=== PATIENT | female | born 1950 | race Caucasian/White ===

== ENCOUNTER 2017-05-27 19:27 | Inpatient (IN) | payer MEDICARE ==
[~2017-05-27] VITALS: Ht 165.1 cm; Wt 93.0 kg
[~2017-05-27 19:27] MED LIST: CEPH500C3 PO; SULF-154 PO; TRAM50 PO; Z.0.NO CURRENT MEDS
[2017-05-27 19:42] VITALS: BP 208/107; PULSE 101; RESP 18; TEMP 98.2; O2SAT 90
--- NOTE | 2017-05-27 20:26 | PD ---
HPI Chief Complaint: Fall Time Seen by Provider: 20:16 Travel History International Travel<30 days: No Contact w/Intl Traveler<30days: No Traveled to known affect area: No History of Present Illness HPI 67 year-old female presents to the emergency department by private transportation the care of her son for evaluation of injury sustained status post a non-syncopal trip and fall down 6 stairs earlier today. Patient states she was going down a flight of stairs approximately 13 steps about midway down lost her balance and fell 4. Patient states she did hit her head against the railing bruising her face and nose without epistaxis. Patient also states that she was dazed but is unsure if she had loss of consciousness she does not believe so. Son states that she deputy seemed dazed but he is not sure that she had loss of consciousness. Patient denies any neck pain. Patient denies any chest pain abdominal pain or back pain. Patient does complain of left hip and pelvis pain as well as left ankle pain with distal lower leg superficial abrasion. Patient states her last tetanus immunization was greater than 5 years ago. Patient is not diabetic. Patient states she has not seen a primary care physician in greater than 4 years and used to be treated for dyslipidemia and hypertension. Patient denies any upper extremity or lower extremity numbness tingling or weakness. The patient should rates her pain 10 over 10 in intensity with attempted ambulation but at rest is 5/10 in intensity. Patient states injury occurred approximately 2:30 PM today however due to logistics of family resources was unable to get to the emergency room prior to this time. Patient has had a dose of BC powder for pain. Patient takes no prescription medications, denies taking any other medications denies alcohol use tobacco use or substance use. Last oral intake was approximately 5:30 but due to poor appetite did not eat or drink very much food or beverage. Denies other concerns or complaints. No recent febrile illness respiratory illness no chest pain no shortness of breath no sweats no nausea no vomiting no abdominal pain no flank pain no referred neck jaw back shoulder or arm pain. Patient's had no recent dysuria or urgency. Patient has noted urinary frequency and some stress incontinence. Patient's had no change in weight. Patient's had noted abdominal pain or diarrheal illness. No report of hematemesis coffee-ground emesis melena hematochezia. Prior to today's fall patient's had no dizziness near syncope syncope or lower extremity pain or swelling and no dyspnea at rest or on exertion and no claudication. [facility] Past Medical History Narrative Medical Hypertension dyslipidemia; no surgery; no tobacco use no alcohol use no substance use; nursing notes reviewed Diminished Hearing: No Hypertension: Yes Influenza Vaccination: Yes ?: Not Menopausal: Yes Past Surgical History Surgical History: No Previous Surgery Social History Alcohol Use: No Tobacco Use: No Substance Use: No Allergies-Medications (Allergen,Severity, Reaction): Coded Allergies: No Known Allergies (Verified , 05/27/17) Reported Meds & Prescriptions Reported Meds & Active Scripts Active Review of Systems Except as stated in HPI: all other systems reviewed are Neg General / Constitutional: No: Fever, Chills Eyes: No: Visual changes HENT: No: Headaches, Neck Stiffness, Neck Pain Cardiovascular: No: Chest Pain or Discomfort, Palpitations, Diaphoresis, Syncope Respiratory: No: Cough, Shortness of Breath, Wheezing Gastrointestinal: No: Nausea, Vomiting, Abdominal Pain Genitourinary: No: Dysuria, Flank Pain Musculoskeletal: Positive: Myalgias, Arthralgias, Limited ROM (left hip/ankle) , Pain (left hip left ankle) Skin: Positive Other (abrasion left lower leg) Neurologic: No: Weakness, Dizziness, Syncope, Focal Abnormalities, Coordination Problem Psychiatric: No: Anxiety Endocrine: No: Heat Intolerance Hematologic/Lymphatic: No: Easy Bruising Physical Exam Narrative GENERAL: Well-developed well-nourished female in no acute distress no respiratory distress; GCS is 15; triage vital signs: T:98.2F, HR: 101, RR: 18, BP: 208/107; RA O2sat: 90% SKIN: Warm and dry. HEAD: Atraumatic. Normocephalic. EYES: Pupils equal and round. No scleral icterus. No injection or drainage. ENT: No nasal bleeding or discharge. Mucous membranes pink and moist. NECK: Trachea midline. No JVD. CARDIOVASCULAR: Regular rate and rhythm. Chest wall: Nontender to direct palpation no ecchymosis no abrasion no erythema. RESPIRATORY: No accessory muscle use. Clear to auscultation. Breath sounds equal bilaterally. GASTROINTESTINAL: Abdomen soft, non-tender, nondistended. Hepatic and splenic margins not palpable. MUSCULOSKELETAL: Extremities without clubbing, cyanosis, or edema. No obvious deformities. NEUROLOGICAL: Awake and alert. No obvious cranial nerve deficits. Motor grossly within normal limits. Five out of 5 muscle strength in the arms and legs. Normal speech. PSYCHIATRIC: Appropriate mood and affect; insight and judgment normal. Data Data Last Documented VS Vital Signs Date Time Temp Pulse Resp B/P (MAP) Pulse Ox O2 Delivery O2 Flow Rate FiO2 05/27/17 22:06 96 Nasal Cannula 3.00 05/27/17 21:49 95 05/27/17 19:42 98.2 18 Orders Orders Basic Metabolic Panel (Bmp) (05/27/17 20:17) Complete Blood Count With Diff (05/27/17 20:17) Urinalysis - C+S If Indicated (05/27/17 20:17) Ct Brain W/O Iv Contrast(Rout) (05/27/17 20:17) Ct Cerv Spine W/O Contrast (05/27/17 20:17) Ct Facial Bones W/O Iv Cont (05/27/17 20:17) Iv Access Insert/Monitor (05/27/17 20:17) Ecg Monitoring (05/27/17 20:17) Oximetry (05/27/17 20:17) Hip, Uni(Ap&Lat) W Ap Pelvis (05/27/17 ) Ankle, Complete ([id number]) (05/27/17 ) Ice/Cold Pack (05/27/17 20:17) Tetanus/Diphtheria Tox Adult (Tetanus/Di (05/27/17 20:30) Wound Care (05/27/17 20:17) Ondansetron Inj (Zofran Inj) (05/27/17 20:30) Morphine Inj (Morphine Inj) (05/27/17 20:30) Drug Screen, Random Urine (05/27/17 20:30) Protein Corrected Calcium(Pcc) (05/27/17 20:01) Electrocardiogram (05/27/17 ) Chest, Single Ap (05/27/17 ) Act Partial Throm Time (Ptt) (05/27/17 21:03) Prothrombin Time / Inr (Pt) (05/27/17 21:03) Blood Culture (05/27/17 21:03) Lactic Acid (05/27/17 21:03) Sodium Chlor 0.9% 1000 Ml Inj (Ns 1000 M (05/27/17 21:15) Magnesium (Mg) (05/27/17 21:13) Potassium Chlor 10 Meq Premix (Kcl 10 Me (05/27/17 21:15) Potassium Chloride (Kcl) (05/27/17 21:15) Troponin I (05/27/17 21:13) Thyroid Stimulating Hormone (05/27/17 21:13) Cath For Specimen (05/27/17 21:35) Ketorolac Inj (Toradol Inj) (05/27/17 21:45) Clonidine (Catapres) (05/27/17 22:15) Ckmb (Isoenzyme) Profile (05/27/17 22:01) Aspirin Chew (Aspirin Chew) (05/27/17 22:15) Nitroglycerin 2% Oint (Nitroglycerin 2% (05/27/17 22:15) Free T3 (05/27/17 22:15) Free Thyroxine (T4) (05/27/17 22:15) Vital Signs (Adult) Q4H (05/27/17 22:24) Activity Oob With Assistance (05/27/17 22:24) Impregnating Machine Operator / Telemetry .CONTINUOUS (05/27/17 22:24) Diet Heart Healthy (05/28/17 Breakfast) Sodium Chloride 0.9% Flush (Ns Flush) (05/27/17 22:30) Sodium Chloride 0.9% Flush (Ns Flush) (05/28/17 09:00) Basic Metabolic Panel (Bmp) (05/28/17 06:00) Complete Blood Count With Diff (05/28/17 06:00) Resp Oxygen Santino C Titrat 1-4 L (05/27/17 ) Pt Request For Service (05/27/17 22:24) Case Management Consult (05/27/17 22:24) Naloxone Inj (Narcan Inj) (05/27/17 22:30) Admit To Inpatient (05/27/17 ) Inpatient Certification (05/27/17 ) D-Dimer (05/27/17 22:29) Admit Order (Ed Use Only) (05/27/17 ) ^ Saline Lock (05/27/17 22:31) Resp Oxygen Santino C Titrat 1-4 L (05/27/17 ) Notify Dr: Other (05/27/17 22:31) Sodium Chloride 0.9% Flush (Ns Flush) (05/28/17 09:00) Sodium Chloride 0.9% Flush (Ns Flush) (05/27/17 22:45) Ns + Kcl 40 Meq Inj (Ns + Kcl 40 Meq Inj (05/27/17 22:45) CKMB (05/27/17 22:31) CKMB% (05/27/17 22:31) Labs Laboratory Tests Test 05/27/17 20:01 05/27/17 21:50 05/27/17 22:31 White Blood Count 21.4 TH/MM3 Red Blood Count 5.66 MIL/MM3 Hemoglobin 12.2 GM/DL Hematocrit 40.3 % Mean Corpuscular Volume 71.2 FL Mean Corpuscular Hemoglobin 21.6 PG Mean Corpuscular Hemoglobin Concent 30.3 % Red Cell Distribution Width 19.3 % Platelet Count 126 TH/MM3 Mean Platelet Volume 9.6 FL Neutrophils (%) (Auto) 88.6 % Lymphocytes (%) (Auto) 3.6 % Monocytes (%) (Auto) 7.0 % Eosinophils (%) (Auto) 0.0 % Basophils (%) (Auto) 0.8 % Neutrophils # (Auto) 18.9 TH/MM3 Lymphocytes # (Auto) 0.8 TH/MM3 Monocytes # (Auto) 1.5 TH/MM3 Eosinophils # (Auto) 0.0 TH/MM3 Basophils # (Auto) 0.2 TH/MM3 CBC Comment AUTO DIFF Differential Comment AUTO DIFF CONFIRMED Platelet Estimate LOW Platelet Morphology Comment NORMAL Prothrombin Time 11.4 SEC Prothromb Time International Ratio 1.0 RATIO Activated Partial Thromboplast Time 23.0 SEC Blood Urea Nitrogen 34 MG/DL Creatinine 1.20 MG/DL Random Glucose 211 MG/DL Total Protein 7.1 GM/DL Calcium Level 13.6 MG/DL Sodium Level 140 MEQ/L Potassium Level 2.0 MEQ/L Chloride Level 87 MEQ/L Carbon Dioxide Level 44.7 MEQ/L Anion Gap 8 MEQ/L Estimat Glomerular Filtration Rate 45 ML/MIN Protein Corrected Calcium 13.7 MG/DL Magnesium Level 2.6 MG/DL Troponin I 0.35 NG/ML Thyroid Stimulating Hormone 3rd Gen LESS THAN 0.005 uIU/ML Lactic Acid Level 3.7 mmol/L Total Creatine Kinase 241 U/L Creatine Kinase MB 9.6 NG/ML Creatine Kinase MB % 4.0 % MDM Medical Decision Making Medical Screen Exam Complete: Yes Emergency Medical Condition: Yes Medical Record Reviewed: Yes Interpretation(s) EKG: Sinus tachycardia rate [address]-T changes with mild ST segment depression and 1 V3 through V6 with no acute ST elevation or injury pattern change noted no ectopy coags: wnl d-dimer: 0.85, mildly elevated TSH: 0.005, depressed lactic acid: 3.7 elevated Last Impressions Maxillofacial CT 05/27/172016 Signed Impressions: Service Date/Time: May 20:34 - CONCLUSION: 1. No maxillofacial fracture is present. 2. There is bilateral maxillary mucoperiosteal thickening with 12 mm polypoid structure extending from the left maxillary antrum into the left posterior nasal cavity. 3. There is a 14 mm left parotid gland nodule. Differential diagnosis includes intraparotid lymph node or pleomorphic adenoma. Kane Bartlett MD Head CT 05/27/172016 Signed Impressions: Service Date/Time: May 20:34 - CONCLUSION: No acute abnormality is identified. Kane Bartlett MD Cervical Spine CT 05/27/172016 Signed Impressions: Service Date/Time: May 20:34 - CONCLUSION: 1. No acute cervical spine abnormality is identified. There is degenerative disc disease at C5-C6. 2. There is a 4.1 cm right thyroid nodule. If this is a new finding, suggest nonemergent outpatient ultrasound of the thyroid gland for further evaluation. 3. Abnormal linear and nodular parenchymal opacities in the upper lobes bilaterally. Since this does not pertain to the patient's acute problem, this finding should also be further evaluated with outpatient chest CT with IV contrast. Also suggest correlating with any prior outside imaging studies. Kane Bartlett MD Hip and Pelvis X-Ray 05/27/17 0000 Signed Impressions: Service Date/Time: May 20:49 - CONCLUSION: 1. A subtle lucency in the left pelvis may represent a nondisplaced left superior pubic ramus fracture. 2. Mild osteoarthritis of the joints bilaterally. Kane Bartlett MD Chest X-Ray 05/27/17 0000 Signed Impressions: Service Date/Time: May 21:27 - CONCLUSION: Diffuse nodular and reticular nodular opacities bilaterally. Etiology is nonspecific but metastatic disease is one consideration. Suggest correlation for any known primary malignancies. Sarcoidosis is another possibility but felt less likely given the distribution and lack of appreciable lymphadenopathy. Kane Bartlett MD Ankle X-Ray 05/27/17 0000 Signed Impressions: Service Date/Time: May 20:56 - CONCLUSION: No acute left ankle abnormality is identified. Kane Bartlett MD CBC & BMP Diagram 05/27/17 20:01 Total Protein 7.1, Calcium Level 13.6 *H Ma.6 elevated troponin I: 0.35, elevated; ck: 241, elevated; MB 9.6, elevated; MB% 4% upper limit of normal ua: White blood cells clumped white blood cells culture indicated Differential Diagnosis Mechanical fall, minor closed head injury, ICH, skull fracture, facial fracture , cervical spine sprain strain fracture injury, pelvic fracture hip fracture ankle fracture contusion hypertension uncontrolled hypertension Narrative Course Patient placed on monitor technician IV access obtained patient identified to have mild tachycardia and hypertension also noted to have low room air O2 saturation ; imaging studies ordered IV access ordered and basic labs CT brain noncontrast reveals no acute intracranial abnormality or skull fracture ; CT cervical spine reveals no acute bony abnormality fracture or cord impingement however does identify 4 cm right thyroid nodule/mass that appears to be new. Left ankle x-ray reveals no acute bony abnormality. Left hip/ pelvis x-ray reveals a nondisplaced suspicious fracture line to the superior pubic ramus on the left which is the same location of patient's pain therefore consistent with probable acute fracture. Patient identified to have leukocytosis of 21,000 with left shift 88% normal hemoglobin hematocrit but mild thrombocytopenia 126,000 as such blood cultures and lactic acid have been added to patient's laboratory work as well as urine specimen will be collected with mini catheter In view of CT cervical spine identifying some mild nodularity in the upper apices of the lung chest x-ray ordered and is remarkable for multiple diffuse nodules and reticular nodule pattern concerning for metastatic disease no obvious primary malignancy on chest x-ray Metabolic panel remarkable for marked hypokalemia of 2.0 and hypocalcemia of 13.6 with mild elevation of magnesium of 2.6 patient with renal insufficiency BUN and creatinine 4 and 1.2 respectively with mild hyperglycemia of 211 Patient identified to have abnormal elevation of troponin I 0.35 patient denies having any chest pain shortness of breath sweats nausea vomiting referred neck jaw back shoulder arm pain and has not felt unwell recently until this afternoon after fall she's felt fatigued. Patient at this time denies any chest pain or shortness of breath. Patient is on supplemental oxygen and O2 saturations on 2 L per minute nasal cannula 96-98%. Patient also denies any pleuritic chest pain. Bicarbonate of 44 suggests probable COPD and will keep supplemental O2 at 2 L/m nasal cannula to avoid hypercarbia. CK isoenzyme ordered. Patient administered oral potassium replacement along with IV potassium replacement and IV fluid infusion. Patient presents for injuries associated with a non-syncopal or possibly brief syncopal episode status post fall imaging studies identified no acute traumatic injury except for appears to have a stable pelvic fracture. However patient identified to have abnormal vital signs and evaluation subsequent identifies multiple concerns suspicious for cardiovascular disease with history of hypertension and dyslipidemia and now with abnormal EKG with nonspecific ST-T changes with elevated troponin I concerning for acute coronary syndrome patient has received aspirin and has Nitropaste 1 inch to chest wall and primary malignancy with anesthetic disease and dehydration with electrolyte disturbance renal insufficiency. Patient also identified to have leukocytosis with elevated lactic acid concerning for SIRS/ sepsis focality otherwise source of infection however urinalysis pending. Patient also identified to have abnormal thyroid function concerning for hyperthyroidism free T4 and free T3 levels are pending. Patient will be admitted for further management and evaluation. Patient's case discussed with on-call medicine for admission; like patient to be admitted to intermediate care at [place] for electrolyte replacement follow-up of cardiac enzymes and pending thyroid studies. Wants patient admitted to Intermediate care aware of all diagnostics as discussed -- aware CK , thyroid free t4/t3 pending d-dimer pending UA pending -- report of abnormal electrolytes, elevated troponin I, renal function, imaging results, elevated WCC and elevated lactic discussed in detail. Per admitting MD plan to admit for IV fluid hydration, electrolyte replacement, serial enzymes and follow pending labs regarding possible starting antibiotics, further imaging, or heparinization. Critical Care Narrative Aggregate critical care time was 45 minutes. Time to perform other separately billable procedures was not included in the critical care time. My time did not include minutes spent treating any other patients simultaneously or on activities that did not directly contribute to the patient's treatment. The services I provided to this patient were to treat and/or prevent clinically significant deterioration that could result in: Arrhythmia, cardiopulmonary arrest, septic shock, I provided critical care services requiring my management, as noted below: Chart data review, documentation time, medication orders and management, vital sign assessments/reviewing monitor data, ordering and reviewing lab tests, ordering and interpreting/reviewing x-rays and diagnostic studies, care of the patient and discussion of the patient with the admitting physicians. Sepsis Criteria SIRS Criteria (2 or more): WBC > 08982, < 4000 or > 10% bands Physician Communication Physician Communication discused with Dr Wilder --admit to [facility] intermediate care unit Diagnosis Primary Impression: Electrolyte disorder Additional Impressions: Elevated troponin I level Closed fracture of single pubic ramus of pelvis Qualified Codes: S32.592A - Other specified fracture of left pubis, initial encounter for closed fracture Admitting Information Admitting Physician Requests: Admit Ayana Rice MD May 27, 2017 20:26
[2017-05-27] MEDS ORDERED: MORPHINE SULFATE 4 MG/ML INJ IV PUSH ONE (20:30)
[2017-05-27] MEDS ORDERED: ONDANSETRON HCL 4 MG/2 ML VIAL IV PUSH ONE (20:30)
[2017-05-27] MEDS ORDERED: TETANUS/DIPHTHERIA TOXOID ADULT 0.5 ML VIAL IM ONE (20:30)
[2017-05-27] MEDS ORDERED: MORPHINE SULFATE 8 MG/ML INJ IV PUSH ONE (20:30)
[2017-05-27 20:48] LABS: AUTOMATED NEUTROPHIL # 18.9 TH/MM3 (1.8-7.7); BASOPHIL # 0.2 TH/MM3 (0-0.2); BASOPHIL % 0.8 % (0.0-2.0); HEMATOCRIT 40.3 % (35.0-46.0); LYMPH % 3.6 % (9.0-44.0); LYMPHOCYTE # 0.8 TH/MM3 (1.0-4.8); MEAN CELL VOLUME 71.2 FL (80.0-100.0); MEAN CORPUSCULAR HEMOGLOBIN 21.6 PG (27.0-34.0); MEAN CORPUSCULAR HGB CONC 30.3 % (32.0-36.0); NEUT % 88.6 % (16.0-70.0); PLATELET COUNT 126 TH/MM3 (150-450); RED BLOOD COUNT 5.66 MIL/MM3 (4.00-5.30); RED CELL DISTRIBUTION WIDTH 19.3 % (11.6-17.2); WHITE BLOOD COUNT 21.4 TH/MM3 (4.0-11.0)
--- NOTE | 2017-05-27 20:55 | RADRPT ---
EXAM DATE/TIME: 05/27/2017 20:34 [facility] COMPARISON: No previous studies available for comparison. INDICATIONS : Status post fall. RADIATION DOSE: 59.64 CTDIvol (mGy) MEDICAL HISTORY : None SURGICAL HISTORY : None. ENCOUNTER: Initial ACUITY: 1 day PAIN SCALE: 8/10 LOCATION: cranial TECHNIQUE: Multiple contiguous axial images were obtained of the head. Using automated exposure control and adj ustment of the mA and/or kV according to patient size, radiation dose was kept as low as reasonably a chievable to obtain optimal diagnostic quality images. DICOM format image data is available electro nically for review and comparison. FINDINGS: CEREBRUM: The ventricles are normal for age. No evidence of midline shift, mass lesion, hemorrhage or acute in farction. No extra-axial fluid collections are seen. POSTERIOR FOSSA: The cerebellum and brainstem are intact. The 4th ventricle is midline. The cerebellopontine angle i s unremarkable. EXTRACRANIAL: The visualized portion of the orbits is intact. SKULL: The calvaria is intact. No evidence of skull fracture. CONCLUSION: No acute abnormality is identified. Kane Bartlett MD on May 27, 2017 at 20:52 Board Certified Radiologist. This report was verified electronically.
[2017-05-27 20:56] LABS: BICARBONATE 44.7 MEQ/L (21.0-32.0); HEMO FLAGS AUTO DIFF
[2017-05-27 21:07] LABS: PLATELET ESTIMATE SMEAR LOW (NORMAL); PLATELET MORPHOLOGY NORMAL (NORMAL); SCAN/DIFF AUTO DIFF CONFIRMED
--- NOTE | 2017-05-27 21:11 | RADRPT ---
EXAM DATE/TIME: 05/27/2017 20:34 [facility] COMPARISON: No previous studies available for comparison. INDICATIONS : Status post fall. Neck pain. RADIATION DOSE: 26.40 CTDIvol (mGy) MEDICAL HISTORY : None SURGICAL HISTORY : None. ENCOUNTER: Initial ACUITY: 1 day PAIN SCALE: 8/10 LOCATION: neck TECHNIQUE: Volumetric scanning of the cervical spine was performed. Multiplanar reconstructions in the sagittal, coronal and oblique axial planes were performed. Using automated exposure control and adjustment o f the mA and/or kV according to patient size, radiation dose was kept as low as reasonably achievable to obtain optimal diagnostic quality images. DICOM format image data is available electronically f or review and comparison. FINDINGS: There is normal sagittal spine alignment of the cervical spine. No anterolisthesis or retrolisthesis is present. The atlantoaxial relationship is within normal limits. There is no prevertebral soft tiss ue swelling present. No fracture or dislocation is identified. No disc herniation is visualized in th e upper cervical spine. There is degenerative disc disease at C5-C6 and right facet arthrosis at C2-C 3 and C3-C4 and left facet arthrosis at C3-C4 and C4-C5. There is an enlarged right lobe of the thyroid gland containing a 4.1 cm hypodense nodule. There is c alcification in the left lobe. There is a nodular and a linear parenchymal opacities in the visualize d upper lung zones bilaterally. CONCLUSION: 1. No acute cervical spine abnormality is identified. There is degenerative disc disease at C5-C6. 2. There is a 4.1 cm right thyroid nodule. If this is a new finding, suggest nonemergent outpatient u ltrasound of the thyroid gland for further evaluation. 3. Abnormal linear and nodular parenchymal opacities in the upper lobes bilaterally. Since this does not pertain to the patient's acute problem, this finding should also be further evaluated with outpat ient chest CT with IV contrast. Also suggest correlating with any prior outside imaging studies. Kane Bartlett MD on May 27, 2017 at 21:05 Board Certified Radiologist. This report was verified electronically.
[2017-05-27] MEDS ORDERED: SODIUM CHLOR 0.9% 1000 ML INJ 1,000 ML IV SCH (21:15)
[2017-05-27] MEDS ORDERED: POTASSIUM CHLORIDE 20 MEQ CONTROLLED RELEASE TAB PO ONE ×2 (21:15→22:45)
--- NOTE | 2017-05-27 21:15 | RADRPT ---
EXAM DATE/TIME: 05/27/2017 20:34 [facility] COMPARISON: No previous studies available for comparison. INDICATIONS : Status post fall. Bruise left cheekbone. RADIATION DOSE: 25.48 CTDIvol (mGy) MEDICAL HISTORY : None SURGICAL HISTORY : None. ENCOUNTER: Initial ACUITY: 1 day PAIN SCORE: 8/10 LOCATION: Left facial TECHNIQUE: Volumetric scanning of the facial bones was performed. Using automated exposure control and adjustme nt of the mA and/or kV according to patient size, radiation dose was kept as low as reasonably achiev able to obtain optimal diagnostic quality images. DICOM format image data is available electronicall y for review and comparison. FINDINGS: ORBITS: The orbital structures are intact. The retroconal structures have a normal configuration. No radiop aque foreign bodies are seen. The lenses are normally located. NASAL BONE: The nasal bones and maxillary spine are intact. ZYGOMATIC ARCHES: Symmetric without evidence of fracture. SINUSES: There is mucoperiosteal thickening within the maxillary antra bilaterally. There is a 12 mm polypoid structure in the left posterior nasopharynx appears to extend from the left maxillary antrum. NASAL CAVITY: The nasal septum is intact and slightly deviated to the right. The lacrimal ducts are intact. SOFT TISSUES: No radiopaque foreign bodies seen. No soft-tissue swelling is seen. There is a left intraparotid nod ule measuring 14 mm. INTRACRANIAL: No acute intracranial abnormality is seen. OTHER: The mandible and pterygoid plates are intact. CONCLUSION: 1. No maxillofacial fracture is present. 2. There is bilateral maxillary mucoperiosteal thickening with 12 mm polypoid structure extending fro m the left maxillary antrum into the left posterior nasal cavity. 3. There is a 14 mm left parotid gland nodule. Differential diagnosis includes intraparotid lymph nod e or pleomorphic adenoma. Kane Bartlett MD on May 27, 2017 at 21:10 Board Certified Radiologist. This report was verified electronically.
--- NOTE | 2017-05-27 21:21 | RADRPT ---
EXAM DATE/TIME: 05/27/2017 20:49 [facility] COMPARISON: No previous studies available for comparison. INDICATIONS : Fall, complains of left hip pain. MEDICAL HISTORY : None. SURGICAL HISTORY : None. ENCOUNTER: Initial ACUITY: 1 day PAIN SCORE: 10/10 LOCATION: Left hip FINDINGS: 2 AP views of the pelvis demonstrate a subtle lucency through the lateral aspect of the left superior pubic ramus. Otherwise, no other fracture is seen. Proximal femora appear intact. There is mild join t space narrowing and osteophytes at the hip joints. No soft tissue abnormality is identified. CONCLUSION: 1. A subtle lucency in the left pelvis may represent a nondisplaced left superior pubic ramus fractur e. 2. Mild osteoarthritis of the joints bilaterally. Kane Bartlett MD on May 27, 2017 at 21:18 Board Certified Radiologist. This report was verified electronically.
--- NOTE | 2017-05-27 21:23 | RADRPT ---
EXAM DATE/TIME: 05/27/2017 20:56 [facility] COMPARISON: No previous studies available for comparison. INDICATIONS : Fall, complains of left ankle pain. MEDICAL HISTORY : None. SURGICAL HISTORY : None. ENCOUNTER: Initial ACUITY: 1 day PAIN SCORE: 10/10 LOCATION: Left ankle FINDINGS: 3 views the left ankle demonstrate no fracture or dislocation. Ankle mortise is intact. Mineralizatio n is within normal limits and there is no significant arthropathy. No soft tissue abnormality or radi opaque foreign body is identified. Enthesophyte is present at the plantar aspect of the calcaneus. CONCLUSION: No acute left ankle abnormality is identified. Kane Bartlett MD on May 27, 2017 at 21:20 Board Certified Radiologist. This report was verified electronically.
[2017-05-27 21:30] LABS: CALCIUM-PROTEIN CORRECTED 13.7 MG/DL (8.5-10.1)
[2017-05-27 21:43] LABS: MAGNESIUM 2.6 MG/DL (1.5-2.5)
[2017-05-27] MEDS ORDERED: KETOROLAC TROMETHAMINE 30 MG/ML (IVP) VIAL IV PUSH ONE (21:45)
--- NOTE | 2017-05-27 21:47 | RADRPT ---
EXAM DATE/TIME: 05/27/2017 21:27 [facility] COMPARISON: No previous studies available for comparison. INDICATIONS : Fall. MEDICAL HISTORY : None. SURGICAL HISTORY : None. ENCOUNTER: Initial ACUITY: 1 day PAIN SCORE: 8/10 LOCATION: Bilateral chest FINDINGS: Portable AP view of the chest demonstrates a normal-sized cardiac silhouette. There are innumerable a bnormal nodular 2 reticular nodular opacities bilaterally. These diffusely involved the lungs includi ng the upper and lower lung zones. There is no effusion or pneumothorax identified. Bones and soft ti ssues demonstrate no acute finding. CONCLUSION: Diffuse nodular and reticular nodular opacities bilaterally. Etiology is nonspecific but metastatic d isease is one consideration. Suggest correlation for any known primary malignancies. Sarcoidosis is a nother possibility but felt less likely given the distribution and lack of appreciable lymphadenopath yNova Bartlett MD on May 27, 2017 at 21:43 Board Certified Radiologist. This report was verified electronically.
[2017-05-27 21:49] VITALS: BP 205/101; PULSE 95; O2SAT 88
[2017-05-27 21:49] LABS: PROTHROMBIN TIME - PATIENT 11.4 SEC (9.8-11.6)
[2017-05-27] MEDS: POTASSIUM CHLOR 10 MEQ PREMIX 100 ML IV SCH ×2 (22:01→23:59)
[2017-05-27 22:06] VITALS: O2SAT 96
[2017-05-27] MEDS ORDERED: cloNIDine HCL 0.1 MG TAB PO ONE (22:15)
[2017-05-27] MEDS ORDERED: NITROGLYCERIN 2% OINT 1 GM PACKET TOPICAL ONE (22:15)
[2017-05-27] MEDS ORDERED: ASPIRIN 81 MG CHEW TAB CHEW ONE (22:15)
[2017-05-27] MEDS ORDERED: SODIUM CHLORIDE 0.9% FLUSH 10 ML FLUSH IV FLUSH PRN (22:30)
[2017-05-27] MEDS ORDERED: NALOXONE HCL 0.4 MG/ML AMP IV PRN (22:30)
[2017-05-27] MEDS ORDERED: SODIUM CHLORIDE 0.9% FLUSH 10 ML FLUSH IVF PRN (22:45)
[2017-05-27 22:57] VITALS: BP 216/107; PULSE 94; RESP 17; TEMP 98.4; O2SAT 98
[2017-05-27 23:08] LABS: BLOOD, URINE LARGE (NEG); GLUCOSE,URINE NEG (NEG); KETONE, URINE NEG (NEG); NITRITE,URINE NEG (NEG); PH, URINE 5.5 (5.0-8.5)
[2017-05-27] MEDS: cloNIDine HCL 0.1 MG TAB PO PRN (23:12)
[2017-05-27] MEDS: NS + KCL 40 MEQ INJ 1,000 ML IV SCH (23:12)
[2017-05-27 23:23] LABS: URINE COLOR YELLOW (YELLW/STRAW)
[2017-05-27 23:26] LABS: MUCUS URINE FEW /lpf (OCC); SQUAMOUS EPITHELIAL CELL URINE 0-5 /hpf (0-5)
[2017-05-27 23:27] LABS: COMMENT (UR) CULTURE INDICATED; CULTURE IF INDICATED CULTURE INDICATED
[2017-05-27] MEDS ORDERED: ACETAMINOPHEN/HYDROcodone 325 MG/5 MG TAB PO PRN (23:45)
[2017-05-27] MEDS: cefTRIAXone INJ 1,000 MG in SODIUM CHLORIDE 0.9% INJ 100 ML IV SCH (23:58)
[2017-05-28] VITALS (24 sets, daily range): BP systolic 149–215; BP diastolic 59–127; PULSE 70–94; RESP 14–32; TEMP 97.7–98.4; O2SAT 91–98
[2017-05-28 00:13] LABS: CKMB 9.6 NG/ML (0.5-3.6)
[2017-05-28] MEDS: POTASSIUM CHLOR 10 MEQ PREMIX 100 ML IV SCH (01:09)
[2017-05-28 01:15] LABS: FREE T3 3.04 PG/ML (2.18-3.98); FREE T4 1.61 NG/DL (0.76-1.46)
[2017-05-28] MEDS ORDERED: HEPARIN-D5W 25,000 U/250 ML 250 ML IV PRN (01:44)
[2017-05-28] MEDS ORDERED: HEPARIN SODIUM - IV 10,000 UNITS/10 ML VIAL IV ONE (01:45)
[2017-05-28] MEDS ORDERED: IOHEXOL 350 MG/ML 10 ML VIAL (for RAD DIAG) IVCONTRAST ONE ×2 (02:19→21:00)
--- NOTE | 2017-05-28 02:31 | RADRPT ---
EXAM DATE/TIME: 05/28/2017 02:01 [facility] COMPARISON: No previous studies available for comparison. INDICATIONS : Elevated D-Dimer. Rule out PE. IV CONTRAST: 75 cc Omnipaque 350 (iohexol) IV RADIATION DOSE: 24.16 CTDIvol (mGy) MEDICAL HISTORY : Hypertension. SURGICAL HISTORY : None. ENCOUNTER: Initial ACUITY: 1 day PAIN SCALE: 8/10 LOCATION: chest TECHNIQUE: Volumetric scanning of the chest was performed using a pulmonary embolism protocol MIP images were re constructed. Using automated exposure control and adjustment of the mA and/or kV according to patien t size, radiation dose was kept as low as reasonably achievable to obtain optimal diagnostic quality images. DICOM format image data is available electronically for review and comparison. Follow-up recommendations for detected pulmonary nodules are based at a minimum on nodule size and pa tient risk factors according to Fleischner Society Guidelines. FINDINGS: PULMONARY ARTERIES: No filling defects are seen in the pulmonary arteries through the segmental level. LUNGS: There are innumerable pulmonary nodules scattered throughout the lungs. Miliary metastatic disease wo uld be within the differential PLEURAE: There is no pleural thickening or pleural effusion. MEDIASTINUM: There is good visualization of the great vessels of the middle mediastinum. Solitary precarinal lymph node measuring 1.4 x 0.9 cm. MUSCULOSKELETAL: Within normal limits for patient age. MISCELLANEOUS: The visualized upper abdominal organs demonstrate no acute abnormality. There is a heterogeneous mass on the right side of thyroid in the lower neck I suspect is a large goiter measuring 4.4 x 3.4 cm. CONCLUSION: Large mass on the right side of the trachea could be an enlarged thyroid. Innumerable nodules scatte red throughout the lungs metastatic disease certainly within the differential. There are a number of nodules in the right lower lobe which would be amenable to CT-guided biopsy. Vince Galan MD on May 28, 2017 at 2:27 Board Certified Radiologist. This report was verified electronically.
[2017-05-28 05:31] LABS: BLOOD UREA NITROGEN 31 MG/DL (7-18); CHLORIDE 89 MEQ/L (98-107); CREATINE KINASE 137 U/L (26-192); GLOMERULAR FILTRATION RATE 57 ML/MIN (>89); SODIUM (NA) 139 MEQ/L (136-145)
[2017-05-28 05:37] LABS: ANION GAP 5 MEQ/L (5-15); BICARBONATE GREATER THAN 45.0 MEQ/L (21.0-32.0)
[2017-05-28 05:41] LABS: POTASSIUM 2.4 MEQ/L (3.5-5.1)
[2017-05-28 07:00] LABS: AUTOMATED NEUTROPHIL # 18.6 TH/MM3 (1.8-7.7); BASOPHIL % 0.1 % (0.0-2.0); EOSINOPHIL % 0.1 % (0.0-4.0); HEMATOCRIT 33.8 % (35.0-46.0); LYMPH % 3.9 % (9.0-44.0); LYMPHOCYTE # 0.8 TH/MM3 (1.0-4.8); MEAN CORPUSCULAR HEMOGLOBIN 23.1 PG (27.0-34.0); MEAN CORPUSCULAR HGB CONC 32.5 % (32.0-36.0); MONO % 6.3 % (0.0-8.0); NEUT % 89.6 % (16.0-70.0); PLATELET COUNT 112 TH/MM3 (150-450); RED BLOOD COUNT 4.76 MIL/MM3 (4.00-5.30); RED CELL DISTRIBUTION WIDTH 19.1 % (11.6-17.2); WHITE BLOOD COUNT 20.7 TH/MM3 (4.0-11.0)
[2017-05-28] MEDS: cloNIDine HCL 0.1 MG TAB PO PRN ×2 (07:05→22:08)
[2017-05-28 07:08] LABS: HEMO FLAGS AUTO DIFF
[2017-05-28 07:35] LABS: PLATELET ESTIMATE SMEAR LOW (NORMAL); PLATELET MORPHOLOGY NORMAL (NORMAL); SCAN/DIFF AUTO DIFF CONFIRMED
[2017-05-28 07:46] LABS: BLOOD UREA NITROGEN 31 MG/DL (7-18); CHLORIDE 98 MEQ/L (98-107); GLOMERULAR FILTRATION RATE 62 ML/MIN (>89); SODIUM (NA) 147 MEQ/L (136-145)
[2017-05-28 07:50] LABS: ANION GAP 4 MEQ/L (5-15); BICARBONATE GREATER THAN 45.0 MEQ/L (21.0-32.0)
[2017-05-28 07:53] LABS: POTASSIUM 2.6 MEQ/L (3.5-5.1)
[2017-05-28 08:59] LABS: APTT (PATIENT) 50.8 SEC (24.3-30.1)
[2017-05-28] MEDS ORDERED: SODIUM CHLORIDE 0.9% FLUSH 10 ML FLUSH IV FLUSH SCH ×2 (09:00)
[2017-05-28] MEDS ORDERED: POTASSIUM CHLORIDE 25 MEQ EFFERVESCENT TAB PO PRN (09:15)
[2017-05-28] MEDS ORDERED: LACTULOSE SYRUP 20 GM/30 ML CUP PO PRN (09:15)
[2017-05-28] MEDS ORDERED: POTASSIUM PHOSPHATE INJ 30 MMOL in SODIUM CHLOR 0.9% 250 ML INJ 250 ML IV PRN (09:15)
[2017-05-28] MEDS ORDERED: MAGNESIUM OXIDE 400 MG TAB PO PRN (09:15)
[2017-05-28] MEDS ORDERED: MAGNESIUM SULFATE INJ 2 GM in SODIUM CHLORIDE 0.9% INJ 96 ML IV PRN (09:15)
[2017-05-28] MEDS ORDERED: SENNOSIDES 8.6 MG TAB PO PRN (09:15)
[2017-05-28] MEDS ORDERED: SODIUM CHLORIDE 0.9% FLUSH 10 ML FLUSH IV FLUSH PRN (09:15)
[2017-05-28] MEDS ORDERED: BISACODYL 10 MG SUPP RECTAL PRN (09:15)
[2017-05-28] MEDS ORDERED: MAGNESIUM SULFATE INJ 4 GM in SODIUM CHLORIDE 0.9% INJ 92 ML IV PRN (09:15)
[2017-05-28] MEDS ORDERED: ACETAMINOPHEN 325 MG TAB PO PRN ×2 (09:15)
[2017-05-28] MEDS ORDERED: POTASSIUM PHOSPHATE MONOBASIC 500 MG TAB PO PRN (09:15)
[2017-05-28] MEDS ORDERED: POTASSIUM CHLOR 40 MEQ PREMIX 100 ML IV PRN ×2 (09:15)
[2017-05-28] MEDS ORDERED: SODIUM PHOSPHATE INJ 30 MMOL in SODIUM CHLOR 0.9% 250 ML INJ 240 ML IV PRN (09:15)
[2017-05-28] MEDS ORDERED: POTASSIUM PHOSPHATE MONOBASIC 500 MG TAB PO/TUBE PRN (09:15)
[2017-05-28] MEDS ORDERED: MAGNESIUM HYDROXIDE SUSP 30 ML CUP PO PRN (09:15)
[2017-05-28] MEDS ORDERED: ASPIRIN 81 MG CHEW TAB CHEW SCH (10:00)
[2017-05-28] MEDS: POTASSIUM CHLOR 20 MEQ PREMIX 100 ML IV SCH ×2 (10:17→14:36)
[2017-05-28] MEDS: NS + KCL 40 MEQ INJ 1,000 ML IV SCH ×2 (10:18→19:34)
--- NOTE | 2017-05-28 10:18 | RADRPT ---
EXAM DATE/TIME: 05/28/2017 09:50 [facility] COMPARISON: HIP LEFT (AP&LAT 2/3VWS) W AP PELVIS, May 27, 2017, 20:49. INDICATIONS : Trauma. Fell yesterday. Left hip pain. Abnormal x-ray. RADIATION DOSE: 13.39 CTDIvol (mGy) MEDICAL HISTORY : Hypertension. SURGICAL HISTORY : None. ENCOUNTER: Initial ACUITY: 1 day PAIN SCALE: 6/10 LOCATION: Left hip TECHNIQUE: Volumetric scanning of the hip was performed. Using automated exposure control and adjustment of the mA and/or kV according to patient size, radiation dose was kept as low as reasonably achievable to o btain optimal diagnostic quality images. DICOM format image data is available electronically for rev iew and comparison. FINDINGS: Acute nondisplaced fractures are seen involving the superior and inferior pubic rami on the left. Mod erate osteoarthritis is seen involving the left hip joint. Subchondral geode formation is seen involv ing the superior portion of the acetabulum. Osteophyte production noted. No joint effusion. The uterus is lobulated and enlarged suggesting multiple fibroids. Retroperitoneal adenopathy is obse rved as well as common iliac chain adenopathy. The largest lymph node is involve the left external il iac chain measuring 3.2 x 3.1 cm. CONCLUSION: 1. Acute nondisplaced superior and inferior pubic rami fractures on the left. 2. Retroperitoneal adenopathy worrisome for metastatic disease or myeloproliferative disorder. 3. Enlarged and lobulated uterus likely related to fibroids. Sushant Juares Jr., MD on May 28, 2017 at 10:12 Board Certified Radiologist. This report was verified electronically.
[2017-05-28] MEDS: PROPRANOLOL HCL 10 MG TAB PO SCH ×3 (10:19→19:35)
[2017-05-28] MEDS ORDERED: POTASSIUM CHLORIDE 20 MEQ CONTROLLED RELEASE TAB PO ONE (11:00)
--- NOTE | 2017-05-28 11:40 | EKG ---
Date Performed: 05/27/2017 Time Performed: 21:12:40 PTAGE: 67 years EKG: SINUS TACHYCARDIA POSSIBLE LEFT ATRIAL ENLARGEMENT NONSPECIFIC ST & T-WAVE ABNORMALITY ABNO RMAL RHYTHM ECG NO PREVIOUS TRACING DOCTOR: Gerry Yarbrough Interpretating Date/Time 05/28/2017 11:38:49
--- NOTE | 2017-05-28 11:40 | EKG ---
Date Performed: 05/28/2017 Time Performed: 03:25:54 PTAGE: 67 years EKG: Sinus rhythm NONSPECIFIC ST & T-WAVE ABNORMALITY BORDERLINE ECG Compared to prior tracing no significant change PREVIOUS TRACING : 05/27/2017 21.12 DOCTOR: Gerry Yarbrough Interpretating Date/Time 05/28/2017 11:38:58
[2017-05-28] MEDS: hydrALAZINE HCL 20 MG/ML VIAL IV PRN (12:12)
[2017-05-28] MEDS: cefTRIAXone INJ 1,000 MG in SODIUM CHLORIDE 0.9% INJ 100 ML IV SCH ×2 (12:12→23:13)
[2017-05-28] MEDS: ENALAPRILAT 1.25 MG/ML VIAL IV PRN ×3 (16:14→22:08)
[2017-05-28] MEDS: HEPARIN SODIUM - SQ 10,000 UNITS/ML VIAL SQ SCH ×2 (16:16→23:13)
[2017-05-28] MEDS: ACETAMINOPHEN/HYDROcodone 325 MG/10 MG TAB PO PRN (16:24)
--- NOTE | 2017-05-28 16:32 | HHI.HP ---
[facility] No Primary Care Physician Admission Diagnosis Electrolyte disorder; elevated troponin I; pelvic fracture Diagnoses: Chief Complaint: Left hip pain Travel History International Travel<30 Days: No Contact w/Intl Traveler <30 Da: No Traveled to Known Affected Are: No History of Present Illness This is a 67-year-old female with history of hypertension, hyperlipidemia and noncompliance. She has not seen a doctor for over 4 years. She presents to the emergency department after she had a non-syncopal fall down the stairs after losing her balance. She landed on her left hip and was not able to get up due to constant severe hip pain worse with activity. She also hit her head but denies loss of consciousness. She was temporarily dazed. Denies any other injuries. She also complained of left ankle pain. Workup shows severe electrolyte abnormality with potassium of 2 and calcium of 13.6. She received IV and by mouth potassium supplementation and IV hydration and has been advised hospitalization. Additional imaging study shows left pubic rami fracture. Incidentally she was found to have bilateral lung opacities, parotid gland nodule and retroperitoneal adenopathy concerning for metastatic disease. Denies weight loss, anorexia and history of cancer. She also has hyperthyroidism with thyromegaly and severe sepsis with UTI. No thyroid disease , heat or cold intolerance, weight change and UTI symptoms except for increased urination for the past month. All other systems reviewed negative Review of Systems Except as stated in HPI: all other systems reviewed are Neg Past Family Social History Past Medical History As previously mentioned Past Surgical History Denies Reported Medications Non- Allergies: Coded Allergies: No Known Allergies (Verified , 05/27/17) Family History Hypertension, diabetes and lung cancer Social History Does not smoke or drink Physical Exam Vital Signs Vital Signs Date Time Temp Pulse Resp B/P (MAP) Pulse Ox O2 Delivery O2 Flow Rate FiO2 05/28/17 15:35 05/28/17 13:45 98.0 83 18 163/69 (100) 95 Nasal Cannula 2.00 05/28/17 12:45 18 94 Nasal Cannula 2.00 05/28/17 12:34 77 16 157/62 (93) 94 Room Air 05/28/17 12:16 73 16 184/95 (124) 95 Room Air 05/28/17 12:00 70 18 200/87 (124) 98 Nasal Cannula 2.00 05/28/17 08:30 84 18 180/98 (125) 95 Nasal Cannula 4.00 05/28/17 07:00 86 18 95 Nasal Cannula 4.00 05/28/17 06:19 98.4 94 20 188/87 (120) 96 Nasal Cannula 3.00 05/28/17 03:00 97.9 87 18 155/74 (101) 95 Nasal Cannula 3.00 05/28/17 00:30 80 18 162/99 (120) 95 Room Air 05/28/17 00:15 96 Nasal Cannula 3.00 05/27/17 23:16 17 05/27/17 22:57 98.4 94 17 216/107 (143) 98 Room Air 05/27/17 22:06 96 Nasal Cannula 3.00 05/27/17 21:49 95 205/101 (135) 88 05/27/17 19:42 98.2 101 18 208/107 (140) 90 Physical Exam GENERAL: This is a well-nourished, well-developed patient, in distress due to pain and anxiety. SKIN: No rashes, ecchymoses or lesions. Cool and dry. Abrasion left leg HEAD: Atraumatic. Normocephalic. No temporal or scalp tenderness. EYES: Pupils equal round and reactive. Extraocular motions intact. No scleral icterus. No injection or drainage. ENT: Nose without bleeding, purulent drainage or septal hematoma. Throat without erythema, tonsillar hypertrophy or exudate. Uvula midline. Airway patent. NECK: Trachea midline. No JVD or lymphadenopathy. Supple, nontender, no meningeal signs. Thyromegaly CARDIOVASCULAR: Regular rate and rhythm without murmurs, gallops, or rubs. RESPIRATORY: Clear to auscultation. Decreased Breath sounds equal bilaterally. No wheezes, rales, or rhonchi. GASTROINTESTINAL: Abdomen soft, tender right lower quadrant, nondistended. No guarding. MUSCULOSKELETAL: Extremities without clubbing, cyanosis, or edema. Left hip tenderness. No calf tenderness. Negative Homans sign bilaterally. NEUROLOGICAL: Awake and alert. Cranial nerves II through XII intact. Motor and sensory grossly within normal limits. Five out of 5 muscle strength in all muscle groups. Normal speech. Laboratory Laboratory Tests Test 05/27/17 20:01 05/27/17 21:50 05/27/17 22:31 05/27/17 22:37 White Blood Count 21.4 Red Blood Count 5.66 Hemoglobin 12.2 Hematocrit 40.3 Mean Corpuscular Volume 71.2 Mean Corpuscular Hemoglobin 21.6 Mean Corpuscular Hemoglobin Concent 30.3 Red Cell Distribution Width 19.3 Platelet Count 126 Mean Platelet Volume 9.6 Neutrophils (%) (Auto) 88.6 Lymphocytes (%) (Auto) 3.6 Monocytes (%) (Auto) 7.0 Eosinophils (%) (Auto) 0.0 Basophils (%) (Auto) 0.8 Neutrophils # (Auto) 18.9 Lymphocytes # (Auto) 0.8 Monocytes # (Auto) 1.5 Eosinophils # (Auto) 0.0 Basophils # (Auto) 0.2 CBC Comment AUTO DIFF Differential Comment AUTO DIFF CONFIRMED Platelet Estimate LOW Platelet Morphology Comment NORMAL Prothrombin Time 11.4 Prothromb Time International Ratio 1.0 Activated Partial Thromboplast Time 23.0 Blood Urea Nitrogen 34 Creatinine 1.20 Random Glucose 211 Total Protein 7.1 Calcium Level 13.6 Sodium Level 140 Potassium Level 2.0 Chloride Level 87 Carbon Dioxide Level 44.7 Anion Gap 8 Estimat Glomerular Filtration Rate 45 Protein Corrected Calcium 13.7 Magnesium Level 2.6 Troponin I 0.35 Thyroid Stimulating Hormone 3rd Gen LESS THAN 0.005 Lactic Acid Level 3.7 Total Creatine Kinase 241 Creatine Kinase MB 9.6 Creatine Kinase MB % 4.0 D-Dimer Quantitative (PE/DVT) 0.81 Free Thyroxine 1.61 Free Triiodothyronine (T3) pg/dL 3.04 Test 05/27/17 22:55 05/28/17 02:47 05/28/17 06:32 05/28/17 08:35 Urine Color YELLOW Urine Turbidity CLEAR Urine pH 5.5 Urine Specific [place] 1.015 Urine Protein 30 Urine Glucose (UA) NEG Urine Ketones NEG Urine Occult Blood LARGE Urine Nitrite NEG Urine Bilirubin NEG Urine Leukocyte Esterase NEG Urine RBC 25-49 Urine WBC 6-8 Urine WBC Clumps FEW Urine Squamous Epithelial Cells 0-5 Urine Amorphous Sediment SMALL Urine Mucus FEW Microscopic Urinalysis Comment CULTURE INDICATED Urine Opiates Screen NEG Urine Barbiturates Screen NEG Urine Amphetamines Screen NEG Urine Benzodiazepines Screen NEG Urine Cocaine Screen NEG Urine Cannabinoids Screen NEG Blood Urea Nitrogen 31 31 Creatinine 0.98 0.90 Random Glucose 159 151 Total Protein 5.8 6.0 Calcium Level 12.6 13.7 Sodium Level 139 147 Potassium Level 2.4 2.6 Chloride Level 89 98 Carbon Dioxide Level GREATER THAN 45.0 GREATER THAN 45.0 Anion Gap 5 4 Estimat Glomerular Filtration Rate 57 62 Protein Corrected Calcium Total Creatine Kinase 137 105 Troponin I 0.29 0.18 White Blood Count 20.7 Red Blood Count 4.76 Hemoglobin 11.0 Hematocrit 33.8 Mean Corpuscular Volume 71.0 Mean Corpuscular Hemoglobin 23.1 Mean Corpuscular Hemoglobin Concent 32.5 Red Cell Distribution Width 19.1 Platelet Count 112 Mean Platelet Volume 10.4 Neutrophils (%) (Auto) 89.6 Lymphocytes (%) (Auto) 3.9 Monocytes (%) (Auto) 6.3 Eosinophils (%) (Auto) 0.1 Basophils (%) (Auto) 0.1 Neutrophils # (Auto) 18.6 Lymphocytes # (Auto) 0.8 Monocytes # (Auto) 1.3 Eosinophils # (Auto) 0.0 Basophils # (Auto) 0.0 CBC Comment AUTO DIFF Differential Comment AUTO DIFF CONFIRMED Platelet Estimate LOW Platelet Morphology Comment NORMAL Activated Partial Thromboplast Time 50.8 Phosphorus Level 3.0 Date/Time Source Procedure Growth Status 05/27/17 21:50 Blood Peripheral Aerobic Blood Culture - Preliminary NO GROWTH IN 1 DAY Resulted 05/27/17 21:50 Blood Peripheral Anaerobic Blood Culture - Preliminary NO GROWTH IN 1 DAY Resulted 05/27/17 22:55 Urine Clean Catch Urine Culture Pending Received Result Diagram: 05/28/17 0632 05/28/17 0632 Imaging EKG tracing. Sinus tachycardia nonspecific ST-T changes tracing interpreted by me Chest and left ankle x-rays images reviewed by me. Bilateral opacities. Left ankle without fracture Last Impressions Lower Extremity CT 05/28/17 0000 Signed Impressions: Service Date/Time: Sunday, May 28, 2017 09:50 - CONCLUSION: 1. Acute nondisplaced superior and inferior pubic rami fractures on the left. 2. Retroperitoneal adenopathy worrisome for metastatic disease or myeloproliferative disorder. 3. Enlarged and lobulated uterus likely related to fibroids. Sushant Juares Jr., MD CT Angiography 8/25/17 0000 Signed Impressions: Service Date/Time: Sunday, May 28, 2017 02:01 - CONCLUSION: Large mass on the right side of the trachea could be an enlarged thyroid. Innumerable nodules scattered throughout the lungs metastatic disease certainly within the differential. There are a number of nodules in the right lower lobe which would be amenable to CT-guided biopsy. Vince Galan MD Maxillofacial CT 05/27/172016 Signed Impressions: Service Date/Time: May 20:34 - CONCLUSION: 1. No maxillofacial fracture is present. 2. There is bilateral maxillary mucoperiosteal thickening with 12 mm polypoid structure extending from the left maxillary antrum into the left posterior nasal cavity. 3. There is a 14 mm left parotid gland nodule. Differential diagnosis includes intraparotid lymph node or pleomorphic adenoma. Kane Bartlett MD Head CT 05/27/172016 Signed Impressions: Service Date/Time: May 20:34 - CONCLUSION: No acute abnormality is identified. Kane Bartlett MD Cervical Spine CT 05/27/172016 Signed Impressions: Service Date/Time: May 20:34 - CONCLUSION: 1. No acute cervical spine abnormality is identified. There is degenerative disc disease at C5-C6. 2. There is a 4.1 cm right thyroid nodule. If this is a new finding, suggest nonemergent outpatient ultrasound of the thyroid gland for further evaluation. 3. Abnormal linear and nodular parenchymal opacities in the upper lobes bilaterally. Since this does not pertain to the patient's acute problem, this finding should also be further evaluated with outpatient chest CT with IV contrast. Also suggest correlating with any prior outside imaging studies. Kane Bartlett MD Hip and Pelvis X-Ray 05/27/17 Signed Impressions: Service Date/Time: May 20:49 - CONCLUSION: 1. A subtle lucency in the left pelvis may represent a nondisplaced left superior pubic ramus fracture. 2. Mild osteoarthritis of the joints bilaterally. Kane Bartlett MD Chest X-Ray 05/27/17 0000 Signed Impressions: Service Date/Time: May 21:27 - CONCLUSION: Diffuse nodular and reticular nodular opacities bilaterally. Etiology is nonspecific but metastatic disease is one consideration. Suggest correlation for any known primary malignancies. Sarcoidosis is another possibility but felt less likely given the distribution and lack of appreciable lymphadenopathy. Kane Bartlett MD Ankle X-Ray 05/27/17 0000 Signed Impressions: Service Date/Time: May 20:56 - CONCLUSION: No acute left ankle abnormality is identified. MD Roxie Ugalde VTE Risk Assessment Caprini VTE Risk Assessment: Mod/High Risk (score >= 2) Caprini Risk Assessment Model Point Value = 1 Point Value = 2 Point Value = 3 Point Value = 5 Age 41-60 Minor surgery BMI > 25 kg/m2 Swollen legs Varicose veins or History of unexplained or recurrent spontaneous Oral contraceptives or hormone replacement Sepsis (< 1 month) Serious lung disease, including pneumonia (< 1 month) Abnormal pulmonary function Acute myocardial infarction Congestive heart failure (< 1 month) History of inflammatory bowel disease Medical patient at bed rest Age 61-74 Arthroscopic surgery Major open surgery (> 45 min) Laparoscopic surgery (> 45 min) Malignancy Confined to bed (> 72 hours) Immobilizing plaster cast Central venous access Age >= 75 History of VTE Family history of VTE Factor V Leiden Prothrombin [id number] Lupus anticoagulant Anticardiolipin antibodies Elevated serum homocysteine Heparin-induced thrombocytopenia Other congenital or acquired thrombophilia Stroke (< 1 month) Elective arthroplasty Hip, pelvis, or leg fracture Acute spinal cord injury (< 1 month) Prophylaxis Regimen Total Risk Factor Score Risk Level Prophylaxis Regimen 0-1 Low Early ambulation 2 Moderate Order ONE of the following: *Sequential Compression Device (SCD) *Heparin 5000 units SQ BID 3-4 Higher Order ONE of the following medications: *Heparin 5000 units SQ TID *Enoxaparin/Lovenox 40 mg SQ daily (WT < 150 kg, CrCl > 30 mL/min) *Enoxaparin/Lovenox 30 mg SQ daily (WT < 150 kg, CrCl > 10-29 mL/min) *Enoxaparin/Lovenox 30 mg SQ BID (WT < 150 kg, CrCl > 30 mL/min) AND/OR *Sequential Compression Device (SCD) 5 or more Highest Order ONE of the following medications: *Heparin 5000 units SQ TID (Preferred with Epidurals) *Enoxaparin/Lovenox 40 mg SQ daily (WT < 150 kg, CrCl > 30 mL/min) *Enoxaparin/Lovenox 30 mg SQ daily (WT < 150 kg, CrCl > 10-29 mL/min) *Enoxaparin/Lovenox 30 mg SQ BID (WT < 150 kg, CrCl > 30 mL/min) AND *Sequential Compression Device (SCD) Assessment and Plan Problem List: (1) Electrolyte disorder ICD Code: E87.8 - Other disorders of electrolyte and fluid balance, not elsewhere classified Status: Acute (2) Closed fracture of single pubic ramus of pelvis ICD Code: S32.509A - Unspecified fracture of unspecified pubis, initial encounter for closed fracture Status: Acute (3) Elevated troponin I level ICD Code: R74.8 - Abnormal levels of other serum enzymes Status: Acute Assessment and Plan This is a 67-year-old female with history of hypertension, hyperlipidemia and noncompliance. She has not seen a doctor for over 4 years. She presents to the emergency department after she had a non-syncopal fall down the stairs after losing her balance. She landed on her left hip and was not able to get up due to constant severe hip pain worse with activity. Imaging study shows left pubic rami fracture. I Status post fall with closed head injury and nondisplaced superior and inferior pubic rami fractures on the left. Consult orthopedic surgery. Pain management with Lortab and IV morphine. Nonweightbearing for now. Neurochecks Severe sepsis with UTI. Patient complains of right lower quadrant pain. CT of the abdomen pelvis has been ordered follow-up results. Continue IV Rocephin and follow-up culture Hyperthyroidism with thyromegaly. Check TSI. Start Inderal. She needs follow- up with endocrinology as well as thyroid sonogram Hypokalemia. No changes in the EKG. Magnesium within normal limits. Continue aggressive replacement with 40 meq by mouth and 40 meq IV potassium. Repeat BMP one hour after replacement. Monitor on telemetry Hypercalcemia likely related to mets. She is mildly symptomatic. Continue IV hydration and will give 1 dose of zoledronic acid IV. Repeat calcium in the morning. Check PTH and PTH related peptide Bilateral lung opacities, 14 mm left parotid gland nodule, retroperitoneal adenopathies concerning for metastatic disease. Consult medical oncology Bilateral maxillary mucoperiosteal thickening with 12 mm polypoid structure extending from the left axilla antrum to the left posterior nasal cavity. Consider ENT consult Uncontrolled hypertension contributed by pain. Start Inderal with as needed clonidine, IV hydralazine and IV Vasotec. Troponin elevation. Patient denies chest pain. EKG with nonspecific ST changes. This is likely secondary to above. Patient received aspirin. Patient will be on beta antony. Sublingual nitroglycerin as needed. Check echocardiogram DVT prophylaxis with SCD and subcutaneous heparin Code Status Full Discussed Condition With Patient, daughter Problem Qualifiers (1) Closed fracture of single pubic ramus of pelvis: Qualified Codes: S32.592A - Other specified fracture of left pubis, initial encounter for closed fracture Carlos Pastor MD May 28, 2017 16:32
[2017-05-28] MEDS ORDERED: ZOLEDRONIC ACID INJ 4 MG in SODIUM CHLOR 0.9% 250 ML INJ 150 ML IV ONE (17:00)
[2017-05-28] MEDS ORDERED: hydrOXYzine PAMOATE 25 MG CAP PO PRN (17:00)
--- NOTE | 2017-05-28 17:44 | PD.CONS ---
cc: Ailyn Hernandez nondisplaced superior and inferior left rami fractures HPI Service Orthopedic Surgeons Consult Requested By medical staff Reason for Consult pubic rami fractures Primary Care Physician No Primary Care Physician Admission Diagnosis Electrolyte disorder; elevated troponin I; pelvic fracture Diagnoses: (1) Closed fracture of left superior pubic ramus Diagnosis: Principal (2) Closed fracture of left inferior pubic ramus Diagnosis: Principal (3) Electrolyte disorder (4) Elevated troponin I level Chief Complaint: s/p fall, pubic rami fractures History of Present Illness 67 yo female admits she was walking down the stairs this afternoon. She states that her left knee 'gave out' and she proceeded to slip forward onto the stairs. She hit her nose and left side of her body on the stairs in her house. She had immediate left hip/pelvic pain. Upon examination and radiographs it was revealed she sustained closed nondisplaced fractures of the left superior and inferior pubic ramis. She admits she previously had no issues with her left knee or pelvis. She does not have any other orthopedic issues. She previously ambulated unassisted. She states she has no specific left ankle pain as documented, she only has pain over the skin abrasion noted on her distal stout. No other musculoskeletal injuries noted at this time. Daughter is at bedside. Review of Systems well outlined in medical record. Past Family Social History Past Medical History As previously mentioned Past Surgical History Denies Allergies: Coded Allergies: No Known Allergies (Verified , 05/27/17) Active Ordered Medications Current Medications Medications (Trade) Dose Ordered Sig/Gary Route Start Time Stop Time Status Last Admin (Narcan Inj) 0.4 mg UNSCH PRN IV 05/27/17 22:30 Potassium Chloride/Sodium Chloride 1,000 ml @ 100 mls/hr Q10H IV 05/27/17 22:45 05/28/17 10:18 (Catapres) 0.1 mg Q6H PRN PO 05/27/17 22:45 05/28/17 07:05 Ceftriaxone Sodium 1000 mg/ Sodium Chloride 100 ml @ 200 mls/hr Q12H IV 05/28/17 00:00 05/28/17 12:12 ( Gastroview Liq) 18 ml ONCE ONCE PO 05/28/17 20:00 05/28/17 20:01 (NS Flush) 2 ml UNSCH PRN IV FLUSH 05/28/17 09:15 (NS Flush) 2 ml BID IV FLUSH 05/28/17 21:00 (Tylenol) 650 mg Q4H PRN PO 05/28/17 09:15 (Zofran Inj) 4 mg Q6H PRN IVP 05/28/17 09:15 (Heparin Inj) 5,000 units Q8H SQ 05/28/17 17:00 05/28/17 16:16 (Tylenol) 650 mg Q6H PRN PO 05/28/17 09:15 (Ely 5-325 Mg) 1 tab Q4H PRN PO 05/28/17 09:15 (Ely 10-325 Mg) 1 tab Q4H PRN PO 05/28/17 09:15 05/28/17 16:24 (Morphine Inj) 1 mg Q3H PRN IV 05/28/17 09:15 (Maude-Colace) 1 tab BID PO 05/28/17 21:00 (Milk Of Magnesia Liq) 30 ml Q12H PRN PO 05/28/17 09:15 (Senokot) 17.2 mg Q12H PRN PO 05/28/17 09:15 (Dulcolax Supp) 10 mg DAILY PRN RECTAL 05/28/17 09:15 (Lactulose Liq) 30 ml DAILY PRN PO 05/28/17 09:15 Potassium Chloride 100 ml @ 50 mls/hr Q2H PRN IV 05/28/17 09:15 Potassium Chloride 100 ml @ 50 mls/hr Q2H PRN IV 05/28/17 09:15 (K-Lyte Cl Eff) 50 meq UNSCH PRN PO 05/28/17 09:15 Potassium Chloride 100 ml @ 25 mls/hr UNSCH PRN IV 05/28/17 09:15 Potassium Chloride 100 ml @ 50 mls/hr Q2H PRN IV 05/28/17 09:15 Magnesium Sulfate 4 gm/Sodium Chloride 100 ml @ 50 mls/hr UNSCH PRN IV 05/28/17 09:15 (Mag-Ox) 800 mg UNSCH PRN PO 05/28/17 09:15 Magnesium Sulfate 2 gm/Sodium Chloride 100 ml @ 50 mls/hr UNSCH PRN IV 05/28/17 09:15 (K-Phos) 2,000 mg Q4H PRN PO 05/28/17 09:15 Sodium Phosphate 30 mmol/Sodium Chloride 250 ml @ 42 mls/hr UNSCH PRN IV 05/28/17 09:15 (K-Phos) 2,000 mg UNSCH PRN PO/TUBE 05/28/17 09:15 Potassium Phosphate 30 mmol/ Sodium Chloride 260 ml @ 42 mls/hr UNSCH PRN IV 05/28/17 09:15 (Inderal) 10 mg Q8HR PO 05/28/17 09:45 05/28/17 14:35 (Vasotec Inj) 1.25 mg Q6H PRN IV 05/28/17 09:15 05/28/17 16:16 (Apresoline Inj) 10 mg Q6H PRN IV 05/28/17 09:15 05/28/17 12:12 (Vistaril) 25 mg Q6H PRN PO 05/28/17 17:00 Zoledronic Acid 4 mg/Sodium Chloride 150 ml @ 150 mls/hr ONCE ONCE IV 05/28/17 17:00 05/28/17 17:59 05/28/17 16:52 Reported Meds & Active Scripts Active Family History Hypertension, diabetes and lung cancer Social History Does not smoke or drink Physical Exam Vital Signs Vital Signs Date Time Temp Pulse Resp B/P (MAP) Pulse Ox O2 Delivery O2 Flow Rate FiO2 05/28/17 17:01 78 16 171/64 (99) 92 05/28/17 16:32 84 29 199/83 (121) 05/28/17 16:31 88 29 208/127 (154) 91 05/28/17 16:05 82 29 206/78 (120) 92 05/28/17 16:01 84 32 215/97 (136) 92 05/28/17 15:36 82 21 203/78 (119) 93 05/28/17 15:35 05/28/17 13:45 98.0 83 18 163/69 (100) 95 Nasal Cannula 2.00 05/28/17 12:45 18 94 Nasal Cannula 2.00 05/28/17 12:34 77 16 157/62 (93) 94 Room Air 05/28/17 12:16 73 16 184/95 (124) 95 Room Air 05/28/17 12:00 70 18 200/87 (124) 98 Nasal Cannula 2.00 05/28/17 08:30 84 18 180/98 (125) 95 Nasal Cannula 4.00 05/28/17 07:00 86 18 95 Nasal Cannula 4.00 05/28/17 06:19 98.4 94 20 188/87 (120) 96 Nasal Cannula 3.00 05/28/17 03:00 97.9 87 18 155/74 (101) 95 Nasal Cannula 3.00 05/28/17 00:30 80 18 162/99 (120) 95 Room Air 05/28/17 00:15 96 Nasal Cannula 3.00 05/27/17 23:16 17 05/27/17 22:57 98.4 94 17 216/107 (143) 98 Room Air 05/27/17 22:06 96 Nasal Cannula 3.00 05/27/17 21:49 95 205/101 (135) 88 05/27/17 19:42 98.2 101 18 208/107 (140) 90 Physical Exam She is able to perform bilateral SLR without pain. Gentle ROM of left hip elicits minimal pain. Strength not tested at this time. No calf pain. Negative jonas's sign. NVI. Skin abrasion noted on anterior stout - dressing not removed. Laboratory Laboratory Tests Test 05/27/17 20:01 05/27/17 21:50 05/27/17 22:31 05/27/17 22:37 White Blood Count 21.4 Red Blood Count 5.66 Hemoglobin 12.2 Hematocrit 40.3 Mean Corpuscular Volume 71.2 Mean Corpuscular Hemoglobin 21.6 Mean Corpuscular Hemoglobin Concent 30.3 Red Cell Distribution Width 19.3 Platelet Count 126 Mean Platelet Volume 9.6 Neutrophils (%) (Auto) 88.6 Lymphocytes (%) (Auto) 3.6 Monocytes (%) (Auto) 7.0 Eosinophils (%) (Auto) 0.0 Basophils (%) (Auto) 0.8 Neutrophils # (Auto) 18.9 Lymphocytes # (Auto) 0.8 Monocytes # (Auto) 1.5 Eosinophils # (Auto) 0.0 Basophils # (Auto) 0.2 CBC Comment AUTO DIFF Differential Comment AUTO DIFF CONFIRMED Platelet Estimate LOW Platelet Morphology Comment NORMAL Prothrombin Time 11.4 Prothromb Time International Ratio 1.0 Activated Partial Thromboplast Time 23.0 Blood Urea Nitrogen 34 Creatinine 1.20 Random Glucose 211 Total Protein 7.1 Calcium Level 13.6 Sodium Level 140 Potassium Level 2.0 Chloride Level 87 Carbon Dioxide Level 44.7 Anion Gap 8 Estimat Glomerular Filtration Rate 45 Protein Corrected Calcium 13.7 Magnesium Level 2.6 Troponin I 0.35 Thyroid Stimulating Hormone 3rd Gen LESS THAN 0.005 Lactic Acid Level 3.7 Total Creatine Kinase 241 Creatine Kinase MB 9.6 Creatine Kinase MB % 4.0 D-Dimer Quantitative (PE/DVT) 0.81 Free Thyroxine 1.61 Free Triiodothyronine (T3) pg/dL 3.04 Test 05/27/17 22:55 05/28/17 02:47 05/28/17 06:32 05/28/17 08:35 Urine Color YELLOW Urine Turbidity CLEAR Urine pH 5.5 Urine Specific Allgood 1.015 Urine Protein 30 Urine Glucose (UA) NEG Urine Ketones NEG Urine Occult Blood LARGE Urine Nitrite NEG Urine Bilirubin NEG Urine Leukocyte Esterase NEG Urine RBC 25-49 Urine WBC 6-8 Urine WBC Clumps FEW Urine Squamous Epithelial Cells 0-5 Urine Amorphous Sediment SMALL Urine Mucus FEW Microscopic Urinalysis Comment CULTURE INDICATED Urine Opiates Screen NEG Urine Barbiturates Screen NEG Urine Amphetamines Screen NEG Urine Benzodiazepines Screen NEG Urine Cocaine Screen NEG Urine Cannabinoids Screen NEG Blood Urea Nitrogen 31 31 Creatinine 0.98 0.90 Random Glucose 159 151 Total Protein 5.8 6.0 Calcium Level 12.6 13.7 Sodium Level 139 147 Potassium Level 2.4 2.6 Chloride Level 89 98 Carbon Dioxide Level GREATER THAN 45.0 GREATER THAN 45.0 Anion Gap 5 4 Estimat Glomerular Filtration Rate 57 62 Protein Corrected Calcium Total Creatine Kinase 137 105 Troponin I 0.29 0.18 White Blood Count 20.7 Red Blood Count 4.76 Hemoglobin 11.0 Hematocrit 33.8 Mean Corpuscular Volume 71.0 Mean Corpuscular Hemoglobin 23.1 Mean Corpuscular Hemoglobin Concent 32.5 Red Cell Distribution Width 19.1 Platelet Count 112 Mean Platelet Volume 10.4 Neutrophils (%) (Auto) 89.6 Lymphocytes (%) (Auto) 3.9 Monocytes (%) (Auto) 6.3 Eosinophils (%) (Auto) 0.1 Basophils (%) (Auto) 0.1 Neutrophils # (Auto) 18.6 Lymphocytes # (Auto) 0.8 Monocytes # (Auto) 1.3 Eosinophils # (Auto) 0.0 Basophils # (Auto) 0.0 CBC Comment AUTO DIFF Differential Comment AUTO DIFF CONFIRMED Platelet Estimate LOW Platelet Morphology Comment NORMAL Activated Partial Thromboplast Time 50.8 Phosphorus Level 3.0 Date/Time Source Procedure Growth Status 05/27/17 21:50 Blood Peripheral Aerobic Blood Culture - Preliminary NO GROWTH IN 1 DAY Resulted 05/27/17 21:50 Blood Peripheral Anaerobic Blood Culture - Preliminary NO GROWTH IN 1 DAY Resulted 05/27/17 22:55 Urine Clean Catch Urine Culture Pending Received Result Diagram: 05/28/17 0632 05/28/17 0632 Imaging Last Impressions Lower Extremity CT 05/28/17 0000 Signed Impressions: Service Date/Time: Sunday, May 28, 2017 09:50 - CONCLUSION: 1. Acute nondisplaced superior and inferior pubic rami fractures on the left. 2. Retroperitoneal adenopathy worrisome for metastatic disease or myeloproliferative disorder. 3. Enlarged and lobulated uterus likely related to fibroids. Sushant Juares Jr., MD CT Angiography 05/28/17 0000 Signed Impressions: Service Date/Time: Sunday, May 28, 2017 02:01 - CONCLUSION: Large mass on the right side of the trachea could be an enlarged thyroid. Innumerable nodules scattered throughout the lungs metastatic disease certainly within the differential. There are a number of nodules in the right lower lobe which would be amenable to CT-guided biopsy. Vince Galan MD Maxillofacial CT 05/27/172016 Signed Impressions: Service Date/Time: May 20:34 - CONCLUSION: 1. No maxillofacial fracture is present. 2. There is bilateral maxillary mucoperiosteal thickening with 12 mm polypoid structure extending from the left maxillary antrum into the left posterior nasal cavity. 3. There is a 14 mm left parotid gland nodule. Differential diagnosis includes intraparotid lymph node or pleomorphic adenoma. Kane Bartlett MD Head CT 05/27/172016 Signed Impressions: Service Date/Time: May 20:34 - CONCLUSION: No acute abnormality is identified. Kane Bartlett MD Cervical Spine CT 05/27/172016 Signed Impressions: Service Date/Time: May 20:34 - CONCLUSION: 1. No acute cervical spine abnormality is identified. There is degenerative disc disease at C5-C6. 2. There is a 4.1 cm right thyroid nodule. If this is a new finding, suggest nonemergent outpatient ultrasound of the thyroid gland for further evaluation. 3. Abnormal linear and nodular parenchymal opacities in the upper lobes bilaterally. Since this does not pertain to the patient's acute problem, this finding should also be further evaluated with outpatient chest CT with IV contrast. Also suggest correlating with any prior outside imaging studies. Kane Bartlett MD Hip and Pelvis X-Ray 05/27/17 0000 Signed Impressions: Service Date/Time: May 20:49 - CONCLUSION: 1. A subtle lucency in the left pelvis may represent a nondisplaced left superior pubic ramus fracture. 2. Mild osteoarthritis of the joints bilaterally. Kane Bartlett MD Chest X-Ray 05/27/17 0000 Signed Impressions: Service Date/Time: May 21:27 - CONCLUSION: Diffuse nodular and reticular nodular opacities bilaterally. Etiology is nonspecific but metastatic disease is one consideration. Suggest correlation for any known primary malignancies. Sarcoidosis is another possibility but felt less likely given the distribution and lack of appreciable lymphadenopathy. Kane Bartlett MD Ankle X-Ray 05/27/17 0000 Signed Impressions: Service Date/Time: May 20:56 - CONCLUSION: No acute left ankle abnormality is identified. Kane Bartlett MD Course see medical record Assessment & Plan Problem List: (1) Closed fracture of left inferior pubic ramus ICD Codes: S32.592A - Other specified fracture of left pubis, initial encounter for closed fracture Qualifiers: Qualified Codes: S32.592A - Other specified fracture of left pubis, initial encounter for closed fracture (2) Closed fracture of left superior pubic ramus ICD Codes: S32.512A - Fracture of superior rim of left pubis, initial encounter for closed fracture Qualifiers: Qualified Codes: S32.512A - Fracture of superior rim of left pubis, initial encounter for closed fracture Assessment and Plan The findings were discussed with the patient. The has sustained nondisplaced fractures of the superior and inferior left rami. Dr Galindo Mas has reviewed images and details of this case. Recommendations are given for non- operative management at this time. Progress physical therapy for mobilization and pain control. Weight bearing as tolerated, may need assistance of a walker. Continue pain control. Recommended orthopedic follow up in 7-10 days. Orthopedic clear for discharge at this time. Appreciate orthopedic involvement in patient's care. Ailyn Hernandez May 28, 2017 17:44
[2017-05-28 19:27] LABS: AUTOMATED NEUTROPHIL # 20.4 TH/MM3 (1.8-7.7); EOSINOPHIL # 0.2 TH/MM3 (0-0.4); HEMATOCRIT 34.5 % (35.0-46.0); LYMPH % 2.5 % (9.0-44.0); LYMPHOCYTE # 0.6 TH/MM3 (1.0-4.8); MEAN CELL VOLUME 72.3 FL (80.0-100.0); MEAN CORPUSCULAR HEMOGLOBIN 22.3 PG (27.0-34.0); MEAN CORPUSCULAR HGB CONC 30.8 % (32.0-36.0); MONO % 4.8 % (0.0-8.0); NEUT % 91.7 % (16.0-70.0); PLATELET COUNT 121 TH/MM3 (150-450); RED BLOOD COUNT 4.78 MIL/MM3 (4.00-5.30); RED CELL DISTRIBUTION WIDTH 19.5 % (11.6-17.2); WHITE BLOOD COUNT 22.3 TH/MM3 (4.0-11.0)
[2017-05-28 19:30] LABS: HEMO FLAGS AUTO DIFF
[2017-05-28] MEDS: SODIUM CHLORIDE 0.9% FLUSH 10 ML FLUSH IV FLUSH SCH (19:34)
[2017-05-28 19:35] LABS: POTASSIUM 3.4 MEQ/L (3.5-5.1)
[2017-05-28] MEDS: DOCUSATE SODIUM 50 MG/SENNA 8.6 MG TAB PO SCH (19:35)
[2017-05-28 19:41] LABS: APTT (PATIENT) 28.9 SEC (24.3-30.1); INTERNATIONAL NORMALIZED RATIO 1.1 RATIO; PROTHROMBIN TIME - PATIENT 12.1 SEC (9.8-11.6)
[2017-05-28] MEDS ORDERED: DIATRIZOATE MEGLUM/DIATRIZOATE SOD 9 ML CUP PO ONE (20:00)
[2017-05-28 20:07] LABS: OVALOCYTES 1+ (NORMAL); SCAN/DIFF AUTO DIFF CONFIRMED
[2017-05-28 20:29] LABS: BICARBONATE 40.2 MEQ/L (21.0-32.0); MAGNESIUM 2.9 MG/DL (1.5-2.5)
--- NOTE | 2017-05-28 20:53 | MB ---
cc: ARIAN PASTOR MD, RUBY ANNE E. M.D. DATE OF CONSULTATION 05/28/17 [address] Pastor. CHIEF COMPLAINT Dr. Pastor requests a consultation for Mrs. Carlton regarding thyroid nodule associated with metastatic disease. HISTORY OF PRESENT ILLNESS Mrs. Carlton is a 67-year-old woman with hypertension, hyperlipidemia who has not seen a doctor for over four years. She reports previously doing mammograms and requiring reimaging. She has not had a colonoscopy. She has had a 40-pound weight loss over the past year. She said she was dieting. However, she has never lost that much weight before. She fell down the stairs after losing her balance. She landed on her hip and suffered a pelvic fracture. Pelvic x-ray shows a subtle lucency in the left pelvis which may represent a nondisplaced left superior pubic ramus fracture with mild osteoarthritis. She had some facial injury. There is no maxillofacial fracture noted. She was noted to have a large mass in the right side of the trachea that represented enlarged thyroid. There is innumerable nodules throughout the lungs suggestive of metastatic disease. There are a number of nodules in the right lower lobe that feels amenable to biopsy. Laboratory evaluation is significant for leukocytosis, mild thrombocytopenia, microcytic picture. Potassium is low. Her calcium is 12.6. She was receiving Zometa at the time of the consultation. Her TSH is suppressed. Her T4 appears to be elevated. Total creatinine kinase is high. She complains of pain. Her blood pressure is elevated. Her saturations are in 90-92% range. She complains of dry mouth. She denies any headaches, vision changes. She gives family history of cancer. She was doing well at home until her admission. The rest of her review of systems is negative. PAST MEDICAL HISTORY 1. Hypertension, 2. Hyperlipidemia, 3. Obesity, 4. Noncompliance 5. Metastatic thyroid cancer 6. Pelvic fracture. PAST SURGICAL HISTORY None SOCIAL HISTORY She denies any tobacco, alcohol or illicit drug use. FAMILY HISTORY Mother had breast cancer and in her 80s. Father had lung cancer also in his 80s. PHYSICAL EXAMINATION VITAL SIGNS: Temperature 98.0, heart rate 78, respiratory rate 16, blood pressure 171/64, saturation 92%. GENERAL: Ms. Carlton is a well-nourished mildly obese woman in no acute distress. HEENT: Her pupils are round, reactive to light and accommodation. Oropharynx is dry. NECK: Supple. She has a large neck. The right neck mass is noted. LUNGS: Clear anteriorly. CARDIOVASCULAR: Normal rate, rhythm. ABDOMEN: Distended, large LOWER EXTREMITIES: With no edema. LABORATORY DATA As described above. ASSESSMENT/PLAN Mrs. Carlton is a 67-year-old woman with multiple medical problems. She has hypertension, hyperlipidemia and obesity. She has lost 40 pounds over the last year. She has hypercalcemia, lytic lesion, possible fracture after a fall, right thyroid mass as well as innumerable lung nodules that look like metastatic disease. I had a discussion with Ms. Carlton and her family present at the consultation this is suspicious for metastatic thyroid cancer. We discussed in general terms the need to establish a diagnosis with needle biopsy. Per radiology recommendations, we will consider biopsy in the right lower lung which is amenable. This is going to prove that disease in the lung is indeed metastatic from a primary thyroid. I concur with Zometa for correcting calcium. We will check a PTH and calcitonin. Further recommendations regarding her thyroid cancer management depends on the pathology. In the meantime, iron studies will be checked. No transfusion is needed. Thrombocytopenia will be followed. CT scan of the abdomen will be performed to evaluate and complete her staging. Questions were answered to her satisfaction. Orthopedic surgery recommendations for her weight bearing. MD BEVERLY Del Castillo/ /6:06 PM /8:32 PM
--- NOTE | 2017-05-28 21:46 | RADRPT ---
EXAM DATE/TIME: 05/28/2017 20:56 [facility] COMPARISON: CT PULMONARY ANGIOGRAM, May 28, 2017, 2:01. INDICATIONS : Abdominal pain, weakness. Abnormal prior CT results IV CONTRAST: 94 cc Omnipaque 350 (iohexol) IV ORAL CONTRAST: Prescribed oral contrast ingested. RADIATION DOSE: 19.29 CTDIvol (mGy) MEDICAL HISTORY : None SURGICAL HISTORY : None. ENCOUNTER: Initial ACUITY: 2 days PAIN SCALE: 4/10 LOCATION: abdomen TECHNIQUE: Volumetric scanning of the abdomen and pelvis was performed. Using automated exposure control and ad justment of the mA and/or kV according to patient size, radiation dose was kept as low as reasonably achievable to obtain optimal diagnostic quality images. DICOM format image data is available electro nically for review and comparison. FINDINGS: Too numerous to count and confluent nodules are seen of both visualized lung bases with small pleural effusions. Below the diaphragm, retroperitoneal lymphadenopathy is present. There are aortocaval lym ph nodes that measure up to 21 mm in size a right common iliac lymph node that measures 26 mm in size and a left external iliac lymph node that measures 35 x 57 mm in size. Large, vague area of low atte nuation seen centrally of the uterus. There is masslike thickening in the cervical region. Eccentric mass is seen although or invading the left posterolateral aspect of the urinary bladder measuring 2.5 x 3.7 cm in size. 17 mm nonspecific nodule seen in the expected region of the lower urethra, series 2 image 87. Liver, spleen, pancreas and right kidney are within normal limits. A 3 cm benign cyst is seen in the lower pole the left kidney. There is bilateral adrenal gland nodularity. Large gallstones are noted. No inflammatory changes or ductal dilatation. CONCLUSION: 1. There is evidence of retroperitoneal metastatic lymphadenopathy and I believe potentially on the b asis of cervical or endometrial carcinoma. Primary lesion versus additional metastatic involvement of the urinary bladder. There is also a nonspecific nodule in the expected region of the distal urethra . 2. Nodularity of both adrenal glands, most likely metastatic. 3. Visualized lung bases again show evidence of widespread and confluent pulmonary metastatic disease with small effusions. Kane Cedeño MD on May 28, 2017 at 21:38 Board Certified Radiologist. This report was verified electronically.
[2017-05-28] MEDS: MORPHINE SULFATE 4 MG/ML INJ IV PRN (23:16)
[2017-05-29] VITALS (25 sets, daily range): BP systolic 157–198; BP diastolic 59–86; PULSE 84–96; RESP 16–32; TEMP 97.6–100.2; O2SAT 92–95
[2017-05-29] MEDS: PROPRANOLOL HCL 10 MG TAB PO SCH ×3 (04:30→20:52)
[2017-05-29] MEDS: NS + KCL 40 MEQ INJ 1,000 ML IV SCH ×2 (04:31→14:39)
[2017-05-29 06:57] LABS: AUTOMATED NEUTROPHIL # 17.8 TH/MM3 (1.8-7.7); BASOPHIL % 0.1 % (0.0-2.0); HEMATOCRIT 35.3 % (35.0-46.0); LYMPH % 2.3 % (9.0-44.0); LYMPHOCYTE # 0.4 TH/MM3 (1.0-4.8); MEAN CORPUSCULAR HEMOGLOBIN 21.8 PG (27.0-34.0); MEAN CORPUSCULAR HGB CONC 30.7 % (32.0-36.0); MONO % 5.1 % (0.0-8.0); NEUT % 92.5 % (16.0-70.0); PLATELET COUNT 101 TH/MM3 (150-450); RED BLOOD COUNT 4.97 MIL/MM3 (4.00-5.30); RED CELL DISTRIBUTION WIDTH 19.2 % (11.6-17.2); WHITE BLOOD COUNT 19.2 TH/MM3 (4.0-11.0)
[2017-05-29 07:10] LABS: HEMO FLAGS AUTO DIFF; POTASSIUM 3.2 MEQ/L (3.5-5.1)
[2017-05-29 07:16] LABS: MAGNESIUM 2.8 MG/DL (1.5-2.5)
[2017-05-29 07:40] LABS: SCAN/DIFF AUTO DIFF CONFIRMED
[2017-05-29] MEDS: HEPARIN SODIUM - SQ 10,000 UNITS/ML VIAL SQ SCH ×2 (08:04→16:10)
[2017-05-29] MEDS: DOCUSATE SODIUM 50 MG/SENNA 8.6 MG TAB PO SCH ×2 (08:05→20:52)
[2017-05-29] MEDS: cloNIDine HCL 0.1 MG TAB PO PRN (08:05)
[2017-05-29] MEDS: ACETAMINOPHEN/HYDROcodone 325 MG/10 MG TAB PO PRN (08:05)
[2017-05-29] MEDS: SODIUM CHLORIDE 0.9% FLUSH 10 ML FLUSH IV FLUSH SCH ×2 (08:06→21:22)
[2017-05-29] MEDS: POTASSIUM CHLOR 20 MEQ PREMIX 100 ML IV PRN ×4 (08:06→20:53)
[2017-05-29] MEDS: cefTRIAXone INJ 1,000 MG in SODIUM CHLORIDE 0.9% INJ 100 ML IV SCH (12:06)
[2017-05-29 14:06] LABS: RETIC % 0.6 % (0.4-3.0)
[2017-05-29 14:07] LABS: REVIEW FLAG FINAL
--- NOTE | 2017-05-29 15:30 | HHI.PR ---
Subjective Remarks Follow-up hip fracture and hypercalcemia. Patient lethargic but easily arousable and oriented 3. Agrees to undergo [employer] examination. Discussed with RN Objective Vitals Vital Signs Date Time Temp Pulse Resp B/P (MAP) Pulse Ox O2 Delivery O2 Flow Rate FiO2 05/29/17 15:00 96 05/29/17 14:00 94 05/29/17 14:00 94 25 185/79 (114) 94 05/29/17 13:00 90 18 169/61 (97) 93 05/29/17 13:00 90 05/29/17 12:00 98.1 90 32 182/71 (108) 94 05/29/17 12:00 90 05/29/17 11:00 90 05/29/17 11:00 90 30 182/63 (102) 95 05/29/17 10:17 94 Nasal Cannula 4.00 05/29/17 10:00 86 05/29/17 10:00 86 23 157/64 (95) 95 05/29/17 09:00 84 23 180/68 (105) 95 05/29/17 09:00 84 05/29/17 08:00 86 05/29/17 08:00 98.0 86 22 198/76 (116) 95 05/29/17 07:00 88 19 196/77 (116) 93 05/29/17 07:00 88 05/29/17 06:00 84 24 190/72 (111) 94 05/29/17 06:00 84 05/29/17 05:00 86 17 185/70 (108) 95 05/29/17 05:00 86 05/29/17 04:00 97.6 88 16 195/76 (115) 92 05/29/17 04:00 88 05/29/17 03:00 90 05/29/17 03:00 90 25 193/76 (115) 94 05/29/17 02:00 88 05/29/17 02:00 88 23 195/82 (119) 94 05/29/17 01:00 86 18 198/82 (120) 94 05/29/17 01:00 86 05/29/17 00:00 84 05/29/17 00:00 98.7 84 29 187/75 (112) 93 05/28/17 23:00 82 25 193/78 (116) 93 05/28/17 23:00 82 05/28/17 22:00 80 05/28/17 22:00 80 28 195/76 (115) 94 05/28/17 21:35 94 Nasal Cannula 2.00 05/28/17 21:32 76 05/28/17 20:00 80 05/28/17 20:00 97.7 80 17 183/80 (114) 94 05/28/17 19:01 72 14 149/59 (89) 93 05/28/17 19:00 74 05/28/17 18:00 84 05/28/17 17:01 78 16 171/64 (99) 92 05/28/17 17:00 78 05/28/17 16:32 84 29 199/83 (121) 91 05/28/17 16:31 88 29 208/127 (154) 91 05/28/17 16:05 82 29 206/78 (120) 92 05/28/17 16:01 84 32 215/97 (136) 92 05/28/17 15:36 82 21 203/78 (119) 93 05/28/17 15:35 I/O 05/28/17 05/28/17 05/28/17 05/29/17 05/29/17 05/29/17 07:00 15:00 23:00 07:00 15:00 23:00 Intake Total 493.3 ml 997.7 ml 1908 ml 1250 ml 1133 ml Output Total 725 ml 1125 ml Balance 493.3 ml 997.7 ml 1183 ml 125 ml 1133 ml Intake Oral 240 ml IV Total 493.3 ml 997.7 ml 1668 ml 1250 ml 1133 ml Output Urine Total 725 ml 1125 ml # Voids 5 3 # Bowel Movements 0 Result Diagram: 05/29/17 0615 05/29/17 0615 Imaging Last Impressions Lower Extremity CT 05/28/17 0000 Signed Impressions: Service Date/Time: Sunday, May 28, 2017 09:50 - CONCLUSION: 1. Acute nondisplaced superior and inferior pubic rami fractures on the left. 2. Retroperitoneal adenopathy worrisome for metastatic disease or myeloproliferative disorder. 3. Enlarged and lobulated uterus likely related to fibroids. Sushant Juares Jr., MD CT Angiography 05/28/17 0000 Signed Impressions: Service Date/Time: Sunday, May 28, 2017 02:01 - CONCLUSION: Large mass on the right side of the trachea could be an enlarged thyroid. Innumerable nodules scattered throughout the lungs metastatic disease certainly within the differential. There are a number of nodules in the right lower lobe which would be amenable to CT-guided biopsy. Vince Galan MD Abdomen/Pelvis CT 05/28/17 0000 Signed Impressions: Service Date/Time: Sunday, May 28, 2017 20:56 - CONCLUSION: 1. There is evidence of retroperitoneal metastatic lymphadenopathy and I believe potentially on the basis of cervical or endometrial carcinoma. Primary lesion versus additional metastatic involvement of the urinary bladder. There is also a nonspecific nodule in the expected region of the distal urethra. 2. Nodularity of both adrenal glands, most likely metastatic. 3. Visualized lung bases again show evidence of widespread and confluent pulmonary metastatic disease with small effusions. Kane Cedeño MD Maxillofacial CT 05/27/172016 Signed Impressions: Service Date/Time: May 20:34 - CONCLUSION: 1. No maxillofacial fracture is present. 2. There is bilateral maxillary mucoperiosteal thickening with 12 mm polypoid structure extending from the left maxillary antrum into the left posterior nasal cavity. 3. There is a 14 mm left parotid gland nodule. Differential diagnosis includes intraparotid lymph node or pleomorphic adenoma. Kane Bartlett MD Head CT 05/27/172016 Signed Impressions: Service Date/Time: May 20:34 - CONCLUSION: No acute abnormality is identified. Kane Bartlett MD Cervical Spine CT 05/27/172016 Signed Impressions: Service Date/Time: May 20:34 - CONCLUSION: 1. No acute cervical spine abnormality is identified. There is degenerative disc disease at C5-C6. 2. There is a 4.1 cm right thyroid nodule. If this is a new finding, suggest nonemergent outpatient ultrasound of the thyroid gland for further evaluation. 3. Abnormal linear and nodular parenchymal opacities in the upper lobes bilaterally. Since this does not pertain to the patient's acute problem, this finding should also be further evaluated with outpatient chest CT with IV contrast. Also suggest correlating with any prior outside imaging studies. Kane Bartlett MD Hip and Pelvis X-Ray 05/27/17 Signed Impressions: Service Date/Time: May 20:49 - CONCLUSION: 1. A subtle lucency in the left pelvis may represent a nondisplaced left superior pubic ramus fracture. 2. Mild osteoarthritis of the joints bilaterally. Kane Bartlett MD Chest X-Ray 05/27/17 Signed Impressions: Service Date/Time: May 21:27 - CONCLUSION: Diffuse nodular and reticular nodular opacities bilaterally. Etiology is nonspecific but metastatic disease is one consideration. Suggest correlation for any known primary malignancies. Sarcoidosis is another possibility but felt less likely given the distribution and lack of appreciable lymphadenopathy. Kane Bartlett MD Ankle X-Ray 05/27/17 Signed Impressions: Service Date/Time: May 20:56 - CONCLUSION: No acute left ankle abnormality is identified. Kane Bartlett MD Objective Remarks GENERAL: This is a well-nourished, well-developed patient SKIN: No rashes, ecchymoses or lesions. Cool and dry. Abrasion left leg HEAD: Atraumatic. Normocephalic. No temporal or scalp tenderness. EYES: Pupils equal round and reactive. Extraocular motions intact. No scleral icterus. No injection or drainage. ENT: Nose without bleeding, purulent drainage or septal hematoma. Throat without erythema, tonsillar hypertrophy or exudate. Uvula midline. Airway patent. NECK: Trachea midline. No JVD or lymphadenopathy. Supple, nontender, no meningeal signs. Thyromegaly CARDIOVASCULAR: Regular rate and rhythm without murmurs, gallops, or rubs. RESPIRATORY: Clear to auscultation. Decreased Breath sounds equal bilaterally. No wheezes, rales, or rhonchi. GASTROINTESTINAL: Abdomen soft, tender right lower quadrant, nondistended. No guarding. MUSCULOSKELETAL: Extremities without clubbing, cyanosis, or edema. Left hip tenderness. No calf tenderness. Negative Homans sign bilaterally. NEUROLOGICAL: Lethargic but easily arousable. Cranial nerves II through XII intact. Motor and sensory grossly within normal limits. Five out of 5 muscle strength in all muscle groups. Normal speech. A/P Problem List: (1) Closed fracture of left superior pubic ramus ICD Code: S32.512A - Fracture of superior rim of left pubis, initial encounter for closed fracture (2) Closed fracture of left inferior pubic ramus ICD Code: S32.592A - Other specified fracture of left pubis, initial encounter for closed fracture (3) Electrolyte disorder ICD Code: E87.8 - Other disorders of electrolyte and fluid balance, not elsewhere classified Status: Acute (4) Elevated troponin I level ICD Code: R74.8 - Abnormal levels of other serum enzymes Status: Acute (5) Hypercalcemia ICD Code: E83.52 - Hypercalcemia Assessment and Plan This is a 67-year-old female with history of hypertension, hyperlipidemia and noncompliance. She has not seen a doctor for over 4 years. She presents to the emergency department after she had a non-syncopal fall down the stairs after losing her balance. She landed on her left hip and was not able to get up due to constant severe hip pain worse with activity. Imaging study shows left pubic rami fracture. I Status post fall with closed head injury and nondisplaced superior and inferior pubic rami fractures on the left. Orthopedic surgery recommends medical management and weightbearing as tolerated. Pain management with Lortab and IV morphine. Physical therapy evaluation Severe sepsis with UTI. Patient complains of right lower quadrant pain. Continue IV Rocephin and follow-up culture Thyromegaly, bilateral lung opacities, bilateral parotid gland nodule, urinary bladder mass, masslike thickening in the cervical region and retroperitoneal adenopathies concerning for metastatic disease. Medical oncology has requested lung biopsy by IR Hypercalcemia likely related to mets. PTH within normal limits. She is mildly symptomatic. No improvement status post IV zoledronic acid 05/28/17. Continue IV hydration and will consult him and subcutaneous twice a day for 2 days acid IV. Repeat calcium in the morning. Follow-up PTH related peptide Bilateral maxillary mucoperiosteal thickening with 12 mm polypoid structure extending from the left axilla antrum to the left posterior nasal cavity. Consider ENT consult Hyperthyroidism with thyromegaly. Check TSI. Continue Inderal. She needs follow-up with endocrinology as well as thyroid sonogram Hypokalemia. No changes in the EKG. Magnesium within normal limits. Continue aggressive replacement . Repeat BMP in the morning. Monitor on telemetry Uncontrolled hypertension contributed by pain. Increase Inderal to 20 mg every 8 hours with as needed clonidine, IV hydralazine and IV Vasotec. Troponin elevation. Patient denies chest pain. EKG with nonspecific ST changes. This is likely secondary to above. Patient received aspirin. Patient will be on beta antony. Sublingual nitroglycerin as needed. Follow- up echocardiogram DVT prophylaxis with SCD and subcutaneous heparin Discharge Planning She is critically ill and will be monitored in the ICU. Hi likelihood of decompensation. Critical care time spent 30 mins Problem Qualifiers (1) Closed fracture of left superior pubic ramus: Qualified Codes: S32.512A - Fracture of superior rim of left pubis, initial encounter for closed fracture (2) Closed fracture of left inferior pubic ramus: Qualified Codes: S32.592A - Other specified fracture of left pubis, initial encounter for closed fracture Carlos Pastor MD May 29, 2017 15:30
--- NOTE | 2017-05-29 17:50 | ECHRPT ---
Indication: CHEST PAIN CONCLUSIONS The left ventricular systolic function is normal with an estimated ejection fraction in the range of 55-60%. Normal left ventricular size. Mild concentric left ventricular hypertrophy. No regional wall motion abnormalities are present. Trace mitral valve regurgitation. Trivial pulmonary valve regurgitation. BP: 185 / 70 HR: 108 Rhythm: Sinus MEASUREMENTS (Male / Female) Normal Values Technical Quality:Good 2D ECHO LV Diastolic Diameter PLAX 4.0 cm 4.2 - 5.9 / 3.9 - 5.3 cm LV Systolic Diameter PLAX 2.9 cm IVS Diastolic Thickness 1.3 cm 0.6 - 1.0 / 0.6 - 0.9 cm LVPW Diastolic Thickness 1.3 cm 0.6 - 1.0 / 0.6 - 0.9 cm LV Relative Wall Thickness 0.6 RV Internal Dim ED PLAX 3.0 cm LVOT Diameter 1.9 cm LA Systolic Diameter LX 3.2 cm 3.0 - 4.0 / 2.7 - 3.8 cm LV Ejection Fraction MOD 4C 59.6 % LV Cardiac Index MOD 4C 2844.3 cm/minm LV Ejection Fraction 4C AL 60.2 % LV Cardiac Index 4C AL 2968.7 cm/minm M-MODE Aortic Root Diameter MM 2.8 cm LA Systolic Diameter MM 3.9 cm LA Ao Ratio MM 1.4 AV Cusp Separation MM 1.8 cm DOPPLER AV Peak Velocity 199.0 cm/s AV Peak Gradient 15.8 mmHg AV Mean Gradient 7.0 mmHg AV Velocity Time Integral 42.6 cm LVOT Peak Velocity 150.0 cm/s LVOT Peak Gradient 9.0 mmHg LVOT Velocity Time Integral 30.2 cm LVOT Cardiac Index 4595.2 cm/minm AV Area Cont Eq vti 2.0 cm AV Area Cont Eq pk 2.1 cm MV Area PHT 4.7 cm Mitral E Point Velocity 97.7 cm/s Mitral A Point Velocity 94.8 cm/s Mitral E to A Ratio 1.0 LV E' Lateral Velocity 7.3 cm/s Mitral E to LV E' Lateral Ratio 13.4 LV E' Septal Velocity 5.7 cm/s Mitral E to LV E' Septal Ratio 17.3 PV Peak Velocity 111.0 cm/s PV Peak Gradient 4.9 mmHg FINDINGS LEFT VENTRICLE The left ventricular systolic function is normal with an estimated ejection fraction in the range of 55-60%. Normal left ventricular size. Mild concentric left ventricular hypertrophy. No regional wall motion abnormalities are present. RIGHT VENTRICLE Normal right ventricular size and systolic function. LEFT ATRIUM The left atrial size is normal. RIGHT ATRIUM The right atrial size is normal. ATRIAL SEPTUM Normal atrial septal thickness without atrial level shunting by limited color doppler interrogation. AORTA The aortic root and proximal ascending aorta are normal in size on limited imaging. MITRAL VALVE Trace mitral valve regurgitation. AORTIC VALVE Trileaflet aortic valve. No aortic valve stenosis or regurgitation. TRICUSPID VALVE Structurally normal tricuspid valve. No tricuspid valve stenosis or regurgitation. PULMONARY VALVE Trivial pulmonary valve regurgitation. VESSELS The inferior vena cava is normal in size. PERICARDIUM No pericardial effusion. Gerry Yarbrough MD, FACC, FSCAI (Electronically Signed) Final Date:29 May 2017 17:49
--- NOTE | 2017-05-29 17:56 | HHI.PR ---
Subjective Remarks Pelvic exam performed at the request of Dr. Pastor, attending physician. Patient consented to exam. Two RNs and MEAT PACKER present at bedside and assisted. Patient has a left superior pubic ramus fracture reviewed on x-ray prior to exam , appears stable. RNs held the patient's legs in appropriate position for exam, but positioning was limited due to pelvic fracture and discomfort. GENITOURINARY: Normal external genitalia without lesions or erythema. Vaginal vault with mild amount of blood. Cervix appears white without lesions, but there is blood oozing from the os. No cervical tenderness. Uterus and bilateral adnexa could not be palpated due to body habitus and limited tolerance due to discomfort, but patient had pain with pressure applied over mons pubis, center and to the right. Objective Vitals Vital Signs Date Time Temp Pulse Resp B/P (MAP) Pulse Ox O2 Delivery O2 Flow Rate FiO2 05/29/17 16:00 88 05/29/17 16:00 98.3 88 29 167/60 (95) 95 05/29/17 15:17 92 26 170/77 (108) 94 05/29/17 15:00 96 25 194/69 (110) 94 05/29/17 15:00 96 05/29/17 14:00 94 05/29/17 14:00 94 25 185/79 (114) 94 05/29/17 13:00 90 18 169/61 (97) 93 05/29/17 13:00 90 05/29/17 12:00 98.1 90 32 182/71 (108) 94 05/29/17 12:00 90 05/29/17 11:00 90 05/29/17 11:00 90 30 182/63 (102) 95 05/29/17 10:17 94 Nasal Cannula 4.00 05/29/17 10:00 86 05/29/17 10:00 86 23 157/64 (95) 95 05/29/17 09:00 84 23 180/68 (105) 95 05/29/17 09:00 84 05/29/17 08:00 86 05/29/17 08:00 98.0 86 22 198/76 (116) 95 05/29/17 07:00 88 19 196/77 (116) 93 05/29/17 07:00 88 05/29/17 06:00 84 24 190/72 (111) 94 05/29/17 06:00 84 05/29/17 05:00 86 17 185/70 (108) 95 05/29/17 05:00 86 05/29/17 04:00 97.6 88 16 195/76 (115) 92 05/29/17 04:00 88 05/29/17 03:00 90 05/29/17 03:00 90 25 193/76 (115) 94 05/29/17 02:00 88 05/29/17 02:00 88 23 195/82 (119) 94 05/29/17 01:00 86 18 198/82 (120) 94 05/29/17 01:00 86 05/29/17 00:00 84 05/29/17 00:00 98.7 84 29 187/75 (112) 93 05/28/17 23:00 82 25 193/78 (116) 93 05/28/17 23:00 82 05/28/17 22:00 80 05/28/17 22:00 80 28 195/76 (115) 94 05/28/17 21:35 94 Nasal Cannula 2.00 05/28/17 21:32 76 05/28/17 20:00 80 05/28/17 20:00 97.7 80 17 183/80 (114) 94 05/28/17 19:01 72 14 149/59 (89) 93 05/28/17 19:00 74 05/28/17 18:00 84 I/O 05/28/17 05/28/17 05/28/17 05/29/17 05/29/17 05/29/17 07:00 15:00 23:00 07:00 15:00 23:00 Intake Total 493.3 ml 997.7 ml 1908 ml 1250 ml 1133 ml 100 ml Output Total 725 ml 1125 ml Balance 493.3 ml 997.7 ml 1183 ml 125 ml 1133 ml 100 ml Intake Oral 240 ml IV Total 493.3 ml 997.7 ml 1668 ml 1250 ml 1133 ml 100 ml Output Urine Total 725 ml 1125 ml # Voids 5 3 # Bowel Movements 0 Result Diagram: 05/29/1761405/29/17614 Objective Remarks See above. A/P Problem List: (1) Closed fracture of left superior pubic ramus ICD Code: S32.512A - Fracture of superior rim of left pubis, initial encounter for closed fracture (2) Closed fracture of left inferior pubic ramus ICD Code: S32.592A - Other specified fracture of left pubis, initial encounter for closed fracture (3) Electrolyte disorder ICD Code: E87.8 - Other disorders of electrolyte and fluid balance, not elsewhere classified Status: Acute (4) Elevated troponin I level ICD Code: R74.8 - Abnormal levels of other serum enzymes Status: Acute (5) Hypercalcemia ICD Code: E83.52 - Hypercalcemia Problem Qualifiers (1) Closed fracture of left superior pubic ramus: Qualified Codes: S32.512A - Fracture of superior rim of left pubis, initial encounter for closed fracture (2) Closed fracture of left inferior pubic ramus: Qualified Codes: S32.592A - Other specified fracture of left pubis, initial encounter for closed fracture Krissy Monsalve May 29, 2017 17:56
[2017-05-29] MEDS: ACETAMINOPHEN/HYDROcodone 325 MG/5 MG TAB PO PRN ×2 (18:02→22:56)
--- NOTE | 2017-05-29 18:54 | EKG ---
Date Performed: 05/28/2017 Time Performed: 08:23:17 PTAGE: 67 years EKG: Sinus rhythm WITH OCCASIONAL SUPRAVENTRICULAR PREMATURE COMPLEXES NONSPECIFIC ST & T-WAVE ABNORMALITY BORDERLINE ECG PREVIOUS TRACING : 05/28/2017 03.25 Compared to prior tracing no significant change DOCTOR: Shonna Lombardo Interpretating Date/Time 05/29/2017 18:53:23
[2017-05-29] MEDS: CALCITONIN SALMON INJ 400 UNITS/2 ML VIAL SQ SCH (21:22)
[2017-05-29] MEDS: MORPHINE SULFATE 4 MG/ML INJ IV PRN (22:15)
[2017-05-30] VITALS (36 sets, daily range): BP systolic 122–215; BP diastolic 58–106; PULSE 84–119; RESP 20–44; TEMP 98.4–101.2; O2SAT 92–95
[2017-05-30] MEDS: cefTRIAXone INJ 1,000 MG in SODIUM CHLORIDE 0.9% INJ 100 ML IV SCH ×2 (00:05→12:04)
[2017-05-30] MEDS: NS + KCL 40 MEQ INJ 1,000 ML IV SCH (00:09)
[2017-05-30] MEDS: HEPARIN SODIUM - SQ 10,000 UNITS/ML VIAL SQ SCH ×2 (00:41→07:44)
[2017-05-30] MEDS: ENALAPRILAT 1.25 MG/ML VIAL IV PRN ×2 (00:44→13:10)
[2017-05-30] MEDS ORDERED: LORazepam 2 MG/ML VIAL IV PUSH ONE ×2 (01:00→14:15)
[2017-05-30] MEDS: MORPHINE SULFATE 4 MG/ML INJ IV PRN ×2 (02:07→07:44)
[2017-05-30] MEDS: PROPRANOLOL HCL 10 MG TAB PO SCH ×2 (05:34→14:00)
[2017-05-30 06:48] LABS: AUTOMATED NEUTROPHIL # 15.2 TH/MM3 (1.8-7.7); BASOPHIL % 0.1 % (0.0-2.0); EOSINOPHIL % 0.1 % (0.0-4.0); HEMATOCRIT 33.6 % (35.0-46.0); LYMPH % 2.5 % (9.0-44.0); LYMPHOCYTE # 0.4 TH/MM3 (1.0-4.8); MEAN CELL VOLUME 72.9 FL (80.0-100.0); MEAN CORPUSCULAR HGB CONC 31.6 % (32.0-36.0); MONO % 5.1 % (0.0-8.0); NEUT % 92.2 % (16.0-70.0); PLATELET COUNT 84 TH/MM3 (150-450); RED BLOOD COUNT 4.61 MIL/MM3 (4.00-5.30); RED CELL DISTRIBUTION WIDTH 20.2 % (11.6-17.2); WHITE BLOOD COUNT 16.4 TH/MM3 (4.0-11.0)
[2017-05-30 07:06] LABS: MAGNESIUM 3.1 MG/DL (1.5-2.5); POTASSIUM 4.5 MEQ/L (3.5-5.1)
[2017-05-30 07:10] LABS: HEMO FLAGS AUTO DIFF
[2017-05-30] MEDS: DOCUSATE SODIUM 50 MG/SENNA 8.6 MG TAB PO SCH ×2 (07:44→21:00)
[2017-05-30] MEDS: SODIUM CHLORIDE 0.9% FLUSH 10 ML FLUSH IV FLUSH SCH ×2 (07:45→21:14)
[2017-05-30 08:30] LABS: SCAN/DIFF AUTO DIFF CONFIRMED
[2017-05-30] MEDS: SODIUM CHLOR 0.45% 1000 ML INJ 1,000 ML IV SCH ×2 (08:45→20:40)
[2017-05-30] MEDS: amLODIPine BESYLATE 5 MG TAB PO SCH (09:00)
[2017-05-30] MEDS: CALCITONIN SALMON INJ 400 UNITS/2 ML VIAL SQ SCH ×2 (09:30→21:39)
[2017-05-30 09:31] LABS: BLOOD GAS BASE EXCESS 13.3 mmol/L (-2-2); BLOOD GAS CARBOXYHEMOGLOBIN 1.8 % (0-4); BLOOD GAS HCO3 38 mmol/L (22-26); BLOOD GAS METHEMOGLOBIN 1.3 % (0-2); BLOOD GAS O2 HGB SATURATION 92 % (90-100); BLOOD GAS OXYGEN CONTENT 13.7 Vol % (12.0-20.0); BLOOD GAS PCO2 49 mmHg (38-42); BLOOD GAS PO2 68 mmHg (61-120); BLOOD GAS TOTAL HGB 10.5 G/DL (12.0-16.0)
[2017-05-30 09:32] LABS: CRITICAL VALUE NO; DRAW SITE LT RADIAL; LITER FLOW 5 L/M; NUMBER OF ARTERIAL PUNCTURES 1; OXYGEN DEVICE NASAL CANNULA; STAT YES; ULNAR PULSE PRESENT
--- NOTE | 2017-05-30 09:39 | HHI.PR ---
Subjective Remarks Follow-up hip fracture. Patient is altered today. She is moaning not answering questions. She is moving all extremities. She received IV Ativan and IV morphine. Discussed with RN. Also discussed with oncology [facility] [employer] regarding retroperitoneal lymphadenopathy concerning for [employer] cancer. Objective Vitals Vital Signs Date Time Temp Pulse Resp B/P (MAP) Pulse Ox O2 Delivery O2 Flow Rate FiO2 05/30/17 04:00 95 05/30/17 04:00 98.4 93 22 172/76 (108) 95 05/30/17 02:12 35 05/30/17 00:00 99.0 88 20 195/69 (111) 93 05/30/17 00:00 93 05/29/17 23:56 34 05/29/17 21:19 93 Nasal Cannula 2.00 05/29/17 21:00 158/59 (92) 05/29/17 20:00 96 05/29/17 20:00 100.2 88 18 192/86 (121) 92 05/29/17 19:00 88 05/29/17 18:00 96 05/29/17 17:00 92 05/29/17 16:00 88 05/29/17 16:00 98.3 88 29 167/60 (95) 95 05/29/17 15:17 92 26 170/77 (108) 94 05/29/17 15:00 96 25 194/69 (110) 94 05/29/17 15:00 96 05/29/17 14:00 94 05/29/17 14:00 94 25 185/79 (114) 94 05/29/17 13:00 90 18 169/61 (97) 93 05/29/17 13:00 90 05/29/17 12:00 98.1 90 32 182/71 (108) 94 05/29/17 12:00 90 05/29/17 11:00 90 05/29/17 11:00 90 30 182/63 (102) 95 05/29/17 10:17 94 Nasal Cannula 4.00 05/29/17 10:00 86 05/29/17 10:00 86 23 157/64 (95) 95 I/O 05/29/17 05/29/17 05/29/17 05/30/17 05/30/17 05/30/17 07:00 15:00 23:00 07:00 15:00 23:00 Intake Total 1250 ml 1133 ml 240 ml 30 ml Output Total 1125 ml Balance 125 ml 1133 ml 240 ml 30 ml Intake Oral 140 ml 30 ml IV Total 1250 ml 1133 ml 100 ml Output Urine Total 1125 ml # Voids 4 4 # Bowel Movements 0 Result Diagram: 05/30/17 0545 05/30/17 0545 Imaging Last Impressions Lower Extremity CT 05/28/17 0000 Signed Impressions: Service Date/Time: Sunday, May 28, 2017 09:50 - CONCLUSION: 1. Acute nondisplaced superior and inferior pubic rami fractures on the left. 2. Retroperitoneal adenopathy worrisome for metastatic disease or myeloproliferative disorder. 3. Enlarged and lobulated uterus likely related to fibroids. Sushant Juares Jr., MD CT Angiography 05/28/17 0000 Signed Impressions: Service Date/Time: Sunday, May 28, 2017 02:01 - CONCLUSION: Large mass on the right side of the trachea could be an enlarged thyroid. Innumerable nodules scattered throughout the lungs metastatic disease certainly within the differential. There are a number of nodules in the right lower lobe which would be amenable to CT-guided biopsy. Vince Galan MD Abdomen/Pelvis CT 05/28/17 Signed Impressions: Service Date/Time: Sunday, May 28, 2017 20:56 - CONCLUSION: 1. There is evidence of retroperitoneal metastatic lymphadenopathy and I believe potentially on the basis of cervical or endometrial carcinoma. Primary lesion versus additional metastatic involvement of the urinary bladder. There is also a nonspecific nodule in the expected region of the distal urethra. 2. Nodularity of both adrenal glands, most likely metastatic. 3. Visualized lung bases again show evidence of widespread and confluent pulmonary metastatic disease with small effusions. Kane Cedeño MD Maxillofacial CT 05/27/172016 Signed Impressions: Service Date/Time: May 20:34 - CONCLUSION: 1. No maxillofacial fracture is present. 2. There is bilateral maxillary mucoperiosteal thickening with 12 mm polypoid structure extending from the left maxillary antrum into the left posterior nasal cavity. 3. There is a 14 mm left parotid gland nodule. Differential diagnosis includes intraparotid lymph node or pleomorphic adenoma. Kane Bartlett MD Head CT 05/27/172016 Signed Impressions: Service Date/Time: May 20:34 - CONCLUSION: No acute abnormality is identified. Kane Bartlett MD Cervical Spine CT 05/27/172016 Signed Impressions: Service Date/Time: May 20:34 - CONCLUSION: 1. No acute cervical spine abnormality is identified. There is degenerative disc disease at C5-C6. 2. There is a 4.1 cm right thyroid nodule. If this is a new finding, suggest nonemergent outpatient ultrasound of the thyroid gland for further evaluation. 3. Abnormal linear and nodular parenchymal opacities in the upper lobes bilaterally. Since this does not pertain to the patient's acute problem, this finding should also be further evaluated with outpatient chest CT with IV contrast. Also suggest correlating with any prior outside imaging studies. Kane Bartlett MD Hip and Pelvis X-Ray 05/27/17 Signed Impressions: Service Date/Time: May 20:49 - CONCLUSION: 1. A subtle lucency in the left pelvis may represent a nondisplaced left superior pubic ramus fracture. 2. Mild osteoarthritis of the joints bilaterally. Kane Bartlett MD Chest X-Ray 05/27/17 Signed Impressions: Service Date/Time: May 21:27 - CONCLUSION: Diffuse nodular and reticular nodular opacities bilaterally. Etiology is nonspecific but metastatic disease is one consideration. Suggest correlation for any known primary malignancies. Sarcoidosis is another possibility but felt less likely given the distribution and lack of appreciable lymphadenopathy. Kane Bartlett MD Ankle X-Ray 05/27/17 Signed Impressions: Service Date/Time: May 20:56 - CONCLUSION: No acute left ankle abnormality is identified. Kane Bartlett MD Objective Remarks This is a well-nourished, well-developed patient who is critically ill on 5 L No rashes, ecchymoses or lesions. Cool and dry. Abrasion left leg Pupils equal round and reactive. Extraocular motions intact. No scleral icterus. No injection or drainage. Supple, nontender, no meningeal signs. Thyromegaly Regular rate and rhythm without murmurs, gallops, or rubs. Decreased Breath sounds equal bilaterally. No wheezes, rales, or rhonchi. Abdomen soft, tender right lower quadrant, nondistended. No guarding. Extremities without clubbing, cyanosis but with bilateral lower extremity pitting edema. Lethargic and moaning. Cranial nerves II through XII intact. Moving all extremities. A/P Problem List: (1) Closed fracture of left superior pubic ramus ICD Code: S32.512A - Fracture of superior rim of left pubis, initial encounter for closed fracture (2) Closed fracture of left inferior pubic ramus ICD Code: S32.592A - Other specified fracture of left pubis, initial encounter for closed fracture (3) Electrolyte disorder ICD Code: E87.8 - Other disorders of electrolyte and fluid balance, not elsewhere classified Status: Acute (4) Elevated troponin I level ICD Code: R74.8 - Abnormal levels of other serum enzymes Status: Acute (5) Hypercalcemia ICD Code: E83.52 - Hypercalcemia Assessment and Plan This is a 67-year-old female with history of hypertension, hyperlipidemia and noncompliance. She has not seen a doctor for over 4 years. She presents to the emergency department after she had a non-syncopal fall down the stairs after losing her balance. She landed on her left hip and was not able to get up due to constant severe hip pain worse with activity. Imaging study shows left pubic rami fracture. I Encephalopathy likely toxic. Initial head CT unremarkable. Discontinue morphine and Ativan. Neurochecks. Consider MRI of the brain. Obtain ABG Status post fall with closed head injury and nondisplaced superior and inferior pubic rami fractures on the left. Orthopedic surgery recommends medical management and weightbearing as tolerated. Pain management with Lortab (per RN patient tolerates this medicine) and IV Toradol. Physical therapy evaluation Severe sepsis with UTI. Improving leukocytosis. Continue IV Rocephin and follow-up culture negative to date Thyromegaly, bilateral lung opacities, bilateral parotid gland nodule, urinary bladder mass, masslike thickening in the cervical region and retroperitoneal adenopathies concerning for metastatic disease. Medical oncology has requested lung biopsy by IR. Updated oncology regarding cervical bleeding possible [employer] malignancy Hypercalcemia likely related to mets. PTH within normal limits. She is symptomatic. Status post IV zoledronic acid 05/28/17. Improving continue calcitonin till tomorrow. Repeat calcium in the morning. Follow-up PTH related peptide Bilateral maxillary mucoperiosteal thickening with 12 mm polypoid structure extending from the left axilla antrum to the left posterior nasal cavity. Consider ENT consult Hyperthyroidism with thyromegaly. Continue Inderal. Follow-up TSI She needs follow-up with endocrinology as well as thyroid sonogram Hypokalemia. No changes in the EKG. Magnesium within normal limits. Resolved. Continue aggressive replacement . Repeat BMP in the morning. Monitor on telemetry Hypernatremic. Change to hypotonic fluid for 1 more liter. Uncontrolled hypertension contributed by pain. Start Norvasc and continue Inderal 20 mg every 8 hours with as needed clonidine, IV hydralazine and IV Vasotec. Troponin elevation. Patient denies chest pain. EKG with nonspecific ST changes. This is likely secondary to above. Patient received aspirin. Patient will be on beta antony. Sublingual nitroglycerin as needed. Echocardiogram with ejection fraction 50% and LVH DVT prophylaxis with SCD and subcutaneous heparin Discharge Planning She remains critically ill and will be monitored in the ICU. Hi likelihood of decompensation. Critical care time spent 30 mins Problem Qualifiers (1) Closed fracture of left superior pubic ramus: Qualified Codes: S32.512A - Fracture of superior rim of left pubis, initial encounter for closed fracture (2) Closed fracture of left inferior pubic ramus: Qualified Codes: S32.592A - Other specified fracture of left pubis, initial encounter for closed fracture Carlos Pastor MD May 30, 2017 09:39
[2017-05-30 10:04] LABS: INDIRECT BILIRUBIN 0.5 MG/DL (0.0-0.8); TOTAL BILIRUBIN ADULT 0.7 MG/DL (0.2-1.0)
[2017-05-30] MEDS: hydrALAZINE HCL 20 MG/ML VIAL IV PRN ×2 (10:08→19:17)
[2017-05-30] MEDS: RESP: ALBUTEROL 2.5 MG/3 ML NEB (SCH) NEB ×3 (11:22→21:22)
[2017-05-30] MEDS ORDERED: FLUMAZENIL 0.5 MG/5 ML VIAL IV PUSH ONE (13:30)
[2017-05-30] MEDS ORDERED: HALOPERIDOL LACTATE 5 MG/ML AMP IV PUSH ONE (14:15)
[2017-05-30] MEDS: INSULIN NovoLIN REGULAR SUPPLEMENTAL SCALE SQ SCH ×2 (16:45→20:45)
[2017-05-30] MEDS ORDERED: GLUCAGON 1 MG/ML VIAL OTHER PRN (16:45)
[2017-05-30] MEDS ORDERED: DEXTROSE 50% IN WATER 50 ML VIAL(D50) IV PRN (16:45)
[2017-05-30 17:03] LABS: AUTOMATED NEUTROPHIL # 15.2 TH/MM3 (1.8-7.7); BASOPHIL # 0.6 TH/MM3 (0-0.2); BASOPHIL % 3.1 % (0.0-2.0); HEMATOCRIT 35.8 % (35.0-46.0); LYMPH % 3.5 % (9.0-44.0); LYMPHOCYTE # 0.6 TH/MM3 (1.0-4.8); MEAN CELL VOLUME 73.9 FL (80.0-100.0); MEAN CORPUSCULAR HEMOGLOBIN 22.3 PG (27.0-34.0); MEAN CORPUSCULAR HGB CONC 30.1 % (32.0-36.0); MONO % 7.8 % (0.0-8.0); NEUT % 85.6 % (16.0-70.0); PLATELET COUNT 84 TH/MM3 (150-450); RED BLOOD COUNT 4.85 MIL/MM3 (4.00-5.30); RED CELL DISTRIBUTION WIDTH 20.5 % (11.6-17.2); WHITE BLOOD COUNT 17.8 TH/MM3 (4.0-11.0)
[2017-05-30 17:05] LABS: HEMO FLAGS AUTO DIFF
[2017-05-30 17:24] LABS: CORRECTED NUCLEATED RBC 1 /100 WBC (0-0); NEUTROPHIL # MANUAL DIFF 16.6 TH/MM3 (1.8-7.7); POLYS (SEG NEUTROPHILS) 93 % (16-70); SCAN/DIFF FINAL DIFF MANUAL; WBC DIFF SAMPLE 100
[2017-05-30 17:25] LABS: ALKALINE PHOSPHATASE 113 U/L (45-117); ALT (GPT) 22 U/L (10-53); ANION GAP 8 MEQ/L (5-15); AST (GOT) 34 U/L (15-37); BICARBONATE 32.6 MEQ/L (21.0-32.0); BLOOD UREA NITROGEN 44 MG/DL (7-18); CHLORIDE 118 MEQ/L (98-107); GLOMERULAR FILTRATION RATE 50 ML/MIN (>89); POTASSIUM 4.1 MEQ/L (3.5-5.1); TOTAL BILIRUBIN ADULT 0.9 MG/DL (0.2-1.0)
[2017-05-30 17:30] LABS: SODIUM (NA) 159 MEQ/L (136-145)
--- NOTE | 2017-05-30 18:01 | MB ---
cc: GAYLA COOPER M.D. DATE OF CONSULTATION: 05/30/2017. HISTORY OF PRESENT ILLNESS: The patient is a 67-year-old female with past medical history of hypertension, hyperlipidemia noncompliance. She has not seen a physician for over four years. She presented to the [facility] after she sustained a non-syncopal fall down the stairs after losing her balance. She also was complaining of left ankle pain. On initial presentation, she was admitted under the hospitalist service on May 27 and was found to have hypercalcemia with a corrected calcium level of 13.7, hypokalemia with potassium level 2.0 and mild acute kidney injury with creatinine level of 1.20. Her initial lactic acid level was 3.7. Also, she had leukocytosis with a WBC of 21.4. Pelvic x-ray showed a nondisplaced left superior pubic ramus fracture and mild osteoarthritis of the joints bilaterally. Her initial chest x-ray on admission showed diffuse nodular and reticulonodular opacities bilaterally. Subsequently the patient underwent CT angiogram of the chest on May 28, which showed a large mass on the right side of the trachea which could be an enlarged thyroid in addition to innumerable nodules scattered throughout the lungs, probable metastatic disease. A CT abdomen and pelvis was obtained as well, which showed evidence of retroperitoneal metastatic lymphadenopathy, nonspecific nodule in the distal urethra in addition to nodularity of both adrenal glands. A CT scan of the brain showed no acute abnormality. During her hospital course, she was being followed by Dr. Tong from the oncology service in addition to orthopedic surgery. She was being treated with antibiotics. In addition, she was on calcitonin for hypercalcemia. The patient also received Zometa to correct her hypercalcemia. Today the patient had worsening mental status. An ABG was performed on 5 liters oxygen which showed a pH of 7.49, CO2 49, pAO2 of 68, bicarb 38 and saturation 92%. She is scheduled to undergo CT-guided lung biopsy of a pulmonary nodule in addition to MRI of the brain for further evaluation of her mental status. The patient received Haldol 2 mg IV at 1500 in addition to lorazepam 0.5 mg at 01:00 a.m. and morphine 1 mg at 07:45 this morning. She was given Romazicon at 1343 and Narcan 0.4 mg without any significant improvement. When seen, she is hypertensive with systolic blood pressure of 160s to 190s and tachycardic. Most of the history was obtained from reviewing the medical records and from and discussion with the patient's daughter who was at the bedside. Due to findings of large mass on the right side of the trachea and due to her high-risk of possible complication with intubation, she is being transferred to [facility]. She had an echocardiogram yesterday which showed normal left ventricular systolic function with an ejection fraction of 55% to 60%. No regional wall motion abnormalities identified. PAST MEDICAL HISTORY: Past medical history significant for: 1. Hypertension. 2. Hyperlipidemia. 3. Obesity. 4. History of noncompliance. PAST SURGICAL HISTORY: Unremarkable. SOCIAL HISTORY: Nonsmoker, nondrinker. FAMILY HISTORY: Mother had breast cancer and in her 80s. Father had lung cancer and also in his 80s. REVIEW OF SYSTEMS: The review of systems is as per the history of present illness, and the rest of the review of systems is limited as the patient is a poor historian. CURRENT MEDICATIONS: 1. Calcitonin. 2. Hydralazine PRN. 3. Rocephin. 4. Inderal. PHYSICAL EXAMINATION: GENERAL: A 67-year-old female lying in bed in mild distress with altered mental status. VITAL SIGNS: Afebrile with temperature of 99.1, pulse of 103, blood pressure 180/73, saturation 93%. HEAD, EYES, EARS, NOSE, THROAT: Normocephalic and atraumatic. Pupils equal, round and reactive to light and accommodation. Extraocular muscles intact. Conjunctivae are pink. Nonicteric sclerae. Oral mucosa within normal limits. NECK: The neck is supple. No jugular venous distention, adenopathy or thyromegaly. Trachea in the midline. CARDIOVASCULAR: Tachycardic. Normal S1-S2. No murmurs, rubs or gallops noted. PULMONARY: Bilateral equal air entry. No rales or wheezing. ABDOMEN: The abdomen is soft, nontender and no distention. Positive bowel sounds. EXTREMITIES: No cyanosis, clubbing or edema. NEUROLOGIC: No focal sensory deficit. Lethargic. LABORATORY DATA: Sodium 155, potassium 4.5, chloride 112, carbon dioxide 37, BUN 45, creatinine 1.1, glucose 186, calcium 11.1, ammonia level 34. Liver function tests within normal limits. TSH less than 0.005. WBCs 16.4, hemoglobin 10.6, hematocrit 33, platelet count 84,000. INR 1.1. PT 12.6. PTT 28.9. RADIOGRAPHIC STUDIES: CT angiogram of the chest showed large mass on the right side of the trachea which could be enlarged thyroid in addition to innumerable nodules scattered throughout the lungs. CT abdomen and pelvis showed evidence of retroperitoneal metastatic lymphadenopathy in addition to nonspecific nodule in the region of the distal urethra and nodularity of both adrenal glands. A head CT showed no acute abnormality identified. Pelvis x-rays showed nondisplaced left superior pubic ramus fracture. IMPRESSION: 1. Respiratory insufficiency. 2. Encephalopathy, multifactorial and could be related to hypercalcemia, metastatic disease, hypertensive encephalopathy and other metabolic etiologies. 3. Hypertensive urgency, rule out progressive reversible encephalopathy syndrome. 4. Scattered pulmonary nodules likely related to metastatic disease. 5. Thyroid mass. 6. Hypercalcemia. 7. Hypernatremia. 8. Retroperitoneal metastatic lymphadenopathy. 9. Hyperlipidemia. 10. Leukocytosis. 11. Anemia and thrombocytopenia. 12. Superior and inferior pubic ramus fracture on the left. RECOMMENDATIONS: 1. Monitor neuro status closely and avoid any sedatives. She was given Narcan and Romazicon earlier without any significant effect. CT scan of the brain negative for acute findings and her ammonia level is 34. A urine drug screen on May 27 negative for opiates, amphetamines, benzodiazepines. Agree with MRI of the brain to rule out metastatic disease. Will consult neurology service and obtain an EEG. 2. Continue with oxygen and maintain saturations above 92%. 3. Bronchodilators in the form of DuoNeb q. 4 plus q. 2 PRN for shortness of breath. 4. Aspiration precautions. 5. Place on Lopressor 2.5 milligrams IV q. 6 and hold p.o. propranolol for now. 6. Monitor heart rate and blood pressure closely and maintain MAP greater than 65 mmHg. She had an echocardiogram on May 29 which showed normal left ventricular systolic function with ejection fraction of 55% to 60%. No regional wall motion abnormalities identified. 7. Monitor renal function, intake and output and electrolyte replacement as needed. 8. Continue with IV fluids. She is currently on half normal saline at 84 mL/hour. 9. Also she is on calcitonin 350 units subcutaneous twice a day for 48 hours to correct her hypercalcemia. 10. The patient is scheduled to undergo CT guided biopsy of lung nodule tomorrow. 11. Medical oncology is following. 12. Monitor airways closely. The patient is currently protecting her airways. She is at high risk for intubation given her large thyroid mass on the trachea. 13. Continue with empiric antibiotics in the form of Rocephin and monitor for signs of infection, which include fever and WBCs. Her blood cultures from May 27 showed no growth to-date and urine culture showed no growth. 14. Place on sliding scale insulin for glycemic control. In addition, will obtain a free T4 and free T3 level. Her TSH is less than 0.005, likely related to euthyroid sick syndrome. Her PTH level is 16.3. 15. Keep her NPO for now until her mental status improves and place on Protonix 40 milligrams daily for GI prophylaxis. 16. GI prophylaxis with Protonix and DVT prophylaxis with SCDs. Will hold off on chemical anticoagulation prophylaxis for now given the underlying thrombocytopenia and the patient is scheduled to undergo CT-guided biopsy of the lung nodule. Further recommendations will be made during the hospital course. MD FRANCESCA De Leon/DEBBIE /4:32 PM /5:30 PM
[2017-05-30] MEDS: METOPROLOL TARTRATE 5 MG/5 ML VIAL IV PUSH SCH ×2 (18:40→22:42)
[2017-05-30 18:41] LABS: FREE T3 1.46 PG/ML (2.18-3.98); FREE T4 1.35 NG/DL (0.76-1.46)
[2017-05-30] MEDS: PANTOPRAZOLE SODIUM 40 MG VIAL IV PUSH SCH (18:41)
[2017-05-30] MEDS ORDERED: GADODIAMIDE PF 287 MG/ML 20 ML VIAL (for RAD MRI) IVCONTRAST ONE (20:05)
[2017-05-30] MEDS ORDERED: CHLORHEXIDINE GLUCONATE 2 % 1 PACK (2 CLOTHS)(extra cloths) TOPICAL PRN (20:30)
--- NOTE | 2017-05-30 22:19 | RADRPT ---
EXAM DATE/TIME: 05/30/2017 19:47 [facility] COMPARISON: No previous studies available for comparison. INDICATIONS : Altered mental status. Metastatic disease. CONTRAST: 17 cc Omniscan (gadodiamide) IV MEDICAL HISTORY : None. SURGICAL HISTORY : None. ENCOUNTER: Initial ACUITY: 1 day PAIN SCORE: 0/10 LOCATION: Cranial TECHNIQUE: Multiplanar, multisequence MRI of the brain was performed both prior to and following the administrat ion of paramagnetic contrast. FINDINGS: There is no acute infarct. No acute hemorrhage, midline shift or extra-axial fluid collections are no bo. The ventricles, sulci and cisterns are normal in size, shape and position for the patient's age . There is a tiny enhancing extra-axial mass along the left high parietal region measuring 9 mm cons istent with probable tiny meningioma. No mass effect is noted associated with this lesion. No abnor edinson enhancing intra-axial lesions are noted. CONCLUSION: 1. Tiny 9 mm enhancing extra-axial mass along the left high parietal region consistent with probable tiny meningioma. 2. No acute infarct, acute hemorrhage, midline shift or extra-axial bleed. Delta Allison MD on May 30, 2017 at 20:23 Board Certified Radiologist. This report was verified electronically.
[2017-05-31] VITALS (17 sets, daily range): BP systolic 153–212; BP diastolic 69–91; PULSE 82–124; RESP 19–34; TEMP 99–101.3; O2SAT 95–96
[2017-05-31] MEDS: cefTRIAXone INJ 1,000 MG in SODIUM CHLORIDE 0.9% INJ 100 ML IV SCH (00:03)
[2017-05-31] MEDS: ENALAPRILAT 1.25 MG/ML VIAL IV PRN (00:03)
[2017-05-31] MEDS: INSULIN NovoLIN REGULAR SUPPLEMENTAL SCALE SQ SCH ×6 (00:29→22:00)
[2017-05-31] MEDS: KETOROLAC TROMETHAMINE 30 MG/ML (IVP) VIAL IV PUSH PRN ×3 (00:42→21:09)
[2017-05-31] MEDS: CHLORHEXIDINE GLUCONATE 2 % 1 PACK (2 CLOTHS)(taper/protocol) TOPICAL SCH (04:00)
[2017-05-31] MEDS: METOPROLOL TARTRATE 5 MG/5 ML VIAL IV PUSH SCH ×4 (04:15→22:08)
[2017-05-31 05:28] LABS: AUTOMATED NEUTROPHIL # 15.5 TH/MM3 (1.8-7.7); BASOPHIL % 0.2 % (0.0-2.0); HEMATOCRIT 35.4 % (35.0-46.0); LYMPH % 3.4 % (9.0-44.0); LYMPHOCYTE # 0.6 TH/MM3 (1.0-4.8); MEAN CELL VOLUME 73.5 FL (80.0-100.0); MEAN CORPUSCULAR HEMOGLOBIN 22.2 PG (27.0-34.0); MEAN CORPUSCULAR HGB CONC 30.2 % (32.0-36.0); NEUT % 89.4 % (16.0-70.0); PLATELET COUNT 72 TH/MM3 (150-450); RED BLOOD COUNT 4.81 MIL/MM3 (4.00-5.30); RED CELL DISTRIBUTION WIDTH 21.4 % (11.6-17.2); WHITE BLOOD COUNT 17.4 TH/MM3 (4.0-11.0)
[2017-05-31 05:29] LABS: HEMO FLAGS AUTO DIFF
[2017-05-31] MEDS: DEXTROSE 5% IN WATE 1000ML INJ 1,000 ML IV SCH (05:30)
[2017-05-31 05:47] LABS: ALKALINE PHOSPHATASE 115 U/L (45-117); ALT (GPT) 21 U/L (10-53); ANION GAP 7 MEQ/L (5-15); AST (GOT) 28 U/L (15-37); BICARBONATE 34.4 MEQ/L (21.0-32.0); BLOOD UREA NITROGEN 44 MG/DL (7-18); CHLORIDE 119 MEQ/L (98-107); GLOMERULAR FILTRATION RATE 48 ML/MIN (>89); MAGNESIUM 3.2 MG/DL (1.5-2.5); POTASSIUM 3.7 MEQ/L (3.5-5.1); TOTAL BILIRUBIN ADULT 0.7 MG/DL (0.2-1.0)
[2017-05-31] MEDS ORDERED: ACETAMINOPHEN 1000 MG/100 ML VIAL IV PRN (06:00)
[2017-05-31 06:04] LABS: SODIUM (NA) 160 MEQ/L (136-145)
[2017-05-31 06:27] LABS: SCAN/DIFF AUTO DIFF CONFIRMED
[2017-05-31] MEDS: RESP: ALBUTEROL 2.5 MG/3 ML NEB (SCH) NEB ×4 (07:28→19:21)
[2017-05-31] MEDS ORDERED: GLUCAGON 1 MG/ML VIAL OTHER PRN (08:45)
[2017-05-31] MEDS ORDERED: DEXTROSE 50% IN WATER 50 ML VIAL(D50) IV PRN (08:45)
[2017-05-31] MEDS: FREE WATER G-TUBE SCH ×3 (08:45→22:00)
[2017-05-31] MEDS ORDERED: VANCOMYCIN INJ 1,250 MG in SODIUM CHLOR 0.9% 250 ML INJ 250 ML IV SCH (08:45)
--- NOTE | 2017-05-31 08:57 | HHI.CCPN ---
Subjective Remarks/Hospital Course The patient is a 67-year-old female with past medical history of hypertension, hyperlipidemia noncompliance. She has not seen a physician for over four years. She presented to the [facility] after she sustained a non-syncopal fall down the stairs after losing her balance. She also was complaining of left ankle pain. On initial presentation, she was admitted under the hospitalist service on May 27 and was found to have hypercalcemia with a corrected calcium level of 13.7, hypokalemia with potassium level 2.0 and mild acute kidney injury with creatinine level of 1.20. Her initial lactic acid level was 3.7. Also, she had leukocytosis with a WBC of 21.4. Pelvic x-ray showed a nondisplaced left superior pubic ramus fracture and mild osteoarthritis of the joints bilaterally. Her initial chest x-ray on admission showed diffuse nodular and reticulonodular opacities bilaterally. Subsequently the patient underwent CT angiogram of the chest on May 28, which showed a large mass on the right side of the trachea which could be an enlarged thyroid in addition to innumerable nodules scattered throughout the lungs, probable metastatic disease. A CT abdomen and pelvis was obtained as well , which showed evidence of retroperitoneal metastatic lymphadenopathy, nonspecific nodule in the distal urethra in addition to nodularity of both adrenal glands. A CT scan of the brain showed no acute abnormality. During her hospital course, she was being followed by Dr. Tong from the oncology service in addition to orthopedic surgery. She was being treated with antibiotics. In addition, she was on calcitonin for hypercalcemia. The patient also received Zometa to correct her hypercalcemia. Today the patient had worsening mental status. An ABG was performed on 5 liters oxygen which showed a pH of 7.49, CO2 49, pAO2 of 68, bicarb 38 and saturation 92%. She is scheduled to undergo CT-guided lung biopsy of a pulmonary nodule in addition to MRI of the brain for further evaluation of her mental status. The patient received Haldol 2 mg IV at 1500 in addition to lorazepam 0.5 mg at 01:00 a.m. and morphine 1 mg at 07:45 this morning. She was given Romazicon at 1343 and Narcan 0.4 mg without any significant improvement. When seen, she is hypertensive with systolic blood pressure of 160s to 190s and tachycardic. Most of the history was obtained from reviewing the medical records and from and discussion with the patient's daughter who was at the bedside. Due to findings of large mass on the right side of the trachea and due to her high-risk of possible complication with intubation, she is being transferred to [facility]. She had an echocardiogram yesterday which showed normal left ventricular systolic function with an ejection fraction of 55% to 60%. No regional wall motion abnormalities identified. 05/31 No events overnight, lethargic MRI brain last night showed tiny 9 mm enhancing extra-axial mass along the left high parietal region consistent with probable tiny meningioma. No acute infarct, acute hemorrhage, midline shift/ bleed. Had T: 101.3 last night. Objective Vital Signs Date Time Temp Pulse Resp B/P (MAP) Pulse Ox O2 Delivery O2 Flow Rate FiO2 05/31/17 08:00 97 05/31/17 07:30 96 Simple Mask 7.00 05/31/17 06:00 20 153/72 (99) 05/31/17 04:00 99.0 Intake and Output 05/31/17 05/31/17 06/01/17 08:00 16:00 00:00 Intake Total 744 ml Balance 744 ml Result Diagram: 05/31/17 0442 05/31/17 0442 Other Results Laboratory Tests Test 05/30/17 09:23 05/30/17 15:56 05/30/17 16:54 05/30/17 18:25 Blood Gas Puncture Site LT RADIAL Blood Gas Patient Temperature 37.0 Blood Gas HCO3 38 mmol/L Blood Gas Base Excess 13.3 mmol/L Blood Gas Oxygen Saturation 92 % Arterial Blood pH 7.49 Arterial Blood Partial Pressure CO2 49 mmHg Arterial Blood Partial Pressure O2 68 mmHg Arterial Blood Oxygen Content 13.7 Vol % Arterial Blood Carboxyhemoglobin 1.8 % Arterial Blood Methemoglobin 1.3 % Blood Gas Hemoglobin 10.5 G/DL Oxygen Delivery Device NASAL CANNULA Blood Gas Liter Flow 5 L/M Ammonia 34 MCMOL/L Free Thyroxine 1.35 NG/DL Free Triiodothyronine (T3) pg/dL 1.46 PG/ML Thyroid Stimulating Hormone 3rd Gen LESS THAN 0.005 uIU/ML White Blood Count 17.8 TH/MM3 Red Blood Count 4.85 MIL/MM3 Hemoglobin 10.8 GM/DL Hematocrit 35.8 % Mean Corpuscular Volume 73.9 FL Mean Corpuscular Hemoglobin 22.3 PG Mean Corpuscular Hemoglobin Concent 30.1 % Red Cell Distribution Width 20.5 % Platelet Count 84 TH/MM3 Mean Platelet Volume 9.1 FL Neutrophils (%) (Auto) 85.6 % Lymphocytes (%) (Auto) 3.5 % Monocytes (%) (Auto) 7.8 % Eosinophils (%) (Auto) 0.0 % Basophils (%) (Auto) 3.1 % Neutrophils # (Auto) 15.2 TH/MM3 Lymphocytes # (Auto) 0.6 TH/MM3 Monocytes # (Auto) 1.4 TH/MM3 Eosinophils # (Auto) 0.0 TH/MM3 Basophils # (Auto) 0.6 TH/MM3 CBC Comment AUTO DIFF Differential Total Cells Counted 100 Neutrophils % (Manual) 93 % Lymphocytes % 1 % Monocytes % 6 % Neutrophils # (Manual) 16.6 TH/MM3 Nucleated Red Blood Cells 1 /100 WBC Differential Comment FINAL DIFF MANUAL Blood Urea Nitrogen 44 MG/DL Creatinine 1.10 MG/DL Random Glucose 199 MG/DL Total Protein 6.1 GM/DL Albumin 2.0 GM/DL Calcium Level 10.5 MG/DL Phosphorus Level 1.2 MG/DL Magnesium Level 3.0 MG/DL Alkaline Phosphatase 113 U/L Aspartate Amino Transf (AST/SGOT) 34 U/L Alanine Aminotransferase (ALT/SGPT) 22 U/L Total Bilirubin 0.9 MG/DL Sodium Level 159 MEQ/L Potassium Level 4.1 MEQ/L Chloride Level 118 MEQ/L Carbon Dioxide Level 32.6 MEQ/L Anion Gap 8 MEQ/L Estimat Glomerular Filtration Rate 50 ML/MIN Nasal Screen MRSA (PCR) MRSA NOT DETECTED Test 05/31/17 04:42 White Blood Count 17.4 TH/MM3 Red Blood Count 4.81 MIL/MM3 Hemoglobin 10.7 GM/DL Hematocrit 35.4 % Mean Corpuscular Volume 73.5 FL Mean Corpuscular Hemoglobin 22.2 PG Mean Corpuscular Hemoglobin Concent 30.2 % Red Cell Distribution Width 21.4 % Platelet Count 72 TH/MM3 Mean Platelet Volume 9.7 FL Neutrophils (%) (Auto) 89.4 % Lymphocytes (%) (Auto) 3.4 % Monocytes (%) (Auto) 7.0 % Eosinophils (%) (Auto) 0.0 % Basophils (%) (Auto) 0.2 % Neutrophils # (Auto) 15.5 TH/MM3 Lymphocytes # (Auto) 0.6 TH/MM3 Monocytes # (Auto) 1.2 TH/MM3 Eosinophils # (Auto) 0.0 TH/MM3 Basophils # (Auto) 0.0 TH/MM3 CBC Comment AUTO DIFF Differential Comment AUTO DIFF CONFIRMED Blood Urea Nitrogen 44 MG/DL Creatinine 1.13 MG/DL Random Glucose 234 MG/DL Total Protein 6.1 GM/DL Albumin 2.0 GM/DL Calcium Level 9.5 MG/DL Magnesium Level 3.2 MG/DL Alkaline Phosphatase 115 U/L Aspartate Amino Transf (AST/SGOT) 28 U/L Alanine Aminotransferase (ALT/SGPT) 21 U/L Total Bilirubin 0.7 MG/DL Sodium Level 160 MEQ/L Potassium Level 3.7 MEQ/L Chloride Level 119 MEQ/L Carbon Dioxide Level 34.4 MEQ/L Anion Gap 7 MEQ/L Estimat Glomerular Filtration Rate 48 ML/MIN Imaging Last Impressions Brain MRI 05/30/17 0000 Signed Impressions: Service Date/Time: Tuesday, May 30, 2017 19:47 - CONCLUSION: 1. Tiny 9 mm enhancing extra-axial mass along the left high parietal region consistent with probable tiny meningioma. 2. No acute infarct, acute hemorrhage, midline shift or extra-axial bleed. Delta Allison MD Lower Extremity CT 05/28/17 0000 Signed Impressions: Service Date/Time: Sunday, May 28, 2017 09:50 - CONCLUSION: 1. Acute nondisplaced superior and inferior pubic rami fractures on the left. 2. Retroperitoneal adenopathy worrisome for metastatic disease or myeloproliferative disorder. 3. Enlarged and lobulated uterus likely related to fibroids. Sushant Juares Jr., MD CT Angiography 05/28/17 0000 Signed Impressions: Service Date/Time: Sunday, May 28, 2017 02:01 - CONCLUSION: Large mass on the right side of the trachea could be an enlarged thyroid. Innumerable nodules scattered throughout the lungs metastatic disease certainly within the differential. There are a number of nodules in the right lower lobe which would be amenable to CT-guided biopsy. Vince Galan MD Abdomen/Pelvis CT 05/28/17 0000 Signed Impressions: Service Date/Time: Sunday, May 28, 2017 20:56 - CONCLUSION: 1. There is evidence of retroperitoneal metastatic lymphadenopathy and I believe potentially on the basis of cervical or endometrial carcinoma. Primary lesion versus additional metastatic involvement of the urinary bladder. There is also a nonspecific nodule in the expected region of the distal urethra. 2. Nodularity of both adrenal glands, most likely metastatic. 3. Visualized lung bases again show evidence of widespread and confluent pulmonary metastatic disease with small effusions. Kane Cedeño MD Maxillofacial CT 05/27/172016 Signed Impressions: Service Date/Time: May 20:34 - CONCLUSION: 1. No maxillofacial fracture is present. 2. There is bilateral maxillary mucoperiosteal thickening with 12 mm polypoid structure extending from the left maxillary antrum into the left posterior nasal cavity. 3. There is a 14 mm left parotid gland nodule. Differential diagnosis includes intraparotid lymph node or pleomorphic adenoma. Kane Bartlett MD Head CT 05/27/172016 Signed Impressions: Service Date/Time: May 20:34 - CONCLUSION: No acute abnormality is identified. Kane Bartlett MD Cervical Spine CT 05/27/172016 Signed Impressions: Service Date/Time: May 20:34 - CONCLUSION: 1. No acute cervical spine abnormality is identified. There is degenerative disc disease at C5-C6. 2. There is a 4.1 cm right thyroid nodule. If this is a new finding, suggest nonemergent outpatient ultrasound of the thyroid gland for further evaluation. 3. Abnormal linear and nodular parenchymal opacities in the upper lobes bilaterally. Since this does not pertain to the patient's acute problem, this finding should also be further evaluated with outpatient chest CT with IV contrast. Also suggest correlating with any prior outside imaging studies. Kane Bartlett MD Hip and Pelvis X-Ray 05/27/17 0000 Signed Impressions: Service Date/Time: May 20:49 - CONCLUSION: 1. A subtle lucency in the left pelvis may represent a nondisplaced left superior pubic ramus fracture. 2. Mild osteoarthritis of the joints bilaterally. Kane Bartlett MD Chest X-Ray 05/27/17 0000 Signed Impressions: Service Date/Time: May 21:27 - CONCLUSION: Diffuse nodular and reticular nodular opacities bilaterally. Etiology is nonspecific but metastatic disease is one consideration. Suggest correlation for any known primary malignancies. Sarcoidosis is another possibility but felt less likely given the distribution and lack of appreciable lymphadenopathy. Kane Bartlett MD Ankle X-Ray 05/27/17 0000 Signed Impressions: Service Date/Time: May 20:56 - CONCLUSION: No acute left ankle abnormality is identified. Kane Bartlett MD Objective Remarks GENERAL: Patient is 67 yo lying in bed in no acute resp distress SKIN: Warm and dry. HEAD: Normocephalic. EYES: No scleral icterus. No injection or drainage. NECK: Supple, trachea midline. No JVD or lymphadenopathy. CARDIOVASCULAR: Regular rate and rhythm without murmurs, gallops, or rubs. RESPIRATORY: Breath sounds equal bilaterally. No accessory muscle use. GASTROINTESTINAL: Abdomen soft, non-tender, nondistended. MUSCULOSKELETAL: No cyanosis, or edema. Neuro: Lethargic, A/P Assessment and Plan 1. Respiratory insufficiency. 2. Encephalopathy, multifactorial and could be related to hypercalcemia, metastatic disease, hypertensive encephalopathy and other metabolic etiologies. 3. Hypertensive urgency, rule out progressive reversible encephalopathy syndrome. 4. Scattered pulmonary nodules likely related to metastatic disease. 5. Thyroid mass. 6. Hypercalcemia. 7. Hypernatremia. 8. Retroperitoneal metastatic lymphadenopathy. 9. Hyperlipidemia. 10. Leukocytosis. 11. Anemia and thrombocytopenia. 12. Superior and inferior pubic ramus fracture on the left. Plan: Neuro: Monitor neuro status closely and avoid any sedatives. CT brain: negative for acute findings, Ammonia level is 34. UDS :negative for opiates, amphetamines, benzodiazepines. MRI brain:Tiny 9 mm enhancing extra-axial mass along the left high parietal region consistent with probable tiny meningioma. No acute infarct, acute hemorrhage, midline shift or bleed. For EEG today, neuro consulted Pulm: Continue with oxygen and maintain saturations above 92%. Bronchodilators , Aspiration precautions. For CT guided biopsy of lung nodule today CV: On Lopressor 2.5 mg IV q. 6 Monitor HR and BP maintain MAP>65 mmHg. Echo on which showed normal left ventricular systolic function EF 55% to 60%. No regional wall motion abnormalities identified. : Monitor renal function, intake and output and electrolyte replacement as needed. Increase D5W@100ml/hr, monitor sodium level. On calcitonin 350 units sq BID to correct her hypercalcemia. GI: Speech eval if kept NPO per speech will insert NGT for tube feeds and free water. On Protonix 40 mg daily for GI prophylaxis. ID: change Rocephin to Zosyn, add Vano, panculture ( Blood, sputum Ua with cx if indicated) BC and UC 05/27: No growth Heme: Monitor CBC, Onc is following- Dr. Evangelista, consult [employer] Onc r/o cervical/ endometrial ca Endo: Increase SSI medium scale for glycemic control. In addition, TSH <0.005, FT4: 1/35, FT3: 1.46, ? euthyroid sick syndrome. Her PTH level is 16.3. GI prophylaxis with Protonix and DVT prophylaxis with SCDs. Will hold off on chemical anticoagulation prophylaxis for now given the underlying thrombocytopenia and patient is scheduled to undergo CT-guided biopsy of lung nodule today Consult palliative care to asses with goals of care Level 3 Katya Garner MD May 31, 2017 08:57
[2017-05-31] MEDS: amLODIPine BESYLATE 5 MG TAB PO SCH (09:00)
[2017-05-31] MEDS: DOCUSATE SODIUM 50 MG/SENNA 8.6 MG TAB PO SCH ×2 (09:00→21:09)
[2017-05-31] MEDS: SODIUM CHLORIDE 0.9% FLUSH 10 ML FLUSH IV FLUSH SCH ×2 (09:00→21:09)
[2017-05-31] MEDS: CALCITONIN SALMON INJ 400 UNITS/2 ML VIAL SQ SCH (09:00)
[2017-05-31] MEDS ORDERED: Vancomycin Consult Pharmacy 1 EA OTHER SCH (09:45)
[2017-05-31] MEDS: PIPERACIL-TAZO 4.5 GM PREMIX 100 ML IV SCH ×3 (10:18→22:09)
[2017-05-31] MEDS ORDERED: VANCOMYCIN INJ 1,250 MG in SODIUM CHLOR 0.9% 250 ML INJ 250 ML IV ONE (10:30)
--- NOTE | 2017-05-31 10:55 | RADRPT ---
EXAM DATE/TIME: 05/31/2017 09:31 [facility] COMPARISON: CHEST SINGLE AP, May 27, 2017, 21:27. INDICATIONS : Short of breath. MEDICAL HISTORY : Hypertension. SURGICAL HISTORY : None. ENCOUNTER: Initial ACUITY: 4 - 6 days PAIN SCORE: Non-responsive. LOCATION: Bilateral chest FINDINGS: Multiple small nodules are seen scattered throughout both lungs with some consolidative changes in th e left base. The heart is minimally enlarged. There is no pneumothorax. CONCLUSION: Increasing nodular opacities throughout both lungs Patient has changes in the left base. I Pa Verdin MD FACR on May 31, 2017 at 10:52 Board Certified Radiologist. This report was verified electronically.
--- NOTE | 2017-05-31 11:24 | PD.CONS ---
Consult Service Palliative Care Consult Requested By Dr Garner . Primary Care Physician No Primary Care Physician Reason for Consultation a. To assist with evaluation and management of symptoms including: dyspnea, confusion, anxiety, pain b. To assist medical decision maker(s) with: better understanding of current medical conditions; weighing benefits/burdens of medical treatment options; making medical treatment decisions. HPI History of Present Illness 67-year-old female presented to the ED on 05/27/17, with her son, for further evaluation of an injury she sustained from a trip and fall down some stairs earlier that day. She reported going down a flight of stairs and about long-term down lost her balance and fell. She reported striking her head against the railing bruising face and nose no nosebleed. [place] dazed but not sure if she had loss of consciousness. Denying neck, chest, abdominal, back pain. Reporting hip and pelvis pain as well as ankle pain. Denied any numbness or tingling to extremities. She utilized BC powder for pain. No fever, no other recent illness. No reports of dizziness or syncopal episodes prior to fall. She reports underlying dyslipidemia, hypertension, has not seen a medical provider in over 4 years. Hospital course: * ED: Lactic acid elevated 3.7, TSH low 0.005, coags within normal limits. EKG notes sinus tachycardia rate 100, some nonspecific ST changes. leukocytosis 21. Troponin 0.35. Head CT negative for acute process. C-spine x-ray notes no acute abnormality some degenerative disc disease. Also notes 4.1 cm right thyroid nodule. Abnormal linear and nodular parenchymal opacities in the upper lobes bilaterally which is not related to current complaint but may warrant further follow-up. Hip and pelvis x-ray notes subtle lucency left pelvis may represent nondisplaced superior pubic ramus fracture, mild osteoarthritis. Ankle x-ray negative for acute process. Maxillofacial CT negative for fracture. Also notes 14 mm left parotid gland nodule. CXR= diffuse nodular and reticular nodular opacities bilaterally etiology nonspecific but metastatic disease is one consideration. ABG suggestive of probable COPD with bicarbonate 44. Patient was admitted for further evaluation and management,possible acute coronary syndrome, possible sepsis, further thyroid studies pending, additional diagnostics pending. Also started on heparin for coronary syndrome concerns. * Further admission H&P patient denies any weight loss, anorexia, denies history of thyroid disease or associated symptoms, ROS essentially negative. * Orthopedic consult did for further evaluation of possible pubic rami fracture- -Ortho Evra recommends nonoperative management progressive physical therapy for mobilization, pain control, weightbearing as tolerated may need walker * Medical oncology consulted for concerning adenopathies, nodules, hypercalcemia. She does report 40 pound weight loss over one year to oncology since she was dieting however had never lost much weight before. Oncology note suspicion for metastatic thyroid cancer. Will need confirmation biopsy radiology consulted for biopsy to right lower lung area which is amenable. This would establish disease present in lung is metastatic from thyroid. Continue to correct calcium. Additional labs, diagnostics pending. CT abdomen also ordered for staging. * 2-D echo 05/29 EF 55-60 percent normal LV size no regional wall motion abnormalities trace mitral regurg, trace pulmonary regurg * 05/29 Concerning retroperitoneal lymphadenopathy. Patient underwent pelvic exam per medical attending recommendation-notes cervical without lesions, some blood oozing no cervical tenderness. Unable to palpate uterus and adnexa due to body habitus. Some discomfort possibly secondary to fractures. Patient noted to be a and Ox3. * 05/30 patient with worsening respiratory status, worsening mental status--plan for CT-guided lung biopsy and MRI brain. She received Haldol, lorazepam, morphine and then later history with Romazicon, Narcan--critical care consulted notes patient hypertensive tachycardic no longer a and O. She was transferred from [facility] to [facility] due to concerns about mass near trachea and intubation complications. MRI brain pending to rule out metastatic disease. Continued on O2 to maintain O2 sats. Patient currently protecting airway. Continued on empiric antibiotics. * 05/31 remains lethargic. MRI brain notes 9 mm enhancing extra-axial mass along left high parietal region consistent with probable tiny meningioma. No acute infarct or acute hemorrhage or shift noted. Febrile overnight 100.3. EEG pending. Neurology consulted. Chemical anticoagulation prophylaxis held due to thrombocytopenia, plans for biopsy today. ALTERATIONS EXPERT oncology consulted for possible endometrial versus cervical cancer. Palliative care consulted to assist with clarification of goals of treatment. *dual visit with Miguel LYNN. In room with daughter Cristina at bedside. Patient is sleeping during much of visit daughter endorses that she hasn't gotten good sleep since in ICU. Met with daughter at length at bedside, following this discussion spoke with patient briefly she is pretty lethargic and only partially oriented. . Function/Cognitive Trajectory Son lives w pt , pt does not require any assistance. no cognitive deficits reported. No DME or assistance required prior to this admission. Review of Systems ROS Limitations: Altered Mental Status, Poor Historian, Other (lethargic, poor historian, daughter provides some ROS) Constitutional: COMPLAINS OF: Fatigue (per daughter ), Weight loss (est 40#), DENIES: Chills, Dizziness, Change in appetite, Night Sweats, Pain, Generalized weakness Eyes: DENIES: Vision loss Ears, nose, mouth, throat: DENIES: Oral lesions, Throat pain, Epistaxis Respiratory: DENIES: Apneas, Cough, Shortness of breath Cardiovascular: DENIES: Chest pain, Palpitations, Dyspnea on Exertion, Lower Extremity Edema Gastrointestinal: DENIES: Abdominal pain, Constipation, Diarrhea, Nausea, Vomiting, Difficulty Swallowing Musculoskeletal: DENIES: Joint pain, Muscle aches Neurologic: DENIES: Headache, Localized weakness Psychiatric: DENIES: Anxiety, Confusion Past Family Social History Coded Allergies: No Known Allergies (Verified , 05/27/17) Past Medical History Dyslipidemia Hypertension Past Surgical History Denies Reported Medications None reported . Current Medications Medications (Trade) Dose Ordered Sig/Gary Route Start Time Stop Time Status Last Admin (Narcan Inj) 0.4 mg UNSCH PRN IV 05/27/17 22:30 05/30/17 13:30 (Catapres) 0.1 mg Q6H PRN PO 05/27/17 22:45 05/29/17 08:05 (NS Flush) 2 ml UNSCH PRN IV FLUSH 05/28/17 09:15 (NS Flush) 2 ml BID IV FLUSH 05/28/17 21:00 05/31/17 09:00 (Zofran Inj) 4 mg Q6H PRN IVP 05/28/17 09:15 (Heparin Inj) 5,000 units Q8H SQ 05/28/17 17:00 Future Hold 05/30/17 07:44 (Tylenol) 650 mg Q6H PRN PO 05/28/17 09:15 ([place] 5-325 Mg) 1 tab Q4H PRN PO 05/28/17 09:15 05/29/17 22:56 ([place] 10-325 Mg) 1 tab Q4H PRN PO 05/28/17 09:15 05/29/17 08:05 (Maude-Colace) 1 tab BID PO 05/28/17 21:00 05/30/17 07:44 (Milk Of Magnesia Liq) 30 ml Q12H PRN PO 05/28/17 09:15 (Senokot) 17.2 mg Q12H PRN PO 05/28/17 09:15 (Dulcolax Supp) 10 mg DAILY PRN RECTAL 05/28/17 09:15 (Lactulose Liq) 30 ml DAILY PRN PO 05/28/17 09:15 Potassium Chloride 100 ml @ 50 mls/hr Q2H PRN IV 05/28/17 09:15 Potassium Chloride 100 ml @ 50 mls/hr Q2H PRN IV 05/28/17 09:15 05/29/17 20:53 (K-Lyte Cl Eff) 50 meq UNSCH PRN PO 05/28/17 09:15 Potassium Chloride 100 ml @ 25 mls/hr UNSCH PRN IV 05/28/17 09:15 Potassium Chloride 100 ml @ 50 mls/hr Q2H PRN IV 05/28/17 09:15 Magnesium Sulfate 4 gm/Sodium Chloride 100 ml @ 50 mls/hr UNSCH PRN IV 05/28/17 09:15 (Mag-Ox) 800 mg UNSCH PRN PO 05/28/17 09:15 Magnesium Sulfate 2 gm/Sodium Chloride 100 ml @ 50 mls/hr UNSCH PRN IV 05/28/17 09:15 (K-Phos) 2,000 mg Q4H PRN PO 05/28/17 09:15 Sodium Phosphate 30 mmol/Sodium Chloride 250 ml @ 42 mls/hr UNSCH PRN IV 05/28/17 09:15 (K-Phos) 2,000 mg UNSCH PRN PO/TUBE 05/28/17 09:15 Potassium Phosphate 30 mmol/ Sodium Chloride 260 ml @ 42 mls/hr UNSCH PRN IV 05/28/17 09:15 (Vasotec Inj) 1.25 mg Q6H PRN IV 05/28/17 09:15 05/31/17 00:03 (Apresoline Inj) 10 mg Q6H PRN IV 05/28/17 09:15 05/30/17 19:17 (Vistaril) 25 mg Q6H PRN PO 05/28/17 17:00 (Inderal) 20 mg Q8HR PO 05/29/17 22:00 Future Hold 05/30/17 05:34 (Miacalcin Inj) 350 units BID SQ 05/29/17 21:00 05/31/17 20:59 05/30/17 21:39 (Norvasc) 5 mg DAILY PO 05/30/17 09:00 05/31/17 09:00 (Toradol Inj) 30 mg Q6H PRN IV PUSH 05/30/17 09:30 06/04/17 09:29 05/31/17 10:32 (Albuterol Neb) 2.5 mg Q2HR NEB PRN NEB 05/30/17 10:15 (Albuterol Neb) 2.5 mg QID NEB NEB 05/30/17 12:00 05/31/17 07:28 (Protonix Inj) 40 mg Q24H IV PUSH 05/30/17 18:00 05/30/17 18:41 (Lopressor Inj) 2.5 mg Q6H IV PUSH 05/30/17 16:45 05/31/17 10:18 Miscellaneous Information Patient in critical care unit? Ass... [id number] .XX 05/30/17 20:30 05/30/17 20:30 (Chlorhexidine 2% Cloth) 3 pack DAILY@04 TOPICAL 05/31/17 04:00 06/04/17 04:01 05/31/17 04:00 (Chlorhexidine 2% Cloth) 3 pack UNSCH PRN TOPICAL 05/30/17 20:30 06/04/17 20:23 Dextrose 1,000 ml @ 100 mls/hr Q10H IV 05/31/17 05:30 05/31/17 05:30 (Ofirmev 1000 Mg/ 100 ml Inj) 1,000 mg Q6H PRN IV 05/31/17 06:00 (Free Water) 250 ml Q8HR G-TUBE 05/31/17 08:45 (D50w (Vial) Inj) 50 ml UNSCH PRN IV 05/31/17 08:45 (Glucagon Inj) 1 mg UNSCH PRN OTHER 05/31/17 08:45 (NovoLIN R SUPPLEMENTAL SCALE) 1 Q4H SQ 05/31/17 10:00 05/31/17 10:00 Piperacillin Sod/ Tazobactam Sod 100 ml @ 200 mls/hr Q6H IV 05/31/17 10:00 05/31/17 10:18 Vancomycin HCl 1250 mg/Sodium Chloride 262.5 ml @ 262.5 mls/ hr ONCE ONCE IV 05/31/17 10:30 05/31/17 11:29 05/31/17 10:12 Pharmacy Profile Note ml @ 0 mls/hr UNSCH OTHER 05/31/17 09:45 Family History father with lung cancer in his 80s, mother with breast cancer in her 80s Substance Use Tobacco: Nonsmoker Alcohol: None reported Prescription med abuse: None reported Illicits: None reported . Psychosocial History Patient originally from [place], though has lived in [place] since the . Still working some, does [employer] services part-time. Supported locally by 3 adult children, her son lives with her . . . Spiritual/Cultural Factors Restoration . Health Care Surrogate: Completed, but not made available (daughter reports patient completed HCS on Wednesday in [place] however no copy currently available) Ethical and Legal Issues Patient mental status fluctuates at times she may be capacitated. Apparently completed health care surrogate designation at [place] facility Wednesday however this document is not present in chart. May offer to assist patient to complete healthcare surrogate again if she is able. Daughter indicates that she was named as primary surrogate with her sister is secondary. Patient , supported by 3 adult children, who per [place] statutes would be appropriate proxies if patient incapacitated. Physical Exam Vital Signs Date Time Temp Pulse Resp B/P (MAP) Pulse Ox O2 Delivery O2 Flow Rate FiO2 05/31/17 08:00 97 05/31/17 07:30 96 Simple Mask 7.00 05/31/17 06:00 97 05/31/17 06:00 97 20 153/72 (99) 96 05/31/17 05:00 92 21 153/69 (97) 96 05/31/17 04:30 82 20 159/70 (99) 96 05/31/17 04:00 103 05/31/17 04:00 99.0 103 19 172/74 (106) 95 05/31/17 03:00 104 21 174/77 (109) 96 05/31/17 02:00 107 24 162/72 (102) 95 05/31/17 02:00 107 05/31/17 01:42 25 05/31/17 01:00 112 28 175/78 (110) 96 05/31/17 00:00 101.3 124 34 212/91 (131) 96 05/31/17 00:00 124 05/30/17 23:00 110 27 182/106 (131) 92 05/30/17 22:30 101.2 117 28 166/76 (106) 93 05/30/17 22:00 118 05/30/17 22:00 118 30 178/77 (110) 94 05/30/17 21:30 119 30 163/74 (103) 95 05/30/17 21:26 95 Simple Mask 8.00 05/30/17 21:00 119 31 148/72 (97) 95 05/30/17 20:45 117 33 141/74 (96) 95 05/30/17 20:30 115 32 131/82 (98) 94 05/30/17 20:21 99.2 116 33 122/78 (93) 94 05/30/17 20:00 116 05/30/17 19:41 181/82 (115) 05/30/17 19:30 118 32 177/58 (97) 93 05/30/17 19:20 108 30 194/84 (120) 94 05/30/17 19:10 109 32 198/75 (116) 95 05/30/17 19:00 107 38 199/88 (125) 95 05/30/17 19:00 93 Simple Mask 6.00 05/30/17 18:25 99.1 110 36 175/86 (115) 92 05/30/17 18:25 100 05/30/17 17:00 112 34 166/74 (104) 93 05/30/17 16:00 106 05/30/17 16:00 99.1 106 31 180/73 (108) 92 05/30/17 15:00 168/76 (106) 05/30/17 14:50 106 25 186/81 (116) 94 05/30/17 14:00 110 26 176/83 (114) 94 05/30/17 14:00 108 05/30/17 13:50 112 36 195/91 (125) 92 05/30/17 13:20 108 29 190/75 (113) 93 05/30/17 13:00 108 31 193/77 (115) 92 05/30/17 12:20 104 20 181/70 (107) 94 05/30/17 12:00 99.0 104 24 173/65 (101) 92 05/30/17 12:00 104 05/30/17 11:25 94 Nasal Cannula 5.00 05/30/17 11:00 106 30 181/70 (107) 94 Exam CONSTITUTIONAL/GENERAL: This is an adequately nourished patient, lethargic, groans at times TUBES/LINES/DRAINS:PIV x2 RUE, nuñez catheter, SCDs, nasal cannula O2/a nebulizer at time of my exam, NG tube SKIN: No jaundice, rashes, or lesions. Left lower leg over reported abrasion clean and dry. Skin temperature appropriate. Not diaphoretic. HEAD: Atraumatic. Normocephalic. EYES: Pupils equal and round and reactive. Extraocular motions intact. No scleral icterus. No injection or drainage. Fundi not examined. ENT: Nose without bleeding or purulent drainage. Throat without visible erythema , exudates, masses, or lesions-limited oropharynx visualization patient would not open her mouth all the way mucous membranes dry. NECK: Trachea midline. Supple, nontender. Palpable firm nodule lower anterior neck CARDIOVASCULAR: Regular rate and rhythm without murmurs. No JVD. Peripheral pulses symmetric. RESPIRATORY/CHEST: Symmetric, unlabored respirations. Clear to auscultation. Breath sounds equal bilaterally. No wheezes, rales, or rhonchi. GASTROINTESTINAL: Abdomen soft, non-tender, nondistended. No palpable masses. No guarding. Bowel sounds hypoactive. NGT rt nare GENITOURINARY: Without palpable bladder distension. Nuñez catheter in place clear yellow urine NEUROLOGICAL: lethargic, mostly oriented, x2-3 though difficult to keep awake and conversing. Unable to determine insight/understanding. Does move all 4 extremities with significant weakness. PSYCHIATRIC: No obvious anxiety/depression- limited assess due to lethargy. Does moan at times, ask her why and she states I dont know. Diagnostic Tests Laboratory Laboratory Tests Test 05/28/17 19:12 05/29/17 06:15 05/29/17 06:22 05/30/17 05:45 White Blood Count 22.3 TH/MM3 (4.0-11.0) 19.2 TH/MM3 (4.0-11.0) 16.4 TH/MM3 (4.0-11.0) Red Blood Count 4.78 MIL/MM3 (4.00-5.30) 4.97 MIL/MM3 (4.00-5.30) 4.61 MIL/MM3 (4.00-5.30) Hemoglobin 10.6 GM/DL (11.6-15.3) 10.8 GM/DL (11.6-15.3) 10.6 GM/DL (11.6-15.3) Hematocrit 34.5 % (35.0-46.0) 35.3 % (35.0-46.0) 33.6 % (35.0-46.0) Mean Corpuscular Volume 72.3 FL (80.0-100.0) 71.0 FL (80.0-100.0) 72.9 FL (80.0-100.0) Mean Corpuscular Hemoglobin 22.3 PG (27.0-34.0) 21.8 PG (27.0-34.0) 23.0 PG (27.0-34.0) Mean Corpuscular Hemoglobin Concent 30.8 % (32.0-36.0) 30.7 % (32.0-36.0) 31.6 % (32.0-36.0) Red Cell Distribution Width 19.5 % (11.6-17.2) 19.2 % (11.6-17.2) 20.2 % (11.6-17.2) Platelet Count 121 TH/MM3 (150-450) 101 TH/MM3 (150-450) 84 TH/MM3 (150-450) Mean Platelet Volume 9.7 FL (7.0-11.0) 9.8 FL (7.0-11.0) 9.4 FL (7.0-11.0) Neutrophils (%) (Auto) 91.7 % (16.0-70.0) 92.5 % (16.0-70.0) 92.2 % (16.0-70.0) Lymphocytes (%) (Auto) 2.5 % (9.0-44.0) 2.3 % (9.0-44.0) 2.5 % (9.0-44.0) Monocytes (%) (Auto) 4.8 % (0.0-8.0) 5.1 % (0.0-8.0) 5.1 % (0.0-8.0) Eosinophils (%) (Auto) 1.0 % (0.0-4.0) 0.0 % (0.0-4.0) 0.1 % (0.0-4.0) Basophils (%) (Auto) 0.0 % (0.0-2.0) 0.1 % (0.0-2.0) 0.1 % (0.0-2.0) Neutrophils # (Auto) 20.4 TH/MM3 (1.8-7.7) 17.8 TH/MM3 (1.8-7.7) 15.2 TH/MM3 (1.8-7.7) Lymphocytes # (Auto) 0.6 TH/MM3 (1.0-4.8) 0.4 TH/MM3 (1.0-4.8) 0.4 TH/MM3 (1.0-4.8) Monocytes # (Auto) 1.1 TH/MM3 (0-0.9) 1.0 TH/MM3 (0-0.9) 0.8 TH/MM3 (0-0.9) Eosinophils # (Auto) 0.2 TH/MM3 (0-0.4) 0.0 TH/MM3 (0-0.4) 0.0 TH/MM3 (0-0.4) Basophils # (Auto) 0.0 TH/MM3 (0-0.2) 0.0 TH/MM3 (0-0.2) 0.0 TH/MM3 (0-0.2) CBC Comment AUTO DIFF AUTO DIFF AUTO DIFF Differential Comment AUTO DIFF CONFIRMED AUTO DIFF CONFIRMED AUTO DIFF CONFIRMED Ovalocytes 1+ (NORMAL) Prothrombin Time 12.1 SEC (9.8-11.6) Prothromb Time International Ratio 1.1 RATIO Activated Partial Thromboplast Time 28.9 SEC (24.3-30.1) Blood Urea Nitrogen 36 MG/DL (7-18) 36 MG/DL (7-18) 45 MG/DL (7-18) Creatinine 1.00 MG/DL (0.50-1.00) 0.88 MG/DL (0.50-1.00) 1.10 MG/DL (0.50-1.00) Random Glucose 199 MG/DL (74-106) 183 MG/DL (74-106) 186 MG/DL (74-106) Total Protein 5.7 GM/DL (6.4-8.2) 6.0 GM/DL (6.4-8.2) 6.0 GM/DL (6.4-8.2) Calcium Level 13.2 MG/DL (8.5-10.1) 13.3 MG/DL (8.5-10.1) 11.1 MG/DL (8.5-10.1) Magnesium Level 2.9 MG/DL (1.5-2.5) 2.8 MG/DL (1.5-2.5) 3.1 MG/DL (1.5-2.5) Sodium Level 144 MEQ/L (136-145) 149 MEQ/L (136-145) 155 MEQ/L (136-145) Potassium Level 3.4 MEQ/L (3.5-5.1) 3.2 MEQ/L (3.5-5.1) 4.5 MEQ/L (3.5-5.1) Chloride Level 99 MEQ/L (98-107) 102 MEQ/L (98-107) 112 MEQ/L (98-107) Carbon Dioxide Level 40.2 MEQ/L (21.0-32.0) 41.0 MEQ/L (21.0-32.0) 37.0 MEQ/L (21.0-32.0) Anion Gap 5 MEQ/L (5-15) 6 MEQ/L (5-15) 6 MEQ/L (5-15) Estimat Glomerular Filtration Rate 55 ML/MIN (>89) 64 ML/MIN (>89) 50 ML/MIN (>89) Protein Corrected Calcium MG/DL (8.5-10.1) MG/DL (8.5-10.1) Parathyroid Hormone (Intact) 19.7 PG/ML (12.4-76.8) 16.3 PG/ML (12.4-76.8) Ferritin 117 NG/ML (8-252) Reticulocyte Count 0.6 % (0.4-3.0) Absolute Reticulocyte Count 27.9 MIL/L (20.0-150.0) Total Bilirubin 0.7 MG/DL (0.2-1.0) Direct Bilirubin 0.2 MG/DL (0.0-0.2) Indirect Bilirubin 0.5 MG/DL (0.0-0.8) Aspartate Amino Transf (AST/SGOT) 35 U/L (15-37) Alanine Aminotransferase (ALT/SGPT) 24 U/L (10-53) Alkaline Phosphatase 111 U/L (45-117) Albumin 2.1 GM/DL (3.4-5.0) Test 05/30/17 09:23 05/30/17 15:56 05/30/17 16:54 05/30/17 18:25 Blood Gas Puncture Site LT RADIAL Blood Gas Patient Temperature 37.0 Blood Gas HCO3 38 mmol/L (22-26) Blood Gas Base Excess 13.3 mmol/L (-2-2) Blood Gas Oxygen Saturation 92 % (90-100) Arterial Blood pH 7.49 (7.380-7.420) Arterial Blood Partial Pressure CO2 49 mmHg (38-42) Arterial Blood Partial Pressure O2 68 mmHg (61-120) Arterial Blood Oxygen Content 13.7 Vol % (12.0-20.0) Arterial Blood Carboxyhemoglobin 1.8 % (0-4) Arterial Blood Methemoglobin 1.3 % (0-2) Blood Gas Hemoglobin 10.5 G/DL (12.0-16.0) Oxygen Delivery Device NASAL CANNULA Blood Gas Liter Flow 5 L/M Ammonia 34 MCMOL/L (11-32) Free Thyroxine 1.35 NG/DL (0.76-1.46) Free Triiodothyronine (T3) pg/dL 1.46 PG/ML (2.18-3.98) Thyroid Stimulating Hormone 3rd Gen LESS THAN 0.005 uIU/ML White Blood Count 17.8 TH/MM3 (4.0-11.0) Red Blood Count 4.85 MIL/MM3 (4.00-5.30) Hemoglobin 10.8 GM/DL (11.6-15.3) Hematocrit 35.8 % (35.0-46.0) Mean Corpuscular Volume 73.9 FL (80.0-100.0) Mean Corpuscular Hemoglobin 22.3 PG (27.0-34.0) Mean Corpuscular Hemoglobin Concent 30.1 % (32.0-36.0) Red Cell Distribution Width 20.5 % (11.6-17.2) Platelet Count 84 TH/MM3 (150-450) Mean Platelet Volume 9.1 FL (7.0-11.0) Neutrophils (%) (Auto) 85.6 % (16.0-70.0) Lymphocytes (%) (Auto) 3.5 % (9.0-44.0) Monocytes (%) (Auto) 7.8 % (0.0-8.0) Eosinophils (%) (Auto) 0.0 % (0.0-4.0) Basophils (%) (Auto) 3.1 % (0.0-2.0) Neutrophils # (Auto) 15.2 TH/MM3 (1.8-7.7) Lymphocytes # (Auto) 0.6 TH/MM3 (1.0-4.8) Monocytes # (Auto) 1.4 TH/MM3 (0-0.9) Eosinophils # (Auto) 0.0 TH/MM3 (0-0.4) Basophils # (Auto) 0.6 TH/MM3 (0-0.2) CBC Comment AUTO DIFF Differential Total Cells Counted 100 Neutrophils % (Manual) 93 % (16-70) Lymphocytes % 1 % (9-44) Monocytes % 6 % (0-8) Neutrophils # (Manual) 16.6 TH/MM3 (1.8-7.7) Nucleated Red Blood Cells 1 /100 WBC (0-0) Differential Comment FINAL DIFF MANUAL Blood Urea Nitrogen 44 MG/DL (7-18) Creatinine 1.10 MG/DL (0.50-1.00) Random Glucose 199 MG/DL (74-106) Total Protein 6.1 GM/DL (6.4-8.2) Albumin 2.0 GM/DL (3.4-5.0) Calcium Level 10.5 MG/DL (8.5-10.1) Phosphorus Level 1.2 MG/DL (2.5-4.9) Magnesium Level 3.0 MG/DL (1.5-2.5) Alkaline Phosphatase 113 U/L (45-117) Aspartate Amino Transf (AST/SGOT) 34 U/L (15-37) Alanine Aminotransferase (ALT/SGPT) 22 U/L (10-53) Total Bilirubin 0.9 MG/DL (0.2-1.0) Sodium Level 159 MEQ/L (136-145) Potassium Level 4.1 MEQ/L (3.5-5.1) Chloride Level 118 MEQ/L (98-107) Carbon Dioxide Level 32.6 MEQ/L (21.0-32.0) Anion Gap 8 MEQ/L (5-15) Estimat Glomerular Filtration Rate 50 ML/MIN (>89) Nasal Screen MRSA (PCR) MRSA NOT DETECTED (NOT Test 05/31/17 04:42 White Blood Count 17.4 TH/MM3 (4.0-11.0) Red Blood Count 4.81 MIL/MM3 (4.00-5.30) Hemoglobin 10.7 GM/DL (11.6-15.3) Hematocrit 35.4 % (35.0-46.0) Mean Corpuscular Volume 73.5 FL (80.0-100.0) Mean Corpuscular Hemoglobin 22.2 PG (27.0-34.0) Mean Corpuscular Hemoglobin Concent 30.2 % (32.0-36.0) Red Cell Distribution Width 21.4 % (11.6-17.2) Platelet Count 72 TH/MM3 (150-450) Mean Platelet Volume 9.7 FL (7.0-11.0) Neutrophils (%) (Auto) 89.4 % (16.0-70.0) Lymphocytes (%) (Auto) 3.4 % (9.0-44.0) Monocytes (%) (Auto) 7.0 % (0.0-8.0) Eosinophils (%) (Auto) 0.0 % (0.0-4.0) Basophils (%) (Auto) 0.2 % (0.0-2.0) Neutrophils # (Auto) 15.5 TH/MM3 (1.8-7.7) Lymphocytes # (Auto) 0.6 TH/MM3 (1.0-4.8) Monocytes # (Auto) 1.2 TH/MM3 (0-0.9) Eosinophils # (Auto) 0.0 TH/MM3 (0-0.4) Basophils # (Auto) 0.0 TH/MM3 (0-0.2) CBC Comment AUTO DIFF Differential Comment AUTO DIFF CONFIRMED Blood Urea Nitrogen 44 MG/DL (7-18) Creatinine 1.13 MG/DL (0.50-1.00) Random Glucose 234 MG/DL (74-106) Total Protein 6.1 GM/DL (6.4-8.2) Albumin 2.0 GM/DL (3.4-5.0) Calcium Level 9.5 MG/DL (8.5-10.1) Magnesium Level 3.2 MG/DL (1.5-2.5) Alkaline Phosphatase 115 U/L (45-117) Aspartate Amino Transf (AST/SGOT) 28 U/L (15-37) Alanine Aminotransferase (ALT/SGPT) 21 U/L (10-53) Total Bilirubin 0.7 MG/DL (0.2-1.0) Sodium Level 160 MEQ/L (136-145) Potassium Level 3.7 MEQ/L (3.5-5.1) Chloride Level 119 MEQ/L (98-107) Carbon Dioxide Level 34.4 MEQ/L (21.0-32.0) Anion Gap 7 MEQ/L (5-15) Estimat Glomerular Filtration Rate 48 ML/MIN (>89) Phosphorus Level 1.4 MG/DL (2.5-4.9) Result Diagram: 05/31/17 0442 05/31/17 0442 Microbiology Microbiology Date/Time Source Procedure Growth Status 05/31/17 10:12 Blood Peripheral Aerobic Blood Culture Pending Received 05/31/17 10:12 Blood Peripheral Anaerobic Blood Culture Pending Received 05/31/17 10:05 Blood Peripheral Aerobic Blood Culture Pending Received 05/31/17 10:05 Blood Peripheral Anaerobic Blood Culture Pending Received Imaging Last Impressions Brain MRI 05/30/17 0000 Signed Impressions: Service Date/Time: Tuesday, May 30, 2017 19:47 - CONCLUSION: 1. Tiny 9 mm enhancing extra-axial mass along the left high parietal region consistent with probable tiny meningioma. 2. No acute infarct, acute hemorrhage, midline shift or extra-axial bleed. Delta Allison MD Lower Extremity CT 05/28/17 0000 Signed Impressions: Service Date/Time: Sunday, May 28, 2017 09:50 - CONCLUSION: 1. Acute nondisplaced superior and inferior pubic rami fractures on the left. 2. Retroperitoneal adenopathy worrisome for metastatic disease or myeloproliferative disorder. 3. Enlarged and lobulated uterus likely related to fibroids. Sushant Juares Jr., MD CT Angiography 05/28/17 Signed Impressions: Service Date/Time: Sunday, May 28, 2017 02:01 - CONCLUSION: Large mass on the right side of the trachea could be an enlarged thyroid. Innumerable nodules scattered throughout the lungs metastatic disease certainly within the differential. There are a number of nodules in the right lower lobe which would be amenable to CT-guided biopsy. Vince Galan MD Abdomen/Pelvis CT 05/28/17 Signed Impressions: Service Date/Time: Sunday, May 28, 2017 20:56 - CONCLUSION: 1. There is evidence of retroperitoneal metastatic lymphadenopathy and I believe potentially on the basis of cervical or endometrial carcinoma. Primary lesion versus additional metastatic involvement of the urinary bladder. There is also a nonspecific nodule in the expected region of the distal urethra. 2. Nodularity of both adrenal glands, most likely metastatic. 3. Visualized lung bases again show evidence of widespread and confluent pulmonary metastatic disease with small effusions. Kane Cedeño MD Maxillofacial CT 05/27/172016 Signed Impressions: Service Date/Time: May 20:34 - CONCLUSION: 1. No maxillofacial fracture is present. 2. There is bilateral maxillary mucoperiosteal thickening with 12 mm polypoid structure extending from the left maxillary antrum into the left posterior nasal cavity. 3. There is a 14 mm left parotid gland nodule. Differential diagnosis includes intraparotid lymph node or pleomorphic adenoma. Kane Bartlett MD Head CT 05/27/172016 Signed Impressions: Service Date/Time: May 20:34 - CONCLUSION: No acute abnormality is identified. Kane Bartlett MD Cervical Spine CT 05/27/172016 Signed Impressions: Service Date/Time: May 20:34 - CONCLUSION: 1. No acute cervical spine abnormality is identified. There is degenerative disc disease at C5-C6. 2. There is a 4.1 cm right thyroid nodule. If this is a new finding, suggest nonemergent outpatient ultrasound of the thyroid gland for further evaluation. 3. Abnormal linear and nodular parenchymal opacities in the upper lobes bilaterally. Since this does not pertain to the patient's acute problem, this finding should also be further evaluated with outpatient chest CT with IV contrast. Also suggest correlating with any prior outside imaging studies. Kane Bartlett MD Hip and Pelvis X-Ray 05/27/17 Signed Impressions: Service Date/Time: May 20:49 - CONCLUSION: 1. A subtle lucency in the left pelvis may represent a nondisplaced left superior pubic ramus fracture. 2. Mild osteoarthritis of the joints bilaterally. Kane Bartlett MD Chest X-Ray 05/27/17 Signed Impressions: Service Date/Time: May 21:27 - CONCLUSION: Diffuse nodular and reticular nodular opacities bilaterally. Etiology is nonspecific but metastatic disease is one consideration. Suggest correlation for any known primary malignancies. Sarcoidosis is another possibility but felt less likely given the distribution and lack of appreciable lymphadenopathy. Kane Bartlett MD Ankle X-Ray 05/27/17 Signed Impressions: Service Date/Time: May 20:56 - CONCLUSION: No acute left ankle abnormality is identified. Kane Bartlett MD Patient/Family Conference Present at Family Conference: Patient, daughter Family Conference Time (mins): 25 Family Conference Location: Bedside Issues Discussed: Met with daughter, patient at bedside. Patient lethargic with limited participation discussion included the following: * Palliative care role, purpose, approach * Additional medical, psychosocial, and spiritual history * Patients general health, functional status, and cognitive changes in the months leading up to the current hospitalization * Patient/family understanding of the current medical problems * Patient/family understanding of prognosis * Patients goals of care as best understood from advance directives and/or conversations and/or values * Current medical treatment options and benefits/burdens of those options * Likely scenarios comparing ongoing aggressive care with a transition to comfort measures only-very briefly explore that there may be limited treatment options or no treatment options, and then in that case patient would have the option for comfort measures * Briefly explore CODE STATUS daughter endorses the patient previously elected full code including intubation on Wednesday * Review of statutes/legal decision maker-daughter endorses that patient completed HCS designation on Wednesday however currently this documentation cannot be located in the chart. Per [place] statutes review of who legal proxies would be. * Questions answered to the best of my ability * Palliative care contact information provided Daughter appears to have a good understanding of current conditions, possible malignancy, pending diagnostics, and that treatment options could be potentially quite limited. Patient with limited engagement at this time could not fully assess her insight or understanding the daughter indicates that previously when she was awake and oriented she seemed to have full understanding. Met with patient and daughter at bedside. Patient with limited participation due to lethargy. Daughter expresses aggressive goals for now pending further diagnostics, she has endorsed that the patient when alert, oriented and with good insight had also wanted to proceed with aggressive interventions including full code pending further diagnostics. They are open to further conversations as clinical course evolves and more clinical prognostic information is available. . Assessment and Plan Disease Oriented Problem List: (1) Elevated troponin I level (2) Closed fracture of single pubic ramus of pelvis (3) Hypercalcemia (4) Adenopathy (5) Lesion of lung (6) Mass of cervix Symptom Scale: (1) Dyspnea (2) Anxiety (3) Pain (4) Confusion Pertinent Non-Medical Issues Psychosocial:Patient originally from [place], though has lived in [place] since the . Still working some, does [employer] part-time. Supported locally by 3 adult children, her son lives with her . . Spiritual: [facility] would appreciate child welfare caseworker,general manager support Legal:Patient mental status fluctuates at times she may be capacitated. Apparently completed health care surrogate designation at [facility] Wednesday however this document is not present in chart. May offer to assist patient to complete healthcare surrogate again if she is able. Daughter indicates that she was named as primary surrogate with her sister is secondary. Patient , supported by 3 adult children, who per [place] statutes would be appropriate proxies if patient incapacitated. Ethical issues impacting care: Important Contacts VERNELL AGUILERA (DAUGHTER) [phone] Cristina Travis daughter [phone] Jared- son- lives w pt, using pt phone # [phone] . Prognosis This patient was admitted status post mechanical fall at home. Incidental findings via imaging of what appears to be widespread metastatic malignancy process. Biopsy, additional diagnostics pending. Treatment options may be limited if in fact she does have metastatic disease. Further prognostication pending biopsy. . Code Status: Full Code Plan * Legal decision maker:Patient mental status fluctuates at times she may be capacitated. Apparently completed health care surrogate designation at [facility] Wednesday however this document is not present in chart. May offer to assist patient to complete healthcare surrogate again if she is able. Daughter indicates that she was named as primary surrogate with her sister is secondary. Patient , supported by 3 adult children, who per [place] statutes would be appropriate proxies if patient incapacitated. * Goals: Met with patient and daughter at bedside. Patient with limited participation due to lethargy. Daughter expresses aggressive goals for now pending further diagnostics, she has endorsed that the patient when alert, oriented and with good insight had also wanted to proceed with aggressive interventions including full code pending further diagnostics. They are open to further conversations as clinical course evolves and more clinical prognostic information is available. * CODE STATUS: Full code * SYMPTOMS: --Dyspnea- resp status fluctuating, + CXR /CT findings multiple nodules concerning for malignancy; + on nebulizers, O2. Will cont to evaluate --Anxiety-potential for related to dyspnea, multiple new medical findings, acute ICU course. Cautious use of benzos at this time given concern for AMS, resp compromise, will cont to evaluate --Pain-status post mechanical fall with injury to pelvis, left leg. currently denies pain, will cont to evaluate. Cautious use of opiates given fluctuating mental status --Confusion-fluctuating mental status during hospital course, MRI negative for stroke or acute process. Hypercalcemia, electrolyte abnormalities, leukocytosis, probably multifactorial * Palliative care will continue to follow during hospital course as condition evolves, to assist patient/decision-maker with understanding of medical conditions, weighing benefits/burdens of treatment options, for clarification of goals of treatment. Additionally will assist with any symptoms of palliative concern Time Spent Total Floor Time (mins): 60 Thank you for the opportunity to participate in the care of Ms. Carlton. Attestation To help prompt me to consider important information that might be impacting today's encounter and assessment, information from prior notes written by myself or my colleagues may have been "brought forward" into today's note. My signature on this note, however, is an attestation that I personally performed the exam, history, and/or decision-making noted today, and, unless otherwise indicated, the interactions with patient, family, and staff as well as the review of records all occurred today. I also attest that the listed assessment and stated plan reflect my best clinical judgment today based on the combination of historical information, prior notes, and today's exam/ interactions. When time spent is documented, it refers only to time spent today by the signer, or if indicated, combined time spent today by collaborating physician/nurse practitioner. Yolis Fernando May 31, 2017 11:23
[2017-05-31 12:46] LABS: BLOOD, URINE MOD (NEG); GLUCOSE,URINE TRACE mg/dL (NEG); HYALINE CAST, URINE 1 /lpf (RARE); KETONE, URINE TRACE mg/dL (NEG); MUCUS URINE FEW /lpf (OCC); NITRITE,URINE NEG (NEG); SQUAMOUS EPITHELIAL CELL URINE 1 /hpf (0-5); URINE COLOR YELLOW (YELLW/STRAW)
[2017-05-31 12:52] LABS: COMMENT (UR) CATH-CULT NOT IND; CULTURE IF INDICATED CATH CULTURE NOT IND
--- NOTE | 2017-05-31 14:00 | RADRPT ---
EXAM DATE/TIME: 05/31/2017 10:21 [facility] COMPARISON: No previous studies available for comparison. INDICATIONS : Confirm nasogastric tube placement. MEDICAL HISTORY : Hypertension. SURGICAL HISTORY : None. ENCOUNTER: Initial ACUITY: 4 - 6 days PAIN SCORE: Non-responsive. LOCATION: Bilateral abdomen FINDINGS: Examination of the abdomen demonstrates a normal bowel gas pattern. Contrast is seen throughout a nor mal caliber colon. The tip of the nasogastric tube is in the region of the antrum of the stomach. The stomach is decompressed. No free air is identified. No organomegaly is evident. Osseous structure s are intact. CONCLUSION: The tip of the NG tube in the antrum of the stomach. Sushant Juares Jr., MD on May 31, 2017 at 13:57 Board Certified Radiologist. This report was verified electronically.
--- NOTE | 2017-05-31 14:11 | PD.CONS ---
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 Garner Reason for Consult cervical mass endometrial vs.cervix cancer Primary Care Physician No Primary Care Physician Diagnoses: (1) Lesion of lung (2) Adenopathy (3) Mass of cervix History of Present Illness This is a 67 year old female who had a fall down some stairs and presented to [facility] on 05/27[facility]17 for further evaluation. Upon evaluation she was found to have pubic rami franctures that were nondisplaced, she was seen and evaluated by orthopedics. Ortho felt this did not require surgery and she could be treated medically, she was released from Ortho with orders for follow up in 7-10 days. Imaging obtained shown mass on thyroid with multiple lung lesions. She reported at the time of admission a 40+ pound weight loss, her daughter Cristina reports that her mother had been more tired recently. Both Ms. Carlton and her daughter reported vaginal bleeding/spotting on and off for about a month. 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 During her hospitalization Ms. Carlton has had worsening mental status with more difficulty in respiratory status...she was transferred to [facility] to ICU for concerns of lethargy, thyroid mass and the potential difficulty with intubation. Patient was seen and is followed by Dr. Loera for thyroid mass and she reported suspicious for thyroid cancer with mets to lungs. Ct scan of abd/pelvis was obtained for staging and this reported what appears to be cervical mass with iliac adenopathy, bladder mass with small urethral mass. Archery Instructor/Onc was consulted for cervix vs. endometrial cancer. At the time of this consult note patient was very lethargic and would only awaken for brief periods of time. Patient was oriented to place and reason of hospitalization. She told me that she had had vaginal bleeding for about a month, she reported many years since her last utility inspector/onc exam. I obtained the majority of information from her daughter Cristina Travis. Ms. Carlton was scheduled for ct guided bx of lung lesions today. She was in the process of having NG tube placed to LIWS and blood cultures obtained. Archery Instructor exam was performed by hospitalist BILLY and cervix was reported as normal with small blood coming from os. The exam was limited d/t body habitus and discomfort during exam. MRI of brain was obtained for continued lethargy it shown 9mm enhancing extra-axial mass to the left parietal region most likely small meningioma, no acute hemorrhage, shift or infarct seen. Palliative Care has been consulted for clarification of goal. Review of Systems ROS Limitations: Altered Mental Status Constitutional: COMPLAINS OF: Fatigue, Fever, Weight loss Respiratory: COMPLAINS OF: Shortness of breath Genitourinary: COMPLAINS OF: Abnormal vaginal bleeding Neurologic: COMPLAINS OF: Localized weakness Except as stated in HPI: all other systems reviewed are Neg Past Family Social History Allergies: Coded Allergies: No Known Allergies (Verified , 05/27/17) Past Medical History dyslipidemia hypertension Past Surgical History denies any surgeries per pt's daughter all vaginal deliveries Reported Medications none reported Active Ordered Medications Current Medications Tetanus/ Diphtheria Toxoids (Tetanus/ Diphtheria Tox Adult) 0.5 ml ONCE ONCE IM Last administered on 05/27/17 21:38; Start 05/27/17 at 20:30; Stop 05/27/17 at 20:31; Status DC Ondansetron HCl (Zofran Inj) 4 mg ONCE ONCE IV PUSH Last administered on 21:38; Start 05/27/17 at 20:30; Stop 05/27/17 at 20:31; Status DC Morphine Sulfate (Morphine Inj) 2 mg ONCE ONCE IV PUSH ; Start 05/27/17 at 20: 30; Stop 05/27/17 at 20:31; Status Cancel Morphine Sulfate (Morphine Inj) 2 mg ONCE ONCE IV PUSH ; Start 05/27/17 at 20: 30; Stop 05/27/17 at 21:37; Status DC Sodium Chloride 1,000 ml @ 100 mls/hr Q10H IV Last administered on 05/27/17 22:00; Start 05/27/17 at 21:15; Stop 05/27/17 at 22:33; Status DC Potassium Chloride 100 ml @ 100 mls/hr Q1H IV Last administered on 05/28/17 01:09; Start 05/27/17 at 21:15; Stop 05/28/17 at 00:14; Status DC Potassium Chloride (KCl) 40 meq ONCE ONCE PO Last administered on 05/27/17 21 :39; Start 05/27/17 at 21:15; Stop 05/27/17 at 21:18; Status DC Ketorolac Tromethamine (Toradol Inj) 30 mg ONCE ONCE IV PUSH Last administered on 05/27/17 22:16; Start 05/27/17 at 21:45; Stop 05/27/17 at 21:46 ; Status DC Clonidine (Catapres) 0.1 mg ONCE ONCE PO ; Start 05/27/17 at 22:15; Stop at 22:21; Status DC Aspirin (Aspirin Chew) 162 mg ONCE ONCE CHEW Last administered on 05/27/17 22 :16; Start 05/27/17 at 22:15; Stop 05/27/17 at 22:16; Status DC Nitroglycerin (Nitroglycerin 2% Oint) 1 inch ONCE ONCE TOPICAL Last administered on 05/27/17 22:16; Start 05/27/17 at 22:15; Stop 05/27/17 at 22:16 ; Status DC Sodium Chloride (NS Flush) 2 ml UNSCH PRN IV FLUSH FLUSH AFTER USING IV ACCESS ; Start 05/27/17 at 22:30; Stop 05/28/17 at 09:12; Status DC Sodium Chloride (NS Flush) 2 ml BID IV FLUSH ; Start 05/28/17 at 09:00; Stop at 09:12; Status DC Naloxone HCl (Narcan Inj) 0.4 mg UNSCH PRN IV SEE LABEL COMMENTS Last administered on 05/30/17 13:30; Start 05/27/17 at 22:30 Sodium Chloride (NS Flush) 2 ml BID IV FLUSH ; Start 05/28/17 at 09:00; Stop at 09:00; Status DC Sodium Chloride (NS Flush) 2 ml UNSCH PRN IVF FLUSH AFTER USING IV ACCESS; Start 05/27/17 at 22:45; Stop 05/27/17 at 22:45; Status DC Potassium Chloride/Sodium Chloride 1,000 ml @ 100 mls/hr Q10H IV Last administered on 05/30/17 00:09; Start 05/27/17 at 22:45; Stop 05/30/17 at 08:48 ; Status DC Clonidine (Catapres) 0.1 mg Q6H PRN PO bp>160/90 Last administered on 08:05; Start 05/27/17 at 22:45 Potassium Chloride (KCl) 40 meq ONCE ONCE PO Last administered on 05/27/17 23 :12; Start 05/27/17 at 22:45; Stop 05/27/17 at 22:46; Status DC Acetaminophen/ Hydrocodone Bitart (Condon 5-325 Mg) 1 tab Q4H PRN PO pain >5 Last administered on 05/27/17 23:59; Start 05/27/17 at 23:45; Stop 05/28/17 at 09:05; Status DC Ceftriaxone Sodium 1000 mg/ Sodium Chloride 100 ml @ 200 mls/hr Q12H IV Last administered on 05/31/17 00:03; Start 05/28/17 at 00:00; Stop 05/31/17 at 08:52 ; Status DC Heparin Sodium (Porcine) (Heparin Inj) 5,000 units ONCE ONCE IV Last administered on 05/28/17 02:49; Start 05/28/17 at 01:45; Stop 05/28/17 at 01:51 ; Status DC Heparin Sodium/ Dextrose 250 ml @ 10.332 mls/ hr Q24H PRN IV Coagulation management Last administered on 05/28/17 02:50; Start 05/28/17 at 01:44; Stop 05/28/17 at 09:05; Status DC Iohexol (Omnipaque 350 Inj) 75 ml STK-MED ONCE IVCONTRAST Last administered on 05/28/17 02:19; Start 05/28/17 at 02:19; Stop 05/28/17 at 02:20; Status DC Diatrizoate Meglum/ Diatrizoate Sod ( Gastroview Liq) 18 ml ONCE ONCE PO Last administered on 05/28/17 19:33; Start 05/28/17 at 20:00; Stop 05/28/17 at 20:01; Status DC Sodium Chloride (NS Flush) 2 ml UNSCH PRN IV FLUSH FLUSH AFTER USING IV ACCESS ; Start 05/28/17 at 09:15 Sodium Chloride (NS Flush) 2 ml BID IV FLUSH Last administered on 05/31/17 09: 00; Start 05/28/17 at 21:00 Acetaminophen (Tylenol) 650 mg Q4H PRN PO TEMP > 100.4; Start 05/28/17 at 09:15 ; Stop 05/31/17 at 06:03; Status DC Ondansetron HCl (Zofran Inj) 4 mg Q6H PRN IVP NAUSEA OR VOMITING; Start at 09:15 Heparin Sodium (Porcine) (Heparin Inj) 5,000 units Q8H SQ Last administered on 05/30/17 07:44; Start 05/28/17 at 17:00; Status Future Hold Acetaminophen (Tylenol) 650 mg Q6H PRN PO PAIN SCALE 1 TO 2; Start 05/28/17 at 09:15 Acetaminophen/ Hydrocodone Bitart (Condon 5-325 Mg) 1 tab Q4H PRN PO PAIN SCALE 3 TO 5 Last administered on 05/29/17 22:56; Start 05/28/17 at 09:15 Acetaminophen/ Hydrocodone Bitart (Condon 10-325 Mg) 1 tab Q4H PRN PO PAIN SCALE 6 TO 10 Last administered on 05/29/17 08:05; Start 05/28/17 at 09:15 Morphine Sulfate (Morphine Inj) 1 mg Q3H PRN IV BREAKTHROUGH PAIN Last administered on 05/30/17 07:44; Start 05/28/17 at 09:15; Stop 05/30/17 at 09:23 ; Status DC Senna/Docusate Sodium (Maude-Colace) 1 tab BID PO Last administered on 07:44; Start 05/28/17 at 21:00 Magnesium Hydroxide (Milk Of Magnesia Liq) 30 ml Q12H PRN PO MILD - MODERATE CONSTIPATION; Start 05/28/17 at 09:15 Sennosides (Senokot) 17.2 mg Q12H PRN PO MODERATE - SEVERE CONSTIPATION; Start 05/28/17 at 09:15 Bisacodyl (Dulcolax Supp) 10 mg DAILY PRN RECTAL SEVERE CONSITIPATION; Start at 09:15 Lactulose (Lactulose Liq) 30 ml DAILY PRN PO SEVERE CONSITIPATION; Start at 09:15 Potassium Chloride 100 ml @ 50 mls/hr Q2H PRN IV For Potassium 2.8 - 3.2 mEq/L ; Start 05/28/17 at 09:15 Potassium Chloride 100 ml @ 50 mls/hr Q2H PRN IV For Potassium 2.8 - 3.2 mEq/ L Last administered on 05/29/17 20:53; Start 05/28/17 at 09:15 Potassium Bicarb/ Potassium Chloride (K-Lyte Cl Eff) 50 meq UNSCH PRN PO For Potassium 3.3 - 3.5 mEq/L; Start 05/28/17 at 09:15 Potassium Chloride 100 ml @ 25 mls/hr UNSCH PRN IV For Potassium 3.3 - 3.5 mEq /L; Start 05/28/17 at 09:15 Potassium Chloride 100 ml @ 50 mls/hr Q2H PRN IV For Potassium 3.3 - 3.5 mEq/L ; Start 05/28/17 at 09:15 Magnesium Sulfate 4 gm/Sodium Chloride 100 ml @ 50 mls/hr UNSCH PRN IV For Magnesium 0.9 - 1.1 mg/dL; Start 05/28/17 at 09:15 Magnesium Oxide (Mag-Ox) 800 mg UNSCH PRN PO For Magnesium 1.2 - 1.6 mg/dL; Start 05/28/17 at 09:15 Magnesium Sulfate 2 gm/Sodium Chloride 100 ml @ 50 mls/hr UNSCH PRN IV For Magnesium 1.2 - 1.6 mg/dL; Start 05/28/17 at 09:15 Potassium Phosphate (K-Phos) 2,000 mg Q4H PRN PO For Phosphorus < 2.5 mg/dL; Start 05/28/17 at 09:15 Sodium Phosphate 30 mmol/Sodium Chloride 250 ml @ 42 mls/hr UNSCH PRN IV For Phosphorus < 2.5 mg/dL; Start 05/28/17 at 09:15 Potassium Phosphate (K-Phos) 2,000 mg UNSCH PRN PO/TUBE SEE LABEL COMMENTS; Start 05/28/17 at 09:15 Potassium Phosphate 30 mmol/ Sodium Chloride 260 ml @ 42 mls/hr UNSCH PRN IV SEE LABEL COMMENTS; Start 05/28/17 at 09:15 Aspirin (Aspirin Chew) 324 mg DAILY CHEW Last administered on 05/28/17 10:17; Start 05/28/17 at 10:00; Stop 05/28/17 at 16:12; Status DC Propranolol HCl (Inderal) 10 mg Q8HR PO Last administered on 05/29/17 14:39; Start 05/28/17 at 09:45; Stop 05/29/17 at 15:13; Status DC Enalaprilat (Vasotec Inj) 1.25 mg Q6H PRN IV SBP> OR = 190, DBP> OR = 100 Last administered on 05/31/17 00:03; Start 05/28/17 at 09:15 Hydralazine HCl (Apresoline Inj) 10 mg Q6H PRN IV SBP> OR = 200, DBP> OR = 100 Last administered on 05/30/17 19:17; Start 05/28/17 at 09:15 Potassium Chloride 100 ml @ 50 mls/hr Q2H IV Last administered on 05/28/17 14 :36; Start 05/28/17 at 11:00; Stop 05/28/17 at 14:59; Status DC Potassium Chloride (KCl) 40 meq ONCE ONCE PO Last administered on 05/28/17 10 :17; Start 05/28/17 at 11:00; Stop 05/28/17 at 11:01; Status DC Hydroxyzine Pamoate (Vistaril) 25 mg Q6H PRN PO anxiety; Start 05/28/17 at 17: 00 Zoledronic Acid 4 mg/Sodium Chloride 150 ml @ 150 mls/hr ONCE ONCE IV Last administered on 05/28/17 16:52; Start 05/28/17 at 17:00; Stop 05/28/17 at 17:59 ; Status DC Iohexol (Omnipaque 350 Inj) 94 ml STK-MED ONCE IVCONTRAST Last administered on 05/28/17 21:00; Start 05/28/17 at 21:00; Stop 05/28/17 at 21:01; Status DC Propranolol HCl (Inderal) 20 mg Q8HR PO Last administered on 05/30/17 05:34; Start 05/29/17 at 22:00; Status Future Hold Calcitonin Jesse (Miacalcin Inj) 350 units BID SQ Last administered on 21:39; Start 05/29/17 at 21:00; Stop 05/31/17 at 20:59 Lorazepam (Ativan Inj) 0.5 mg ONCE ONCE IV PUSH Last administered on 01:11; Start 05/30/17 at 01:00; Stop 05/30/17 at 01:03; Status DC Sodium Chloride 1,000 ml @ 84 mls/hr [id number] IV Last administered on 08:45; Start 05/30/17 at 08:45; Stop 05/31/17 at 05:24; Status DC Amlodipine Besylate (Norvasc) 5 mg DAILY PO Last administered on 05/31/17 09: 00; Start 05/30/17 at 09:00 Ketorolac Tromethamine (Toradol Inj) 30 mg Q6H PRN IV PUSH breakthru pain Last administered on 05/31/17 10:32; Start 05/30/17 at 09:30; Stop 06/04/17 at 09:29 Albuterol Sulfate (Albuterol Neb) 2.5 mg Q2HR NEB PRN NEB sob/wheeze; Start at 10:15 Albuterol Sulfate (Albuterol Neb) 2.5 mg QID NEB NEB Last administered on 05/31 11:49; Start 05/30/17 at 12:00 Flumazenil (Romazicon Inj) 0.5 mg ONCE ONCE IV PUSH Last administered on 13:43; Start 05/30/17 at 13:30; Stop 05/30/17 at 13:34; Status DC Lorazepam (Ativan Inj) 1 mg ONCE ONCE IV PUSH ; Start 05/30/17 at 14:15; Stop 05/30/17 at 14:15; Status DC Haloperidol Lactate (Haldol Inj) 2 mg ONCE ONCE IV PUSH Last administered on 15:10; Start 05/30/17 at 14:15; Stop 05/30/17 at 14:19; Status DC Pantoprazole Sodium (Protonix Inj) 40 mg Q24H IV PUSH Last administered on 05/30 18:41; Start 05/30/17 at 18:00 Dextrose (D50w (Vial) Inj) 50 ml UNSCH PRN IV HYPOGLYCEMIA-SEE COMMENTS; Start 05/30/17 at 16:45; Stop 05/31/17 at 09:19; Status DC Glucagon (Glucagon Inj) 1 mg UNSCH PRN OTHER HYPOGLYCEMIA-SEE COMMENTS; Start 05/30/17 at 16:45; Stop 05/31/17 at 09:19; Status DC Insulin Human Regular (NovoLIN R SUPPLEMENTAL SCALE) 1 Q4H SQ Last administered on 05/31/17 04:16; Start 05/30/17 at 16:45; Stop 05/31/17 at 08:52 ; Status DC Metoprolol Tartrate (Lopressor Inj) 2.5 mg Q6H IV PUSH Last administered on 10:18; Start 05/30/17 at 16:45 Gadodiamide (Omniscan Pf Inj) 17 ml STK-MED ONCE IVCONTRAST Last administered on 05/30/17 20:05; Start 05/30/17 at 20:05; Stop 05/30/17 at 20:06; Status DC Miscellaneous Information Patient in critical care unit? Ass... [id number] .[id number] Last administered on 05/30/17 20:30; Start 05/30/17 at 20:30 Chlorhexidine Gluconate (Chlorhexidine 2% Cloth) 3 pack DAILY@04 TOPICAL Last administered on 05/31/17 04:00; Start 05/31/17 at 04:00; Stop 06/04/17 at 04:01 Chlorhexidine Gluconate (Chlorhexidine 2% Cloth) 3 pack UNSCH PRN TOPICAL HYGIENIC CARE; Start 05/30/17 at 20:30; Stop 06/04/17 at 20:23 Dextrose 1,000 ml @ 100 mls/hr Q10H IV Last administered on 05/31/17 05:30; Start 05/31/17 at 05:30 Acetaminophen (Ofirmev 1000 Mg/ 100 ml Inj) 1,000 mg Q6H PRN IV fever; Start at 06:00 Water (Free Water) 250 ml Q8HR G-TUBE ; Start 05/31/17 at 08:45 Dextrose (D50w (Vial) Inj) 50 ml UNSCH PRN IV HYPOGLYCEMIA-SEE COMMENTS; Start 05/31/17 at 08:45 Glucagon (Glucagon Inj) 1 mg UNSCH PRN OTHER HYPOGLYCEMIA-SEE COMMENTS; Start 05/31/17 at 08:45 Insulin Human Regular (NovoLIN R SUPPLEMENTAL SCALE) 1 Q4H SQ Last administered on 05/31/17 10:00; Start 05/31/17 at 10:00 Piperacillin Sod/ Tazobactam Sod 100 ml @ 200 mls/hr Q6H IV Last administered on 05/31/17 10:18; Start 05/31/17 at 10:00 Vancomycin HCl 1250 mg/Sodium Chloride 262.5 ml @ 262.5 mls/ hr Q12H IV ; Start 05/31/17 at 08:45; Status UNV Vancomycin HCl 1250 mg/Sodium Chloride 262.5 ml @ 262.5 mls/ hr ONCE ONCE IV Last administered on 05/31/17t 10:12; Start 05/31/17 at 10:30; Stop 05/31/17 at 11:29; Status DC Pharmacy Profile Note ml @ 0 mls/hr UNSCH OTHER ; Start 05/31/17 at 09:45 Vancomycin HCl 1250 mg/Sodium Chloride 262.5 ml @ 262.5 mls/ hr Q24H IV ; Start 06/01/17 at 10:00 Miscellaneous Information SPECIFIC LAB TO BE ... ONCE ONCE .XX ; Start 06/03 at 09:45; Stop 06/03/17 at 09:46 Family History father of lung CA mother of breast CA of cancer Social History Son lives with her denies tobacco denies alcohol denies illicit drug use Physical Exam Vital Signs Vital Signs Date Time Temp Pulse Resp B/P (MAP) Pulse Ox O2 Delivery O2 Flow Rate FiO2 05/31/17 12:00 97 05/31/17 12:00 99.8 103 19 163/74 (103) 95 05/31/17 10:00 97 05/31/17 08:00 97 05/31/17 07:30 96 Simple Mask 7.00 05/31/17 06:00 97 05/31/17 06:00 97 20 153/72 (99) 96 05/31/17 05:00 92 21 153/69 (97) 96 05/31/17 04:30 82 20 159/70 (99) 96 05/31/17 04:00 103 05/31/17 04:00 99.0 103 19 172/74 (106) 95 05/31/17 03:00 104 21 174/77 (109) 96 05/31/17 02:00 107 24 162/72 (102) 95 05/31/17 02:00 107 05/31/17 01:42 25 05/31/17 01:00 112 28 175/78 (110) 96 05/31/17 00:00 101.3 124 34 212/91 (131) 96 05/31/17 00:00 124 05/30/17 23:00 110 27 182/106 (131) 92 05/30/17 22:30 101.2 117 28 166/76 (106) 93 05/30/17 22:00 118 05/30/17 22:00 118 30 178/77 (110) 94 05/30/17 21:30 119 30 163/74 (103) 95 05/30/17 21:26 95 Simple Mask 8.00 05/30/17 21:00 119 31 148/72 (97) 95 05/30/17 20:45 117 33 141/74 (96) 95 05/30/17 20:30 115 32 131/82 (98) 94 05/30/17 20:21 99.2 116 33 122/78 (93) 94 05/30/17 20:00 116 05/30/17 19:41 181/82 (115) 05/30/17 19:30 118 32 177/58 (97) 93 05/30/17 19:20 108 30 194/84 (120) 94 05/30/17 19:10 109 32 198/75 (116) 95 05/30/17 19:00 107 38 199/88 (125) 95 05/30/17 19:00 93 Simple Mask 6.00 05/30/17 18:25 99.1 110 36 175/86 (115) 92 05/30/17 18:25 100 05/30/17 17:00 112 34 166/74 (104) 93 05/30/17 16:00 106 05/30/17 16:00 99.1 106 31 180/73 (108) 92 05/30/17 15:00 168/76 (106) 05/30/17 14:50 106 25 186/81 (116) 94 05/30/17 14:00 110 26 176/83 (114) 94 05/30/17 14:00 108 05/30/17 13:50 112 36 195/91 (125) 92 05/30/17 13:20 108 29 190/75 (113) 93 Physical Exam GENERAL: lethargic SKIN: No rashes, ecchymoses or lesions. HEAD: nasal trauma, NG tube in nare EYES: Pupils equal round and reactive. Extraocular motions intact. CARDIOVASCULAR: Regular rate and rhythm without murmurs, gallops, or rubs. RESPIRATORY: Clear to auscultation. Breath sounds equal bilaterally. No wheezes , rales, or rhonchi. GASTROINTESTINAL: Abdomen soft, nondistended. no palpable masses MUSCULOSKELETAL: Extremities without clubbing, cyanosis, or edema. NEUROLOGICAL: lethargic, awakens to voice and stimulation Laboratory Laboratory Tests Test 05/30/17 15:56 05/30/17 16:54 05/30/17 18:25 05/31/17 04:42 Ammonia 34 Free Thyroxine 1.35 Free Triiodothyronine (T3) pg/dL 1.46 Thyroid Stimulating Hormone 3rd Gen LESS THAN 0.005 White Blood Count 17.8 17.4 Red Blood Count 4.85 4.81 Hemoglobin 10.8 10.7 Hematocrit 35.8 35.4 Mean Corpuscular Volume 73.9 73.5 Mean Corpuscular Hemoglobin 22.3 22.2 Mean Corpuscular Hemoglobin Concent 30.1 30.2 Red Cell Distribution Width 20.5 21.4 Platelet Count 84 72 Mean Platelet Volume 9.1 9.7 Neutrophils (%) (Auto) 85.6 89.4 Lymphocytes (%) (Auto) 3.5 3.4 Monocytes (%) (Auto) 7.8 7.0 Eosinophils (%) (Auto) 0.0 0.0 Basophils (%) (Auto) 3.1 0.2 Neutrophils # (Auto) 15.2 15.5 Lymphocytes # (Auto) 0.6 0.6 Monocytes # (Auto) 1.4 1.2 Eosinophils # (Auto) 0.0 0.0 Basophils # (Auto) 0.6 0.0 CBC Comment AUTO DIFF AUTO DIFF Differential Total Cells Counted 100 Neutrophils % (Manual) 93 Lymphocytes % 1 Monocytes % 6 Neutrophils # (Manual) 16.6 Nucleated Red Blood Cells 1 Differential Comment FINAL DIFF MANUAL AUTO DIFF CONFIRMED Blood Urea Nitrogen 44 44 Creatinine 1.10 1.13 Random Glucose 199 234 Total Protein 6.1 6.1 Albumin 2.0 2.0 Calcium Level 10.5 9.5 Phosphorus Level 1.2 1.4 Magnesium Level 3.0 3.2 Alkaline Phosphatase 113 115 Aspartate Amino Transf (AST/SGOT) 34 28 Alanine Aminotransferase (ALT/SGPT) 22 21 Total Bilirubin 0.9 0.7 Sodium Level 159 160 Potassium Level 4.1 3.7 Chloride Level 118 119 Carbon Dioxide Level 32.6 34.4 Anion Gap 8 7 Estimat Glomerular Filtration Rate 50 48 Nasal Screen MRSA (PCR) MRSA NOT DETECTED Test 05/31/17 10:40 Urine Color YELLOW Urine Turbidity HAZY Urine pH 6.0 Urine Specific [place] 1.019 Urine Protein 30 Urine Glucose (UA) TRACE Urine Ketones TRACE Urine Occult Blood MOD Urine Nitrite NEG Urine Bilirubin NEG Urine Urobilinogen LESS THAN 2.0 Urine Leukocyte Esterase NEG Urine RBC 9 Urine WBC 4 Urine Squamous Epithelial Cells 1 Urine Hyaline Casts 1 Urine Mucus FEW Microscopic Urinalysis Comment CATH-CULT NOT IND Date/Time Source Procedure Growth Status 05/31/17 10:12 Blood Peripheral Aerobic Blood Culture Pending Received 05/31/17 10:12 Blood Peripheral Anaerobic Blood Culture Pending Received 05/27/17 22:55 Urine Clean Catch Urine Culture - Final No growth. Complete Result Diagram: 05/31/17 0442 05/31/17 0442 Imaging Last Impressions Chest X-Ray 05/31/17 0000 Signed Impressions: Service Date/Time: Wednesday, May 31, 2017 09:31 - CONCLUSION: Increasing nodular opacities throughout both lungs Patient has changes in the left base. I Pa Verdin MD FACR Brain MRI 05/30/17 0000 Signed Impressions: Service Date/Time: Tuesday, May 30, 2017 19:47 - CONCLUSION: 1. Tiny 9 mm enhancing extra-axial mass along the left high parietal region consistent with probable tiny meningioma. 2. No acute infarct, acute hemorrhage, midline shift or extra-axial bleed. Delta Allison MD Lower Extremity CT 05/28/17 0000 Signed Impressions: Service Date/Time: Sunday, May 28, 2017 09:50 - CONCLUSION: 1. Acute nondisplaced superior and inferior pubic rami fractures on the left. 2. Retroperitoneal adenopathy worrisome for metastatic disease or myeloproliferative disorder. 3. Enlarged and lobulated uterus likely related to fibroids. Sushant Juares Jr., MD CT Angiography 05/28/17 0000 Signed Impressions: Service Date/Time: Sunday, May 28, 2017 02:01 - CONCLUSION: Large mass on the right side of the trachea could be an enlarged thyroid. Innumerable nodules scattered throughout the lungs metastatic disease certainly within the differential. There are a number of nodules in the right lower lobe which would be amenable to CT-guided biopsy. Vince Galan MD Abdomen/Pelvis CT 05/28/17 Signed Impressions: Service Date/Time: Sunday, May 28, 2017 20:56 - CONCLUSION: 1. There is evidence of retroperitoneal metastatic lymphadenopathy and I believe potentially on the basis of cervical or endometrial carcinoma. Primary lesion versus additional metastatic involvement of the urinary bladder. There is also a nonspecific nodule in the expected region of the distal urethra. 2. Nodularity of both adrenal glands, most likely metastatic. 3. Visualized lung bases again show evidence of widespread and confluent pulmonary metastatic disease with small effusions. Kane Cedeño MD Maxillofacial CT 05/27/172016 Signed Impressions: Service Date/Time: May 20:34 - CONCLUSION: 1. No maxillofacial fracture is present. 2. There is bilateral maxillary mucoperiosteal thickening with 12 mm polypoid structure extending from the left maxillary antrum into the left posterior nasal cavity. 3. There is a 14 mm left parotid gland nodule. Differential diagnosis includes intraparotid lymph node or pleomorphic adenoma. Kane Bartlett MD Head CT 05/27/172016 Signed Impressions: Service Date/Time: May 20:34 - CONCLUSION: No acute abnormality is identified. Kane Bartlett MD Cervical Spine CT 05/27/172016 Signed Impressions: Service Date/Time: May 20:34 - CONCLUSION: 1. No acute cervical spine abnormality is identified. There is degenerative disc disease at C5-C6. 2. There is a 4.1 cm right thyroid nodule. If this is a new finding, suggest nonemergent outpatient ultrasound of the thyroid gland for further evaluation. 3. Abnormal linear and nodular parenchymal opacities in the upper lobes bilaterally. Since this does not pertain to the patient's acute problem, this finding should also be further evaluated with outpatient chest CT with IV contrast. Also suggest correlating with any prior outside imaging studies. Kane Bartlett MD Hip and Pelvis X-Ray 05/27/17 Signed Impressions: Service Date/Time: May 20:49 - CONCLUSION: 1. A subtle lucency in the left pelvis may represent a nondisplaced left superior pubic ramus fracture. 2. Mild osteoarthritis of the joints bilaterally. Kane Bartlett MD Ankle X-Ray 05/27/17 0000 Signed Impressions: Service Date/Time: May 20:56 - CONCLUSION: No acute left ankle abnormality is identified. Kane Bartlett MD Assessment and Plan Problem List: (1) Mass of cervix ICD Codes: N88.8 - Other specified noninflammatory disorders of cervix uteri Plan: Cervix cancer vs. endometrial cancer with vaginal bleeding X 1 month and years since last utility inspector exam Consideration of utility inspector exam and possible bx cleared with ortho for lithotomy position. utility inspector exam reported by Hospitalist PA, normal cervix with small amount of blood from os...no bx obtained. (2) Adenopathy ICD Codes: R59.1 - Generalized enlarged lymph nodes Plan: mostly likely d/t metastatic disease I spoke with Dr. Juares and d/t positioning with lung bx unable to obtain bx to iliac node...Dr. Askew made aware and will determine plan of care based on lung lesion bx. (3) Pulmonary nodules/lesions, multiple ICD Codes: R91.8 - Other nonspecific abnormal finding of lung field Plan: followed by Dr. Tong...possible metastatic tyroid cancer Ct guided bx of lung lesion today await pathology Palliative Care consulted to help clarity goals. Discussed Condition With Pt's daughter Cristina Travis patient's RN Dr. Askew ortho Micah Macdonald May 31, 2017 14:11
[2017-05-31] MEDS: ACETAMINOPHEN/HYDROcodone 325 MG/5 MG TAB PO PRN (16:21)
[2017-05-31] MEDS: PANTOPRAZOLE SODIUM 40 MG VIAL IV PUSH SCH (18:00)
--- NOTE | 2017-05-31 18:01 | MG ---
cc: MARNIE GARCIA M.D. Lab No: Date: 05/31/2017 Age: Sex: F Race: DATE OF 1950, 67 years old EEG NUMBER [id number] Garner. ROOM 527 Awake, drowsy, asleep, moaning throughout the study with photic stimulation only. The MRI shows small 9 mm enhancing extra-axial mass along the left high parietal area consistent with probable meningioma. History of , trip and fall down six stairs, lost her balance. Possible loss of consciousness unknown, confused, dazed afterwards. PAST MEDICAL HISTORY 1. History of asthma. 2. Snoring. 3. Cardiac disease. MEDICATIONS On: 1. Vasotec. 2. Toradol. 3. [place]. DESCRIPTION OF RECORD There is a lot of moaning throughout but overall 4-5 Hz background is noted. A lot of eye movement. EKG difficult to see for sure there is a normal sinus rhythm. There is a lot of artifact, cannot truly see P waves. But overall background EEG does show some theta frequency. Ongoing suboptimal study due to artifact. Photic stimulation looks like there may be a mild driving response. IMPRESSION Slow EEG due to encephalopathy without any epileptic activity. Clinical correlation. MD TRISTIN Matthew/DAVID /3:36 PM /5:48 PM
[2017-05-31] MEDS: ACETAMINOPHEN/HYDROcodone 325 MG/10 MG TAB PO PRN (22:09)
[2017-06-01] VITALS (32 sets, daily range): BP systolic 119–182; BP diastolic 56–87; PULSE 96–121; RESP 12–26; TEMP 98.8–99.8; O2SAT 91–99
[2017-06-01] MEDS: CHLORHEXIDINE GLUCONATE 2 % 1 PACK (2 CLOTHS)(taper/protocol) TOPICAL SCH (04:00)
[2017-06-01] MEDS: METOPROLOL TARTRATE 5 MG/5 ML VIAL IV PUSH SCH ×4 (04:38→21:12)
[2017-06-01] MEDS: PIPERACIL-TAZO 4.5 GM PREMIX 100 ML IV SCH ×4 (04:38→21:12)
[2017-06-01] MEDS: INSULIN NovoLIN REGULAR SUPPLEMENTAL SCALE SQ SCH ×5 (05:31→21:11)
[2017-06-01] MEDS: FREE WATER G-TUBE SCH ×3 (05:34→23:22)
[2017-06-01] MEDS: KETOROLAC TROMETHAMINE 30 MG/ML (IVP) VIAL IV PUSH PRN ×3 (06:58→20:24)
[2017-06-01 07:01] LABS: AUTOMATED NEUTROPHIL # 19.2 TH/MM3 (1.8-7.7); BASOPHIL % 0.1 % (0.0-2.0); HEMATOCRIT 34.4 % (35.0-46.0); LYMPHOCYTE # 0.6 TH/MM3 (1.0-4.8); MEAN CELL VOLUME 73.9 FL (80.0-100.0); MEAN CORPUSCULAR HEMOGLOBIN 22.3 PG (27.0-34.0); MEAN CORPUSCULAR HGB CONC 30.1 % (32.0-36.0); MONO % 4.3 % (0.0-8.0); NEUT % 92.6 % (16.0-70.0); PLATELET COUNT 54 TH/MM3 (150-450); RED BLOOD COUNT 4.66 MIL/MM3 (4.00-5.30); RED CELL DISTRIBUTION WIDTH 21.8 % (11.6-17.2); WHITE BLOOD COUNT 20.7 TH/MM3 (4.0-11.0)
[2017-06-01 07:09] LABS: BICARBONATE 30.4 MEQ/L (21.0-32.0); POTASSIUM 3.3 MEQ/L (3.5-5.1)
[2017-06-01 07:53] LABS: HEMO FLAGS AUTO DIFF
[2017-06-01] MEDS: RESP: ALBUTEROL 2.5 MG/3 ML NEB (SCH) NEB ×4 (08:12→21:24)
[2017-06-01] MEDS: DEXTROSE 5% IN WATE 1000ML INJ 1,000 ML IV SCH ×2 (08:29→20:25)
[2017-06-01] MEDS: SODIUM CHLORIDE 0.9% FLUSH 10 ML FLUSH IV FLUSH SCH ×2 (08:29→20:26)
[2017-06-01] MEDS: amLODIPine BESYLATE 5 MG TAB PO SCH (08:29)
[2017-06-01] MEDS: DOCUSATE SODIUM 50 MG/SENNA 8.6 MG TAB PO SCH ×2 (08:29→20:26)
[2017-06-01] MEDS: POTASSIUM CHLOR 20 MEQ PREMIX 100 ML IV PRN ×3 (08:34→23:23)
[2017-06-01 08:57] LABS: PLATELET ESTIMATE SMEAR LOW (NORMAL); PLATELET MORPHOLOGY NORMAL (NORMAL); SCAN/DIFF AUTO DIFF CONFIRMED
--- NOTE | 2017-06-01 09:03 | HHI.CCPN ---
Subjective Remarks/Hospital Course The patient is a 67-year-old female with past medical history of hypertension, hyperlipidemia noncompliance. She has not seen a physician for over four years. She presented to the [facility] after she sustained a non-syncopal fall down the stairs after losing her balance. She also was complaining of left ankle pain. On initial presentation, she was admitted under the hospitalist service on May 27 and was found to have hypercalcemia with a corrected calcium level of 13.7, hypokalemia with potassium level 2.0 and mild acute kidney injury with creatinine level of 1.20. Her initial lactic acid level was 3.7. Also, she had leukocytosis with a WBC of 21.4. Pelvic x-ray showed a nondisplaced left superior pubic ramus fracture and mild osteoarthritis of the joints bilaterally. Her initial chest x-ray on admission showed diffuse nodular and reticulonodular opacities bilaterally. Subsequently the patient underwent CT angiogram of the chest on May 28, which showed a large mass on the right side of the trachea which could be an enlarged thyroid in addition to innumerable nodules scattered throughout the lungs, probable metastatic disease. A CT abdomen and pelvis was obtained as well , which showed evidence of retroperitoneal metastatic lymphadenopathy, nonspecific nodule in the distal urethra in addition to nodularity of both adrenal glands. A CT scan of the brain showed no acute abnormality. During her hospital course, she was being followed by Dr. Tong from the oncology service in addition to orthopedic surgery. She was being treated with antibiotics. In addition, she was on calcitonin for hypercalcemia. The patient also received Zometa to correct her hypercalcemia. Today the patient had worsening mental status. An ABG was performed on 5 liters oxygen which showed a pH of 7.49, CO2 49, pAO2 of 68, bicarb 38 and saturation 92%. She is scheduled to undergo CT-guided lung biopsy of a pulmonary nodule in addition to MRI of the brain for further evaluation of her mental status. The patient received Haldol 2 mg IV at 1500 in addition to lorazepam 0.5 mg at 01:00 a.m. and morphine 1 mg at 07:45 this morning. She was given Romazicon at 1343 and Narcan 0.4 mg without any significant improvement. When seen, she is hypertensive with systolic blood pressure of 160s to 190s and tachycardic. Most of the history was obtained from reviewing the medical records and from and discussion with the patient's daughter who was at the bedside. Due to findings of large mass on the right side of the trachea and due to her high-risk of possible complication with intubation, she is being transferred to [facility]. She had an echocardiogram yesterday which showed normal left ventricular systolic function with an ejection fraction of 55% to 60%. No regional wall motion abnormalities identified. 05/31 No events overnight, lethargic MRI brain last night showed tiny 9 mm enhancing extra-axial mass along the left high parietal region consistent with probable tiny meningioma. No acute infarct, acute hemorrhage, midline shift/ bleed. Had T: 101.3 last night. 06/01 Patient is lying in bed in NAD. T:99.8. Patient seems more awake and alert today. Objective Vital Signs Date Time Temp Pulse Resp B/P (MAP) Pulse Ox O2 Delivery O2 Flow Rate FiO2 06/01/17 08:14 95 Simple Mask 6.00 06/01/17 08:00 99.0 112 16 178/80 (112) Intake and Output 06/01/17 06/01/17 06/01/17 07:59 15:59 23:59 Intake Total 1115 ml Output Total 750 ml Balance 365 ml Result Diagram: 06/01/17 0616 06/01/17 0616 Other Results Laboratory Tests Test 05/31/17 10:40 06/01/17 06:16 Urine Color YELLOW Urine Turbidity HAZY Urine pH 6.0 Urine Specific [place] 1.019 Urine Protein 30 mg/dL Urine Glucose (UA) TRACE mg/dL Urine Ketones TRACE mg/dL Urine Occult Blood MOD Urine Nitrite NEG Urine Bilirubin NEG Urine Urobilinogen LESS THAN 2.0 MG/DL Urine Leukocyte Esterase NEG Urine RBC 9 /hpf Urine WBC 4 /hpf Urine Squamous Epithelial Cells 1 /hpf Urine Hyaline Casts 1 /lpf Urine Mucus FEW /lpf Microscopic Urinalysis Comment CATH-CULT NOT IND White Blood Count 20.7 TH/MM3 Red Blood Count 4.66 MIL/MM3 Hemoglobin 10.4 GM/DL Hematocrit 34.4 % Mean Corpuscular Volume 73.9 FL Mean Corpuscular Hemoglobin 22.3 PG Mean Corpuscular Hemoglobin Concent 30.1 % Red Cell Distribution Width 21.8 % Platelet Count 54 TH/MM3 Mean Platelet Volume 9.5 FL Neutrophils (%) (Auto) 92.6 % Lymphocytes (%) (Auto) 3.0 % Monocytes (%) (Auto) 4.3 % Eosinophils (%) (Auto) 0.0 % Basophils (%) (Auto) 0.1 % Neutrophils # (Auto) 19.2 TH/MM3 Lymphocytes # (Auto) 0.6 TH/MM3 Monocytes # (Auto) 0.9 TH/MM3 Eosinophils # (Auto) 0.0 TH/MM3 Basophils # (Auto) 0.0 TH/MM3 CBC Comment AUTO DIFF Blood Urea Nitrogen 44 MG/DL Creatinine 1.26 MG/DL Random Glucose 223 MG/DL Calcium Level 8.8 MG/DL Sodium Level 158 MEQ/L Potassium Level 3.3 MEQ/L Chloride Level 118 MEQ/L Carbon Dioxide Level 30.4 MEQ/L Anion Gap 10 MEQ/L Estimat Glomerular Filtration Rate 42 ML/MIN Imaging Last Impressions Chest X-Ray 05/31/17 0000 Signed Impressions: Service Date/Time: Wednesday, May 31, 2017 09:31 - CONCLUSION: Increasing nodular opacities throughout both lungs Patient has changes in the left base. I Pa Verdin MD FACR Abdomen X-Ray 05/31/17 0000 Signed Impressions: Service Date/Time: Wednesday, May 31, 2017 10:21 - CONCLUSION: The tip of the NG tube in the antrum of the stomach. Sushant Juares Jr., MD Brain MRI 05/30/17 0000 Signed Impressions: Service Date/Time: Tuesday, May 30, 2017 19:47 - CONCLUSION: 1. Tiny 9 mm enhancing extra-axial mass along the left high parietal region consistent with probable tiny meningioma. 2. No acute infarct, acute hemorrhage, midline shift or extra-axial bleed. Delta Allison MD Lower Extremity CT 05/28/17 0000 Signed Impressions: Service Date/Time: Sunday, May 28, 2017 09:50 - CONCLUSION: 1. Acute nondisplaced superior and inferior pubic rami fractures on the left. 2. Retroperitoneal adenopathy worrisome for metastatic disease or myeloproliferative disorder. 3. Enlarged and lobulated uterus likely related to fibroids. Sushant Juares Jr., MD CT Angiography 05/28/17 0000 Signed Impressions: Service Date/Time: Sunday, May 28, 2017 02:01 - CONCLUSION: Large mass on the right side of the trachea could be an enlarged thyroid. Innumerable nodules scattered throughout the lungs metastatic disease certainly within the differential. There are a number of nodules in the right lower lobe which would be amenable to CT-guided biopsy. Vince Galan MD Abdomen/Pelvis CT 05/28/17 Signed Impressions: Service Date/Time: Sunday, May 28, 2017 20:56 - CONCLUSION: 1. There is evidence of retroperitoneal metastatic lymphadenopathy and I believe potentially on the basis of cervical or endometrial carcinoma. Primary lesion versus additional metastatic involvement of the urinary bladder. There is also a nonspecific nodule in the expected region of the distal urethra. 2. Nodularity of both adrenal glands, most likely metastatic. 3. Visualized lung bases again show evidence of widespread and confluent pulmonary metastatic disease with small effusions. Kane Cedeño MD Maxillofacial CT 05/27/172016 Signed Impressions: Service Date/Time: May 20:34 - CONCLUSION: 1. No maxillofacial fracture is present. 2. There is bilateral maxillary mucoperiosteal thickening with 12 mm polypoid structure extending from the left maxillary antrum into the left posterior nasal cavity. 3. There is a 14 mm left parotid gland nodule. Differential diagnosis includes intraparotid lymph node or pleomorphic adenoma. Kane Bartlett MD Head CT 05/27/172016 Signed Impressions: Service Date/Time: May 20:34 - CONCLUSION: No acute abnormality is identified. Kane Bartlett MD Cervical Spine CT 05/27/172016 Signed Impressions: Service Date/Time: May 20:34 - CONCLUSION: 1. No acute cervical spine abnormality is identified. There is degenerative disc disease at C5-C6. 2. There is a 4.1 cm right thyroid nodule. If this is a new finding, suggest nonemergent outpatient ultrasound of the thyroid gland for further evaluation. 3. Abnormal linear and nodular parenchymal opacities in the upper lobes bilaterally. Since this does not pertain to the patient's acute problem, this finding should also be further evaluated with outpatient chest CT with IV contrast. Also suggest correlating with any prior outside imaging studies. Kane Bartlett MD Hip and Pelvis X-Ray 05/27/17 Signed Impressions: Service Date/Time: May 20:49 - CONCLUSION: 1. A subtle lucency in the left pelvis may represent a nondisplaced left superior pubic ramus fracture. 2. Mild osteoarthritis of the joints bilaterally. Kane Bartlett MD Ankle X-Ray 05/27/17 0000 Signed Impressions: Service Date/Time: May 20:56 - CONCLUSION: No acute left ankle abnormality is identified. Kane Bartlett MD Objective Remarks GENERAL: Patient is 67 yo lying in bed in no acute resp distress SKIN: Warm and dry. HEAD: Normocephalic. EYES: No scleral icterus. No injection or drainage. NECK: Supple, trachea midline. No JVD or lymphadenopathy. CARDIOVASCULAR: Regular rate and rhythm without murmurs, gallops, or rubs. RESPIRATORY: Breath sounds equal bilaterally. No accessory muscle use. GASTROINTESTINAL: Abdomen soft, non-tender, nondistended. MUSCULOSKELETAL: No cyanosis, or edema. Neuro: Lethargic, A/P Assessment and Plan 1. Respiratory insufficiency. 2. Encephalopathy, multifactorial and could be related to hypercalcemia, metastatic disease, hypertensive encephalopathy and other metabolic etiologies. 3. Hypertensive urgency, rule out progressive reversible encephalopathy syndrome. 4. Scattered pulmonary nodules likely related to metastatic disease. 5. Thyroid mass. 6. Hypercalcemia. 7. Hypernatremia. 8. Retroperitoneal metastatic lymphadenopathy. 9. Hyperlipidemia. 10. Leukocytosis. 11. Anemia and thrombocytopenia. 12. Superior and inferior pubic ramus fracture on the left. Plan: Neuro: Monitor neuro status closely and avoid any sedatives. CT brain: negative for acute findings, Ammonia level is 34. UDS :negative for opiates, amphetamines, benzodiazepines. MRI brain:Tiny 9 mm enhancing extra-axial mass along the left high parietal region consistent with probable tiny meningioma. No acute infarct, acute hemorrhage, midline shift or bleed. EEG 05/31: Encephalopathy wo epileptic activity. Pulm: Continue with oxygen and maintain saturations above 92%. Bronchodilators , Aspiration precautions. For possible CT guided biopsy of lung nodule today CV: On Lopressor 2.5 mg IV q. 6 Monitor HR and BP maintain MAP>65 mmHg. Echo on which showed normal left ventricular systolic function EF 55% to 60%. No regional wall motion abnormalities identified. : Monitor renal function, intake and output and electrolyte replacement as needed. D5W@100ml/hr, monitor sodium level. GI: Mechanical soft with thin liquids per speech On Protonix 40 mg daily for GI prophylaxis. ID: Continue abx ( Zosyn, Vano), monitor for isgns of infections ( Fever, WBC) BC 05/31: NGTD BC and UC 05/27: No growth Heme: Monitor CBC, Onc and Box Spinner/Onc are following- Endo: Increase SSI medium scale for glycemic control. TSH <0.005, FT4: 1/35, FT3: 1.46, ? euthyroid sick syndrome. Her PTH level is 16.3. GI prophylaxis with Protonix and DVT prophylaxis with SCDs. Will hold off on chemical anticoagulation prophylaxis for now given the underlying thrombocytopenia and patient is scheduled to undergo CT-guided biopsy of lung nodule today Palliative care is following Level 3 Katya Garner MD Jun 01, 2017 09:03
[2017-06-01] MEDS: ACETAMINOPHEN/HYDROcodone 325 MG/10 MG TAB PO PRN ×3 (09:07→20:24)
[2017-06-01 09:27] LABS: MAGNESIUM 2.8 MG/DL (1.5-2.5)
[2017-06-01] MEDS: VANCOMYCIN INJ 1,250 MG in SODIUM CHLOR 0.9% 250 ML INJ 250 ML IV SCH ×2 (10:00→17:32)
--- NOTE | 2017-06-01 10:47 | MB ---
cc: MARNIE GARCIA M.D., ALAA M.D. MOLPUS, KELLY L. MD DEVERAS, RUBY ANNE E. M.D. DATE OF CONSULTATION: 06/01/2017 REASON FOR CONSULTATION Uterine and cervical mass, retroperitoneal adenopathy. REASON FOR ADMISSION Status post fall with nondisplaced hip fracture. Additional problems are altered mental status, extensive pulmonary nodules, thyroid mass; all suspicious for malignancy with metastatic disease. This patient is seen. Her findings are reviewed. She is counseled by me in conjunction with our nurse practitioner (Micah Dennison). I agree with her findings, assessment and plan. Yesterday the plan was to try to obtain a biopsy from lung nodule; however, required placing her in a prone position and/or general anesthesia, which was felt to be associated with morbidity that would exceed benefit, and therefore interventional radiology was not able to obtain a pulmonary biopsy. She is seen this morning. She has no family members present. Her nurse is at the bedside. In our discussion, although she is somnolent, she does respond appropriately and seemed to understand the pertinent aspects of our discussion. I explained the reason for [facility]ology consultation. Because of the enlarged uterus, possibly cervix and urethral abnormalities, possibly an area in the bladder as well as pelvic lymph nodes and she reports having postmenopausal bleeding of at least one months' duration, all raise the possibility of primary gynecologic malignancy as part of her constellation of findings. Given thyroid mass and extensive pulmonary nodularity the possibility of more than one neoplastic problem is also considered in our efforts to try to clarify this. I recommended it would be helpful to get an updated pelvic exam with biopsies. Endometrial biopsy, D&C and exam under anesthesia would be perhaps more optimal but associated with some morbidity if we can avoid anesthesia, and I am not certain that she can tolerate the office exam at the present time. However, if she shows some continued improvement we may be able to bring her over to our office where we have a more optimal exam setup to accomplish the objectives which are not really optimally possible in the bedside setting. Nevertheless, it is important to determine if the adenopathy and pulmonary nodules and findings are indeed consistent with metastatic disease. I think that pelvic lymph nodes along the external iliac vessels should be able to be safely reached by interventional radiology and not requiring a prone position nor general anesthesia, so I will put in a request for interventional radiology biopsy of pelvic lymph nodes to try to clarify tissue diagnosis and confirm the presence of metastatic disease versus primary lymphoma or other abnormality. Discussion ensued and she seemed to understand and agree with these considerations. PAST MEDICAL HISTORY Past medical history is reviewed as documented in the chart. No additional information has been gleaned, although did confirm that she has had some bleeding of at least four weeks duration and it has been a number of years since her last gynecologic exam. PAST SURGICAL HISTORY Unremarkable. MEDICATIONS Currently summarized in the chart. REVIEW OF SYSTEMS She cannot provide any additional information from a review of systems standpoint. Her hospitalization was due to a fall downstairs where she was injured. It is unclear but possible she had mental status changes prior to the fall that contributed to the fall. It is also possible that the mental status changes are a result of the fall itself and this is trying to be clarified with ongoing evaluation. Objective findings are with imaging as described above. Brain MRI shows no acute abnormality. She had any EEG that showed generalized slowing, no seizure activity. On the MRI there is a 9 mm mass in the left parietal region thought to probably represent a meningioma. Hip imaging shows a nondisplaced pubic rami fracture. Head and neck CT showed no acute fracture. Other objective most recent labs: White count 20.7, H&H 10.4 and 34.4, platelets 54,000. Potassium 3.3. BUN 44, creatinine 1.26. Glucose 223. INR 1.1 on May 28. PHYSICAL EXAMINATION VITAL SIGNS: She is afebrile, pulse 110, respirations 16, blood pressure 119/56. GENERAL: She is somnolent but able to be awakened and can be conversive. She is on oxygen and her respirations are mildly labored at rest. ABDOMEN: Nonacute, although she seems uncomfortable on abdominal exam. ASSESSMENT A 67-year-old female admitted after a fall with a nondisplaced hip fracture, altered mental status, extensive pulmonary nodules, thyroid mass, extensive retroperitoneal adenopathy in the pelvis and abdomen, enlarged uterus, prominent cervix, questionable fullness in the bladder and urethra. Overall these findings are suspicious for malignancy with metastatic disease, quite possibly concomitant malignancies of different sites with suspicion of a primary gynecologic malignancy. Unable to have pulmonary biopsy as outlined above. PLAN 1. Recommend CT-directed biopsy of pelvic lymph nodes. 2. If she stabilizes it would be helpful to consider office exam with office endometrial biopsy and cervix biopsies or exam under anesthesia for biopsies and D&C. At the present time that is not optimal. Thank you for the consultation. We will follow along in her care. MD MIKE Schmitz/BRANDIN /7:54 AM /10:21 AM
--- NOTE | 2017-06-01 12:00 | HHI.HCPN ---
Reason for visit a. To assist with evaluation and management of symptoms including: dyspnea, confusion, anxiety, pain b. To assist medical decision maker(s) with: better understanding of current medical conditions; weighing benefits/burdens of medical treatment options; making medical treatment decisions. Subjective/Interval History Pt seen today to follow up on comfort goals. Uneventful /stable overnight. EEG done notes some slowing, no seizure activity. WBC increasing, 20.7. platelets trending down, today 54. Plan for IR /CT guided bx today. ST evaluated, pt passed swallow eval. D/w critical care-- orders to d/c NGT tube today, begin PO diet. Orders to wean fio2, pt currently on simple mask. Pt seen in room no visitors present. She is alert, oriented , appropriate. Reasonable insight to hospitalization, pending bx plans etc. She is visibly fatigued, difficulty moving around in bed. Appears mildly short of breath though denies. Denies any pain, nausea or other complaints. Primarily endorses "so tired". Review w her pending diagnostics to guide what tx option there may be/may not be. She appears to have good understanding despite her lethargy. She really wants to get home, she endorses wishes to complete medical workup and then try to get home. Review w her HCS?adv directive, she indicates she did complete HCS at [place] though document cannot be located in chart. She endorses she has named her dtr Maribeth, agrees to complete another HCS today , RN witnesses pt completing. She has difficult raising her arm to hold pen to sign, endorses very weak. Plan for bx later today. Palliative available if family arrives and has additional questions. Copies of HCS placed in chart, given to pt, and scanned to H.I.M. d/w pan reclaim processor, will provide additional support to pt. . Advance Directives Health Care Surrogate: Completed, but not made available (daughter reports patient completed HCS on Wednesday in [place] however no copy currently available) Objective Vital Signs Date Time Temp Pulse Resp B/P (MAP) Pulse Ox O2 Delivery O2 Flow Rate FiO2 06/01/17 08:14 95 Simple Mask 6.00 06/01/17 08:00 99.0 112 16 178/80 (112) 96 06/01/17 08:00 121 06/01/17 06:00 114 06/01/17 04:00 99.6 114 12 180/85 (116) 96 06/01/17 04:00 114 06/01/17 02:30 16 06/01/17 02:00 110 06/01/17 00:00 99.8 108 16 119/56 (77) 96 06/01/17 00:00 110 05/31/17 23:00 16 05/31/17 22:00 110 05/31/17 20:00 121 05/31/17 20:00 99.2 122 20 165/79 (107) 96 05/31/17 19:22 95 Nasal Cannula 7.00 05/31/17 16:00 110 05/31/17 16:00 99.8 103 19 163/74 (103) 95 05/31/17 14:00 99.8 103 19 163/74 (103) 95 05/31/17 14:00 103 05/31/17 12:00 97 05/31/17 12:00 99.8 103 19 163/74 (103) 95 Intake & Output 06/01/17 06/01/17 06:59 18:59 Intake Total 1115 ml Output Total 750 ml Balance 365 ml Intake Oral 50 ml IV Total 1065 ml Output Urine Total 750 ml Physical Exam CONSTITUTIONAL/GENERAL: This is an adequately nourished patient, lethargic, groans at times TUBES/LINES/DRAINS:PIV x2 RUE, nuñez catheter, SCDs, nasal cannula FM o2 , NG tube CARDIOVASCULAR: Regular rate and rhythm without murmurs. No JVD. Peripheral pulses symmetric. RESPIRATORY/CHEST: Symmetric, unlabored respirations. mildly tachypneic . RR 22. On simple FM. Clear to auscultation, decreased air movement. Breath sounds equal bilaterally. GASTROINTESTINAL: Abdomen soft, non-tender, nondistended. No palpable masses. No guarding. Bowel sounds hypoactive. NGT rt nare GENITOURINARY: Without palpable bladder distension. Nuñez catheter in place clear yellow urine NEUROLOGICAL: lethargic/weak, mostly oriented, x2-3. has reasonable insight. Does move all 4 extremities with significant weakness. PSYCHIATRIC: No obvious anxiety/depression- . Diagnostic Tests Laboratory Laboratory Tests Test 05/30/17 05:45 05/30/17 09:23 05/30/17 15:56 05/30/17 16:54 White Blood Count 16.4 TH/MM3 (4.0-11.0) 17.8 TH/MM3 (4.0-11.0) Red Blood Count 4.61 MIL/MM3 (4.00-5.30) 4.85 MIL/MM3 (4.00-5.30) Hemoglobin 10.6 GM/DL (11.6-15.3) 10.8 GM/DL (11.6-15.3) Hematocrit 33.6 % (35.0-46.0) 35.8 % (35.0-46.0) Mean Corpuscular Volume 72.9 FL (80.0-100.0) 73.9 FL (80.0-100.0) Mean Corpuscular Hemoglobin 23.0 PG (27.0-34.0) 22.3 PG (27.0-34.0) Mean Corpuscular Hemoglobin Concent 31.6 % (32.0-36.0) 30.1 % (32.0-36.0) Red Cell Distribution Width 20.2 % (11.6-17.2) 20.5 % (11.6-17.2) Platelet Count 84 TH/MM3 (150-450) 84 TH/MM3 (150-450) Mean Platelet Volume 9.4 FL (7.0-11.0) 9.1 FL (7.0-11.0) Neutrophils (%) (Auto) 92.2 % (16.0-70.0) 85.6 % (16.0-70.0) Lymphocytes (%) (Auto) 2.5 % (9.0-44.0) 3.5 % (9.0-44.0) Monocytes (%) (Auto) 5.1 % (0.0-8.0) 7.8 % (0.0-8.0) Eosinophils (%) (Auto) 0.1 % (0.0-4.0) 0.0 % (0.0-4.0) Basophils (%) (Auto) 0.1 % (0.0-2.0) 3.1 % (0.0-2.0) Neutrophils # (Auto) 15.2 TH/MM3 (1.8-7.7) 15.2 TH/MM3 (1.8-7.7) Lymphocytes # (Auto) 0.4 TH/MM3 (1.0-4.8) 0.6 TH/MM3 (1.0-4.8) Monocytes # (Auto) 0.8 TH/MM3 (0-0.9) 1.4 TH/MM3 (0-0.9) Eosinophils # (Auto) 0.0 TH/MM3 (0-0.4) 0.0 TH/MM3 (0-0.4) Basophils # (Auto) 0.0 TH/MM3 (0-0.2) 0.6 TH/MM3 (0-0.2) CBC Comment AUTO DIFF AUTO DIFF Differential Comment AUTO DIFF CONFIRMED FINAL DIFF MANUAL Blood Urea Nitrogen 45 MG/DL (7-18) 44 MG/DL (7-18) Creatinine 1.10 MG/DL (0.50-1.00) 1.10 MG/DL (0.50-1.00) Random Glucose 186 MG/DL (74-106) 199 MG/DL (74-106) Calcium Level 11.1 MG/DL (8.5-10.1) 10.5 MG/DL (8.5-10.1) Magnesium Level 3.1 MG/DL (1.5-2.5) 3.0 MG/DL (1.5-2.5) Sodium Level 155 MEQ/L (136-145) 159 MEQ/L (136-145) Potassium Level 4.5 MEQ/L (3.5-5.1) 4.1 MEQ/L (3.5-5.1) Chloride Level 112 MEQ/L (98-107) 118 MEQ/L (98-107) Carbon Dioxide Level 37.0 MEQ/L (21.0-32.0) 32.6 MEQ/L (21.0-32.0) Anion Gap 6 MEQ/L (5-15) 8 MEQ/L (5-15) Estimat Glomerular Filtration Rate 50 ML/MIN (>89) 50 ML/MIN (>89) Total Bilirubin 0.7 MG/DL (0.2-1.0) 0.9 MG/DL (0.2-1.0) Direct Bilirubin 0.2 MG/DL (0.0-0.2) Indirect Bilirubin 0.5 MG/DL (0.0-0.8) Aspartate Amino Transf (AST/SGOT) 35 U/L (15-37) 34 U/L (15-37) Alanine Aminotransferase (ALT/SGPT) 24 U/L (10-53) 22 U/L (10-53) Alkaline Phosphatase 111 U/L (45-117) 113 U/L (45-117) Total Protein 6.0 GM/DL (6.4-8.2) 6.1 GM/DL (6.4-8.2) Albumin 2.1 GM/DL (3.4-5.0) 2.0 GM/DL (3.4-5.0) Blood Gas Puncture Site LT RADIAL Blood Gas Patient Temperature 37.0 Blood Gas HCO3 38 mmol/L (22-26) Blood Gas Base Excess 13.3 mmol/L (-2-2) Blood Gas Oxygen Saturation 92 % (90-100) Arterial Blood pH 7.49 (7.380-7.420) Arterial Blood Partial Pressure CO2 49 mmHg (38-42) Arterial Blood Partial Pressure O2 68 mmHg (61-120) Arterial Blood Oxygen Content 13.7 Vol % (12.0-20.0) Arterial Blood Carboxyhemoglobin 1.8 % (0-4) Arterial Blood Methemoglobin 1.3 % (0-2) Blood Gas Hemoglobin 10.5 G/DL (12.0-16.0) Oxygen Delivery Device NASAL CANNULA Blood Gas Liter Flow 5 L/M Ammonia 34 MCMOL/L (11-32) Free Thyroxine 1.35 NG/DL (0.76-1.46) Free Triiodothyronine (T3) pg/dL 1.46 PG/ML (2.18-3.98) Thyroid Stimulating Hormone 3rd Gen LESS THAN 0.005 uIU/ML Differential Total Cells Counted 100 Neutrophils % (Manual) 93 % (16-70) Lymphocytes % 1 % (9-44) Monocytes % 6 % (0-8) Neutrophils # (Manual) 16.6 TH/MM3 (1.8-7.7) Nucleated Red Blood Cells 1 /100 WBC (0-0) Phosphorus Level 1.2 MG/DL (2.5-4.9) Test 05/30/17 18:25 05/31/17 04:42 05/31/17 10:40 06/01/17 06:16 Nasal Screen MRSA (PCR) MRSA NOT DETECTED (NOT White Blood Count 17.4 TH/MM3 (4.0-11.0) 20.7 TH/MM3 (4.0-11.0) Red Blood Count 4.81 MIL/MM3 (4.00-5.30) 4.66 MIL/MM3 (4.00-5.30) Hemoglobin 10.7 GM/DL (11.6-15.3) 10.4 GM/DL (11.6-15.3) Hematocrit 35.4 % (35.0-46.0) 34.4 % (35.0-46.0) Mean Corpuscular Volume 73.5 FL (80.0-100.0) 73.9 FL (80.0-100.0) Mean Corpuscular Hemoglobin 22.2 PG (27.0-34.0) 22.3 PG (27.0-34.0) Mean Corpuscular Hemoglobin Concent 30.2 % (32.0-36.0) 30.1 % (32.0-36.0) Red Cell Distribution Width 21.4 % (11.6-17.2) 21.8 % (11.6-17.2) Platelet Count 72 TH/MM3 (150-450) 54 TH/MM3 (150-450) Mean Platelet Volume 9.7 FL (7.0-11.0) 9.5 FL (7.0-11.0) Neutrophils (%) (Auto) 89.4 % (16.0-70.0) 92.6 % (16.0-70.0) Lymphocytes (%) (Auto) 3.4 % (9.0-44.0) 3.0 % (9.0-44.0) Monocytes (%) (Auto) 7.0 % (0.0-8.0) 4.3 % (0.0-8.0) Eosinophils (%) (Auto) 0.0 % (0.0-4.0) 0.0 % (0.0-4.0) Basophils (%) (Auto) 0.2 % (0.0-2.0) 0.1 % (0.0-2.0) Neutrophils # (Auto) 15.5 TH/MM3 (1.8-7.7) 19.2 TH/MM3 (1.8-7.7) Lymphocytes # (Auto) 0.6 TH/MM3 (1.0-4.8) 0.6 TH/MM3 (1.0-4.8) Monocytes # (Auto) 1.2 TH/MM3 (0-0.9) 0.9 TH/MM3 (0-0.9) Eosinophils # (Auto) 0.0 TH/MM3 (0-0.4) 0.0 TH/MM3 (0-0.4) Basophils # (Auto) 0.0 TH/MM3 (0-0.2) 0.0 TH/MM3 (0-0.2) CBC Comment AUTO DIFF AUTO DIFF Differential Comment AUTO DIFF CONFIRMED AUTO DIFF CONFIRMED Blood Urea Nitrogen 44 MG/DL (7-18) 44 MG/DL (7-18) Creatinine 1.13 MG/DL (0.50-1.00) 1.26 MG/DL (0.50-1.00) Random Glucose 234 MG/DL (74-106) 223 MG/DL (74-106) Total Protein 6.1 GM/DL (6.4-8.2) Albumin 2.0 GM/DL (3.4-5.0) Calcium Level 9.5 MG/DL (8.5-10.1) 8.8 MG/DL (8.5-10.1) Magnesium Level 3.2 MG/DL (1.5-2.5) 2.8 MG/DL (1.5-2.5) Alkaline Phosphatase 115 U/L (45-117) Aspartate Amino Transf (AST/SGOT) 28 U/L (15-37) Alanine Aminotransferase (ALT/SGPT) 21 U/L (10-53) Total Bilirubin 0.7 MG/DL (0.2-1.0) Sodium Level 160 MEQ/L (136-145) 158 MEQ/L (136-145) Potassium Level 3.7 MEQ/L (3.5-5.1) 3.3 MEQ/L (3.5-5.1) Chloride Level 119 MEQ/L (98-107) 118 MEQ/L (98-107) Carbon Dioxide Level 34.4 MEQ/L (21.0-32.0) 30.4 MEQ/L (21.0-32.0) Anion Gap 7 MEQ/L (5-15) 10 MEQ/L (5-15) Estimat Glomerular Filtration Rate 48 ML/MIN (>89) 42 ML/MIN (>89) Phosphorus Level 1.4 MG/DL (2.5-4.9) 0.9 MG/DL (2.5-4.9) Urine Color YELLOW (YELLW/STRAW) Urine Turbidity HAZY (CLEAR) Urine pH 6.0 (5.0-8.5) Urine Specific [place] 1.019 (1.002-1.035) Urine Protein 30 mg/dL (NEG-TRACE) Urine Glucose (UA) TRACE mg/dL (NEG) Urine Ketones TRACE mg/dL (NEG) Urine Occult Blood MOD (NEG) Urine Nitrite NEG (NEG) Urine Bilirubin NEG (NEG) Urine Urobilinogen LESS THAN 2.0 MG/DL (LESS Urine Leukocyte Esterase NEG (NEG) Urine RBC 9 /hpf (0-3) Urine WBC 4 /hpf (0-5) Urine Squamous Epithelial Cells 1 /hpf (0-5) Urine Hyaline Casts 1 /lpf (RARE) Urine Mucus FEW /lpf (OCC) Microscopic Urinalysis Comment CATH-CULT NOT IND Platelet Estimate LOW (NORMAL) Platelet Morphology Comment NORMAL (NORMAL) Result Diagram: 06/01/1761506/01/1716 Microbiology Microbiology Date/Time Source Procedure Growth Status 05/31/17 10:12 Blood Peripheral Aerobic Blood Culture - Preliminary NO GROWTH IN 1 DAY Resulted 05/31/17 10:12 Blood Peripheral Anaerobic Blood Culture - Preliminary NO GROWTH IN 1 DAY Resulted 05/31/17 10:05 Blood Peripheral Aerobic Blood Culture - Preliminary NO GROWTH IN 1 DAY Resulted 05/31/17 10:05 Blood Peripheral Anaerobic Blood Culture - Preliminary NO GROWTH IN 1 DAY Resulted Imaging Last Impressions Chest X-Ray 05/31/17 0000 Signed Impressions: Service Date/Time: Wednesday, May 31, 2017 09:31 - CONCLUSION: Increasing nodular opacities throughout both lungs Patient has changes in the left base. I Pa Verdin MD FACR Abdomen X-Ray 05/31/17 0000 Signed Impressions: Service Date/Time: Wednesday, May 31, 2017 10:21 - CONCLUSION: The tip of the NG tube in the antrum of the stomach. Sushant Juares Jr., MD Brain MRI 05/30/17 0000 Signed Impressions: Service Date/Time: Tuesday, May 30, 2017 19:47 - CONCLUSION: 1. Tiny 9 mm enhancing extra-axial mass along the left high parietal region consistent with probable tiny meningioma. 2. No acute infarct, acute hemorrhage, midline shift or extra-axial bleed. Delta Allison MD Lower Extremity CT 05/28/17 Signed Impressions: Service Date/Time: Sunday, May 28, 2017 09:50 - CONCLUSION: 1. Acute nondisplaced superior and inferior pubic rami fractures on the left. 2. Retroperitoneal adenopathy worrisome for metastatic disease or myeloproliferative disorder. 3. Enlarged and lobulated uterus likely related to fibroids. Sushant Juares Jr., MD CT Angiography 05/28/17 Signed Impressions: Service Date/Time: Sunday, May 28, 2017 02:01 - CONCLUSION: Large mass on the right side of the trachea could be an enlarged thyroid. Innumerable nodules scattered throughout the lungs metastatic disease certainly within the differential. There are a number of nodules in the right lower lobe which would be amenable to CT-guided biopsy. Vince Galan MD Abdomen/Pelvis CT 05/28/17 Signed Impressions: Service Date/Time: Sunday, May 28, 2017 20:56 - CONCLUSION: 1. There is evidence of retroperitoneal metastatic lymphadenopathy and I believe potentially on the basis of cervical or endometrial carcinoma. Primary lesion versus additional metastatic involvement of the urinary bladder. There is also a nonspecific nodule in the expected region of the distal urethra. 2. Nodularity of both adrenal glands, most likely metastatic. 3. Visualized lung bases again show evidence of widespread and confluent pulmonary metastatic disease with small effusions. Kane Cedeño MD Maxillofacial CT 05/27/172016 Signed Impressions: Service Date/Time: May 20:34 - CONCLUSION: 1. No maxillofacial fracture is present. 2. There is bilateral maxillary mucoperiosteal thickening with 12 mm polypoid structure extending from the left maxillary antrum into the left posterior nasal cavity. 3. There is a 14 mm left parotid gland nodule. Differential diagnosis includes intraparotid lymph node or pleomorphic adenoma. Kane Bartlett MD Head CT 05/27/172016 Signed Impressions: Service Date/Time: May 20:34 - CONCLUSION: No acute abnormality is identified. Kane Bartlett MD Cervical Spine CT 05/27/172016 Signed Impressions: Service Date/Time: May 20:34 - CONCLUSION: 1. No acute cervical spine abnormality is identified. There is degenerative disc disease at C5-C6. 2. There is a 4.1 cm right thyroid nodule. If this is a new finding, suggest nonemergent outpatient ultrasound of the thyroid gland for further evaluation. 3. Abnormal linear and nodular parenchymal opacities in the upper lobes bilaterally. Since this does not pertain to the patient's acute problem, this finding should also be further evaluated with outpatient chest CT with IV contrast. Also suggest correlating with any prior outside imaging studies. Kane Bartlett MD Hip and Pelvis X-Ray 05/27/17 0000 Signed Impressions: Service Date/Time: May 20:49 - CONCLUSION: 1. A subtle lucency in the left pelvis may represent a nondisplaced left superior pubic ramus fracture. 2. Mild osteoarthritis of the joints bilaterally. Kane Bartlett MD Ankle X-Ray 05/27/17 0000 Signed Impressions: Service Date/Time: May 20:56 - CONCLUSION: No acute left ankle abnormality is identified. Kane Bartlett MD Assessment and Plan Disease Oriented Problem List: (1) Elevated troponin I level (2) Closed fracture of single pubic ramus of pelvis (3) Hypercalcemia (4) Adenopathy (5) Lesion of lung (6) Mass of cervix Symptom Scale: (1) Dyspnea (2) Anxiety (3) Pain (4) Confusion Pertinent Non-Medical Issues Psychosocial:Patient originally from [place], though has lived in [place] since the . Still working some, does [employer] services part-time. Supported locally by 3 adult children, her son lives with her . . Spiritual: Confucianist would appreciate radiological defense officer,roll or tape edge machine operator support Legal:Patient mental status fluctuates at times she may be capacitated. Apparently completed health care surrogate designation at [facility] Wednesday however this document is not present in chart. May offer to assist patient to complete healthcare surrogate again if she is able. Daughter indicates that she was named as primary surrogate with her sister is secondary. Patient , supported by 3 adult children, who per [place] statutes would be appropriate proxies if patient incapacitated. Ethical issues impacting care: Important Contacts VERNELL AGUILERA (DAUGHTER) [phone] Maribeth Travis daughter [phone] Jared- son- lives w pt, using pt phone # [phone] . Prognosis This patient was admitted status post mechanical fall at home. Incidental findings via imaging of what appears to be widespread metastatic malignancy process. Biopsy, additional diagnostics pending. Treatment options may be limited if in fact she does have metastatic disease. Further prognostication pending biopsy. . Code Status: Full Code Plan * Legal decision maker:Patient mental status fluctuates at times she may be capacitated. Apparently completed health care surrogate designation at [facility] Wednesday however this document is not present in chart. May offer to assist patient to complete healthcare surrogate again if she is able. Daughter indicates that she was named as primary surrogate with her sister is secondary. Patient , supported by 3 adult children, who per [place] statutes would be appropriate proxies if patient incapacitated. 06/01/17 completed NEW HCS NAMING DTR MARIBETH- placed in chart, scanned to med records * Goals: Met with patient and daughter at bedside upon initial consult 05/31. Patient with limited participation due to lethargy. Daughter expresses aggressive goals for now pending further diagnostics, she has endorsed that the patient when alert, oriented and with good insight had also wanted to proceed with aggressive interventions including full code pending further diagnostics. They are open to further conversations as clinical course evolves and more clinical prognostic information is available. * 05/31 f/up with pt, she is very fatigued/weak. wishes to proceed w bx to learn possible tx options/diagnosis. wants to get home as soon as medically possible. * CODE STATUS: Full code * SYMPTOMS: --Dyspnea- resp status fluctuating, + CXR /CT findings multiple nodules concerning for malignancy; + on nebulizers, O2. Will cont to evaluate RN weaning FM to nc today --Anxiety-potential for related to dyspnea, multiple new medical findings, acute ICU course. Cautious use of benzos at this time given concern for AMS, resp compromise, will cont to evaluate --Pain-status post mechanical fall with injury to pelvis, left leg. currently denies pain, will cont to evaluate. Cautious use of opiates given fluctuating mental status --Confusion-fluctuating mental status during hospital course, MRI negative for stroke or acute process. Hypercalcemia, electrolyte abnormalities, leukocytosis, probably multifactorial * Palliative care will continue to follow during hospital course as condition evolves, to assist patient/decision-maker with understanding of medical conditions, weighing benefits/burdens of treatment options, for clarification of goals of treatment. Additionally will assist with any symptoms of palliative concern Attestation To help prompt me to consider important information that might be impacting today's encounter and assessment, information from prior notes written by myself or my colleagues may have been "brought forward" into today's note. My signature on this note, however, is an attestation that I personally performed the exam, history, and/or decision-making noted today, and, unless otherwise indicated, the interactions with patient, family, and staff as well as the review of records all occurred today. I also attest that the listed assessment and stated plan reflect my best clinical judgment today based on the combination of historical information, prior notes, and today's exam/ interactions. When time spent is documented, it refers only to time spent today by the signer, or if indicated, combined time spent today by collaborating physician/nurse practitioner. Yolis Fernando Jun 01, 2017 12:00
[2017-06-01] MEDS ORDERED: VANCOMYCIN 500 MG/NS 100 ML IV ONE ×2 (17:00)
[2017-06-01] MEDS: PANTOPRAZOLE SODIUM 40 MG VIAL IV PUSH SCH (17:33)
[2017-06-01] MEDS: cloNIDine HCL 0.1 MG TAB PO PRN (20:24)
[2017-06-01 23:52] LABS: THYROGLOBULN 142.9 ng/mL (2.8-40.9)
[2017-06-02] VITALS (17 sets, daily range): BP systolic 161–182; BP diastolic 71–99; PULSE 78–106; RESP 11–30; TEMP 98–99; O2SAT 94–96
[2017-06-02] MEDS: POTASSIUM CHLOR 20 MEQ PREMIX 100 ML IV PRN ×2 (01:23→05:36)
[2017-06-02] MEDS: KETOROLAC TROMETHAMINE 30 MG/ML (IVP) VIAL IV PUSH PRN ×2 (01:23→20:34)
[2017-06-02] MEDS: INSULIN NovoLIN REGULAR SUPPLEMENTAL SCALE SQ SCH ×6 (01:40→20:57)
[2017-06-02] MEDS: cloNIDine HCL 0.1 MG TAB PO PRN ×2 (01:41→20:34)
[2017-06-02] MEDS: ACETAMINOPHEN/HYDROcodone 325 MG/10 MG TAB PO PRN ×4 (01:41→20:35)
[2017-06-02] MEDS: CHLORHEXIDINE GLUCONATE 2 % 1 PACK (2 CLOTHS)(taper/protocol) TOPICAL SCH (04:00)
[2017-06-02] MEDS: FREE WATER G-TUBE SCH ×5 (05:37→22:24)
[2017-06-02] MEDS: PIPERACIL-TAZO 4.5 GM PREMIX 100 ML IV SCH ×4 (05:37→20:34)
[2017-06-02] MEDS: METOPROLOL TARTRATE 5 MG/5 ML VIAL IV PUSH SCH ×4 (05:37→22:23)
[2017-06-02 07:27] LABS: AUTOMATED NEUTROPHIL # 19.7 TH/MM3 (1.8-7.7); BASOPHIL # 0.1 TH/MM3 (0-0.2); BASOPHIL % 0.3 % (0.0-2.0); EOSINOPHIL % 0.1 % (0.0-4.0); HEMATOCRIT 32.2 % (35.0-46.0); LYMPH % 3.2 % (9.0-44.0); LYMPHOCYTE # 0.7 TH/MM3 (1.0-4.8); MEAN CELL VOLUME 73.6 FL (80.0-100.0); MEAN CORPUSCULAR HEMOGLOBIN 22.2 PG (27.0-34.0); MEAN CORPUSCULAR HGB CONC 30.1 % (32.0-36.0); MONO % 5.1 % (0.0-8.0); NEUT % 91.3 % (16.0-70.0); PLATELET COUNT 48 TH/MM3 (150-450); RED BLOOD COUNT 4.37 MIL/MM3 (4.00-5.30); WHITE BLOOD COUNT 21.6 TH/MM3 (4.0-11.0)
[2017-06-02 07:49] LABS: BICARBONATE 27.5 MEQ/L (21.0-32.0); MAGNESIUM 2.7 MG/DL (1.5-2.5); POTASSIUM 3.8 MEQ/L (3.5-5.1)
[2017-06-02 07:54] LABS: HEMO FLAGS AUTO DIFF
[2017-06-02] MEDS: DEXTROSE 5% IN WATE 1000ML INJ 1,000 ML IV SCH ×2 (08:02→17:25)
[2017-06-02] MEDS: RESP: ALBUTEROL 2.5 MG/3 ML NEB (SCH) NEB ×3 (08:43→19:28)
[2017-06-02] MEDS: SODIUM CHLORIDE 0.9% FLUSH 10 ML FLUSH IV FLUSH SCH ×2 (09:00→20:35)
[2017-06-02] MEDS: DOCUSATE SODIUM 50 MG/SENNA 8.6 MG TAB PO SCH ×2 (09:00→20:34)
[2017-06-02] MEDS: amLODIPine BESYLATE 5 MG TAB PO SCH (09:00)
[2017-06-02 09:21] LABS: BANDS 8 % (0-6); CORRECTED NUCLEATED RBC 1 /100 WBC (0-0); METAMYELOCYTES 4 % (0-1); NEUTROPHIL # MANUAL DIFF 20.3 TH/MM3 (1.8-7.7); POLYS (SEG NEUTROPHILS) 82 % (16-70); WBC DIFF SAMPLE 100
[2017-06-02 09:22] LABS: PLATELET ESTIMATE SMEAR LOW (NORMAL)
[2017-06-02 09:23] LABS: PLATELET MORPHOLOGY NORMAL (NORMAL); SCAN/DIFF FINAL DIFF MANUAL
[2017-06-02] MEDS ORDERED: VANCOMYCIN INJ 1,750 MG in SODIUM CHLORID 0.9% 500 ML INJ 500 ML IV SCH (10:00)
[2017-06-02] MEDS ORDERED: LIDOCAINE HCL 1% 20 ML VIAL ONE (11:18)
[2017-06-02] MEDS ORDERED: MIDAZOLAM HCL 2 MG/2 ML VIAL ONE (11:22)
[2017-06-02] MEDS ORDERED: THROMBIN (TOPICAL) 5,000 UNIT VIAL ONE (12:09)
--- NOTE | 2017-06-02 12:25 | PD.RAD ---
Post CT Procedure Prog Note Pre Procedure Diagnosis: (1) Mass of cervix Post Procedure Diagnosis: (1) Mass of cervix Procedure Date: Jun 02, 2017 Supervising Radiologist: Sushant Juares JR Anesthesia: Conscious Sedation Plan of Activity Patient to Unit: Critical Care Patient Condition: Fair Additional Comments: Original plan to biopsy lung was aborted as patient could not tolerate prone positioning with sedation. Biopsy of left iliac chain node. 2 core specimens obtained. Gelfoam and thrombin utilized. See PACS Report for procedural detail/treatment Jr. Mor,Sushant Aviles MD Jun 02, 2017 12:25
[2017-06-02] MEDS ORDERED: GELATIN 12 MM/7 MM FOAM ONE (12:45)
--- NOTE | 2017-06-02 13:24 | RADRPT ---
EXAM DATE/TIME: 06/02/2017 11:52 [place] COMPARISON: No previous studies available for comparison. INDICATIONS : Left pelvic lymph node. Original plan was for a biopsy of a lung mass, however, this would necessitat e prone positioning and the patient clinically is not able to tolerate this. Therefore the mass withi n the left pelvis consistent with iliac chain lymph nodes were biopsied. SEDATION TIME: 20 minutes BIOPSY SITE: Left pelvic lymph node MEDICATION(S): 1.) 1 mg midazolam (Versed) IV 2.) 50 mcg fentanyl (Sublimaze) IV DEVICE(S): 1.) 19 gauge introducer 2.) 20 gauge Temno core biopsy needle MEDICAL HISTORY : None. SURGICAL HISTORY : None. ENCOUNTER: Initial ACUITY: 1 day PAIN SCORE: 0/10 LOCATION: Left pelvis A total of two core specimen(s) were obtained and sent to the laboratory for pathologic evaluation. PROCEDURE: 1. CT guided lymph node biopsy. Prior to the procedure informed consent was obtained. Any appropriate prior imaging studies were rev iewed. Using automated exposure control and adjustment of the mA and/or kV according to patient size, radiat ion dose was kept as low as reasonably achievable to obtain optimal diagnostic quality images. DICOM format image data is available electronically for review and comparison. The site was prepped in a sterile fashion. Full sterile technique was used, including cap, mask, arleen rile gloves and gown and a large sterile sheet. Hand hygiene and 2% chlorhexidine and/or betadine/al cohol prep was utilized per protocol for cutaneous antisepsis. The skin and subcutaneous tissues wer e infiltrated with local anesthetic solution. With CT guidance the lobulated mass involving the left iliac chain was localized. Biopsy was performe d using the prescribed needle as above. Thrombin and Gelfoam was utilized to aid in hemostasis. Adeq uate hemostasis was obtained with compression at the puncture site. Follow-up CT scan reveals no hemorrhage. The patient tolerated the procedure well and there were no complications. The patient was returned to the Radiology Outpatient Unit in stable condition. CONCLUSION: Uncomplicated CT guided biopsy of a left pelvic mass likely relating to iliac chain lymph nodes. Sushant Juares Jr., MD on June 02, 2017 at 13:21 Board Certified Radiologist. This report was verified electronically.
--- NOTE | 2017-06-02 13:48 | HHI.HCPN ---
Reason for visit a. To assist with evaluation and management of symptoms including: dyspnea, confusion, anxiety, pain b. To assist medical decision maker(s) with: better understanding of current medical conditions; weighing benefits/burdens of medical treatment options; making medical treatment decisions. Subjective/Interval History Pt seen today to follow up on comfort, goals. Uneventful /stable overnight. s/p IR biopsy-- per report attempted lung bx however pt could not tolerate prone w sedation for procedure. did have pelvic node bx per singer and unloader-oncology request. Path pending. WBC cont to increase, 21.6. platelets cont to trend down, today 54. Pending repeat ST eval today to advance diet, nursing indicates tolerated water well. 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 Son and daughter at bedside. Pt indicates feeling much better today. No dyspnea, minimal pain to her hips, primarily when being moved for procedures. Main complaint is hungry. Review of bx, pathology generally takes several days. Review of prognosis, tx dependent on pt clinical course and bx findings. Pt, family wish to continue aggressive tx course. Open to ongoing conversations as clinical course evolves. . Advance Directives Health Care Surrogate: Completed, but not made available (daughter reports patient completed HCS on Wednesday in [place] however no copy currently available) Objective Vital Signs Date Time Temp Pulse Resp B/P (MAP) Pulse Ox O2 Delivery O2 Flow Rate FiO2 06/02/17 12:20 18 06/02/17 08:44 95 Nasal Cannula 2.00 06/02/17 07:00 95 Nasal Cannula 2.00 06/02/17 06:00 78 18 172/74 (106) 95 06/02/17 05:04 95 Nasal Cannula 2.00 06/02/17 05:00 96 17 172/79 (110) 95 06/02/17 04:00 99.0 92 17 161/71 (101) 95 06/02/17 03:00 99 20 178/99 (125) 95 06/02/17 02:00 99 18 168/76 (106) 96 06/02/17 01:00 101 18 95 06/02/17 00:00 98.6 96 16 165/73 (103) 95 06/01/17 23:31 Nasal Cannula 5.00 06/01/17 23:00 103 23 178/79 (112) 95 06/01/17 22:00 96 15 143/65 (91) 95 06/01/17 21:23 96 Nasal Cannula 4.00 06/01/17 21:00 101 26 177/81 (113) 96 06/01/17 20:00 98.8 114 24 178/87 (117) 95 06/01/17 19:00 115 20 150/66 (94) 95 06/01/17 18:00 105 06/01/17 17:30 109 18 167/74 (105) 92 06/01/17 17:00 108 17 163/74 (103) 95 06/01/17 16:30 113 17 177/79 (111) 94 06/01/17 16:00 105 06/01/17 16:00 109 17 158/72 (100) 92 06/01/17 15:30 109 16 174/76 (108) 95 06/01/17 15:00 108 17 166/76 (106) 95 06/01/17 14:30 109 16 172/77 (108) 91 06/01/17 14:00 110 16 172/78 (109) 94 06/01/17 14:00 105 Intake & Output 06/02/17 06/02/17 07:00 19:00 Intake Total 480 ml Output Total 450 ml Balance 30 ml Intake Oral 480 ml Output Urine Total 450 ml # Bowel Movements 2 Physical Exam CONSTITUTIONAL/GENERAL: This is an adequately nourished patient, lethargic, groans at times TUBES/LINES/DRAINS:PIV x2 RUE, nuñez catheter, SCDs, nasal cannula FM o2 , NG tube CARDIOVASCULAR: Regular rate and rhythm without murmurs. No JVD. Peripheral pulses symmetric. RESPIRATORY/CHEST: Symmetric, unlabored respirations. mildly tachypneic . RR 22. On simple FM. Clear to auscultation, decreased air movement. Breath sounds equal bilaterally. GASTROINTESTINAL: Abdomen soft, non-tender, nondistended. No palpable masses. No guarding. Bowel sounds hypoactive. NGT rt nare GENITOURINARY: Without palpable bladder distension. Nuñez catheter in place clear yellow urine NEUROLOGICAL: lethargic/weak, mostly oriented, x2-3. has reasonable insight. Does move all 4 extremities with significant weakness. PSYCHIATRIC: No obvious anxiety/depression- . Diagnostic Tests Laboratory Laboratory Tests Test 05/30/17 15:56 05/30/17 16:54 05/30/17 18:25 05/31/17 04:42 Ammonia 34 MCMOL/L (11-32) Free Thyroxine 1.35 NG/DL (0.76-1.46) Free Triiodothyronine (T3) pg/dL 1.46 PG/ML (2.18-3.98) Thyroid Stimulating Hormone 3rd Gen LESS THAN 0.005 uIU/ML White Blood Count 17.8 TH/MM3 (4.0-11.0) 17.4 TH/MM3 (4.0-11.0) Red Blood Count 4.85 MIL/MM3 (4.00-5.30) 4.81 MIL/MM3 (4.00-5.30) Hemoglobin 10.8 GM/DL (11.6-15.3) 10.7 GM/DL (11.6-15.3) Hematocrit 35.8 % (35.0-46.0) 35.4 % (35.0-46.0) Mean Corpuscular Volume 73.9 FL (80.0-100.0) 73.5 FL (80.0-100.0) Mean Corpuscular Hemoglobin 22.3 PG (27.0-34.0) 22.2 PG (27.0-34.0) Mean Corpuscular Hemoglobin Concent 30.1 % (32.0-36.0) 30.2 % (32.0-36.0) Red Cell Distribution Width 20.5 % (11.6-17.2) 21.4 % (11.6-17.2) Platelet Count 84 TH/MM3 (150-450) 72 TH/MM3 (150-450) Mean Platelet Volume 9.1 FL (7.0-11.0) 9.7 FL (7.0-11.0) Neutrophils (%) (Auto) 85.6 % (16.0-70.0) 89.4 % (16.0-70.0) Lymphocytes (%) (Auto) 3.5 % (9.0-44.0) 3.4 % (9.0-44.0) Monocytes (%) (Auto) 7.8 % (0.0-8.0) 7.0 % (0.0-8.0) Eosinophils (%) (Auto) 0.0 % (0.0-4.0) 0.0 % (0.0-4.0) Basophils (%) (Auto) 3.1 % (0.0-2.0) 0.2 % (0.0-2.0) Neutrophils # (Auto) 15.2 TH/MM3 (1.8-7.7) 15.5 TH/MM3 (1.8-7.7) Lymphocytes # (Auto) 0.6 TH/MM3 (1.0-4.8) 0.6 TH/MM3 (1.0-4.8) Monocytes # (Auto) 1.4 TH/MM3 (0-0.9) 1.2 TH/MM3 (0-0.9) Eosinophils # (Auto) 0.0 TH/MM3 (0-0.4) 0.0 TH/MM3 (0-0.4) Basophils # (Auto) 0.6 TH/MM3 (0-0.2) 0.0 TH/MM3 (0-0.2) CBC Comment AUTO DIFF AUTO DIFF Differential Total Cells Counted 100 Neutrophils % (Manual) 93 % (16-70) Lymphocytes % 1 % (9-44) Monocytes % 6 % (0-8) Neutrophils # (Manual) 16.6 TH/MM3 (1.8-7.7) Nucleated Red Blood Cells 1 /100 WBC (0-0) Differential Comment FINAL DIFF MANUAL AUTO DIFF CONFIRMED Blood Urea Nitrogen 44 MG/DL (7-18) 44 MG/DL (7-18) Creatinine 1.10 MG/DL (0.50-1.00) 1.13 MG/DL (0.50-1.00) Random Glucose 199 MG/DL (74-106) 234 MG/DL (74-106) Total Protein 6.1 GM/DL (6.4-8.2) 6.1 GM/DL (6.4-8.2) Albumin 2.0 GM/DL (3.4-5.0) 2.0 GM/DL (3.4-5.0) Calcium Level 10.5 MG/DL (8.5-10.1) 9.5 MG/DL (8.5-10.1) Phosphorus Level 1.2 MG/DL (2.5-4.9) 1.4 MG/DL (2.5-4.9) Magnesium Level 3.0 MG/DL (1.5-2.5) 3.2 MG/DL (1.5-2.5) Alkaline Phosphatase 113 U/L (45-117) 115 U/L (45-117) Aspartate Amino Transf (AST/SGOT) 34 U/L (15-37) 28 U/L (15-37) Alanine Aminotransferase (ALT/SGPT) 22 U/L (10-53) 21 U/L (10-53) Total Bilirubin 0.9 MG/DL (0.2-1.0) 0.7 MG/DL (0.2-1.0) Sodium Level 159 MEQ/L (136-145) 160 MEQ/L (136-145) Potassium Level 4.1 MEQ/L (3.5-5.1) 3.7 MEQ/L (3.5-5.1) Chloride Level 118 MEQ/L (98-107) 119 MEQ/L (98-107) Carbon Dioxide Level 32.6 MEQ/L (21.0-32.0) 34.4 MEQ/L (21.0-32.0) Anion Gap 8 MEQ/L (5-15) 7 MEQ/L (5-15) Estimat Glomerular Filtration Rate 50 ML/MIN (>89) 48 ML/MIN (>89) Nasal Screen MRSA (PCR) MRSA NOT DETECTED (NOT Test 05/31/17 10:40 06/01/17 06:16 06/01/17 21:33 06/02/17 07:06 Urine Color YELLOW (YELLW/STRAW) Urine Turbidity HAZY (CLEAR) Urine pH 6.0 (5.0-8.5) Urine Specific [place] 1.019 (1.002-1.035) Urine Protein 30 mg/dL (NEG-TRACE) Urine Glucose (UA) TRACE mg/dL (NEG) Urine Ketones TRACE mg/dL (NEG) Urine Occult Blood MOD (NEG) Urine Nitrite NEG (NEG) Urine Bilirubin NEG (NEG) Urine Urobilinogen LESS THAN 2.0 MG/DL (LESS Urine Leukocyte Esterase NEG (NEG) Urine RBC 9 /hpf (0-3) Urine WBC 4 /hpf (0-5) Urine Squamous Epithelial Cells 1 /hpf (0-5) Urine Hyaline Casts 1 /lpf (RARE) Urine Mucus FEW /lpf (OCC) Microscopic Urinalysis Comment CATH-CULT NOT IND White Blood Count 20.7 TH/MM3 (4.0-11.0) 21.6 TH/MM3 (4.0-11.0) Red Blood Count 4.66 MIL/MM3 (4.00-5.30) 4.37 MIL/MM3 (4.00-5.30) Hemoglobin 10.4 GM/DL (11.6-15.3) 9.7 GM/DL (11.6-15.3) Hematocrit 34.4 % (35.0-46.0) 32.2 % (35.0-46.0) Mean Corpuscular Volume 73.9 FL (80.0-100.0) 73.6 FL (80.0-100.0) Mean Corpuscular Hemoglobin 22.3 PG (27.0-34.0) 22.2 PG (27.0-34.0) Mean Corpuscular Hemoglobin Concent 30.1 % (32.0-36.0) 30.1 % (32.0-36.0) Red Cell Distribution Width 21.8 % (11.6-17.2) 22.0 % (11.6-17.2) Platelet Count 54 TH/MM3 (150-450) 48 TH/MM3 (150-450) Mean Platelet Volume 9.5 FL (7.0-11.0) 8.4 FL (7.0-11.0) Neutrophils (%) (Auto) 92.6 % (16.0-70.0) 91.3 % (16.0-70.0) Lymphocytes (%) (Auto) 3.0 % (9.0-44.0) 3.2 % (9.0-44.0) Monocytes (%) (Auto) 4.3 % (0.0-8.0) 5.1 % (0.0-8.0) Eosinophils (%) (Auto) 0.0 % (0.0-4.0) 0.1 % (0.0-4.0) Basophils (%) (Auto) 0.1 % (0.0-2.0) 0.3 % (0.0-2.0) Neutrophils # (Auto) 19.2 TH/MM3 (1.8-7.7) 19.7 TH/MM3 (1.8-7.7) Lymphocytes # (Auto) 0.6 TH/MM3 (1.0-4.8) 0.7 TH/MM3 (1.0-4.8) Monocytes # (Auto) 0.9 TH/MM3 (0-0.9) 1.1 TH/MM3 (0-0.9) Eosinophils # (Auto) 0.0 TH/MM3 (0-0.4) 0.0 TH/MM3 (0-0.4) Basophils # (Auto) 0.0 TH/MM3 (0-0.2) 0.1 TH/MM3 (0-0.2) CBC Comment AUTO DIFF AUTO DIFF Differential Comment AUTO DIFF CONFIRMED FINAL DIFF MANUAL Platelet Estimate LOW (NORMAL) LOW (NORMAL) Platelet Morphology Comment NORMAL (NORMAL) NORMAL (NORMAL) Blood Urea Nitrogen 44 MG/DL (7-18) 40 MG/DL (7-18) Creatinine 1.26 MG/DL (0.50-1.00) 1.13 MG/DL (0.50-1.00) Random Glucose 223 MG/DL (74-106) 270 MG/DL (74-106) Calcium Level 8.8 MG/DL (8.5-10.1) 8.1 MG/DL (8.5-10.1) Sodium Level 158 MEQ/L (136-145) 150 MEQ/L (136-145) Potassium Level 3.3 MEQ/L (3.5-5.1) 3.2 MEQ/L (3.5-5.1) 3.8 MEQ/L (3.5-5.1) Chloride Level 118 MEQ/L (98-107) 113 MEQ/L (98-107) Carbon Dioxide Level 30.4 MEQ/L (21.0-32.0) 27.5 MEQ/L (21.0-32.0) Anion Gap 10 MEQ/L (5-15) 10 MEQ/L (5-15) Estimat Glomerular Filtration Rate 42 ML/MIN (>89) 48 ML/MIN (>89) Phosphorus Level 0.9 MG/DL (2.5-4.9) 0.8 MG/DL (2.5-4.9) Magnesium Level 2.8 MG/DL (1.5-2.5) 2.7 MG/DL (1.5-2.5) Differential Total Cells Counted 100 Neutrophils % (Manual) 82 % (16-70) Band Neutrophils % 8 % (0-6) Lymphocytes % 1 % (9-44) Monocytes % 5 % (0-8) Neutrophils # (Manual) 20.3 TH/MM3 (1.8-7.7) Metamyelocytes 4 % (0-1) Nucleated Red Blood Cells 1 /100 WBC (0-0) Red Cell Morphology Comment NORMAL (NORMAL) Result Diagram: 06/02/17 0706/02/17 0706 Microbiology Microbiology Date/Time Source Procedure Growth Status 05/31/17 10:12 Blood Peripheral Aerobic Blood Culture - Preliminary NO GROWTH IN 2 DAYS Resulted 05/31/17 10:12 Blood Peripheral Anaerobic Blood Culture - Preliminary NO GROWTH IN 2 DAYS Resulted 05/31/17 10:05 Blood Peripheral Aerobic Blood Culture - Preliminary NO GROWTH IN 2 DAYS Resulted 05/31/17 10:05 Blood Peripheral Anaerobic Blood Culture - Preliminary NO GROWTH IN 2 DAYS Resulted Assessment and Plan Disease Oriented Problem List: (1) Elevated troponin I level (2) Closed fracture of single pubic ramus of pelvis (3) Hypercalcemia (4) Adenopathy (5) Lesion of lung (6) Mass of cervix Symptom Scale: (1) Dyspnea (2) Anxiety (3) Pain (4) Confusion Pertinent Non-Medical Issues Psychosocial:Patient originally from [place], though has lived in [place] since the 1980s. Still working some, does [employer] services part-time. Supported locally by 3 adult children, her son lives with her . . Spiritual: Uatsdin would appreciate frog catcher,spool maker support Legal:Patient mental status fluctuates at times she may be capacitated. Apparently completed health care surrogate designation at [facility] Wednesday however this document is not present in chart. May offer to assist patient to complete healthcare surrogate again if she is able. Daughter indicates that she was named as primary surrogate with her sister is secondary. Patient , supported by 3 adult children, who per [place] statutes would be appropriate proxies if patient incapacitated. Ethical issues impacting care: Important Contacts VERNELL AGUILERA (DAUGHTER) [phone] Maribeth Travis daughter [phone] Jared- son- lives w pt, using pt phone # [phone] . Prognosis This patient was admitted status post mechanical fall at home. Incidental findings via imaging of what appears to be widespread metastatic malignancy process. Biopsy, additional diagnostics pending. Treatment options may be limited if in fact she does have metastatic disease. Further prognostication pending biopsy. . Code Status: Full Code Plan * Legal decision maker:Patient mental status fluctuates at times she may be capacitated. 06/02 mental status cont to improve. Apparently completed health care surrogate designation at [facility] Wednesday however this document is not present in chart. May offer to assist patient to complete healthcare surrogate again if she is able. Daughter indicates that she was named as primary surrogate with her sister is secondary. Patient , supported by 3 adult children, who per [place] statutes would be appropriate proxies if patient incapacitated. 06/01/17 completed [facility] NAMING DTR MARIBETH- placed in chart, scanned to med records * Goals: Pt, family wish to continue aggressive tx course. Open to ongoing conversations as clinical course evolves. pathology from bx today pending. * CODE STATUS: Full code * SYMPTOMS: --Dyspnea- resp status fluctuating, + CXR /CT findings multiple nodules concerning for malignancy; + on nebulizers, O2. Will cont to evaluate, no dyspnea endorsed today, maria e NC --Anxiety-potential for related to dyspnea, multiple new medical findings, acute ICU course. Cautious use of benzos at this time given concern for AMS, resp compromise, will cont to evaluate --Pain-status post mechanical fall with injury to pelvis, left leg. currently denies pain, will cont to evaluate. Cautious use of opiates given fluctuating mental status --Confusion-fluctuating mental status during hospital course, MRI negative for stroke or acute process. Hypercalcemia, electrolyte abnormalities, leukocytosis, probably multifactorial * Palliative care will continue to follow during hospital course as condition evolves, to assist patient/decision-maker with understanding of medical conditions, weighing benefits/burdens of treatment options, for clarification of goals of treatment. Additionally will assist with any symptoms of palliative concern Yolis Fernando Jun 02, 2017 13:48
--- NOTE | 2017-06-02 16:14 | HHI.CCPN ---
Subjective Remarks/Hospital Course The patient is a 67-year-old female with past medical history of hypertension, hyperlipidemia noncompliance. She has not seen a physician for over four years. She presented to the [facility] after she sustained a non-syncopal fall down the stairs after losing her balance. She also was complaining of left ankle pain. On initial presentation, she was admitted under the hospitalist service on May 27 and was found to have hypercalcemia with a corrected calcium level of 13.7, hypokalemia with potassium level 2.0 and mild acute kidney injury with creatinine level of 1.20. Her initial lactic acid level was 3.7. Also, she had leukocytosis with a WBC of 21.4. Pelvic x-ray showed a nondisplaced left superior pubic ramus fracture and mild osteoarthritis of the joints bilaterally. Her initial chest x-ray on admission showed diffuse nodular and reticulonodular opacities bilaterally. Subsequently the patient underwent CT angiogram of the chest on May 28, which showed a large mass on the right side of the trachea which could be an enlarged thyroid in addition to innumerable nodules scattered throughout the lungs, probable metastatic disease. A CT abdomen and pelvis was obtained as well , which showed evidence of retroperitoneal metastatic lymphadenopathy, nonspecific nodule in the distal urethra in addition to nodularity of both adrenal glands. A CT scan of the brain showed no acute abnormality. During her hospital course, she was being followed by Dr. Tong from the oncology service in addition to orthopedic surgery. She was being treated with antibiotics. In addition, she was on calcitonin for hypercalcemia. The patient also received Zometa to correct her hypercalcemia. Today the patient had worsening mental status. An ABG was performed on 5 liters oxygen which showed a pH of 7.49, CO2 49, pAO2 of 68, bicarb 38 and saturation 92%. She is scheduled to undergo CT-guided lung biopsy of a pulmonary nodule in addition to MRI of the brain for further evaluation of her mental status. The patient received Haldol 2 mg IV at 1500 in addition to lorazepam 0.5 mg at 01:00 a.m. and morphine 1 mg at 07:45 this morning. She was given Romazicon at 1343 and Narcan 0.4 mg without any significant improvement. When seen, she is hypertensive with systolic blood pressure of 160s to 190s and tachycardic. Most of the history was obtained from reviewing the medical records and from and discussion with the patient's daughter who was at the bedside. Due to findings of large mass on the right side of the trachea and due to her high-risk of possible complication with intubation, she is being transferred to [facility]. She had an echocardiogram yesterday which showed normal left ventricular systolic function with an ejection fraction of 55% to 60%. No regional wall motion abnormalities identified. 05/31 No events overnight, lethargic MRI brain last night showed tiny 9 mm enhancing extra-axial mass along the left high parietal region consistent with probable tiny meningioma. No acute infarct, acute hemorrhage, midline shift/ bleed. Had T: 101.3 last night. 06/01 Patient is lying in bed in NAD. T:99.8. Patient seems more awake and alert today. 06/02: Not in any acute distress, s/p left iliac chain node biopsy. Na improved to 150 from 158. Slight increase in WBC from 20.7 to 21.6. cultures are all negative to date. Original plan to biopsy lung was aborted as patient unable to tolerate prone positioning even with sedation. Clinically appears to be metastatic thyroid cancer-D/W Dr. Tong Objective Vital Signs Date Time Temp Pulse Resp B/P (MAP) Pulse Ox O2 Delivery O2 Flow Rate FiO2 06/02/17 14:00 95 06/02/17 12:20 18 06/02/17 12:00 98.0 173/74 (107) 96 06/02/17 08:44 Nasal Cannula 2.00 Intake and Output 06/02/17 06/02/17 06/02/17 07:59 15:59 23:59 Intake Total 480 ml 450 ml Output Total 450 ml Balance 30 ml 450 ml Result Diagram: 06/02/17 0706 06/02/17 0706 Imaging Last Impressions Chest X-Ray 05/31/17 0000 Signed Impressions: Service Date/Time: Wednesday, May 31, 2017 09:31 - CONCLUSION: Increasing nodular opacities throughout both lungs Patient has changes in the left base. I Pa Verdin MD FACR Abdomen X-Ray 05/31/17 0000 Signed Impressions: Service Date/Time: Wednesday, May 31, 2017 10:21 - CONCLUSION: The tip of the NG tube in the antrum of the stomach. Sushant Juares Jr., MD Brain MRI 05/30/17 Signed Impressions: Service Date/Time: Tuesday, May 30, 2017 19:47 - CONCLUSION: 1. Tiny 9 mm enhancing extra-axial mass along the left high parietal region consistent with probable tiny meningioma. 2. No acute infarct, acute hemorrhage, midline shift or extra-axial bleed. Delta Allison MD Lower Extremity CT 05/28/17 Signed Impressions: Service Date/Time: Sunday, May 28, 2017 09:50 - CONCLUSION: 1. Acute nondisplaced superior and inferior pubic rami fractures on the left. 2. Retroperitoneal adenopathy worrisome for metastatic disease or myeloproliferative disorder. 3. Enlarged and lobulated uterus likely related to fibroids. Sushant Juares Jr., MD CT Angiography 05/28/17 Signed Impressions: Service Date/Time: Sunday, May 28, 2017 02:01 - CONCLUSION: Large mass on the right side of the trachea could be an enlarged thyroid. Innumerable nodules scattered throughout the lungs metastatic disease certainly within the differential. There are a number of nodules in the right lower lobe which would be amenable to CT-guided biopsy. Vince Galan MD Abdomen/Pelvis CT 05/28/17 Signed Impressions: Service Date/Time: Sunday, May 28, 2017 20:56 - CONCLUSION: 1. There is evidence of retroperitoneal metastatic lymphadenopathy and I believe potentially on the basis of cervical or endometrial carcinoma. Primary lesion versus additional metastatic involvement of the urinary bladder. There is also a nonspecific nodule in the expected region of the distal urethra. 2. Nodularity of both adrenal glands, most likely metastatic. 3. Visualized lung bases again show evidence of widespread and confluent pulmonary metastatic disease with small effusions. Kane Cedeño MD Maxillofacial CT 05/27/172016 Signed Impressions: Service Date/Time: May 20:34 - CONCLUSION: 1. No maxillofacial fracture is present. 2. There is bilateral maxillary mucoperiosteal thickening with 12 mm polypoid structure extending from the left maxillary antrum into the left posterior nasal cavity. 3. There is a 14 mm left parotid gland nodule. Differential diagnosis includes intraparotid lymph node or pleomorphic adenoma. Kane Bartlett MD Head CT 05/27/172016 Signed Impressions: Service Date/Time: May 20:34 - CONCLUSION: No acute abnormality is identified. Kane Bartlett MD Cervical Spine CT 05/27/172016 Signed Impressions: Service Date/Time: May 20:34 - CONCLUSION: 1. No acute cervical spine abnormality is identified. There is degenerative disc disease at C5-C6. 2. There is a 4.1 cm right thyroid nodule. If this is a new finding, suggest nonemergent outpatient ultrasound of the thyroid gland for further evaluation. 3. Abnormal linear and nodular parenchymal opacities in the upper lobes bilaterally. Since this does not pertain to the patient's acute problem, this finding should also be further evaluated with outpatient chest CT with IV contrast. Also suggest correlating with any prior outside imaging studies. Kane Bartlett MD Hip and Pelvis X-Ray 05/27/17 0000 Signed Impressions: Service Date/Time: May 20:49 - CONCLUSION: 1. A subtle lucency in the left pelvis may represent a nondisplaced left superior pubic ramus fracture. 2. Mild osteoarthritis of the joints bilaterally. Kane Bartlett MD Ankle X-Ray 05/27/17 0000 Signed Impressions: Service Date/Time: May 20:56 - CONCLUSION: No acute left ankle abnormality is identified. Kane Bartlett MD Objective Remarks GENERAL: Patient is 67 yo lying in bed in no acute distress SKIN: Warm and dry. HEAD: Normocephalic. EYES: No scleral icterus. No injection or drainage. NECK: Supple, trachea midline. No JVD or lymphadenopathy. CARDIOVASCULAR: Regular rate and rhythm without murmurs, gallops, or rubs. RESPIRATORY: Breath sounds equal bilaterally. No accessory muscle use. GASTROINTESTINAL: Abdomen soft, non-tender, nondistended. MUSCULOSKELETAL: No cyanosis, or edema. Neuro: Awake alert, following commands. No focal deficits A/P Assessment and Plan Assessment: Probable metastatic thyroid malignancy Encephalopathy, multifactorial (hypercalcemia, hypertensive encephalopathy and hypernatremia) Hypertensive urgency, rule out progressive reversible encephalopathy syndrome. Scattered pulmonary nodules likely related to metastatic disease. Thyroid mass. Hypercalcemia. Hypernatremia. Retroperitoneal metastatic lymphadenopathy. Hyperlipidemia. Leukocytosis. Anemia and thrombocytopenia. Superior and inferior pubic ramus fracture on the left. Plan: Neuro: Monitor neuro status closely and avoid any sedatives. Improving neuro exam with correction of metabolic causes CT brain: negative for acute findings, Ammonia level is 34. UDS :negative for opiates, amphetamines, benzodiazepines. MRI brain:Tiny 9 mm enhancing extra-axial mass along the left high parietal region consistent with probable tiny meningioma. EEG 05/31: Encephalopathy wo epileptic activity. Pulm: Continue with oxygen and maintain saturations above 92%. Bronchodilators , Aspiration precautions. Unable to perform CT guided biopsy of lung nodule today, patient did not tolerate supine position CV: On Lopressor 2.5 mg IV q. 6 Monitor HR and BP maintain MAP>65 mmHg. Echo on which showed normal left ventricular systolic function EF 55% to 60%. No RWMA : Monitor renal function, intake and output and electrolyte replacement as needed. D5W@100ml/hr, monitor sodium level- steadily improving GI: Mechanical soft with thin liquids per speech On Protonix 40 mg daily for GI prophylaxis. ID: Continue abx ( Zosyn, Vano), monitor for isgns of infections ( Fever, WBC). DCd vanc today BC 05/31: NGTD BC and UC 05/27: No growth Leukocytosis may be non infectious, await biopsy. Heme: Monitor CBC, Onc and Dyno Technician/Onc are following- D/W Dr. Tong. Await biopsy results. If no diagnosis, will consider general get surgery consult for thyroid mass biopsy Endo: Increase SSI medium scale for glycemic control. TSH <0.005, FT4: 1.35, FT3: 1.46, ? euthyroid sick syndrome. Her PTH level is 16.3. GI prophylaxis with Protonix and DVT prophylaxis with SCDs. No chemical DVT Prophylaxis due to thrombocytopenia Palliative care is following Level 2 Consult [facility] to assume care in am 06/02/17 Andreina Middleton MD Jun 02, 2017 16:14
[2017-06-02] MEDS: PANTOPRAZOLE SODIUM 40 MG VIAL IV PUSH SCH (17:25)
--- NOTE | 2017-06-02 20:35 | PD.ONC.PN ---
Subjective Subjective Remarks I soiled myself. Anxious about her urinating frequently. Events over the weekend and last several days noted. Noted Dr. Askew consultation. Objective Data Date Time Temp Pulse Resp B/P (MAP) Pulse Ox O2 Delivery O2 Flow Rate FiO2 06/02/17 19:28 94 Nasal Cannula 2.00 06/02/17 18:00 106 06/02/17 16:00 98.0 93 13 182/82 (115) 95 06/02/17 16:00 93 06/02/17 14:00 95 06/02/17 12:20 18 06/02/17 12:00 93 06/02/17 12:00 93 06/02/17 12:00 98.0 93 11 173/74 (107) 96 06/02/17 10:00 80 06/02/17 08:44 95 Nasal Cannula 2.00 06/02/17 08:00 91 06/02/17 08:00 98.0 91 19 170/79 (109) 94 06/02/17 07:00 95 Nasal Cannula 2.00 06/02/17 06:00 78 18 172/74 (106) 95 06/02/17 05:04 95 Nasal Cannula 2.00 06/02/17 05:00 96 17 172/79 (110) 95 06/02/17 04:00 99.0 92 17 161/71 (101) 95 06/02/17 03:00 99 20 178/99 (125) 95 06/02/17 02:00 99 18 168/76 (106) 96 06/02/17 01:00 101 18 95 06/02/17 00:00 98.6 96 16 165/73 (103) 95 06/01/17 23:31 Nasal Cannula 5.00 06/01/17 23:00 103 23 178/79 (112) 95 06/01/17 22:00 96 15 143/65 (91) 95 06/01/17 21:23 96 Nasal Cannula 4.00 06/01/17 21:00 101 26 177/81 (113) 96 06/02/17 06/02/17 06/02/17 06:59 14:59 22:59 Intake Total 480 ml 1315.2 ml 500 ml Output Total 450 ml 150 ml Balance 30 ml 1315.2 ml 350 ml Result Diagram: 8/30/17 0706 8/30/17 0706 Laboratory Results Laboratory Tests Test 06/01/17 21:33 06/02/17 07:06 Potassium Level 3.2 MEQ/L 3.8 MEQ/L White Blood Count 21.6 TH/MM3 Red Blood Count 4.37 MIL/MM3 Hemoglobin 9.7 GM/DL Hematocrit 32.2 % Mean Corpuscular Volume 73.6 FL Mean Corpuscular Hemoglobin 22.2 PG Mean Corpuscular Hemoglobin Concent 30.1 % Red Cell Distribution Width 22.0 % Platelet Count 48 TH/MM3 Mean Platelet Volume 8.4 FL Neutrophils (%) (Auto) 91.3 % Lymphocytes (%) (Auto) 3.2 % Monocytes (%) (Auto) 5.1 % Eosinophils (%) (Auto) 0.1 % Basophils (%) (Auto) 0.3 % Neutrophils # (Auto) 19.7 TH/MM3 Lymphocytes # (Auto) 0.7 TH/MM3 Monocytes # (Auto) 1.1 TH/MM3 Eosinophils # (Auto) 0.0 TH/MM3 Basophils # (Auto) 0.1 TH/MM3 CBC Comment AUTO DIFF Differential Total Cells Counted 100 Neutrophils % (Manual) 82 % Band Neutrophils % 8 % Lymphocytes % 1 % Monocytes % 5 % Neutrophils # (Manual) 20.3 TH/MM3 Metamyelocytes 4 % Nucleated Red Blood Cells 1 /100 WBC Differential Comment FINAL DIFF MANUAL Platelet Estimate LOW Platelet Morphology Comment NORMAL Red Cell Morphology Comment NORMAL Blood Urea Nitrogen 40 MG/DL Creatinine 1.13 MG/DL Random Glucose 270 MG/DL Calcium Level 8.1 MG/DL Phosphorus Level 0.8 MG/DL Magnesium Level 2.7 MG/DL Sodium Level 150 MEQ/L Chloride Level 113 MEQ/L Carbon Dioxide Level 27.5 MEQ/L Anion Gap 10 MEQ/L Estimat Glomerular Filtration Rate 48 ML/MIN Culture Results Microbiology Date/Time Source Procedure Growth Status 05/31/17 10:12 Blood Peripheral Aerobic Blood Culture - Preliminary NO GROWTH IN 2 DAYS Resulted 05/31/17 10:12 Blood Peripheral Anaerobic Blood Culture - Preliminary NO GROWTH IN 2 DAYS Resulted 05/31/17 10:05 Blood Peripheral Aerobic Blood Culture - Preliminary NO GROWTH IN 2 DAYS Resulted 05/31/17 10:05 Blood Peripheral Anaerobic Blood Culture - Preliminary NO GROWTH IN 2 DAYS Resulted Imaging Studies Last 24 hours Impressions Lymph Node Biopsy CT 06/02/17 0000 Signed Impressions: Service Date/Time: Friday, June 02, 2017 11:52 - CONCLUSION: Uncomplicated CT guided biopsy of a left pelvic mass likely relating to iliac chain lymph nodes. Sushant Juares Jr., MD Administered Medications Medications (Trade) Dose Ordered Sig/Gary Route PRN Reason Start Time Stop Time Status Last Admin Dose Admin Naloxone HCl (Narcan Inj) 0.4 mg UNSCH PRN IV SEE LABEL COMMENTS 05/27/17 22:30 05/30/17 13:30 Clonidine (Catapres) 0.1 mg Q6H PRN PO bp>160/90 05/27/17 22:45 06/02/17 01:41 Sodium Chloride (NS Flush) 2 ml BID IV FLUSH 05/28/17 21:00 06/02/17 09:00 Heparin Sodium (Porcine) (Heparin Inj) 5,000 units Q8H SQ 05/28/17 17:00 Future Hold 05/30/17 07:44 Acetaminophen/ Hydrocodone Bitart ([place] 5-325 Mg) 1 tab Q4H PRN PO PAIN SCALE 3 TO 5 05/28/17 09:15 05/31/17 16:21 Acetaminophen/ Hydrocodone Bitart ([place] 10-325 Mg) 1 tab Q4H PRN PO PAIN SCALE 6 TO 10 05/28/17 09:15 06/02/17 10:22 Senna/Docusate Sodium (Maude-Colace) 1 tab BID PO 05/28/17 21:00 06/01/17 20:26 Potassium Chloride 100 ml @ 50 mls/hr Q2H PRN IV For Potassium 2.8 - 3.2 mEq/L 05/28/17 09:15 06/02/17 05:36 Potassium Chloride 100 ml @ 50 mls/hr Q2H PRN IV For Potassium 3.3 - 3.5 mEq/L 05/28/17 09:15 06/01/17 13:00 Sodium Phosphate 30 mmol/Sodium Chloride 250 ml @ 42 mls/hr UNSCH PRN IV For Phosphorus < 2.5 mg/dL 05/28/17 09:15 06/02/17 09:30 Enalaprilat (Vasotec Inj) 1.25 mg Q6H PRN IV SBP> OR = 190, DBP> OR = 100 05/28/17 09:15 05/31/17 00:03 Hydralazine HCl (Apresoline Inj) 10 mg Q6H PRN IV SYS BP GREATER THAN 160 MMHG 05/28/17 09:15 05/30/17 19:17 Propranolol HCl (Inderal) 20 mg Q8HR PO 05/29/17 22:00 Future Hold 05/30/17 05:34 Amlodipine Besylate (Norvasc) 5 mg DAILY PO 05/30/17 09:00 06/02/17 09:00 Ketorolac Tromethamine (Toradol Inj) 30 mg Q6H PRN IV PUSH breakthru pain 05/30/17 09:30 06/04/17 09:29 06/02/17 01:23 Pantoprazole Sodium (Protonix Inj) 40 mg Q24H IV PUSH 05/30/17 18:00 06/02/17 17:25 Metoprolol Tartrate (Lopressor Inj) 2.5 mg Q6H IV PUSH 05/30/17 16:45 06/02/17 14:32 Miscellaneous Information Patient in critical care unit? Ass... [id number] .XX 05/30/17 20:30 05/30/17 20:30 Chlorhexidine Gluconate (Chlorhexidine 2% Cloth) 3 pack DAILY@04 TOPICAL 05/31/17 04:00 06/04/17 04:01 06/02/17 04:00 Dextrose 1,000 ml @ 100 mls/hr Q10H IV 05/31/17 05:30 06/02/17 17:25 Insulin Human Regular (NovoLIN R SUPPLEMENTAL SCALE) 1 Q4H SQ 05/31/17 10:00 06/02/17 17:25 Piperacillin Sod/ Tazobactam Sod 100 ml @ 200 mls/hr Q6H IV 05/31/17 10:00 06/02/17 14:30 Water (Free Water) 300 ml Q6HR G-TUBE 06/01/17 12:00 06/02/17 17:01 Albuterol Sulfate (Albuterol Neb) 2.5 mg QID NEB NEB 06/02/17 20:00 06/02/17 19:28 Objective Remarks GENERAL: Obese, tired and anxious, well-developed patient. SKIN: Warm and dry. HEAD: Normocephalic. EYES: No scleral icterus. No injection or drainage. NECK: Supple, trachea midline. No JVD or lymphadenopathy. LYMPHATIC: No adenopathy. CARDIOVASCULAR: Regular rate and rhythm without murmurs. RESPIRATORY: Breath sounds equal bilaterally. No accessory muscle use. GASTROINTESTINAL: Abdomen soft, non-tender, nondistended. EXTREMITIES: No cyanosis, or edema. MUSCULOSKELETAL: Adequate muscle tone. NEUROLOGICAL: No obvious focal deficit. Awake, alert, and oriented x3. PSYCHIATRIC: Depressed and anxious. Assessment/Plan Problem List: (1) Thyroid neoplasm malignant ICD Codes: C73 - Malignant neoplasm of thyroid gland Plan: Thyroid nodule, large, multiple pulmonary nodules suggestive of metastatic disease. Hypercalcemia c/w thyroid malignancy. Concerning for poor performance status, limited by pelvic fracture. Radiology unable to biopsy lung lesion as originally planned, risk>benefit. Adenopathy biopsied instead. Plan to consult w/ radiology for thyroid nodule biopsy. Recommendations pending biopsy results. Discussed w/ Dr. Middleton. (2) Hypercalcemia ICD Codes: E83.52 - Hypercalcemia Status: Acute Plan: Hypercalcemia resolved after bisphosphonates. Worsen renal function after but multiple factors contributing, continue to follow creatinine. (3) Adenopathy ICD Codes: R59.1 - Generalized enlarged lymph nodes Plan: Seen by Dr. Askew for pelvic adenopathy. s/p biopsy of LN pathology pending. Assessment 67 y/o woman with multiple medical problem s/p fall and pelvic fracture. Course complicated by findings hypercalcemia, thyroid nodule, multiple metastatic lung lesion and adenopathy. Plan 1. Follow biopsy results. 2. Monitor renal function. 3. Consider thyroid nodule biopsy if feasible will discuss with radiology. Mi Tong MD Jun 02, 2017 20:35
[2017-06-03] VITALS (32 sets, daily range): BP systolic 129–196; BP diastolic 61–93; PULSE 62–103; RESP 0–34; TEMP 97.5–98.9; O2SAT 94–97
[2017-06-03] MEDS: ACETAMINOPHEN/HYDROcodone 325 MG/10 MG TAB PO PRN ×2 (01:08→05:21)
[2017-06-03] MEDS: KETOROLAC TROMETHAMINE 30 MG/ML (IVP) VIAL IV PUSH PRN ×2 (01:50→12:59)
[2017-06-03] MEDS: INSULIN NovoLIN REGULAR SUPPLEMENTAL SCALE SQ SCH ×6 (01:56→22:00)
[2017-06-03] MEDS: METOPROLOL TARTRATE 5 MG/5 ML VIAL IV PUSH SCH (02:57)
[2017-06-03] MEDS: CHLORHEXIDINE GLUCONATE 2 % 1 PACK (2 CLOTHS)(taper/protocol) TOPICAL SCH (02:57)
[2017-06-03] MEDS: PIPERACIL-TAZO 4.5 GM PREMIX 100 ML IV SCH ×4 (02:57→20:46)
[2017-06-03] MEDS: DEXTROSE 5% IN WATE 1000ML INJ 1,000 ML IV SCH ×2 (02:57→15:11)
[2017-06-03] MEDS: FREE WATER G-TUBE SCH ×5 (05:12→23:41)
[2017-06-03] MEDS: cloNIDine HCL 0.1 MG TAB PO PRN (05:26)
[2017-06-03 06:22] LABS: AUTOMATED NEUTROPHIL # 20.1 TH/MM3 (1.8-7.7); BASOPHIL % 0.2 % (0.0-2.0); HEMATOCRIT 31.3 % (35.0-46.0); LYMPH % 3.8 % (9.0-44.0); LYMPHOCYTE # 0.8 TH/MM3 (1.0-4.8); MEAN CELL VOLUME 72.2 FL (80.0-100.0); MEAN CORPUSCULAR HEMOGLOBIN 21.8 PG (27.0-34.0); MEAN CORPUSCULAR HGB CONC 30.2 % (32.0-36.0); MONO % 5.1 % (0.0-8.0); NEUT % 90.9 % (16.0-70.0); PLATELET COUNT 41 TH/MM3 (150-450); RED BLOOD COUNT 4.33 MIL/MM3 (4.00-5.30); WHITE BLOOD COUNT 22.1 TH/MM3 (4.0-11.0)
[2017-06-03 06:33] LABS: HEMO FLAGS AUTO DIFF
[2017-06-03 06:47] LABS: BICARBONATE 26.5 MEQ/L (21.0-32.0)
[2017-06-03 06:50] LABS: CALCIUM-PROTEIN CORRECTED 8.3 MG/DL (8.5-10.1); TOTAL BILIRUBIN ADULT 1.1 MG/DL (0.2-1.0)
[2017-06-03 06:52] LABS: POTASSIUM 2.7 MEQ/L (3.5-5.1)
[2017-06-03] MEDS: RESP: ALBUTEROL 2.5 MG/3 ML NEB (SCH) NEB ×4 (07:33→19:24)
[2017-06-03] MEDS: SODIUM CHLORIDE 0.9% FLUSH 10 ML FLUSH IV FLUSH SCH ×2 (08:06→20:46)
[2017-06-03] MEDS: DOCUSATE SODIUM 50 MG/SENNA 8.6 MG TAB PO SCH ×2 (08:07→20:47)
[2017-06-03] MEDS: amLODIPine BESYLATE 5 MG TAB PO SCH (08:07)
[2017-06-03] MEDS: POTASSIUM CHLOR 20 MEQ PREMIX 100 ML IV PRN (08:09)
[2017-06-03 08:23] LABS: BANDS 5 % (0-6); CORRECTED NUCLEATED RBC 1 /100 WBC (0-0); METAMYELOCYTES 2 % (0-1); NEUTROPHIL # MANUAL DIFF 21.7 TH/MM3 (1.8-7.7); POLYS (SEG NEUTROPHILS) 91 % (16-70); WBC DIFF SAMPLE 100
[2017-06-03 08:24] LABS: OVALOCYTES 1+ (NORMAL); PLATELET ESTIMATE SMEAR LOW (NORMAL); PLATELET MORPHOLOGY NORMAL (NORMAL); SCAN/DIFF FINAL DIFF MANUAL
--- NOTE | 2017-06-03 09:23 | HHI.PR ---
Subjective Remarks Follow-up metabolic encephalopathy/metastasis of thyroid cancer?/Multiple electrolyte abnormalities 06/03/17-patient seen and examined, not much of an appetite; denies any shortness of breath ,chest pain or throat pain. BP still up but no complaint of palpitation of headache. Plan for CT guided thyroid biopsy today Objective Vitals Vital Signs Date Time Temp Pulse Resp B/P (MAP) Pulse Ox O2 Delivery O2 Flow Rate FiO2 06/03/17 07:35 96 Nasal Cannula 3.00 06/03/17 04:00 98.9 81 26 179/76 (110) 95 06/03/17 00:00 98.8 94 34 168/73 (104) 94 06/02/17 20:00 94 06/02/17 20:00 98.3 106 30 169/86 (113) 94 06/02/17 19:28 94 Nasal Cannula 2.00 06/02/17 19:00 Nasal Cannula 3.00 06/02/17 18:00 106 06/02/17 16:00 98.0 93 13 182/82 (115) 95 06/02/17 16:00 93 06/02/17 14:00 95 06/02/17 12:20 18 06/02/17 12:00 93 06/02/17 12:00 93 06/02/17 12:00 98.0 93 11 173/74 (107) 96 06/02/17 10:00 80 I/O 06/02/17 06/02/17 06/02/17 06/03/17 06/03/17 06/03/17 06:59 14:59 22:59 06:59 14:59 22:59 Intake Total 480 ml 1315.2 ml 500 ml 600 ml Output Total 450 ml 150 ml 1050 ml Balance 30 ml 1315.2 ml 350 ml -450 ml Intake Oral 480 ml 500 ml 600 ml IV Total 1315.2 ml Output Urine Total 450 ml 150 ml 1050 ml # Voids 1 # Bowel Movements 2 2 2 Result Diagram: 06/03/17 0601 06/03/17 0601 Imaging Last Impressions Lymph Node Biopsy CT 06/02/17 0000 Signed Impressions: Service Date/Time: Friday, June 02, 2017 11:52 - CONCLUSION: Uncomplicated CT guided biopsy of a left pelvic mass likely relating to iliac chain lymph nodes. Sushant Juares Jr., MD Chest X-Ray 05/31/17 Signed Impressions: Service Date/Time: Wednesday, May 31, 2017 09:31 - CONCLUSION: Increasing nodular opacities throughout both lungs Patient has changes in the left base. I Pa Verdin MD FACR Abdomen X-Ray 05/31/17 Signed Impressions: Service Date/Time: Wednesday, May 31, 2017 10:21 - CONCLUSION: The tip of the NG tube in the antrum of the stomach. Sushant Juares Jr., MD Brain MRI 05/30/17 Signed Impressions: Service Date/Time: Tuesday, May 30, 2017 19:47 - CONCLUSION: 1. Tiny 9 mm enhancing extra-axial mass along the left high parietal region consistent with probable tiny meningioma. 2. No acute infarct, acute hemorrhage, midline shift or extra-axial bleed. Delta Alilson MD Lower Extremity CT 05/28/17 Signed Impressions: Service Date/Time: Sunday, May 28, 2017 09:50 - CONCLUSION: 1. Acute nondisplaced superior and inferior pubic rami fractures on the left. 2. Retroperitoneal adenopathy worrisome for metastatic disease or myeloproliferative disorder. 3. Enlarged and lobulated uterus likely related to fibroids. Sushant Juares Jr., MD CT Angiography 05/28/17 Signed Impressions: Service Date/Time: Sunday, May 28, 2017 02:01 - CONCLUSION: Large mass on the right side of the trachea could be an enlarged thyroid. Innumerable nodules scattered throughout the lungs metastatic disease certainly within the differential. There are a number of nodules in the right lower lobe which would be amenable to CT-guided biopsy. Vince Galan MD Abdomen/Pelvis CT 05/28/17 Signed Impressions: Service Date/Time: Sunday, May 28, 2017 20:56 - CONCLUSION: 1. There is evidence of retroperitoneal metastatic lymphadenopathy and I believe potentially on the basis of cervical or endometrial carcinoma. Primary lesion versus additional metastatic involvement of the urinary bladder. There is also a nonspecific nodule in the expected region of the distal urethra. 2. Nodularity of both adrenal glands, most likely metastatic. 3. Visualized lung bases again show evidence of widespread and confluent pulmonary metastatic disease with small effusions. Kane Cedeño MD Maxillofacial CT 05/27/172016 Signed Impressions: Service Date/Time: May 20:34 - CONCLUSION: 1. No maxillofacial fracture is present. 2. There is bilateral maxillary mucoperiosteal thickening with 12 mm polypoid structure extending from the left maxillary antrum into the left posterior nasal cavity. 3. There is a 14 mm left parotid gland nodule. Differential diagnosis includes intraparotid lymph node or pleomorphic adenoma. Kane Bartlett MD Head CT 05/27/172016 Signed Impressions: Service Date/Time: May 20:34 - CONCLUSION: No acute abnormality is identified. Kane Bartlett MD Cervical Spine CT 05/27/172016 Signed Impressions: Service Date/Time: May 20:34 - CONCLUSION: 1. No acute cervical spine abnormality is identified. There is degenerative disc disease at C5-C6. 2. There is a 4.1 cm right thyroid nodule. If this is a new finding, suggest nonemergent outpatient ultrasound of the thyroid gland for further evaluation. 3. Abnormal linear and nodular parenchymal opacities in the upper lobes bilaterally. Since this does not pertain to the patient's acute problem, this finding should also be further evaluated with outpatient chest CT with IV contrast. Also suggest correlating with any prior outside imaging studies. Kane Bartlett MD Hip and Pelvis X-Ray 05/27/17 Signed Impressions: Service Date/Time: May 20:49 - CONCLUSION: 1. A subtle lucency in the left pelvis may represent a nondisplaced left superior pubic ramus fracture. 2. Mild osteoarthritis of the joints bilaterally. Kane Bartlett MD Ankle X-Ray 05/27/17 0000 Signed Impressions: Service Date/Time: May 20:56 - CONCLUSION: No acute left ankle abnormality is identified. Kane Bartlett MD Objective Remarks GENERAL: NAD SKIN: Warm and dry. HEAD: Normocephalic. EYES: No scleral icterus. No injection or drainage. NECK: Supple, trachea midline. No JVD or lymphadenopathy. CARDIOVASCULAR: Regular rate and rhythm without murmurs, gallops, or rubs. RESPIRATORY: Breath sounds equal bilaterally. No accessory muscle use. GASTROINTESTINAL: Abdomen soft, non-tender, nondistended. MUSCULOSKELETAL: No cyanosis, or edema. BACK: Nontender without obvious deformity. No CVA tenderness. A/P Problem List: (1) Closed fracture of left superior pubic ramus ICD Code: S32.512A - Fracture of superior rim of left pubis, initial encounter for closed fracture (2) Closed fracture of left inferior pubic ramus ICD Code: S32.592A - Other specified fracture of left pubis, initial encounter for closed fracture (3) Electrolyte disorder ICD Code: E87.8 - Other disorders of electrolyte and fluid balance, not elsewhere classified Status: Acute (4) Elevated troponin I level ICD Code: R74.8 - Abnormal levels of other serum enzymes Status: Acute (5) Hypercalcemia ICD Code: E83.52 - Hypercalcemia Status: Acute Assessment and Plan 67-year-old female with Probable metastatic thyroid malignancy Retroperitoneal metastatic lymphadenopathy Scattered pulmonary nodules likely related to metastatic disease. Thyroid mass PTH level is 16.[address] guided thyroid biopsy today 06/03/[address]-guided biopsy of left pelvic mass pending report Unable to perform CT guided biopsy of lung nodule today, patient did not tolerate supine position Appreciate input from oncology Palliative care is following Encephalopathy, multifactorial (hypercalcemia, hypertensive encephalopathy and hypernatremia) Improved EEG 05/31: Encephalopathy without epileptic activity. Hypertensive urgency, rule out progressive reversible encephalopathy syndrome. Echo on which showed normal left ventricular systolic function EF 55 % to 60%. No RWMA Start hydralazine 50 mg every 8 hour, continue Norvasc Hypernatremia. Improving on D5W@100ml/hr Hypokalemia Give potassium 80 mEq 1 now Superior and inferior pubic ramus fracture on the left. PT consult to treat and eval Impaired fasting glucose Check hemoglobin A1c Continue with sliding scale insulin GI prophylaxis with Protonix and DVT prophylaxis with SCDs. No chemical DVT Prophylaxis due to thrombocytopenia Problem Qualifiers (1) Closed fracture of left superior pubic ramus: Qualified Codes: S32.512A - Fracture of superior rim of left pubis, initial encounter for closed fracture (2) Closed fracture of left inferior pubic ramus: Qualified Codes: S32.592A - Other specified fracture of left pubis, initial encounter for closed fracture Regulo Ariza MD Jun 03, 2017 09:23
[2017-06-03] MEDS ORDERED: PHARMACY ORDERED LAB ONE (09:45)
[2017-06-03] MEDS ORDERED: POTASSIUM CHLORIDE 20 MEQ CONTROLLED RELEASE TAB PO ONE (10:00)
[2017-06-03] MEDS: hydrALAZINE HCL 50 MG TAB PO SCH ×3 (10:41→20:47)
--- NOTE | 2017-06-03 14:45 | RADRPT ---
EXAM DATE/TIME: 06/03/2017 13:59 [facility] COMPARISON: No previous studies available for comparison. INDICATIONS : Right thyroid mass. MEDICAL HISTORY : Hypertension. Asthma. Dyspnea. Left hip facture. Metastic cancer. Thyroid mass. Pelvic mass. SURGICAL HISTORY : None. ENCOUNTER: Initial ACUITY: 1 day PAIN SCORE: 0/10 LOCATION: Right neck ORGAN: Right thyroid lobe SPECIMENS: Two core specimen(s) submitted for pathologic evaluation. DEVICE: 18 gauge Temno needle Post procedure scanning reveals no hematoma or other complication. The possibility does exist that the tissue obtained will be non-diagnostic. If the sample is non-douglas gnostic a repeat biopsy or surgical biopsy may need to be performed. TECHNIQUE: 1. Ultrasound guidance for needle biopsy. 2. Needle biopsy. The risks, benefits and alternatives to the procedure were explained and verbal and written consent w as obtained. The site was prepped in sterile fashion. Full sterile technique was used, including ca p, mask, sterile gloves and gown and a large sterile sheet. Hand hygiene and 2% chlorhexidine and/or betadine/alcohol prep was utilized per protocol for cutaneous antisepsis. The skin and subcutaneous tissues were infiltrated with local anesthetic solution. Sterile gel and sterile probe cover were u tilized for ultrasound guidance. With the patient on the ultrasound table, images were obtained and correlated with the CT pulmonary a ngiogram images. Under direct sonographic guidance an 18 gauge Temno needle was passed into the complex cystic mass an d to core specimens obtained and submitted for pathologic evaluation. The patient tolerated the procedure well and left the ultrasound suite in stable condition. CONCLUSION: Uncomplicated ultrasound guided core needle biopsy of a complex cystic mass of the right thyroid. Sushant Juares Jr., MD on June 03, 2017 at 14:37 Board Certified Radiologist. This report was verified electronically.
--- NOTE | 2017-06-03 15:16 | PD.ONC.PN ---
Subjective Subjective Remarks Eating breakfast. Discussed plan for biopsy thyroid nodule. Discussed w/ Dr. Askew team - concern for second primary. Objective Data Date Time Temp Pulse Resp B/P (MAP) Pulse Ox O2 Delivery O2 Flow Rate FiO2 06/03/17 13:30 95 06/03/17 13:30 95 06/03/17 13:30 95 0 156/67 (96) 94 06/03/17 13:00 90 0 152/65 (94) 94 06/03/17 13:00 90 06/03/17 13:00 90 06/03/17 12:39 103 06/03/17 12:39 103 06/03/17 12:39 103 0 154/69 (97) 94 06/03/17 12:00 96 0 94 06/03/17 12:00 96 06/03/17 12:00 96 06/03/17 12:00 98.6 06/03/17 11:02 98 06/03/17 11:00 95 06/03/17 11:00 95 0 194/81 (118) 97 06/03/17 10:30 81 0 172/71 (104) 95 06/03/17 10:30 81 06/03/17 10:00 75 06/03/17 10:00 75 0 161/70 (100) 95 06/03/17 09:30 84 0 178/74 (108) 96 06/03/17 09:30 84 06/03/17 09:00 97 06/03/17 09:00 97 0 186/77 (113) 95 06/03/17 08:30 101 0 196/93 (127) 95 06/03/17 08:30 101 06/03/17 08:00 70 06/03/17 08:00 70 0 172/75 (107) 96 06/03/17 08:00 97.8 06/03/17 08:00 101 06/03/17 07:35 96 Nasal Cannula 3.00 06/03/17 07:00 Nasal Cannula 3.00 06/03/17 04:00 98.9 81 26 179/76 (110) 95 06/03/17 00:00 98.8 94 34 168/73 (104) 94 06/02/17 20:00 94 06/02/17 20:00 98.3 106 30 169/86 (113) 94 06/02/17 19:28 94 Nasal Cannula 2.00 06/02/17 19:00 Nasal Cannula 3.00 06/02/17 18:00 106 06/02/17 16:00 98.0 93 13 182/82 (115) 95 06/02/17 16:00 93 06/03/17 06/03/17 06/03/17 07:00 15:00 23:00 Intake Total 600 ml 68 ml Output Total 1050 ml Balance -450 ml 68 ml Result Diagram: 06/03/17 0601 06/03/17 0601 Laboratory Results Laboratory Tests Test 06/03/17 06:01 White Blood Count 22.1 TH/MM3 Red Blood Count 4.33 MIL/MM3 Hemoglobin 9.5 GM/DL Hematocrit 31.3 % Mean Corpuscular Volume 72.2 FL Mean Corpuscular Hemoglobin 21.8 PG Mean Corpuscular Hemoglobin Concent 30.2 % Red Cell Distribution Width 21.0 % Platelet Count 41 TH/MM3 Mean Platelet Volume 8.2 FL Neutrophils (%) (Auto) 90.9 % Lymphocytes (%) (Auto) 3.8 % Monocytes (%) (Auto) 5.1 % Eosinophils (%) (Auto) 0.0 % Basophils (%) (Auto) 0.2 % Neutrophils # (Auto) 20.1 TH/MM3 Lymphocytes # (Auto) 0.8 TH/MM3 Monocytes # (Auto) 1.1 TH/MM3 Eosinophils # (Auto) 0.0 TH/MM3 Basophils # (Auto) 0.0 TH/MM3 CBC Comment AUTO DIFF Differential Total Cells Counted 100 Neutrophils % (Manual) 91 % Band Neutrophils % 5 % Lymphocytes % 1 % Monocytes % 1 % Neutrophils # (Manual) 21.7 TH/MM3 Metamyelocytes 2 % Nucleated Red Blood Cells 1 /100 WBC Differential Comment FINAL DIFF MANUAL Platelet Estimate LOW Platelet Morphology Comment NORMAL Ovalocytes 1+ Blood Urea Nitrogen 34 MG/DL Creatinine 0.99 MG/DL Random Glucose 172 MG/DL Total Protein 5.5 GM/DL Albumin 2.0 GM/DL Calcium Level 7.4 MG/DL Alkaline Phosphatase 209 U/L Aspartate Amino Transf (AST/SGOT) 30 U/L Alanine Aminotransferase (ALT/SGPT) 20 U/L Total Bilirubin 1.1 MG/DL Sodium Level 147 MEQ/L Potassium Level 2.7 MEQ/L Chloride Level 109 MEQ/L Carbon Dioxide Level 26.5 MEQ/L Anion Gap 12 MEQ/L Estimat Glomerular Filtration Rate 56 ML/MIN Protein Corrected Calcium 8.3 MG/DL Imaging Studies Last 24 hours Impressions Thyroid Biopsy Ultrasound 06/03/17 0000 Signed Impressions: Service Date/Time: May 13:59 - CONCLUSION: Uncomplicated ultrasound guided core needle biopsy of a complex cystic mass of the right thyroid. Sushant Juares Jr., MD Administered Medications Medications (Trade) Dose Ordered Sig/[place] Route PRN Reason Start Time Stop Time Status Last Admin Dose Admin Naloxone HCl (Narcan Inj) 0.4 mg UNSCH PRN IV SEE LABEL COMMENTS 05/27/17 22:30 05/30/17 13:30 Clonidine (Catapres) 0.1 mg Q6H PRN PO bp>160/90 05/27/17 22:45 06/03/17 05:26 Sodium Chloride (NS Flush) 2 ml BID IV FLUSH 05/28/17 21:00 06/03/17 08:06 Heparin Sodium (Porcine) (Heparin Inj) 5,000 units Q8H SQ 05/28/17 17:00 Future Hold 05/30/17 07:44 Acetaminophen (Tylenol) 650 mg Q6H PRN PO PAIN SCALE 1 TO 2 05/28/17 09:15 06/02/17 22:23 Acetaminophen/ Hydrocodone Bitart ([place] 5-325 Mg) 1 tab Q4H PRN PO PAIN SCALE 3 TO 5 05/28/17 09:15 05/31/17 16:21 Acetaminophen/ Hydrocodone Bitart ([place] 10-325 Mg) 1 tab Q4H PRN PO PAIN SCALE 6 TO 10 05/28/17 09:15 06/03/17 05:21 Senna/Docusate Sodium (Maude-Colace) 1 tab BID PO 05/28/17 21:00 06/03/17 08:07 Hydroxyzine Pamoate (Vistaril) 25 mg Q6H PRN PO anxiety 05/28/17 17:00 06/02/17 22:23 Propranolol HCl (Inderal) 20 mg Q8HR PO 05/29/17 22:00 Future Hold 05/30/17 05:34 Amlodipine Besylate (Norvasc) 5 mg DAILY PO 05/30/17 09:00 06/03/17 08:07 Ketorolac Tromethamine (Toradol Inj) 30 mg Q6H PRN IV PUSH breakthru pain 05/30/17 09:30 06/04/17 09:29 06/03/17 12:59 Pantoprazole Sodium (Protonix Inj) 40 mg Q24H IV PUSH 05/30/17 18:00 06/02/17 17:25 Miscellaneous Information Patient in critical care unit? Ass... [id number] .XX 05/30/17 20:30 05/30/17 20:30 Chlorhexidine Gluconate (Chlorhexidine 2% Cloth) 3 pack DAILY@04 TOPICAL 05/31/17 04:00 06/04/17 04:01 06/03/17 02:57 Dextrose 1,000 ml @ 100 mls/hr Q10H IV 05/31/17 05:30 06/03/17 15:11 Insulin Human Regular (NovoLIN R SUPPLEMENTAL SCALE) 1 Q4H SQ 05/31/17 10:00 06/03/17 13:37 Piperacillin Sod/ Tazobactam Sod 100 ml @ 200 mls/hr Q6H IV 05/31/17 10:00 06/03/17 10:37 Water (Free Water) 300 ml Q6HR G-TUBE 06/01/17 12:00 06/03/17 05:12 Albuterol Sulfate (Albuterol Neb) 2.5 mg QID NEB NEB 06/02/17 20:00 06/03/17 10:48 Hydralazine HCl (Apresoline) 50 mg Q8HR PO 06/03/17 10:00 06/03/17 10:41 Objective Remarks GENERAL: Obese, tired and anxious, well-developed patient. SKIN: Warm and dry. Bruise over nose. HEAD: Normocephalic. EYES: No scleral icterus. No injection or drainage. NECK: Supple, trachea midline. No JVD or lymphadenopathy. LYMPHATIC: No adenopathy. CARDIOVASCULAR: Regular rate and rhythm without murmurs. RESPIRATORY: Breath sounds equal bilaterally. No accessory muscle use. GASTROINTESTINAL: Abdomen soft, non-tender, nondistended. EXTREMITIES: No cyanosis, or edema. MUSCULOSKELETAL: Adequate muscle tone. PSYCHIATRIC: Depressed and anxious. Assessment/Plan Problem List: (1) Thyroid neoplasm malignant ICD Codes: C73 - Malignant neoplasm of thyroid gland Plan: 06/03/17. Discussed w/ radiology feasibility US guide R thyroid mass biopsy. Order for this afternoon. Concern for multiple primary. Thyroid nodule, large, multiple pulmonary nodules suggestive of metastatic disease. Hypercalcemia c/w thyroid malignancy. Concerning for poor performance status, limited by pelvic fracture. Radiology unable to biopsy lung lesion as originally planned, risk>benefit. Adenopathy biopsied instead. Plan to consult w/ radiology for thyroid nodule biopsy. Recommendations pending biopsy results. Discussed w/ Dr. Middleton. (2) Hypercalcemia ICD Codes: E83.52 - Hypercalcemia Status: Acute Plan: 06/03/17. Calcium low but no symptoms, creatinine improving. Hypercalcemia resolved after bisphosphonates. Worsen renal function after but multiple factors contributing, continue to follow creatinine. (3) Adenopathy ICD Codes: R59.1 - Generalized enlarged lymph nodes Plan: 06/03/17. Pending pathology. Seen by Dr. Askew for pelvic adenopathy. s/p biopsy of LN pathology pending. Assessment 67 y/o woman with multiple medical problem s/p fall and pelvic fracture. Course complicated by findings hypercalcemia, thyroid nodule, multiple metastatic lung lesion and adenopathy. Plan 1. Follow biopsy results. 2. Monitor renal function. 3. US guided R thyroid nodule biopsy 4. Monitor for symptoms from hypocalcemia. Mi Tong MD Jun 03, 2017 15:16
[2017-06-03] MEDS ORDERED: LIDOCAINE HCL 1% 20 ML VIAL ONE (15:55)
--- NOTE | 2017-06-03 16:27 | PD.ID.CON ---
History of Present Illness Service ID Consult Requested By Dr Middleton Reason for Consult Leukocytosis Primary Care Physician No Primary Care Physician Diagnoses: History of Present Illness This is a 67 year old female who had a fall down some stairs and presented to [facility] ER on 05/27/17 for further evaluation. Upon evaluation she was found to have pubic rami franctures that were nondisplaced, she was seen and evaluated by orthopedics. SHe is managed nonsurgically Her work up include CTs showing mass on thyroid with multiple lung lesions. Pt endorses malaise, 40+ pound weight loss,and vaginal bleeding It had been many years since her last manager educational exam or PCP exam. Lung lesion bx was attemped but procedure was aborted 2/2 pt did not tolerate prone positioning with sedation. Biopsy of left iliac chain node was obtained Limited manager educational exam was performed by hospitalist BILLY and cervix was reported as normal with small blood coming from os. MRI of brain was obtained for continued lethargy it shown 9mm enhancing extra- axial mass to the left parietal region most likely small meningioma, no acute hemorrhage, shift or infarct seen. Palliative Care has been consulted for clarification of goal. Pt has significant leukocytosis, over 20 K Her blood and urine cultures are negative Review of Systems Constitutional: COMPLAINS OF: Fatigue, Weight loss (40lbs) Genitourinary: COMPLAINS OF: Abnormal vaginal bleeding Except as stated in HPI: all other systems reviewed are Neg Past Family Social History Allergies: Coded Allergies: No Known Allergies (Verified , 05/27/17) Past Medical History hypertension, hyperlipidemia and noncompliance. She has not seen a doctor for over 4 years. Past Surgical History denies Active Ordered Medications Medications where reviewed in EMR Antibiotics Include: zosyn vancomycin Family History DM, HTN, lung ca Social History No Tobacco. No ETOH. No Illicit Drugs. Physical Exam Vital Signs Vital Signs Date Time Temp Pulse Resp B/P (MAP) Pulse Ox O2 Delivery O2 Flow Rate FiO2 06/03/17 15:13 18 06/03/17 14:00 100 06/03/17 13:30 95 06/03/17 13:30 95 06/03/17 13:30 95 0 156/67 (96) 94 06/03/17 13:00 90 0 152/65 (94) 94 06/03/17 13:00 90 06/03/17 13:00 90 06/03/17 12:39 103 8/31/17 12:39 103 06/03/17 12:39 103 0 154/69 (97) 94 06/03/17 12:00 96 0 94 06/03/17 12:00 96 06/03/17 12:00 96 06/03/17 12:00 98.6 06/03/17 11:02 98 06/03/17 11:00 95 06/03/17 11:00 95 0 194/81 (118) 97 06/03/17 10:30 81 0 172/71 (104) 95 06/03/17 10:30 81 06/03/17 10:00 75 06/03/17 10:00 75 0 161/70 (100) 95 06/03/17 09:30 84 0 178/74 (108) 96 06/03/17 09:30 84 06/03/17 09:00 97 06/03/17 09:00 97 0 186/77 (113) 95 06/03/17 08:30 101 0 196/93 (127) 95 06/03/17 08:30 101 06/03/17 08:00 70 06/03/17 08:00 70 0 172/75 (107) 96 06/03/17 08:00 97.8 06/03/17 08:00 101 06/03/17 07:35 96 Nasal Cannula 3.00 06/03/17 07:00 Nasal Cannula 3.00 06/03/17 04:00 98.9 81 26 179/76 (110) 95 06/03/17 00:00 98.8 94 34 168/73 (104) 94 06/02/17 20:00 94 06/02/17 20:00 98.3 106 30 169/86 (113) 94 06/02/17 19:28 94 Nasal Cannula 2.00 06/02/17 19:00 Nasal Cannula 3.00 06/02/17 18:00 106 Physical Exam GENERAL: T CONSTITUTIONAL/GENERAL: This is an obese elderly patient, in no apparent distress. TUBES/LINES/DRAINS: SKIN: No jaundice, rashes, or lesions. Skin temperature appropriate. Not diaphoretic. HEAD: Atraumatic. Normocephalic. EYES: Pupils equal and round and reactive. Extraocular motions intact. No scleral icterus. No injection or drainage. Fundi not examined. ENT: Hearing grossly normal. Nose without bleeding or purulent drainage. Throat without visible erythema, exudates, masses, or lesions. NECK: Trachea midline. Supple, nontender. + palpable thyroid nodule ont the R CARDIOVASCULAR: Regular rate and rhythm without murmurs, gallops, or rubs. No JVD. Peripheral pulses symmetric. RESPIRATORY/CHEST: Symmetric, unlabored respirations. Clear to auscultation. Breath sounds equal bilaterally. No wheezes, rales, or rhonchi. GASTROINTESTINAL: Abdomen soft, non-tender, markedly obese moderately distended. No hepato-splenomegaly, or palpable masses. No guarding. Bowel sounds present. GENITOURINARY: Without palpable bladder distension. Rios catheter in place with bertha blood MUSCULOSKELETAL: Extremities without clubbing, cyanosis, or edema. No joint tenderness or effusion noted. No calf tenderness. No mottling or clubbing. LYMPHATICS: No palpable cervical or supraclavicular adenopathy. L inguinal Lymphadenopathy dressing in place (recent bx) NEUROLOGICAL: Awake and alert. Motor and sensory grossly within normal limits. Follows commands. Clear speech . Moves all extremities. PSYCHIATRIC: No obvious anxiety/depression. no apparent hallucinations or other psychotic thought process. Laboratory Laboratory Tests Test 06/03/17 06:01 White Blood Count 22.1 Red Blood Count 4.33 Hemoglobin 9.5 Hematocrit 31.3 Mean Corpuscular Volume 72.2 Mean Corpuscular Hemoglobin 21.8 Mean Corpuscular Hemoglobin Concent 30.2 Red Cell Distribution Width 21.0 Platelet Count 41 Mean Platelet Volume 8.2 Neutrophils (%) (Auto) 90.9 Lymphocytes (%) (Auto) 3.8 Monocytes (%) (Auto) 5.1 Eosinophils (%) (Auto) 0.0 Basophils (%) (Auto) 0.2 Neutrophils # (Auto) 20.1 Lymphocytes # (Auto) 0.8 Monocytes # (Auto) 1.1 Eosinophils # (Auto) 0.0 Basophils # (Auto) 0.0 CBC Comment AUTO DIFF Differential Total Cells Counted 100 Neutrophils % (Manual) 91 Band Neutrophils % 5 Lymphocytes % 1 Monocytes % 1 Neutrophils # (Manual) 21.7 Metamyelocytes 2 Nucleated Red Blood Cells 1 Differential Comment FINAL DIFF MANUAL Platelet Estimate LOW Platelet Morphology Comment NORMAL Ovalocytes 1+ Blood Urea Nitrogen 34 Creatinine 0.99 Random Glucose 172 Total Protein 5.5 Albumin 2.0 Calcium Level 7.4 Alkaline Phosphatase 209 Aspartate Amino Transf (AST/SGOT) 30 Alanine Aminotransferase (ALT/SGPT) 20 Total Bilirubin 1.1 Sodium Level 147 Potassium Level 2.7 Chloride Level 109 Carbon Dioxide Level 26.5 Anion Gap 12 Estimat Glomerular Filtration Rate 56 Protein Corrected Calcium 8.3 Date/Time Source Procedure Growth Status 05/31/17 10:12 Blood Peripheral Aerobic Blood Culture - Preliminary NO GROWTH IN 3 DAYS Resulted 05/31/17 10:12 Blood Peripheral Anaerobic Blood Culture - Preliminary NO GROWTH IN 3 DAYS Resulted 05/27/17 22:55 Urine Clean Catch Urine Culture - Final No growth. Complete Result Diagram: 06/03/17 0606/03/17 0601 Imaging Last Impressions Thyroid Biopsy Ultrasound 06/03/17 0000 Signed Impressions: Service Date/Time: May 13:59 - CONCLUSION: Uncomplicated ultrasound guided core needle biopsy of a complex cystic mass of the right thyroid. Sushant Juares Jr., MD Lymph Node Biopsy CT 06/02/17 0000 Signed Impressions: Service Date/Time: Friday, June 02, 2017 11:52 - CONCLUSION: Uncomplicated CT guided biopsy of a left pelvic mass likely relating to iliac chain lymph nodes. Sushant Juares Jr., MD Chest X-Ray 05/31/17 0000 Signed Impressions: Service Date/Time: Wednesday, May 31, 2017 09:31 - CONCLUSION: Increasing nodular opacities throughout both lungs Patient has changes in the left base. I Pa Verdin MD FACR Abdomen X-Ray 05/31/17 0000 Signed Impressions: Service Date/Time: Wednesday, May 31, 2017 10:21 - CONCLUSION: The tip of the NG tube in the antrum of the stomach. Sushant Juares Jr., MD Brain MRI 05/30/17 0000 Signed Impressions: Service Date/Time: Tuesday, May 30, 2017 19:47 - CONCLUSION: 1. Tiny 9 mm enhancing extra-axial mass along the left high parietal region consistent with probable tiny meningioma. 2. No acute infarct, acute hemorrhage, midline shift or extra-axial bleed. Delta Allison MD Lower Extremity CT 05/28/17 0000 Signed Impressions: Service Date/Time: Sunday, May 28, 2017 09:50 - CONCLUSION: 1. Acute nondisplaced superior and inferior pubic rami fractures on the left. 2. Retroperitoneal adenopathy worrisome for metastatic disease or myeloproliferative disorder. 3. Enlarged and lobulated uterus likely related to fibroids. Sushant Juares Jr., MD CT Angiography 05/28/17 Signed Impressions: Service Date/Time: Sunday, May 28, 2017 02:01 - CONCLUSION: Large mass on the right side of the trachea could be an enlarged thyroid. Innumerable nodules scattered throughout the lungs metastatic disease certainly within the differential. There are a number of nodules in the right lower lobe which would be amenable to CT-guided biopsy. Vince Galan MD Abdomen/Pelvis CT 05/28/17 0000 Signed Impressions: Service Date/Time: Sunday, May 28, 2017 20:56 - CONCLUSION: 1. There is evidence of retroperitoneal metastatic lymphadenopathy and I believe potentially on the basis of cervical or endometrial carcinoma. Primary lesion versus additional metastatic involvement of the urinary bladder. There is also a nonspecific nodule in the expected region of the distal urethra. 2. Nodularity of both adrenal glands, most likely metastatic. 3. Visualized lung bases again show evidence of widespread and confluent pulmonary metastatic disease with small effusions. Kane Cedeño MD Maxillofacial CT 05/27/172016 Signed Impressions: Service Date/Time: May 20:34 - CONCLUSION: 1. No maxillofacial fracture is present. 2. There is bilateral maxillary mucoperiosteal thickening with 12 mm polypoid structure extending from the left maxillary antrum into the left posterior nasal cavity. 3. There is a 14 mm left parotid gland nodule. Differential diagnosis includes intraparotid lymph node or pleomorphic adenoma. Kane Bartlett MD Head CT 05/27/172016 Signed Impressions: Service Date/Time: May 20:34 - CONCLUSION: No acute abnormality is identified. Kane Bartlett MD Cervical Spine CT 05/27/172016 Signed Impressions: Service Date/Time: May 20:34 - CONCLUSION: 1. No acute cervical spine abnormality is identified. There is degenerative disc disease at C5-C6. 2. There is a 4.1 cm right thyroid nodule. If this is a new finding, suggest nonemergent outpatient ultrasound of the thyroid gland for further evaluation. 3. Abnormal linear and nodular parenchymal opacities in the upper lobes bilaterally. Since this does not pertain to the patient's acute problem, this finding should also be further evaluated with outpatient chest CT with IV contrast. Also suggest correlating with any prior outside imaging studies. Kane Bartlett MD Hip and Pelvis X-Ray 05/27/17 0000 Signed Impressions: Service Date/Time: May 20:49 - CONCLUSION: 1. A subtle lucency in the left pelvis may represent a nondisplaced left superior pubic ramus fracture. 2. Mild osteoarthritis of the joints bilaterally. Kane Bartlett MD Ankle X-Ray 05/27/17 0000 Signed Impressions: Service Date/Time: May 20:56 - CONCLUSION: No acute left ankle abnormality is identified. Kane Bartlett MD Assessment and Plan Assessment and Plan Thyroid mass, suspicous for cancer Uterine cancer with retroperitoneal adenopahty Pulmonary nodules most cw metastatic dz Severe leukocytosis: diff infx vs metastatic cancer c0nt abx for now - if all BC remain negative and no other e/o infx will dc abx Yoko Yarbrough MD Jun 03, 2017 16:27
[2017-06-03] MEDS: PANTOPRAZOLE SODIUM 40 MG VIAL IV PUSH SCH (16:47)
[2017-06-03] MEDS: ACETAMINOPHEN/HYDROcodone 325 MG/5 MG TAB PO PRN (20:49)
[2017-06-04] VITALS (17 sets, daily range): BP systolic 143–185; BP diastolic 56–78; PULSE 76–109; RESP 13–22; TEMP 97.3–98.7; O2SAT 91–96
[2017-06-04] MEDS: DEXTROSE 5% IN WATE 1000ML INJ 1,000 ML IV SCH (02:07)
[2017-06-04] MEDS: INSULIN NovoLIN REGULAR SUPPLEMENTAL SCALE SQ SCH ×6 (02:10→21:52)
[2017-06-04] MEDS: CHLORHEXIDINE GLUCONATE 2 % 1 PACK (2 CLOTHS)(taper/protocol) TOPICAL SCH (04:00)
[2017-06-04] MEDS: cloNIDine HCL 0.1 MG TAB PO PRN (04:18)
[2017-06-04] MEDS: PIPERACIL-TAZO 4.5 GM PREMIX 100 ML IV SCH ×4 (04:18→21:46)
[2017-06-04 05:39] LABS: AUTOMATED NEUTROPHIL # 23.3 TH/MM3 (1.8-7.7); BASOPHIL % 0.1 % (0.0-2.0); EOSINOPHIL % 0.1 % (0.0-4.0); HEMATOCRIT 26.9 % (35.0-46.0); LYMPH % 3.1 % (9.0-44.0); LYMPHOCYTE # 0.8 TH/MM3 (1.0-4.8); MEAN CELL VOLUME 71.1 FL (80.0-100.0); MONO % 4.7 % (0.0-8.0); PLATELET COUNT 36 TH/MM3 (150-450); RED BLOOD COUNT 3.78 MIL/MM3 (4.00-5.30); RED CELL DISTRIBUTION WIDTH 20.7 % (11.6-17.2); WHITE BLOOD COUNT 25.3 TH/MM3 (4.0-11.0)
[2017-06-04 06:11] LABS: ALKALINE PHOSPHATASE 236 U/L (45-117); ALT (GPT) 18 U/L (10-53); ANION GAP 11 MEQ/L (5-15); AST (GOT) 30 U/L (15-37); BICARBONATE 26.2 MEQ/L (21.0-32.0); BLOOD UREA NITROGEN 35 MG/DL (7-18); CALCIUM-PROTEIN CORRECTED 8.3 MG/DL (8.5-10.1); CHLORIDE 105 MEQ/L (98-107); GLOMERULAR FILTRATION RATE 54 ML/MIN (>89); SODIUM (NA) 142 MEQ/L (136-145); TOTAL BILIRUBIN ADULT 1.1 MG/DL (0.2-1.0)
[2017-06-04 06:22] LABS: HEMO FLAGS AUTO DIFF
[2017-06-04 06:23] LABS: BANDS 7 % (0-6); METAMYELOCYTES 1 % (0-1); NEUTROPHIL # MANUAL DIFF 24.5 TH/MM3 (1.8-7.7); POLYS (SEG NEUTROPHILS) 89 % (16-70); WBC DIFF SAMPLE 100
[2017-06-04 06:24] LABS: OVALOCYTES 1+ (NORMAL); PLATELET ESTIMATE SMEAR LOW (NORMAL); PLATELET MORPHOLOGY NORMAL (NORMAL); POTASSIUM 2.9 MEQ/L (3.5-5.1); SCAN/DIFF FINAL DIFF MANUAL
[2017-06-04] MEDS: hydrALAZINE HCL 50 MG TAB PO SCH ×3 (06:25→21:46)
[2017-06-04] MEDS ORDERED: POTASSIUM CHLOR 40 MEQ PREMIX 100 ML IV ONE (06:45)
[2017-06-04] MEDS ORDERED: POTASSIUM CHLORIDE 25 MEQ EFFERVESCENT TAB PO ONE (06:45)
[2017-06-04] MEDS: ACETAMINOPHEN/HYDROcodone 325 MG/10 MG TAB PO PRN (06:50)
[2017-06-04] MEDS ORDERED: POTASSIUM CHLORIDE 20 MEQ CONTROLLED RELEASE TAB PO ONE (07:30)
[2017-06-04] MEDS: RESP: ALBUTEROL 2.5 MG/3 ML NEB (SCH) NEB ×4 (08:02→19:46)
[2017-06-04] MEDS: amLODIPine BESYLATE 5 MG TAB PO SCH (08:28)
[2017-06-04] MEDS: SODIUM CHLORIDE 0.9% FLUSH 10 ML FLUSH IV FLUSH SCH ×2 (08:28→21:47)
[2017-06-04] MEDS: DOCUSATE SODIUM 50 MG/SENNA 8.6 MG TAB PO SCH (08:28)
--- NOTE | 2017-06-04 09:58 | HHI.PR ---
Subjective Remarks Follow-up metabolic encephalopathy/metastasis of thyroid cancer?/Multiple electrolyte abnormalities 06/03/17-patient seen and examined, not much of an appetite; denies any shortness of breath ,chest pain or throat pain. BP still up but no complaint of palpitation of headache. Plan for CT guided thyroid biopsy today 06/04/17-patient seen and examined, alert and oriented 2, no acute event overnight. Potassium low Objective Vitals Vital Signs Date Time Temp Pulse Resp B/P (MAP) Pulse Ox O2 Delivery O2 Flow Rate FiO2 06/04/17 08:28 13 06/04/17 08:04 96 Nasal Cannula 2.00 06/04/17 06:00 76 06/04/17 04:00 86 06/04/17 04:00 97.7 86 16 185/78 (113) 95 06/04/17 02:00 86 06/04/17 00:00 91 06/04/17 00:00 97.8 91 16 164/70 (101) 96 06/03/17 22:00 97 06/03/17 22:00 97 06/03/17 20:00 97 06/03/17 20:00 97.6 97 18 162/70 (100) 95 06/03/17 19:24 96 Nasal Cannula 2.00 06/03/17 19:00 Nasal Cannula 2.00 06/03/17 18:00 99 06/03/17 16:45 99 17 173/74 (107) 95 06/03/17 16:30 100 16 155/66 (95) 95 06/03/17 16:15 96 16 147/65 (92) 94 06/03/17 16:00 100 06/03/17 16:00 100 19 152/67 (95) 96 06/03/17 16:00 97.5 100 19 152/67 (95) 96 06/03/17 15:45 96 17 152/67 (95) 95 06/03/17 15:30 96 17 151/66 (94) 95 06/03/17 15:30 96 17 151/66 (94) 95 06/03/17 15:15 98 16 154/70 (98) 95 06/03/17 15:13 18 06/03/17 15:00 100 18 157/72 (100) 94 06/03/17 14:50 100 147/69 (95) 94 06/03/17 14:00 100 06/03/17 13:30 95 06/03/17 13:30 95 06/03/17 13:30 95 0 156/67 (96) 94 06/03/17 13:30 95 0 156/67 (96) 94 06/03/17 13:00 90 0 152/65 (94) 94 06/03/17 13:00 90 06/03/17 13:00 90 06/03/17 13:00 90 0 152/65 (94) 94 06/03/17 12:39 103 06/03/17 12:39 103 06/03/17 12:39 103 0 154/69 (97) 94 06/03/17 12:39 103 0 154/69 (97) 94 06/03/17 12:00 96 0 94 06/03/17 12:00 96 0 94 06/03/17 12:00 96 06/03/17 12:00 96 06/03/17 12:00 98.6 06/03/17 11:02 98 06/03/17 11:02 98 0 183/79 (113) 96 06/03/17 11:00 95 0 194/81 (118) 97 06/03/17 11:00 95 06/03/17 11:00 95 0 194/81 (118) 97 06/03/17 10:30 81 0 172/71 (104) 95 06/03/17 10:30 81 0 172/71 (104) 95 06/03/17 10:30 81 06/03/17 10:00 75 0 161/70 (100) 95 06/03/17 10:00 75 06/03/17 10:00 75 0 161/70 (100) 95 I/O 06/03/17 06/03/17 06/03/17 06/04/17 06/04/17 06/04/17 07:00 15:00 23:00 07:00 15:00 23:00 Intake Total 600 ml 68 ml 5423 ml 1220 ml Output Total 1050 ml 625 ml 900 ml Balance -450 ml 68 ml 4798 ml 320 ml Intake Oral 600 ml 120 ml IV Total 68 ml 5423 ml 1100 ml Output Urine Total 1050 ml 625 ml 900 ml # Bowel Movements 2 1 Result Diagram: 06/04/1751606/04/17516 Imaging Last Impressions Thyroid Biopsy Ultrasound 06/03/17 Signed Impressions: Service Date/Time: May 13:59 - CONCLUSION: Uncomplicated ultrasound guided core needle biopsy of a complex cystic mass of the right thyroid. Sushant Juares Jr., MD Lymph Node Biopsy CT 06/02/17 Signed Impressions: Service Date/Time: Friday, June 02, 2017 11:52 - CONCLUSION: Uncomplicated CT guided biopsy of a left pelvic mass likely relating to iliac chain lymph nodes. Sushant Juares Jr., MD Chest X-Ray 05/31/17 Signed Impressions: Service Date/Time: Wednesday, May 31, 2017 09:31 - CONCLUSION: Increasing nodular opacities throughout both lungs Patient has changes in the left base. I Pa Verdin MD FACR Abdomen X-Ray 05/31/17 Signed Impressions: Service Date/Time: Wednesday, May 31, 2017 10:21 - CONCLUSION: The tip of the NG tube in the antrum of the stomach. Sushant Juares Jr., MD Brain MRI 05/30/17 Signed Impressions: Service Date/Time: Tuesday, May 30, 2017 19:47 - CONCLUSION: 1. Tiny 9 mm enhancing extra-axial mass along the left high parietal region consistent with probable tiny meningioma. 2. No acute infarct, acute hemorrhage, midline shift or extra-axial bleed. Delta Allison MD Lower Extremity CT 05/28/17 Signed Impressions: Service Date/Time: Sunday, May 28, 2017 09:50 - CONCLUSION: 1. Acute nondisplaced superior and inferior pubic rami fractures on the left. 2. Retroperitoneal adenopathy worrisome for metastatic disease or myeloproliferative disorder. 3. Enlarged and lobulated uterus likely related to fibroids. Sushant Juares Jr., MD CT Angiography 05/28/17 Signed Impressions: Service Date/Time: Sunday, May 28, 2017 02:01 - CONCLUSION: Large mass on the right side of the trachea could be an enlarged thyroid. Innumerable nodules scattered throughout the lungs metastatic disease certainly within the differential. There are a number of nodules in the right lower lobe which would be amenable to CT-guided biopsy. Vnice Galan MD Abdomen/Pelvis CT 05/28/17 Signed Impressions: Service Date/Time: Sunday, May 28, 2017 20:56 - CONCLUSION: 1. There is evidence of retroperitoneal metastatic lymphadenopathy and I believe potentially on the basis of cervical or endometrial carcinoma. Primary lesion versus additional metastatic involvement of the urinary bladder. There is also a nonspecific nodule in the expected region of the distal urethra. 2. Nodularity of both adrenal glands, most likely metastatic. 3. Visualized lung bases again show evidence of widespread and confluent pulmonary metastatic disease with small effusions. Kane Cedeño MD Maxillofacial CT 05/27/172016 Signed Impressions: Service Date/Time: May 20:34 - CONCLUSION: 1. No maxillofacial fracture is present. 2. There is bilateral maxillary mucoperiosteal thickening with 12 mm polypoid structure extending from the left maxillary antrum into the left posterior nasal cavity. 3. There is a 14 mm left parotid gland nodule. Differential diagnosis includes intraparotid lymph node or pleomorphic adenoma. Kane Bartlett MD Head CT 05/27/172016 Signed Impressions: Service Date/Time: May 20:34 - CONCLUSION: No acute abnormality is identified. Kane Bartlett MD Cervical Spine CT 05/27/172016 Signed Impressions: Service Date/Time: May 20:34 - CONCLUSION: 1. No acute cervical spine abnormality is identified. There is degenerative disc disease at C5-C6. 2. There is a 4.1 cm right thyroid nodule. If this is a new finding, suggest nonemergent outpatient ultrasound of the thyroid gland for further evaluation. 3. Abnormal linear and nodular parenchymal opacities in the upper lobes bilaterally. Since this does not pertain to the patient's acute problem, this finding should also be further evaluated with outpatient chest CT with IV contrast. Also suggest correlating with any prior outside imaging studies. Kane Bartlett MD Hip and Pelvis X-Ray 05/27/17 0000 Signed Impressions: Service Date/Time: May 20:49 - CONCLUSION: 1. A subtle lucency in the left pelvis may represent a nondisplaced left superior pubic ramus fracture. 2. Mild osteoarthritis of the joints bilaterally. Kane Bartlett MD Ankle X-Ray 05/27/17 0000 Signed Impressions: Service Date/Time: May 20:56 - CONCLUSION: No acute left ankle abnormality is identified. Kane Bartlett MD Objective Remarks GENERAL: NAD SKIN: Warm and dry. HEAD: Normocephalic. EYES: No scleral icterus. No injection or drainage. NECK: Supple, trachea midline. No JVD or lymphadenopathy. CARDIOVASCULAR: Regular rate and rhythm without murmurs, gallops, or rubs. RESPIRATORY: Breath sounds equal bilaterally. No accessory muscle use. GASTROINTESTINAL: Abdomen soft, non-tender, nondistended. MUSCULOSKELETAL: No cyanosis, or edema. BACK: Nontender without obvious deformity. No CVA tenderness. A/P Problem List: (1) Closed fracture of left superior pubic ramus ICD Code: S32.512A - Fracture of superior rim of left pubis, initial encounter for closed fracture (2) Closed fracture of left inferior pubic ramus ICD Code: S32.592A - Other specified fracture of left pubis, initial encounter for closed fracture (3) Electrolyte disorder ICD Code: E87.8 - Other disorders of electrolyte and fluid balance, not elsewhere classified Status: Acute (4) Elevated troponin I level ICD Code: R74.8 - Abnormal levels of other serum enzymes Status: Acute (5) Hypercalcemia ICD Code: E83.52 - Hypercalcemia Status: Acute Assessment and Plan 67-year-old female with Probable metastatic thyroid malignancy Retroperitoneal metastatic lymphadenopathy Scattered pulmonary nodules likely related to metastatic disease. Thyroid mass PTH level is 16.[address] guided thyroid biopsy today 06/03/[address]-guided biopsy of left pelvic mass pending report Unable to perform CT guided biopsy of lung nodule today, patient did not tolerate supine position Appreciate input from oncology Palliative care is following Leukocytosis Infectious process versus metastasis disease Appreciate input from infectious disease specialist Continue with Zosyn and monitor culture reports Encephalopathy, multifactorial (hypercalcemia, hypertensive encephalopathy and hypernatremia) Improved EEG 05/31: Encephalopathy without epileptic activity. Hypertensive urgency, rule out progressive reversible encephalopathy syndrome. Echo on which showed normal left ventricular systolic function EF 55 % to 60%. No RWMA Continue hydralazine 50 mg every 8 hour, Norvasc Hypernatremia. Resolved with D5W@100ml/hr, which I will discontinue Hypokalemia Give potassium 80 mEq 1 now Superior and inferior pubic ramus fracture on the left. PT consult to treat and eval Impaired fasting glucose hemoglobin A1c pending Continue with sliding scale insulin GI prophylaxis with Protonix and DVT prophylaxis with SCDs. No chemical DVT Prophylaxis due to thrombocytopenia Problem Qualifiers (1) Closed fracture of left superior pubic ramus: Qualified Codes: S32.512A - Fracture of superior rim of left pubis, initial encounter for closed fracture (2) Closed fracture of left inferior pubic ramus: Qualified Codes: S32.592A - Other specified fracture of left pubis, initial encounter for closed fracture Regulo Ariza MD Jun 04, 2017 09:58
[2017-06-04 11:53] LABS: HEMOGLOBIN A1a 2.1 %; HEMOGLOBIN A1b 2.6 %; HEMOGLOBIN Ao 78.9 %; HEMOGLOBIN LA1C 3.1 %; HEMOGLOBIN P3 5.5 %
[2017-06-04] MEDS: FREE WATER G-TUBE SCH ×2 (11:56→17:21)
--- NOTE | 2017-06-04 13:45 | PD.ONC.PN ---
Subjective Subjective Remarks Afebrile overnight. Had BM. Pain in hip improved with cold pack. Objective Data Date Time Temp Pulse Resp B/P (MAP) Pulse Ox O2 Delivery O2 Flow Rate FiO2 06/04/17 12:00 98.0 96 13 149/65 (93) 94 06/04/17 12:00 96 06/04/17 11:00 98 16 158/72 (100) 95 06/04/17 11:00 98 06/04/17 10:00 109 15 155/72 (99) 95 06/04/17 10:00 109 06/04/17 09:00 76 13 143/66 (91) 94 06/04/17 09:00 76 06/04/17 08:28 13 06/04/17 08:04 96 Nasal Cannula 2.00 06/04/17 08:00 79 06/04/17 08:00 97.9 06/04/17 08:00 79 06/04/17 08:00 79 15 155/67 (96) 95 06/04/17 07:00 Nasal Cannula 2.00 06/04/17 06:00 76 06/04/17 04:00 86 06/04/17 04:00 97.7 86 16 185/78 (113) 95 06/04/17 02:00 86 06/04/17 00:00 91 06/04/17 00:00 97.8 91 16 164/70 (101) 96 06/03/17 22:00 97 06/03/17 22:00 97 06/03/17 20:00 97 06/03/17 20:00 97.6 97 18 162/70 (100) 95 06/03/17 19:24 96 Nasal Cannula 2.00 06/03/17 19:00 Nasal Cannula 2.00 06/03/17 18:00 99 06/03/17 16:45 99 17 173/74 (107) 95 06/03/17 16:30 100 16 155/66 (95) 95 06/03/17 16:15 96 16 147/65 (92) 94 06/03/17 16:00 100 06/03/17 16:00 100 19 152/67 (95) 96 06/03/17 16:00 97.5 100 19 152/67 (95) 96 06/03/17 15:45 96 17 152/67 (95) 95 06/03/17 15:30 96 17 151/66 (94) 95 06/03/17 15:30 96 17 151/66 (94) 95 06/03/17 15:15 98 16 154/70 (98) 95 06/03/17 15:13 18 06/03/17 15:00 100 18 157/72 (100) 94 06/03/17 14:50 100 147/69 (95) 94 06/03/17 14:00 100 06/04/17 06/04/17 06/04/17 07:00 15:00 23:00 Intake Total 1220 ml 1671 ml Output Total 900 ml Balance 320 ml 1671 ml Result Diagram: 06/04/17 0517 06/04/17 0517 Laboratory Results Laboratory Tests Test 06/04/17 05:17 White Blood Count 25.3 TH/MM3 Red Blood Count 3.78 MIL/MM3 Hemoglobin 8.3 GM/DL Hematocrit 26.9 % Mean Corpuscular Volume 71.1 FL Mean Corpuscular Hemoglobin 22.0 PG Mean Corpuscular Hemoglobin Concent 31.0 % Red Cell Distribution Width 20.7 % Platelet Count 36 TH/MM3 Mean Platelet Volume 9.0 FL Neutrophils (%) (Auto) 92.0 % Lymphocytes (%) (Auto) 3.1 % Monocytes (%) (Auto) 4.7 % Eosinophils (%) (Auto) 0.1 % Basophils (%) (Auto) 0.1 % Neutrophils # (Auto) 23.3 TH/MM3 Lymphocytes # (Auto) 0.8 TH/MM3 Monocytes # (Auto) 1.2 TH/MM3 Eosinophils # (Auto) 0.0 TH/MM3 Basophils # (Auto) 0.0 TH/MM3 CBC Comment AUTO DIFF Differential Total Cells Counted 100 Neutrophils % (Manual) 89 % Band Neutrophils % 7 % Lymphocytes % 3 % Neutrophils # (Manual) 24.5 TH/MM3 Metamyelocytes 1 % Differential Comment FINAL DIFF MANUAL Platelet Estimate LOW Platelet Morphology Comment NORMAL Ovalocytes 1+ Blood Urea Nitrogen 35 MG/DL Creatinine 1.02 MG/DL Random Glucose 171 MG/DL Total Protein 5.1 GM/DL Albumin 1.9 GM/DL Calcium Level 7.2 MG/DL Alkaline Phosphatase 236 U/L Aspartate Amino Transf (AST/SGOT) 30 U/L Alanine Aminotransferase (ALT/SGPT) 18 U/L Total Bilirubin 1.1 MG/DL Sodium Level 142 MEQ/L Potassium Level 2.9 MEQ/L Chloride Level 105 MEQ/L Carbon Dioxide Level 26.2 MEQ/L Anion Gap 11 MEQ/L Estimat Glomerular Filtration Rate 54 ML/MIN Protein Corrected Calcium 8.3 MG/DL Administered Medications Medications (Trade) Dose Ordered Sig/[place] Route PRN Reason Start Time Stop Time Status Last Admin Dose Admin Naloxone HCl (Narcan Inj) 0.4 mg UNSCH PRN IV SEE LABEL COMMENTS 05/27/17 22:30 05/30/17 13:30 Clonidine (Catapres) 0.1 mg Q6H PRN PO bp>160/90 05/27/17 22:45 06/04/17 04:18 Sodium Chloride (NS Flush) 2 ml BID IV FLUSH 05/28/17 21:00 06/04/17 08:28 Heparin Sodium (Porcine) (Heparin Inj) 5,000 units Q8H SQ 05/28/17 17:00 Future Hold 05/30/17 07:44 Acetaminophen (Tylenol) 650 mg Q6H PRN PO PAIN SCALE 1 TO 2 05/28/17 09:15 06/02/17 22:23 Acetaminophen/ Hydrocodone Bitart (Orick 5-325 Mg) 1 tab Q4H PRN PO PAIN SCALE 3 TO 5 05/28/17 09:15 06/03/17 20:49 Acetaminophen/ Hydrocodone Bitart (Orick 10-325 Mg) 1 tab Q4H PRN PO PAIN SCALE 6 TO 10 05/28/17 09:15 06/04/17 06:50 Hydroxyzine Pamoate (Vistaril) 25 mg Q6H PRN PO anxiety 05/28/17 17:00 06/02/17 22:23 Propranolol HCl (Inderal) 20 mg Q8HR PO 05/29/17 22:00 Future Hold 05/30/17 05:34 Amlodipine Besylate (Norvasc) 5 mg DAILY PO 05/30/17 09:00 06/04/17 08:28 Pantoprazole Sodium (Protonix Inj) 40 mg Q24H IV PUSH 05/30/17 18:00 06/03/17 16:47 Miscellaneous Information Patient in critical care unit? Ass... [id number] .XX 05/30/17 20:30 05/30/17 20:30 Insulin Human Regular (NovoLIN R SUPPLEMENTAL SCALE) 1 Q4H SQ 05/31/17 10:00 06/04/17 10:00 Piperacillin Sod/ Tazobactam Sod 100 ml @ 200 mls/hr Q6H IV 05/31/17 10:00 06/04/17 08:29 Water (Free Water) 300 ml Q6HR G-TUBE 06/01/17 12:00 06/04/17 11:56 Albuterol Sulfate (Albuterol Neb) 2.5 mg QID NEB NEB 06/02/17 20:00 06/04/17 10:57 Hydralazine HCl (Apresoline) 50 mg Q8HR PO 06/03/17 10:00 06/04/17 06:25 Objective Remarks GENERAL: Middle aged female supine in bed watching TV SKIN: Warm and dry. bandage, right neck, c/d/i. HEAD: Normocephalic. EYES: No injection or drainage. NECK: Supple, trachea midline. CARDIOVASCULAR: Regular rate and rhythm RESPIRATORY: anterior kelsey clear. on 2L O2 via NC GASTROINTESTINAL: Abdomen soft, non-tender, nondistended. EXTREMITIES: No cyanosis NEUROLOGICAL: awake and alert, normal speech. Assessment/Plan Problem List: (1) Thyroid neoplasm malignant ICD Codes: C73 - Malignant neoplasm of thyroid gland Plan: 06/04: pending pathology 06/03/17. s/p US guide R thyroid mass biopsy. Concern for multiple primary. Thyroid nodule, large, multiple pulmonary nodules suggestive of metastatic disease. Hypercalcemia c/w thyroid malignancy. Concerning for poor performance status, limited by pelvic fracture. Radiology unable to biopsy lung lesion as originally planned, risk>benefit. Adenopathy biopsied instead. Plan to consult w/ radiology for thyroid nodule biopsy. Recommendations pending biopsy results. Discussed w/ Dr. Middleton. (2) Hypercalcemia ICD Codes: E83.52 - Hypercalcemia Status: Acute Plan: 06/04: calcium now low. will monitor for symptoms Hypercalcemia resolved after bisphosphonates. Worsen renal function after but multiple factors contributing, continue to follow creatinine. (3) Adenopathy ICD Codes: R59.1 - Generalized enlarged lymph nodes Plan: 06/04: await pathology Seen by Dr. Askew for pelvic adenopathy. s/p biopsy of LN pathology pending. Assessment 67 y/o woman admitted s/p fall and pelvic fracture. Hematology consulted for findings of hypercalcemia, thyroid nodule, multiple metastatic lung lesion and adenopathy. h/o Hypertension, Hyperlipidemia, Obesity, Noncompliance, Metastatic thyroid cancer Pelvic fracture. Plan 1. await pathology 2. monitor calcium 3. continue supportive care Attending Statement The exam, history, and the medical decision-making described in the above note were completed with the assistance of the mid-level provider. I reviewed and agree with the findings presented. I attest that I had a [id number] encounter with the patient on the same day, and personally performed and documented my assessment and findings in the medical record. 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 Discussed both pathology report, discussed ultimately need bx lung to determine if metastatic Hurthle cell versus metastatic from non small cell carcinoma. If metastatic Hurthle cell, no need for thyroidectomy. Treatment in terms of the non small cell is palliative. Prognosis is likely carried by the non small cell component. At pt's request called daughter Cristina Travis [phone] left voice mail. Agree with plans to go to rehab to tend to pelvic fracture. Out pt staging could be coordinated and decide how to proceed with treatment pending pt' performance status. Son was at bedside during discussion, answered questions. Lalitha Rowe Jun 04, 2017 13:45 Mi Tong MD Jun 04, 2017 21:22
[2017-06-04] MEDS: ACETAMINOPHEN/HYDROcodone 325 MG/5 MG TAB PO PRN (13:51)
--- NOTE | 2017-06-04 14:22 | HHI.HCPN ---
Reason for visit a. To assist with evaluation and management of symptoms including: dyspnea, confusion, anxiety, pain b. To assist medical decision maker(s) with: better understanding of current medical conditions; weighing benefits/burdens of medical treatment options; making medical treatment decisions. Subjective/Interval History Pt seen today to follow up on comfort, goals. Uneventful /stable overnight. 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 s/p thyroid bx-- path pending. WBC cont to increase, 25.3. platelets cont to trend down, today 36. H&H slowing trending down. + bertha red in nuñez catheter. Hypokalemia- K+ 2.9, repletion per critical care. diet has been advanced to regular-- pt eating bites. d/w primary RN. Pt w some hip pain today relieved some by repositioning, ice packs, prns. Pt seen in room no visitors present. She is alert, watching TV. Endorses feeling better overall today. Appropriate, aware of pending pathology for multiple recent bx. She appears to have reasonable insight and understanding. Endorses some pain to hips, better with repositioning and ice packs. Denies and GI complaints. Denies COMBS. Denies difficulty swallowing. Offer to call her daughter to update, she tells me her dtr will be working until 530 will be in to visit after and she will update her then, declines for me to call her at this time. Awaiting pathology and possible treatment options for decision making. Pt, dtr, have palliative contact information. . Advance Directives Health Care Surrogate: Completed, but not made available (daughter reports patient completed HCS on Wednesday in [place] however no copy currently available) Objective Vital Signs Date Time Temp Pulse Resp B/P (MAP) Pulse Ox O2 Delivery O2 Flow Rate FiO2 06/04/17 12:00 98.0 96 13 149/65 (93) 94 06/04/17 12:00 96 06/04/17 11:00 98 16 158/72 (100) 95 06/04/17 11:00 98 06/04/17 10:00 109 15 155/72 (99) 95 06/04/17 10:00 109 06/04/17 09:00 76 13 143/66 (91) 94 06/04/17 09:00 76 06/04/17 08:28 13 06/04/17 08:04 96 Nasal Cannula 2.00 06/04/17 08:00 79 06/04/17 08:00 97.9 06/04/17 08:00 79 06/04/17 08:00 79 15 155/67 (96) 95 06/04/17 07:00 Nasal Cannula 2.00 06/04/17 06:00 76 06/04/17 04:00 86 06/04/17 04:00 97.7 86 16 185/78 (113) 95 06/04/17 02:00 86 06/04/17 00:00 91 06/04/17 00:00 97.8 91 16 164/70 (101) 96 06/03/17 22:00 97 06/03/17 22:00 97 06/03/17 20:00 97 06/03/17 20:00 97.6 97 18 162/70 (100) 95 06/03/17 19:24 96 Nasal Cannula 2.00 06/03/17 19:00 Nasal Cannula 2.00 06/03/17 18:00 99 06/03/17 16:45 99 17 173/74 (107) 95 06/03/17 16:30 100 16 155/66 (95) 95 06/03/17 16:15 96 16 147/65 (92) 94 06/03/17 16:00 100 06/03/17 16:00 100 19 152/67 (95) 96 06/03/17 16:00 97.5 100 19 152/67 (95) 96 06/03/17 15:45 96 17 152/67 (95) 95 06/03/17 15:30 96 17 151/66 (94) 95 06/03/17 15:30 96 17 151/66 (94) 95 06/03/17 15:15 98 16 154/70 (98) 95 06/03/17 15:13 18 06/03/17 15:00 100 18 157/72 (100) 94 06/03/17 14:50 100 147/69 (95) 94 Intake & Output 06/04/17 06/04/17 07:00 19:00 Intake Total 1320 ml 1671 ml Output Total 900 ml Balance 420 ml 1671 ml Intake Oral 120 ml IV Total 1200 ml 1671 ml Output Urine Total 900 ml # Bowel Movements 1 Physical Exam CONSTITUTIONAL/GENERAL: This is an adequately nourished patient, lethargic, groans at times TUBES/LINES/DRAINS:PIV x2 RUE, nuñez catheter, SCDs, nasal cannula FM o2 , NG tube CARDIOVASCULAR: Regular rate and rhythm without murmurs. No JVD. Peripheral pulses symmetric. RESPIRATORY/CHEST: Symmetric, unlabored respirations. mildly tachypneic . RR 22. On simple FM. Clear to auscultation, decreased air movement. Breath sounds equal bilaterally. GASTROINTESTINAL: Abdomen soft, non-tender, nondistended. No palpable masses. No guarding. Bowel sounds hypoactive. NGT rt nare GENITOURINARY: Without palpable bladder distension. Nuñez catheter in place clear yellow urine NEUROLOGICAL: lethargic/weak, mostly oriented, x2-3. has reasonable insight. Does move all 4 extremities with significant weakness. PSYCHIATRIC: No obvious anxiety/depression- . Diagnostic Tests Laboratory Laboratory Tests Test 06/01/17 21:33 06/02/17 07:06 06/03/17 06:01 06/04/17 05:17 Potassium Level 3.2 MEQ/L (3.5-5.1) 3.8 MEQ/L (3.5-5.1) 2.7 MEQ/L (3.5-5.1) 2.9 MEQ/L (3.5-5.1) White Blood Count 21.6 TH/MM3 (4.0-11.0) 22.1 TH/MM3 (4.0-11.0) 25.3 TH/MM3 (4.0-11.0) Red Blood Count 4.37 MIL/MM3 (4.00-5.30) 4.33 MIL/MM3 (4.00-5.30) 3.78 MIL/MM3 (4.00-5.30) Hemoglobin 9.7 GM/DL (11.6-15.3) 9.5 GM/DL (11.6-15.3) 8.3 GM/DL (11.6-15.3) Hematocrit 32.2 % (35.0-46.0) 31.3 % (35.0-46.0) 26.9 % (35.0-46.0) Mean Corpuscular Volume 73.6 FL (80.0-100.0) 72.2 FL (80.0-100.0) 71.1 FL (80.0-100.0) Mean Corpuscular Hemoglobin 22.2 PG (27.0-34.0) 21.8 PG (27.0-34.0) 22.0 PG (27.0-34.0) Mean Corpuscular Hemoglobin Concent 30.1 % (32.0-36.0) 30.2 % (32.0-36.0) 31.0 % (32.0-36.0) Red Cell Distribution Width 22.0 % (11.6-17.2) 21.0 % (11.6-17.2) 20.7 % (11.6-17.2) Platelet Count 48 TH/MM3 (150-450) 41 TH/MM3 (150-450) 36 TH/MM3 (150-450) Mean Platelet Volume 8.4 FL (7.0-11.0) 8.2 FL (7.0-11.0) 9.0 FL (7.0-11.0) Neutrophils (%) (Auto) 91.3 % (16.0-70.0) 90.9 % (16.0-70.0) 92.0 % (16.0-70.0) Lymphocytes (%) (Auto) 3.2 % (9.0-44.0) 3.8 % (9.0-44.0) 3.1 % (9.0-44.0) Monocytes (%) (Auto) 5.1 % (0.0-8.0) 5.1 % (0.0-8.0) 4.7 % (0.0-8.0) Eosinophils (%) (Auto) 0.1 % (0.0-4.0) 0.0 % (0.0-4.0) 0.1 % (0.0-4.0) Basophils (%) (Auto) 0.3 % (0.0-2.0) 0.2 % (0.0-2.0) 0.1 % (0.0-2.0) Neutrophils # (Auto) 19.7 TH/MM3 (1.8-7.7) 20.1 TH/MM3 (1.8-7.7) 23.3 TH/MM3 (1.8-7.7) Lymphocytes # (Auto) 0.7 TH/MM3 (1.0-4.8) 0.8 TH/MM3 (1.0-4.8) 0.8 TH/MM3 (1.0-4.8) Monocytes # (Auto) 1.1 TH/MM3 (0-0.9) 1.1 TH/MM3 (0-0.9) 1.2 TH/MM3 (0-0.9) Eosinophils # (Auto) 0.0 TH/MM3 (0-0.4) 0.0 TH/MM3 (0-0.4) 0.0 TH/MM3 (0-0.4) Basophils # (Auto) 0.1 TH/MM3 (0-0.2) 0.0 TH/MM3 (0-0.2) 0.0 TH/MM3 (0-0.2) CBC Comment AUTO DIFF AUTO DIFF AUTO DIFF Differential Total Cells Counted 100 100 100 Neutrophils % (Manual) 82 % (16-70) 91 % (16-70) 89 % (16-70) Band Neutrophils % 8 % (0-6) 5 % (0-6) 7 % (0-6) Lymphocytes % 1 % (9-44) 1 % (9-44) 3 % (9-44) Monocytes % 5 % (0-8) 1 % (0-8) Neutrophils # (Manual) 20.3 TH/MM3 (1.8-7.7) 21.7 TH/MM3 (1.8-7.7) 24.5 TH/MM3 (1.8-7.7) Metamyelocytes 4 % (0-1) 2 % (0-1) 1 % (0-1) Nucleated Red Blood Cells 1 /100 WBC (0-0) 1 /100 WBC (0-0) Differential Comment FINAL DIFF MANUAL FINAL DIFF MANUAL FINAL DIFF MANUAL Platelet Estimate LOW (NORMAL) LOW (NORMAL) LOW (NORMAL) Platelet Morphology Comment NORMAL (NORMAL) NORMAL (NORMAL) NORMAL (NORMAL) Red Cell Morphology Comment NORMAL (NORMAL) Blood Urea Nitrogen 40 MG/DL (7-18) 34 MG/DL (7-18) 35 MG/DL (7-18) Creatinine 1.13 MG/DL (0.50-1.00) 0.99 MG/DL (0.50-1.00) 1.02 MG/DL (0.50-1.00) Random Glucose 270 MG/DL (74-106) 172 MG/DL (74-106) 171 MG/DL (74-106) Calcium Level 8.1 MG/DL (8.5-10.1) 7.4 MG/DL (8.5-10.1) 7.2 MG/DL (8.5-10.1) Phosphorus Level 0.8 MG/DL (2.5-4.9) Magnesium Level 2.7 MG/DL (1.5-2.5) Sodium Level 150 MEQ/L (136-145) 147 MEQ/L (136-145) 142 MEQ/L (136-145) Chloride Level 113 MEQ/L (98-107) 109 MEQ/L (98-107) 105 MEQ/L (98-107) Carbon Dioxide Level 27.5 MEQ/L (21.0-32.0) 26.5 MEQ/L (21.0-32.0) 26.2 MEQ/L (21.0-32.0) Anion Gap 10 MEQ/L (5-15) 12 MEQ/L (5-15) 11 MEQ/L (5-15) Estimat Glomerular Filtration Rate 48 ML/MIN (>89) 56 ML/MIN (>89) 54 ML/MIN (>89) Ovalocytes 1+ (NORMAL) 1+ (NORMAL) Total Protein 5.5 GM/DL (6.4-8.2) 5.1 GM/DL (6.4-8.2) Albumin 2.0 GM/DL (3.4-5.0) 1.9 GM/DL (3.4-5.0) Alkaline Phosphatase 209 U/L (45-117) 236 U/L (45-117) Aspartate Amino Transf (AST/SGOT) 30 U/L (15-37) 30 U/L (15-37) Alanine Aminotransferase (ALT/SGPT) 20 U/L (10-53) 18 U/L (10-53) Total Bilirubin 1.1 MG/DL (0.2-1.0) 1.1 MG/DL (0.2-1.0) Protein Corrected Calcium 8.3 MG/DL (8.5-10.1) 8.3 MG/DL (8.5-10.1) Result Diagram: 06/04/1751606/04/17516 Imaging Last Impressions Thyroid Biopsy Ultrasound 06/03/17 Signed Impressions: Service Date/Time: May 13:59 - CONCLUSION: Uncomplicated ultrasound guided core needle biopsy of a complex cystic mass of the right thyroid. Sushant Juares Jr., MD Lymph Node Biopsy CT 06/02/17 Signed Impressions: Service Date/Time: Friday, June 02, 2017 11:52 - CONCLUSION: Uncomplicated CT guided biopsy of a left pelvic mass likely relating to iliac chain lymph nodes. Sushant Juares Jr., MD Chest X-Ray 05/31/17 Signed Impressions: Service Date/Time: Wednesday, May 31, 2017 09:31 - CONCLUSION: Increasing nodular opacities throughout both lungs Patient has changes in the left base. I Pa Verdin MD FACR Abdomen X-Ray 05/31/17 Signed Impressions: Service Date/Time: Wednesday, May 31, 2017 10:21 - CONCLUSION: The tip of the NG tube in the antrum of the stomach. Sushant Juares Jr., MD Brain MRI 05/30/17 Signed Impressions: Service Date/Time: Tuesday, May 30, 2017 19:47 - CONCLUSION: 1. Tiny 9 mm enhancing extra-axial mass along the left high parietal region consistent with probable tiny meningioma. 2. No acute infarct, acute hemorrhage, midline shift or extra-axial bleed. Delta Allison MD Lower Extremity CT 05/28/17 Signed Impressions: Service Date/Time: Sunday, May 28, 2017 09:50 - CONCLUSION: 1. Acute nondisplaced superior and inferior pubic rami fractures on the left. 2. Retroperitoneal adenopathy worrisome for metastatic disease or myeloproliferative disorder. 3. Enlarged and lobulated uterus likely related to fibroids. Sushant Juares Jr., MD CT Angiography 05/28/17 Signed Impressions: Service Date/Time: Sunday, May 28, 2017 02:01 - CONCLUSION: Large mass on the right side of the trachea could be an enlarged thyroid. Innumerable nodules scattered throughout the lungs metastatic disease certainly within the differential. There are a number of nodules in the right lower lobe which would be amenable to CT-guided biopsy. Vince Galan MD Abdomen/Pelvis CT 05/28/17 Signed Impressions: Service Date/Time: Sunday, May 28, 2017 20:56 - CONCLUSION: 1. There is evidence of retroperitoneal metastatic lymphadenopathy and I believe potentially on the basis of cervical or endometrial carcinoma. Primary lesion versus additional metastatic involvement of the urinary bladder. There is also a nonspecific nodule in the expected region of the distal urethra. 2. Nodularity of both adrenal glands, most likely metastatic. 3. Visualized lung bases again show evidence of widespread and confluent pulmonary metastatic disease with small effusions. Kane Cedeño MD Maxillofacial CT 05/27/172016 Signed Impressions: Service Date/Time: May 20:34 - CONCLUSION: 1. No maxillofacial fracture is present. 2. There is bilateral maxillary mucoperiosteal thickening with 12 mm polypoid structure extending from the left maxillary antrum into the left posterior nasal cavity. 3. There is a 14 mm left parotid gland nodule. Differential diagnosis includes intraparotid lymph node or pleomorphic adenoma. Kane Bartlett MD Head CT 05/27/172016 Signed Impressions: Service Date/Time: May 20:34 - CONCLUSION: No acute abnormality is identified. Kane Bartlett MD Cervical Spine CT 05/27/172016 Signed Impressions: Service Date/Time: May 20:34 - CONCLUSION: 1. No acute cervical spine abnormality is identified. There is degenerative disc disease at C5-C6. 2. There is a 4.1 cm right thyroid nodule. If this is a new finding, suggest nonemergent outpatient ultrasound of the thyroid gland for further evaluation. 3. Abnormal linear and nodular parenchymal opacities in the upper lobes bilaterally. Since this does not pertain to the patient's acute problem, this finding should also be further evaluated with outpatient chest CT with IV contrast. Also suggest correlating with any prior outside imaging studies. Kane Bartlett MD Hip and Pelvis X-Ray 05/27/17 Signed Impressions: Service Date/Time: May 20:49 - CONCLUSION: 1. A subtle lucency in the left pelvis may represent a nondisplaced left superior pubic ramus fracture. 2. Mild osteoarthritis of the joints bilaterally. Kane Bartlett MD Ankle X-Ray 05/27/17 0000 Signed Impressions: Service Date/Time: May 20:56 - CONCLUSION: No acute left ankle abnormality is identified. Kane Bartlett MD Procedures 06/02 CT guided lymph node bx 06/03 us guided thyroid Bx . Assessment and Plan Disease Oriented Problem List: (1) Elevated troponin I level (2) Closed fracture of single pubic ramus of pelvis (3) Hypercalcemia (4) Adenopathy (5) Lesion of lung (6) Mass of cervix Symptom Scale: (1) Dyspnea (2) Anxiety (3) Pain (4) Confusion Pertinent Non-Medical Issues Psychosocial:Patient originally from [place], though has lived in [place] since the 1980s. Still working some, does [employer] services part-time. Supported locally by 3 adult children, her son lives with her . . 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 Apparently completed health care surrogate designation at [facility] Wednesday however this document is not present in chart. May offer to assist patient to complete healthcare surrogate again if she is able. Daughter indicates that she was named as primary surrogate with her sister is secondary. Patient , supported by 3 adult children, who per [place] statutes would be appropriate proxies if patient incapacitated. Ethical issues impacting care: Important Contacts VERNELL AGUILERA (DAUGHTER) [phone] Maribeth Travis daughter [phone] Jared- son- lives w pt, using pt phone # [phone] . Prognosis This patient was admitted status post mechanical fall at home. Incidental findings via imaging of what appears to be widespread metastatic malignancy process. Biopsy, additional diagnostics pending. Treatment options may be limited if in fact she does have metastatic disease. Further prognostication pending biopsy. . Code Status: Full Code Plan * Legal decision maker:Patient mental status fluctuates at times she may be capacitated. 06/04 mental status cont to improve, pt sharp. 06/01/17 completed [facility] DTR MARIBETH- placed in chart, scanned to med records * Goals: Pt, family wish to continue aggressive tx course. Open to ongoing conversations as clinical course evolves. pathology from bxs pending-- no decisions until results and any potential tx options are known. * CODE STATUS: Full code * SYMPTOMS: --Dyspnea- resp status fluctuating, + CXR /CT findings multiple nodules concerning for malignancy; + on nebulizers, O2. Will cont to evaluate, no dyspnea endorsed today, maria e NC --Anxiety-potential for related to dyspnea, multiple new medical findings, acute ICU course. Cautious use of benzos at this time given concern for AMS, resp compromise, will cont to evaluate . pt mental status has cont to improve, may be r/t ativan --Pain-status post mechanical fall with injury to pelvis, left leg. + intermittent pelvic/hip pain, will cont to evaluate. Cautious use of opiates given fluctuating mental status. nursing offering freq repositioning, prns, ice bags. prn norco 5mg used x1 today, 10mg x1 today,effective. will cont to monitor. --Confusion-fluctuating mental status during hospital course, has steadily improved. MRI negative for stroke or acute process. Hypercalcemia, electrolyte abnormalities, leukocytosis, probably multifactorial * Palliative care will continue to follow during hospital course as condition evolves, to assist patient/decision-maker with understanding of medical conditions, weighing benefits/burdens of treatment options, for clarification of goals of treatment. Additionally will assist with any symptoms of palliative concern Attestation To help prompt me to consider important information that might be impacting today's encounter and assessment, information from prior notes written by myself or my colleagues may have been "brought forward" into today's note. My signature on this note, however, is an attestation that I personally performed the exam, history, and/or decision-making noted today, and, unless otherwise indicated, the interactions with patient, family, and staff as well as the review of records all occurred today. I also attest that the listed assessment and stated plan reflect my best clinical judgment today based on the combination of historical information, prior notes, and today's exam/ interactions. When time spent is documented, it refers only to time spent today by the signer, or if indicated, combined time spent today by collaborating physician/nurse practitioner. Yolis Fernando Jun 04, 2017 14:22
[2017-06-04] MEDS: PANTOPRAZOLE SODIUM 40 MG VIAL IV PUSH SCH (17:20)
[2017-06-05] VITALS (8 sets, daily range): BP systolic 154–168; BP diastolic 67–79; PULSE 80–113; RESP 18–20; TEMP 97.4–98; O2SAT 90–97
[2017-06-05] MEDS: ACETAMINOPHEN/HYDROcodone 325 MG/10 MG TAB PO PRN ×3 (00:08→09:45)
[2017-06-05] MEDS: cloNIDine HCL 0.1 MG TAB PO PRN (00:08)
[2017-06-05] MEDS: INSULIN NovoLIN REGULAR SUPPLEMENTAL SCALE SQ SCH ×6 (02:58→21:29)
[2017-06-05] MEDS: PIPERACIL-TAZO 4.5 GM PREMIX 100 ML IV SCH ×4 (03:00→21:23)
[2017-06-05] MEDS: FREE WATER G-TUBE SCH ×4 (05:49→18:00)
[2017-06-05] MEDS: hydrALAZINE HCL 50 MG TAB PO SCH ×3 (05:51→21:23)
[2017-06-05] MEDS: hydrALAZINE HCL 10 MG TAB PO PRN (05:54)
[2017-06-05 06:02] LABS: C. DIFF EPI 027 PRESUMPTIVE NEGATIVE (NEGATIVE)
[2017-06-05] MEDS: RESP: ALBUTEROL 2.5 MG/3 ML NEB (SCH) NEB ×4 (08:00→21:00)
[2017-06-05 08:41] LABS: EOSINOPHIL % 0.1 % (0.0-4.0); HEMATOCRIT 25.8 % (35.0-46.0); LYMPH % 3.4 % (9.0-44.0); LYMPHOCYTE # 1.1 TH/MM3 (1.0-4.8); MEAN CORPUSCULAR HEMOGLOBIN 22.5 PG (27.0-34.0); MEAN CORPUSCULAR HGB CONC 31.8 % (32.0-36.0); MONO % 4.3 % (0.0-8.0); NEUT % 92.2 % (16.0-70.0); PLATELET COUNT 29 TH/MM3 (150-450); RED BLOOD COUNT 3.64 MIL/MM3 (4.00-5.30); RED CELL DISTRIBUTION WIDTH 21.2 % (11.6-17.2); WHITE BLOOD COUNT 33.6 TH/MM3 (4.0-11.0)
[2017-06-05 08:49] LABS: HEMO FLAGS AUTO DIFF
[2017-06-05] MEDS: amLODIPine BESYLATE 5 MG TAB PO SCH (08:51)
[2017-06-05] MEDS: SODIUM CHLORIDE 0.9% FLUSH 10 ML FLUSH IV FLUSH SCH ×2 (08:54→21:23)
[2017-06-05 09:09] LABS: BICARBONATE 27.1 MEQ/L (21.0-32.0); POTASSIUM 3.2 MEQ/L (3.5-5.1)
[2017-06-05 09:27] LABS: CALCIUM-PROTEIN CORRECTED 8.1 MG/DL (8.5-10.1)
[2017-06-05 09:30] LABS: BANDS 5 % (0-6); NEUTROPHIL # MANUAL DIFF 31.6 TH/MM3 (1.8-7.7); PLATELET ESTIMATE SMEAR LOW (NORMAL); PLATELET MORPHOLOGY NORMAL (NORMAL); POLYS (SEG NEUTROPHILS) 89 % (16-70); SCAN/DIFF FINAL DIFF MANUAL; WBC DIFF SAMPLE 100
--- NOTE | 2017-06-05 11:44 | HHI.PR ---
Subjective Remarks Patient seen and examined this morning. Vitals are stable and the patient is afebrile. Has not been out of bed alone. Denies CP or SOB. States she wants to go to rehab. Has nuñez in, feels she urinates too frequently to pee on her own. Endorses some SOB. When asked about blood in nuñez bag, patient reports it has been there since admission. Denies easy bruisability. Objective Vital Signs Date Time Temp Pulse Resp B/P (MAP) Pulse Ox O2 Delivery O2 Flow Rate FiO2 06/05/17 08:05 97.6 82 18 165/79 (107) 97 06/05/17 08:00 80 06/05/17 08:00 Nasal Cannula 2.00 06/05/17 04:00 97.9 94 20 167/78 (107) 94 06/05/17 00:00 98.0 105 20 168/72 (104) 94 06/04/17 20:00 97.9 99 22 158/56 (90) 94 06/04/17 20:00 Nasal Cannula 2.00 06/04/17 19:46 91 Nasal Cannula 2.00 06/04/17 18:15 97.3 94 20 159/69 (99) 93 06/04/17 17:44 98.0 06/04/17 17:00 97 16 160/71 (100) 96 06/04/17 16:00 98 06/04/17 16:00 98.7 98 17 167/71 (103) 95 06/04/17 14:51 14 06/04/17 14:00 99 06/04/17 12:00 98.0 96 13 149/65 (93) 94 06/04/17 12:00 96 I/O 06/04/17 06/04/17 06/04/17 06/05/17 06/05/17 06/05/17 07:00 15:00 23:00 07:00 15:00 23:00 Intake Total 1220 ml 1671 ml 240 ml 480 ml Output Total 900 ml 950 ml 950 ml Balance 320 ml 1671 ml -710 ml -470 ml Intake Oral 120 ml 240 ml 480 ml IV Total 1100 ml 1671 ml Output Urine Total 900 ml 950 ml 950 ml # Bowel Movements 1 Result Diagram: 06/05/17 0812 06/05/17 0812 Imaging Last Impressions Thyroid Biopsy Ultrasound 06/03/17 Signed Impressions: Service Date/Time: May 13:59 - CONCLUSION: Uncomplicated ultrasound guided core needle biopsy of a complex cystic mass of the right thyroid. Sushant Juares Jr., MD Lymph Node Biopsy CT 06/02/17 Signed Impressions: Service Date/Time: Friday, June 02, 2017 11:52 - CONCLUSION: Uncomplicated CT guided biopsy of a left pelvic mass likely relating to iliac chain lymph nodes. Sushant Juares Jr., MD Chest X-Ray 05/31/17 Signed Impressions: Service Date/Time: Wednesday, May 31, 2017 09:31 - CONCLUSION: Increasing nodular opacities throughout both lungs Patient has changes in the left base. I Pa Verdin MD FACR Abdomen X-Ray 05/31/17 Signed Impressions: Service Date/Time: Wednesday, May 31, 2017 10:21 - CONCLUSION: The tip of the NG tube in the antrum of the stomach. Sushant Juares Jr., MD Brain MRI 05/30/17 Signed Impressions: Service Date/Time: Tuesday, May 30, 2017 19:47 - CONCLUSION: 1. Tiny 9 mm enhancing extra-axial mass along the left high parietal region consistent with probable tiny meningioma. 2. No acute infarct, acute hemorrhage, midline shift or extra-axial bleed. Delta Allison MD Lower Extremity CT 05/28/17 0000 Signed Impressions: Service Date/Time: Sunday, May 28, 2017 09:50 - CONCLUSION: 1. Acute nondisplaced superior and inferior pubic rami fractures on the left. 2. Retroperitoneal adenopathy worrisome for metastatic disease or myeloproliferative disorder. 3. Enlarged and lobulated uterus likely related to fibroids. Sushant Juares Jr., MD CT Angiography 05/28/17 Signed Impressions: Service Date/Time: Sunday, May 28, 2017 02:01 - CONCLUSION: Large mass on the right side of the trachea could be an enlarged thyroid. Innumerable nodules scattered throughout the lungs metastatic disease certainly within the differential. There are a number of nodules in the right lower lobe which would be amenable to CT-guided biopsy. Vince Galan MD Abdomen/Pelvis CT 05/28/17 0000 Signed Impressions: Service Date/Time: Sunday, May 28, 2017 20:56 - CONCLUSION: 1. There is evidence of retroperitoneal metastatic lymphadenopathy and I believe potentially on the basis of cervical or endometrial carcinoma. Primary lesion versus additional metastatic involvement of the urinary bladder. There is also a nonspecific nodule in the expected region of the distal urethra. 2. Nodularity of both adrenal glands, most likely metastatic. 3. Visualized lung bases again show evidence of widespread and confluent pulmonary metastatic disease with small effusions. Kane Cedeño MD Maxillofacial CT 05/27/172016 Signed Impressions: Service Date/Time: May 20:34 - CONCLUSION: 1. No maxillofacial fracture is present. 2. There is bilateral maxillary mucoperiosteal thickening with 12 mm polypoid structure extending from the left maxillary antrum into the left posterior nasal cavity. 3. There is a 14 mm left parotid gland nodule. Differential diagnosis includes intraparotid lymph node or pleomorphic adenoma. Kane Bartlett MD Head CT 05/27/172016 Signed Impressions: Service Date/Time: May 20:34 - CONCLUSION: No acute abnormality is identified. Kane Bartlett MD Cervical Spine CT 05/27/172016 Signed Impressions: Service Date/Time: May 20:34 - CONCLUSION: 1. No acute cervical spine abnormality is identified. There is degenerative disc disease at C5-C6. 2. There is a 4.1 cm right thyroid nodule. If this is a new finding, suggest nonemergent outpatient ultrasound of the thyroid gland for further evaluation. 3. Abnormal linear and nodular parenchymal opacities in the upper lobes bilaterally. Since this does not pertain to the patient's acute problem, this finding should also be further evaluated with outpatient chest CT with IV contrast. Also suggest correlating with any prior outside imaging studies. Kane Bartlett MD Hip and Pelvis X-Ray 05/27/17 0000 Signed Impressions: Service Date/Time: May 20:49 - CONCLUSION: 1. A subtle lucency in the left pelvis may represent a nondisplaced left superior pubic ramus fracture. 2. Mild osteoarthritis of the joints bilaterally. Kane Bartlett MD Ankle X-Ray 05/27/17 0000 Signed Impressions: Service Date/Time: May 20:56 - CONCLUSION: No acute left ankle abnormality is identified. Kane Bartlett MD Other Results GENERAL: anxious appearing woman, nad SKIN: Warm and dry. Bruising noted on bridge of nose. HEAD: Normocephalic. EYES: No scleral icterus. No injection or drainage. Nose: blood noted in nares NECK: Supple, trachea midline. No JVD or lymphadenopathy. CARDIOVASCULAR: Regular rate and rhythm without murmurs, gallops, or rubs. RESPIRATORY: Breath sounds equal bilaterally. No accessory muscle use. GASTROINTESTINAL: Abdomen soft, non-tender, nondistended. MUSCULOSKELETAL: No cyanosis, or edema. : nuñez in place, dark blood in nuñez bag A/P Problem List: (1) Leukocytosis ICD Code: D72.829 - Elevated white blood cell count, unspecified (2) Closed fracture of left superior pubic ramus ICD Code: S32.512A - Fracture of superior rim of left pubis, initial encounter for closed fracture (3) Thyroid neoplasm malignant ICD Code: C73 - Malignant neoplasm of thyroid gland (4) Electrolyte disorder ICD Code: E87.8 - Other disorders of electrolyte and fluid balance, not elsewhere classified Status: Acute Assessment and Plan [id number] female with Scattered pulmonary nodules likely related to metastatic disease. Thyroid mass with Retroperitoneal metastatic lymphadenopathy S/P CT guided thyroid biopsy 06/03/17: "Hurthe cells with fibrous band/ capsule it from an unremarkable thyroid parenchyma. Differential diagnosis includes hurthe cell adenoma and hyperplastic nodule with oncocytic change." PelvisLymph node biopsy: "Poorly differentiated non-small cell carcinoma" Unable to perform CT guided biopsy of lung nodule patient did not tolerate supine position Heme/Onc: ultimately need lung biopsy to determine if metastatic hurthle cell vs. met from non small cell carcinoma (treatment would be palliative) Palliative care is following Leukocytosis Infectious process versus metastasis disease Appreciate input from infectious disease: If cultures continue to be negative may DC antibiotics Continue with Zosyn and monitor culture reports Encephalopathy, multifactorial (hypercalcemia, hypertensive encephalopathy and hypernatremia) Improved EEG 05/31: Encephalopathy without epileptic activity. Hypertensive urgency, rule out progressive reversible encephalopathy syndrome. Echo on which showed normal left ventricular systolic function EF 55 % to 60%. No RWMA Continue hydralazine 50 mg every 8 hour, Norvasc Hypernatremia. Resolved Hypokalemia Replete Superior and inferior pubic ramus fracture on the left. PT consult to treat and eval Impaired fasting glucose hemoglobin A1c 7.4 Continue with sliding scale insulin Likely can d/c on metformin GI prophylaxis with Protonix and DVT prophylaxis with SCDs. No chemical DVT Prophylaxis due to thrombocytopenia Discharge Planning d/c pending biopsy results and plan for management. Likely d/c to SNF vs. home with home health for pelvic fracture. Problem Qualifiers (1) Closed fracture of left superior pubic ramus: Qualified Codes: S32.512A - Fracture of superior rim of left pubis, initial encounter for closed fracture Luisa Jimenez MD Jun 05, 2017 11:44
--- NOTE | 2017-06-05 11:56 | PD.ONC.PN ---
Subjective Subjective Remarks Afebrile overnight. Patient resting in bed in nad. Some pain in left hip, but reports it is controlled. Objective Data Date Time Temp Pulse Resp B/P (MAP) Pulse Ox O2 Delivery O2 Flow Rate FiO2 06/05/17 08:05 97.6 82 18 165/79 (107) 97 06/05/17 08:00 80 06/05/17 08:00 Nasal Cannula 2.00 06/05/17 04:00 97.9 94 20 167/78 (107) 94 06/05/17 00:00 98.0 105 20 168/72 (104) 94 06/04/17 20:00 97.9 99 22 158/56 (90) 94 06/04/17 20:00 Nasal Cannula 2.00 06/04/17 19:46 91 Nasal Cannula 2.00 06/04/17 18:15 97.3 94 20 159/69 (99) 93 06/04/17 17:44 98.0 06/04/17 17:00 97 16 160/71 (100) 96 06/04/17 16:00 98 06/04/17 16:00 98.7 98 17 167/71 (103) 95 06/04/17 14:51 14 06/04/17 14:00 99 06/04/17 12:00 98.0 96 13 149/65 (93) 94 06/04/17 12:00 96 06/05/17 06/05/17 06/05/17 07:00 15:00 23:00 Intake Total 480 ml Output Total 950 ml Balance -470 ml Result Diagram: 06/05/1712 06/05/17811 Laboratory Results Laboratory Tests Test 06/04/17 16:14 06/04/17 22:44 06/05/17 08:12 Potassium Level 3.2 MEQ/L 3.2 MEQ/L Stool C. difficile Toxin (PCR) NEGATIVE Stl C. difficile Toxin Epiderm 027 PRESUMPTIVE NEGATIVE White Blood Count 33.6 TH/MM3 Red Blood Count 3.64 MIL/MM3 Hemoglobin 8.2 GM/DL Hematocrit 25.8 % Mean Corpuscular Volume 71.0 FL Mean Corpuscular Hemoglobin 22.5 PG Mean Corpuscular Hemoglobin Concent 31.8 % Red Cell Distribution Width 21.2 % Platelet Count 29 TH/MM3 Mean Platelet Volume 9.1 FL Neutrophils (%) (Auto) 92.2 % Lymphocytes (%) (Auto) 3.4 % Monocytes (%) (Auto) 4.3 % Eosinophils (%) (Auto) 0.1 % Basophils (%) (Auto) 0.0 % Neutrophils # (Auto) 31.0 TH/MM3 Lymphocytes # (Auto) 1.1 TH/MM3 Monocytes # (Auto) 1.5 TH/MM3 Eosinophils # (Auto) 0.0 TH/MM3 Basophils # (Auto) 0.0 TH/MM3 CBC Comment AUTO DIFF Differential Total Cells Counted 100 Neutrophils % (Manual) 89 % Band Neutrophils % 5 % Lymphocytes % 4 % Monocytes % 2 % Neutrophils # (Manual) 31.6 TH/MM3 Differential Comment FINAL DIFF MANUAL Platelet Estimate LOW Platelet Morphology Comment NORMAL Blood Urea Nitrogen 32 MG/DL Creatinine 0.92 MG/DL Random Glucose 140 MG/DL Total Protein 5.5 GM/DL Calcium Level 7.2 MG/DL Sodium Level 142 MEQ/L Chloride Level 105 MEQ/L Carbon Dioxide Level 27.1 MEQ/L Anion Gap 10 MEQ/L Estimat Glomerular Filtration Rate 61 ML/MIN Protein Corrected Calcium 8.1 MG/DL Administered Medications Medications (Trade) Dose Ordered Sig/Gary Route PRN Reason Start Time Stop Time Status Last Admin Dose Admin Naloxone HCl (Narcan Inj) 0.4 mg UNSCH PRN IV SEE LABEL COMMENTS 05/27/17 22:30 05/30/17 13:30 Clonidine (Catapres) 0.1 mg Q6H PRN PO bp>160/90 05/27/17 22:45 06/05/17 00:08 Sodium Chloride (NS Flush) 2 ml BID IV FLUSH 05/28/17 21:00 06/05/17 08:54 Heparin Sodium (Porcine) (Heparin Inj) 5,000 units Q8H SQ 05/28/17 17:00 Future Hold 05/30/17 07:44 Acetaminophen (Tylenol) 650 mg Q6H PRN PO PAIN SCALE 1 TO 2 05/28/17 09:15 06/02/17 22:23 Acetaminophen/ Hydrocodone Bitart ([place] 5-325 Mg) 1 tab Q4H PRN PO PAIN SCALE 3 TO 5 05/28/17 09:15 06/04/17 13:51 Acetaminophen/ Hydrocodone Bitart ([place] 10-325 Mg) 1 tab Q4H PRN PO PAIN SCALE 6 TO 10 05/28/17 09:15 06/05/17 09:45 Hydroxyzine Pamoate (Vistaril) 25 mg Q6H PRN PO anxiety 05/28/17 17:00 06/02/17 22:23 Propranolol HCl (Inderal) 20 mg Q8HR PO 05/29/17 22:00 Future Hold 05/30/17 05:34 Amlodipine Besylate (Norvasc) 5 mg DAILY PO 05/30/17 09:00 06/05/17 08:51 Pantoprazole Sodium (Protonix Inj) 40 mg Q24H IV PUSH 05/30/17 18:00 06/04/17 17:20 Miscellaneous Information Patient in critical care unit? Ass... [id number] .XX 05/30/17 20:30 05/30/17 20:30 Insulin Human Regular (NovoLIN R SUPPLEMENTAL SCALE) 1 Q4H SQ 05/31/17 10:00 06/05/17 11:35 Piperacillin Sod/ Tazobactam Sod 100 ml @ 200 mls/hr Q6H IV 05/31/17 10:00 06/05/17 08:52 Water (Free Water) 300 ml Q6HR G-TUBE 06/01/17 12:00 06/04/17 17:21 Albuterol Sulfate (Albuterol Neb) 2.5 mg QID NEB NEB 06/02/17 20:00 06/04/17 19:46 Hydralazine HCl (Apresoline) 50 mg Q8HR PO 06/03/17 10:00 06/05/17 05:51 Hydralazine HCl (Apresoline) 10 mg Q6HR PRN PO SBP>160, DBP>90 06/03/17 10:00 06/05/17 05:54 Objective Remarks GENERAL: Middle aged female upright in bed in nad. SKIN: Warm and dry. bandage, right neck, c/d/i. HEAD: Normocephalic. EYES: No injection or drainage. NECK: Supple, trachea midline. CARDIOVASCULAR: Regular rate and rhythm RESPIRATORY: anterior kelsey clear. GASTROINTESTINAL: Abdomen soft, non-tender, nondistended. : nuñez to gravity with pink urine EXTREMITIES: No cyanosis NEUROLOGICAL: awake and alert, normal speech. 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 --ultimately need bx lung to determine if metastatic Hurthle cell versus metastatic from non small cell carcinoma. --If metastatic Hurthle cell, no need for thyroidectomy. 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 --Treatment in terms of the non small cell is palliative. --Prognosis is likely carried by the non small cell component. --Agree with plans to go to rehab to tend to pelvic fracture. --Out pt staging could be coordinated and decide how to proceed with treatment pending pt' performance status. Assessment 67 y/o woman admitted s/p fall and pelvic fracture. Hematology consulted for findings of hypercalcemia, thyroid nodule, multiple metastatic lung lesion and adenopathy. h/o Hypertension, Hyperlipidemia, Obesity, Noncompliance, Metastatic thyroid cancer Pelvic fracture. Plan 1. patient could be discharged and complete workup and staging outpatient 2. fs faxed to new patient referrals for follow up with Dr. Tong in 1-2 weeks. Attending Statement The exam, history, and the medical decision-making described in the above note were completed with the assistance of the mid-level provider. I reviewed and agree with the findings presented. I attest that I had a [id number] encounter with the patient on the same day, and personally performed and documented my assessment and findings in the medical record. The patient seen and examined, vital signs medications imaging studies as well as mental health consultant reports reviewed. 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 She also has a lymph node biopsy from the inguinal area concerning for a poorly differentiated non-small cell carcinoma the primary site could not be definitively identified based on the pathologic specimen. At this point the patient will benefit from systemic staging and possibly additional tissue sample from the pelvic lymph node to further characterize the organ of origin. There is a possibility she may have 2 separate primaries versus the same primary with significant degree of dedifferentiation between the primary tumor and the metastatic lesions. She will likely be discharged to a rehabilitation facility in the upcoming days and outpatient follow-up with Dr. Tong will be arranged to initiate systemic therapy/additional workup. Lalitha Rowe Jun 05, 2017 11:55 Kulwinder Wade MD Jun 05, 2017 17:55
--- NOTE | 2017-06-05 13:35 | HHI.FPPN ---
Addendum to progress note ADDENDUM Reason for addendum: Additonal documentation Additional information Due to gross hematuria, and nonspecific nodule urethra urology was consulted for recommendations and further workup. Luisa Jimenez MD Jun 05, 2017 13:35
--- NOTE | 2017-06-05 16:59 | HHI.IDPN ---
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 Vital Signs Date Time Temp Pulse Resp B/P (MAP) Pulse Ox O2 Delivery O2 Flow Rate FiO2 06/05/17 12:05 97.8 113 20 165/74 (104) 93 06/05/17 08:05 97.6 82 18 165/79 (107) 97 06/05/17 08:00 80 06/05/17 08:00 Nasal Cannula 2.00 06/05/17 04:00 97.9 94 20 167/78 (107) 94 06/05/17 00:00 98.0 105 20 168/72 (104) 94 06/04/17 20:00 97.9 99 22 158/56 (90) 94 06/04/17 20:00 Nasal Cannula 2.00 06/04/17 19:46 91 Nasal Cannula 2.00 06/04/17 18:15 97.3 94 20 159/69 (99) 93 06/04/17 17:44 98.0 06/04/17 17:00 97 16 160/71 (100) 96 . Laboratory Tests Test 06/04/17 05:17 06/05/17 08:12 White Blood Count 25.3 TH/MM3 33.6 TH/MM3 Red Blood Count 3.78 MIL/MM3 3.64 MIL/MM3 Hemoglobin 8.3 GM/DL 8.2 GM/DL Hematocrit 26.9 % 25.8 % Mean Corpuscular Volume 71.1 FL 71.0 FL Mean Corpuscular Hemoglobin 22.0 PG 22.5 PG Mean Corpuscular Hemoglobin Concent 31.0 % 31.8 % Red Cell Distribution Width 20.7 % 21.2 % Platelet Count 36 TH/MM3 29 TH/MM3 Mean Platelet Volume 9.0 FL 9.1 FL Neutrophils (%) (Auto) 92.0 % 92.2 % Lymphocytes (%) (Auto) 3.1 % 3.4 % Monocytes (%) (Auto) 4.7 % 4.3 % Eosinophils (%) (Auto) 0.1 % 0.1 % Basophils (%) (Auto) 0.1 % 0.0 % Neutrophils # (Auto) 23.3 TH/MM3 31.0 TH/MM3 Lymphocytes # (Auto) 0.8 TH/MM3 1.1 TH/MM3 Monocytes # (Auto) 1.2 TH/MM3 1.5 TH/MM3 Eosinophils # (Auto) 0.0 TH/MM3 0.0 TH/MM3 Basophils # (Auto) 0.0 TH/MM3 0.0 TH/MM3 CBC Comment AUTO DIFF AUTO DIFF Differential Total Cells Counted 100 100 Neutrophils % (Manual) 89 % 89 % Band Neutrophils % 7 % 5 % Lymphocytes % 3 % 4 % Neutrophils # (Manual) 24.5 TH/MM3 31.6 TH/MM3 Metamyelocytes 1 % Differential Comment FINAL DIFF MANUAL FINAL DIFF MANUAL Platelet Estimate LOW LOW Platelet Morphology Comment NORMAL NORMAL Ovalocytes 1+ Monocytes % 2 % Laboratory Tests Test 06/04/17 05:17 06/04/17 16:14 06/05/17 08:12 Blood Urea Nitrogen 35 MG/DL 32 MG/DL Creatinine 1.02 MG/DL 0.92 MG/DL Random Glucose 171 MG/DL 140 MG/DL Total Protein 5.1 GM/DL 5.5 GM/DL Albumin 1.9 GM/DL Calcium Level 7.2 MG/DL 7.2 MG/DL Alkaline Phosphatase 236 U/L Aspartate Amino Transf (AST/SGOT) 30 U/L Alanine Aminotransferase (ALT/SGPT) 18 U/L Total Bilirubin 1.1 MG/DL Sodium Level 142 MEQ/L 142 MEQ/L Potassium Level 2.9 MEQ/L 3.2 MEQ/L 3.2 MEQ/L Chloride Level 105 MEQ/L 105 MEQ/L Carbon Dioxide Level 26.2 MEQ/L 27.1 MEQ/L Anion Gap 11 MEQ/L 10 MEQ/L Estimat Glomerular Filtration Rate 54 ML/MIN 61 ML/MIN Hemoglobin A1c 7.4 % Protein Corrected Calcium 8.3 MG/DL 8.1 MG/DL Imaging Last Impressions Thyroid Biopsy Ultrasound 06/03/17 0000 Signed Impressions: Service Date/Time: May 13:59 - CONCLUSION: Uncomplicated ultrasound guided core needle biopsy of a complex cystic mass of the right thyroid. Sushant Juares Jr., MD Lymph Node Biopsy CT 06/02/17 0000 Signed Impressions: Service Date/Time: Friday, June 02, 2017 11:52 - CONCLUSION: Uncomplicated CT guided biopsy of a left pelvic mass likely relating to iliac chain lymph nodes. Sushant Juares Jr., MD Chest X-Ray 05/31/17 Signed Impressions: Service Date/Time: Wednesday, May 31, 2017 09:31 - CONCLUSION: Increasing nodular opacities throughout both lungs Patient has changes in the left base. I Pa Verdin MD FACR Abdomen X-Ray 05/31/17 Signed Impressions: Service Date/Time: Wednesday, May 31, 2017 10:21 - CONCLUSION: The tip of the NG tube in the antrum of the stomach. Sushant Juares Jr., MD Brain MRI 05/30/17 Signed Impressions: Service Date/Time: Tuesday, May 30, 2017 19:47 - CONCLUSION: 1. Tiny 9 mm enhancing extra-axial mass along the left high parietal region consistent with probable tiny meningioma. 2. No acute infarct, acute hemorrhage, midline shift or extra-axial bleed. Delta Allison MD Lower Extremity CT 05/28/17 Signed Impressions: Service Date/Time: Sunday, May 28, 2017 09:50 - CONCLUSION: 1. Acute nondisplaced superior and inferior pubic rami fractures on the left. 2. Retroperitoneal adenopathy worrisome for metastatic disease or myeloproliferative disorder. 3. Enlarged and lobulated uterus likely related to fibroids. Sushant Juares Jr., MD CT Angiography 05/28/17 Signed Impressions: Service Date/Time: Sunday, May 28, 2017 02:01 - CONCLUSION: Large mass on the right side of the trachea could be an enlarged thyroid. Innumerable nodules scattered throughout the lungs metastatic disease certainly within the differential. There are a number of nodules in the right lower lobe which would be amenable to CT-guided biopsy. Vince Galan MD Abdomen/Pelvis CT 05/28/17 0000 Signed Impressions: Service Date/Time: Sunday, May 28, 2017 20:56 - CONCLUSION: 1. There is evidence of retroperitoneal metastatic lymphadenopathy and I believe potentially on the basis of cervical or endometrial carcinoma. Primary lesion versus additional metastatic involvement of the urinary bladder. There is also a nonspecific nodule in the expected region of the distal urethra. 2. Nodularity of both adrenal glands, most likely metastatic. 3. Visualized lung bases again show evidence of widespread and confluent pulmonary metastatic disease with small effusions. Kane Cedeño MD Maxillofacial CT 05/27/172016 Signed Impressions: Service Date/Time: May 20:34 - CONCLUSION: 1. No maxillofacial fracture is present. 2. There is bilateral maxillary mucoperiosteal thickening with 12 mm polypoid structure extending from the left maxillary antrum into the left posterior nasal cavity. 3. There is a 14 mm left parotid gland nodule. Differential diagnosis includes intraparotid lymph node or pleomorphic adenoma. Kane Bartlett MD Head CT 05/27/172016 Signed Impressions: Service Date/Time: May 20:34 - CONCLUSION: No acute abnormality is identified. Kane Bartlett MD Cervical Spine CT 05/27/172016 Signed Impressions: Service Date/Time: May 20:34 - CONCLUSION: 1. No acute cervical spine abnormality is identified. There is degenerative disc disease at C5-C6. 2. There is a 4.1 cm right thyroid nodule. If this is a new finding, suggest nonemergent outpatient ultrasound of the thyroid gland for further evaluation. 3. Abnormal linear and nodular parenchymal opacities in the upper lobes bilaterally. Since this does not pertain to the patient's acute problem, this finding should also be further evaluated with outpatient chest CT with IV contrast. Also suggest correlating with any prior outside imaging studies. Kane Bartlett MD Hip and Pelvis X-Ray 05/27/17 0000 Signed Impressions: Service Date/Time: May 20:49 - CONCLUSION: 1. A subtle lucency in the left pelvis may represent a nondisplaced left superior pubic ramus fracture. 2. Mild osteoarthritis of the joints bilaterally. Kane Bartlett MD Ankle X-Ray 05/27/17 0000 Signed Impressions: Service Date/Time: May 20:56 - CONCLUSION: No acute left ankle abnormality is identified. Kane Bartlett MD Physical Exam CONSTITUTIONAL/GENERAL: This is an obese elderly patient, in no apparent distress. TUBES/LINES/DRAINS: SKIN: No jaundice, rashes, or lesions. Skin temperature appropriate. Not diaphoretic. NECK: Trachea midline. Supple, nontender. dressing in place CARDIOVASCULAR: Regular rate and rhythm without murmurs, gallops, or rubs. No JVD. Peripheral pulses symmetric. RESPIRATORY/CHEST: Symmetric, unlabored respirations. Clear to auscultation. Breath sounds equal bilaterally. No wheezes, rales, or rhonchi. GASTROINTESTINAL: Abdomen soft, non-tender, markedly obese moderately distended. No hepato-splenomegaly, or palpable masses. No guarding. Bowel sounds present. GENITOURINARY: Without palpable bladder distension. Rios catheter in place with brown-red urine MUSCULOSKELETAL: Extremities without clubbing, cyanosis, or edema. No joint tenderness or effusion noted. No calf tenderness. No mottling or clubbing. NEUROLOGICAL: Awake and alert. Motor and sensory grossly within normal limits. Follows commands. Clear speech . Moves all extremities. PSYCHIATRIC: No obvious anxiety/depression. no apparent hallucinations or other psychotic thought process. 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
--- NOTE | 2017-06-05 17:26 | PD.CONS ---
[facility] Service Urology Consult Requested By Dr. Jimenez Reason for Consult Gross hematuria Primary Care Physician No Primary Care Physician Diagnosis: (1) Closed fracture of left superior pubic ramus ICD Code: S32.512A - Fracture of superior rim of left pubis, initial encounter for closed fracture (2) Closed fracture of left inferior pubic ramus ICD Code: S32.592A - Other specified fracture of left pubis, initial encounter for closed fracture (3) Electrolyte disorder ICD Code: E87.8 - Other disorders of electrolyte and fluid balance, not elsewhere classified (4) Elevated troponin I level ICD Code: R74.8 - Abnormal levels of other serum enzymes (5) Hypercalcemia ICD Code: E83.52 - Hypercalcemia History of Present Illness 67-year-old female who presented to the emergency room after sustaining a fall with resultant hairline fracture involving the left superior pubic ramus. During the course of present hospitalization multiple imaging studies were obtained that demonstrated what appears to be metastatic disease stemming from the cervix/uterus. Patient was noted to have extensive pulmonary nodules, bilateral adrenal masses and extensive retroperitoneal adenopathy. There was also some questionable involvement of the urinary bladder and a distal urethral mass lesion. Also noted was a thyroid mass and it is unclear at this time whether this is a secondary malignancy. Needle biopsy of one of the left sided pelvic lymph nodes demonstrated poorly differentiated non-small cell carcinoma. Patient is being followed by of [facility] who plans on completing her oncologic workup as an outpatient. A urology consult was placed as the patient was noted to have grossly bloody urine over the past couple of days. Upon further questioning the patient reports that she was not having hematuria at home and it appears that the hematuria again sometime after the Rios catheter was placed. Review of Systems ROS Limitations: Altered Mental Status (now resolved) Constitutional: COMPLAINS OF: Weight loss (40 pounds), DENIES: Fever, Chills Cardiovascular: DENIES: Chest pain Genitourinary: COMPLAINS OF: Hematuria Musculoskeletal: DENIES: Back pain Past Family Social History Past Medical History Hypertension Hyperlipidemia Past Surgical History Denies Reported Medications Refer to EMR Allergies: Coded Allergies: No Known Allergies (Verified , 05/27/17) Active Ordered Medications Refer to EMR Family History Reviewed and noncontributory Social History Denies tobacco or alcohol use No history of intravenous drug abuse Physical Exam Vital Signs Date Time Temp Pulse Resp B/P (MAP) Pulse Ox O2 Delivery O2 Flow Rate FiO2 06/05/17 12:05 97.8 113 20 165/74 (104) 93 06/05/17 08:05 97.6 82 18 165/79 (107) 97 06/05/17 08:00 80 06/05/17 08:00 Nasal Cannula 2.00 06/05/17 04:00 97.9 94 20 167/78 (107) 94 06/05/17 00:00 98.0 105 20 168/72 (104) 94 06/04/17 20:00 97.9 99 22 158/56 (90) 94 06/04/17 20:00 Nasal Cannula 2.00 06/04/17 19:46 91 Nasal Cannula 2.00 06/04/17 18:15 97.3 94 20 159/69 (99) 93 06/04/17 17:44 98.0 Physical Exam GENERAL: This is a well-nourished, well-developed patient, in no apparent distress. SKIN: No rashes, ecchymoses or lesions. Cool and dry. HEAD: Atraumatic. Normocephalic. No temporal or scalp tenderness. EYES: Pupils equal round and reactive. Extraocular motions intact. No scleral icterus. No injection or drainage. ENT: Nose without bleeding, purulent drainage or septal hematoma. Throat without erythema, tonsillar hypertrophy or exudate. Uvula midline. Airway patent. NECK: Trachea midline. No JVD or lymphadenopathy. Supple, nontender, no meningeal signs. GASTROINTESTINAL: Abdomen soft, non-tender, nondistended. Bladder not distended. No guarding. GENITOURINARY: Rios catheter in place draining light red urine without clots MUSCULOSKELETAL: Extremities without clubbing, cyanosis, or edema. No joint tenderness, effusion, or edema noted. No calf tenderness. Negative Homans sign bilaterally. NEUROLOGICAL: Awake and alert. Cranial nerves II through XII intact. Motor and sensory grossly within normal limits. Five out of 5 muscle strength in all muscle groups. Normal speech. Lab results reviewed: Yes Laboratory Tests Test 06/04/17 22:44 06/05/17 08:12 Stool C. difficile Toxin (PCR) NEGATIVE Stl C. difficile Toxin Epiderm 027 PRESUMPTIVE NEGATIVE White Blood Count 33.6 Red Blood Count 3.64 Hemoglobin 8.2 Hematocrit 25.8 Mean Corpuscular Volume 71.0 Mean Corpuscular Hemoglobin 22.5 Mean Corpuscular Hemoglobin Concent 31.8 Red Cell Distribution Width 21.2 Platelet Count 29 Mean Platelet Volume 9.1 Neutrophils (%) (Auto) 92.2 Lymphocytes (%) (Auto) 3.4 Monocytes (%) (Auto) 4.3 Eosinophils (%) (Auto) 0.1 Basophils (%) (Auto) 0.0 Neutrophils # (Auto) 31.0 Lymphocytes # (Auto) 1.1 Monocytes # (Auto) 1.5 Eosinophils # (Auto) 0.0 Basophils # (Auto) 0.0 CBC Comment AUTO DIFF Differential Total Cells Counted 100 Neutrophils % (Manual) 89 Band Neutrophils % 5 Lymphocytes % 4 Monocytes % 2 Neutrophils # (Manual) 31.6 Differential Comment FINAL DIFF MANUAL Platelet Estimate LOW Platelet Morphology Comment NORMAL Blood Urea Nitrogen 32 Creatinine 0.92 Random Glucose 140 Total Protein 5.5 Calcium Level 7.2 Sodium Level 142 Potassium Level 3.2 Chloride Level 105 Carbon Dioxide Level 27.1 Anion Gap 10 Estimat Glomerular Filtration Rate 61 Protein Corrected Calcium 8.1 Date/Time Source Procedure Growth Status 05/31/17 10:12 Blood Peripheral Aerobic Blood Culture - Final NO GROWTH IN 5 DAYS Complete 05/31/17 10:12 Blood Peripheral Anaerobic Blood Culture - Final NO GROWTH IN 5 DAYS Complete 05/27/17 22:55 Urine Clean Catch Urine Culture - Final No growth. Complete Result Diagram: [id number]/05/[id number] Personally reviewed images: Yes Imaging Last Impressions Thyroid Biopsy Ultrasound 06/03/17 0000 Signed Impressions: Service Date/Time: May 13:59 - CONCLUSION: Uncomplicated ultrasound guided core needle biopsy of a complex cystic mass of the right thyroid. Sushant Juares Jr., MD Lymph Node Biopsy CT 06/02/17 0000 Signed Impressions: Service Date/Time: Friday, June 02, 2017 11:52 - CONCLUSION: Uncomplicated CT guided biopsy of a left pelvic mass likely relating to iliac chain lymph nodes. Sushant Juares Jr., MD Chest X-Ray 05/31/17 0000 Signed Impressions: Service Date/Time: Wednesday, May 31, 2017 09:31 - CONCLUSION: Increasing nodular opacities throughout both lungs Patient has changes in the left base. I Pa Verdin MD FACR Abdomen X-Ray 05/31/17 Signed Impressions: Service Date/Time: Wednesday, May 31, 2017 10:21 - CONCLUSION: The tip of the NG tube in the antrum of the stomach. Sushant Juares Jr., MD Brain MRI 05/30/17 Signed Impressions: Service Date/Time: Tuesday, May 30, 2017 19:47 - CONCLUSION: 1. Tiny 9 mm enhancing extra-axial mass along the left high parietal region consistent with probable tiny meningioma. 2. No acute infarct, acute hemorrhage, midline shift or extra-axial bleed. Delta Allison MD Lower Extremity CT 05/28/17 Signed Impressions: Service Date/Time: Sunday, May 28, 2017 09:50 - CONCLUSION: 1. Acute nondisplaced superior and inferior pubic rami fractures on the left. 2. Retroperitoneal adenopathy worrisome for metastatic disease or myeloproliferative disorder. 3. Enlarged and lobulated uterus likely related to fibroids. Sushant Juares Jr., MD CT Angiography 05/28/17 Signed Impressions: Service Date/Time: Sunday, May 28, 2017 02:01 - CONCLUSION: Large mass on the right side of the trachea could be an enlarged thyroid. Innumerable nodules scattered throughout the lungs metastatic disease certainly within the differential. There are a number of nodules in the right lower lobe which would be amenable to CT-guided biopsy. Vince Galan MD Abdomen/Pelvis CT 05/28/17 Signed Impressions: Service Date/Time: Sunday, May 28, 2017 20:56 - CONCLUSION: 1. There is evidence of retroperitoneal metastatic lymphadenopathy and I believe potentially on the basis of cervical or endometrial carcinoma. Primary lesion versus additional metastatic involvement of the urinary bladder. There is also a nonspecific nodule in the expected region of the distal urethra. 2. Nodularity of both adrenal glands, most likely metastatic. 3. Visualized lung bases again show evidence of widespread and confluent pulmonary metastatic disease with small effusions. Kane Cedeño MD Maxillofacial CT 05/27/172016 Signed Impressions: Service Date/Time: May 20:34 - CONCLUSION: 1. No maxillofacial fracture is present. 2. There is bilateral maxillary mucoperiosteal thickening with 12 mm polypoid structure extending from the left maxillary antrum into the left posterior nasal cavity. 3. There is a 14 mm left parotid gland nodule. Differential diagnosis includes intraparotid lymph node or pleomorphic adenoma. Kane Bartlett MD Head CT 05/27/172016 Signed Impressions: Service Date/Time: May 20:34 - CONCLUSION: No acute abnormality is identified. Kane Bartlett MD Cervical Spine CT 05/27/172016 Signed Impressions: Service Date/Time: May 20:34 - CONCLUSION: 1. No acute cervical spine abnormality is identified. There is degenerative disc disease at C5-C6. 2. There is a 4.1 cm right thyroid nodule. If this is a new finding, suggest nonemergent outpatient ultrasound of the thyroid gland for further evaluation. 3. Abnormal linear and nodular parenchymal opacities in the upper lobes bilaterally. Since this does not pertain to the patient's acute problem, this finding should also be further evaluated with outpatient chest CT with IV contrast. Also suggest correlating with any prior outside imaging studies. Kane Bartlett MD Hip and Pelvis X-Ray 05/27/17 Signed Impressions: Service Date/Time: May 20:49 - CONCLUSION: 1. A subtle lucency in the left pelvis may represent a nondisplaced left superior pubic ramus fracture. 2. Mild osteoarthritis of the joints bilaterally. Kane Bartlett MD Ankle X-Ray 05/27/17 Signed Impressions: Service Date/Time: May 20:56 - CONCLUSION: No acute left ankle abnormality is identified. 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 #2 hematuria most likely secondary to involvement of the bladder/urethra with the non-small cell carcinoma and exacerbated by irritation from the Rios. Recommendations: #1 continue with Rios catheter to gravity drainage and irrigate when necessary #2 would not remove Rios catheter until urine remains clear yellow for at least 48 hours #3 will hold off on any further urologic evaluation until after her [facility] onc[facility] evaluation has been completed and further evaluation is deemed appropriate by Dr. Askew Problem Qualifiers (1) Closed fracture of left superior pubic ramus: Qualified Codes: S32.512A - Fracture of superior rim of left pubis, initial encounter for closed fracture (2) Closed fracture of left inferior pubic ramus: Qualified Codes: S32.592A - Other specified fracture of left pubis, initial encounter for closed fracture Jared Pearson MD Jun 05, 2017 17:26
[2017-06-05] MEDS: PANTOPRAZOLE SODIUM 40 MG VIAL IV PUSH SCH (18:29)
[2017-06-06] VITALS (11 sets, daily range): BP systolic 126–176; BP diastolic 58–80; PULSE 108–121; RESP 20–22; TEMP 97.2–98.4; O2SAT 90–96
[2017-06-06] MEDS: cloNIDine HCL 0.1 MG TAB PO PRN (00:16)
[2017-06-06] MEDS: ACETAMINOPHEN/HYDROcodone 325 MG/5 MG TAB PO PRN (00:21)
[2017-06-06] MEDS: INSULIN NovoLIN REGULAR SUPPLEMENTAL SCALE SQ SCH ×6 (02:00→21:13)
[2017-06-06] MEDS: ONDANSETRON HCL 4 MG/2 ML VIAL IVP PRN ×2 (04:33→18:27)
[2017-06-06] MEDS: PIPERACIL-TAZO 4.5 GM PREMIX 100 ML IV SCH ×4 (04:33→21:11)
[2017-06-06] MEDS: ACETAMINOPHEN/HYDROcodone 325 MG/10 MG TAB PO PRN ×2 (04:34→18:27)
[2017-06-06] MEDS: hydrALAZINE HCL 50 MG TAB PO SCH ×3 (05:52→21:11)
[2017-06-06] MEDS: FREE WATER G-TUBE SCH ×5 (05:54→23:48)
[2017-06-06] MEDS: RESP: ALBUTEROL 2.5 MG/3 ML NEB (SCH) NEB ×3 (08:16→16:12)
[2017-06-06] MEDS: amLODIPine BESYLATE 5 MG TAB PO SCH (09:19)
[2017-06-06] MEDS: hydrALAZINE HCL 10 MG TAB PO PRN (09:19)
[2017-06-06] MEDS: SODIUM CHLORIDE 0.9% FLUSH 10 ML FLUSH IV FLUSH SCH ×2 (09:22→21:11)
--- NOTE | 2017-06-06 10:18 | PD.ONC.PN ---
Subjective Subjective Remarks Afebrile overnight. patient resting in bed in nad. Slept okay last night. No pain at present. Objective Data Date Time Temp Pulse Resp B/P (MAP) Pulse Ox O2 Delivery O2 Flow Rate FiO2 06/06/17 08:17 96 Nasal Cannula 2.00 06/06/17 08:00 97.2 119 20 176/80 (112) 90 06/06/17 04:00 97.6 116 21 149/67 (94) 94 06/06/17 00:00 97.5 108 20 164/71 (102) 93 06/05/17 21:04 93 Nasal Cannula 2.00 06/05/17 20:00 97.4 104 18 154/67 (96) 93 06/05/17 20:00 Nasal Cannula 1.00 06/05/17 20:00 100 06/05/17 16:07 97.8 107 20 163/72 (102) 90 06/05/17 12:05 97.8 113 20 165/74 (104) 93 06/06/17 06/06/17 06/06/17 07:00 15:00 23:00 Intake Total 600 ml Output Total 1100 ml Balance -500 ml Result Diagram: 06/05/17 0812 06/05/17 0812 Administered Medications Medications (Trade) Dose Ordered Sig/[place] Route PRN Reason Start Time Stop Time Status Last Admin Dose Admin Naloxone HCl (Narcan Inj) 0.4 mg UNSCH PRN IV SEE LABEL COMMENTS 05/27/17 22:30 05/30/17 13:30 Clonidine (Catapres) 0.1 mg Q6H PRN PO bp>160/90 05/27/17 22:45 06/06/17 00:16 Sodium Chloride (NS Flush) 2 ml BID IV FLUSH 05/28/17 21:00 06/06/17 09:22 Ondansetron HCl (Zofran Inj) 4 mg Q6H PRN IVP NAUSEA OR VOMITING 05/28/17 09:15 06/06/17 04:33 Heparin Sodium (Porcine) (Heparin Inj) 5,000 units Q8H SQ 05/28/17 17:00 Future Hold 05/30/17 07:44 Acetaminophen (Tylenol) 650 mg Q6H PRN PO PAIN SCALE 1 TO 2 05/28/17 09:15 06/02/17 22:23 Acetaminophen/ Hydrocodone Bitart ([place] 5-325 Mg) 1 tab Q4H PRN PO PAIN SCALE 3 TO 5 05/28/17 09:15 06/06/17 00:21 Acetaminophen/ Hydrocodone Bitart ([place] 10-325 Mg) 1 tab Q4H PRN PO PAIN SCALE 6 TO 10 05/28/17 09:15 06/06/17 04:34 Hydroxyzine Pamoate (Vistaril) 25 mg Q6H PRN PO anxiety 05/28/17 17:00 06/02/17 22:23 Propranolol HCl (Inderal) 20 mg Q8HR PO 05/29/17 22:00 Future Hold 05/30/17 05:34 Amlodipine Besylate (Norvasc) 5 mg DAILY PO 05/30/17 09:00 06/06/17 09:19 Pantoprazole Sodium (Protonix Inj) 40 mg Q24H IV PUSH 05/30/17 18:00 06/05/17 18:29 Miscellaneous Information Patient in critical care unit? Ass... Q361D .XX 05/30/17 20:30 05/30/17 20:30 Insulin Human Regular (NovoLIN R SUPPLEMENTAL SCALE) 1 Q4H SQ 05/31/17 10:00 06/06/17 09:28 Piperacillin Sod/ Tazobactam Sod 100 ml @ 200 mls/hr Q6H IV 05/31/17 10:00 06/06/17 09:19 Water (Free Water) 300 ml Q6HR G-TUBE 06/01/17 12:00 06/04/17 17:21 Albuterol Sulfate (Albuterol Neb) 2.5 mg QID NEB NEB 06/02/17 20:00 06/06/17 08:16 Hydralazine HCl (Apresoline) 50 mg Q8HR PO 06/03/17 10:00 06/06/17 05:52 Hydralazine HCl (Apresoline) 10 mg Q6HR PRN PO SBP>160, DBP>90 06/03/17 10:00 06/06/17 09:19 Objective Remarks GENERAL: Middle aged female sitting up in bed in [facility]. SKIN: Warm and dry. HEAD: Normocephalic. EYES: No injection or drainage. NECK: Supple, trachea midline. CARDIOVASCULAR: Regular rate and rhythm RESPIRATORY: occasional rhonchi. on 2L O2 via NC GASTROINTESTINAL: Abdomen soft, non-tender, nondistended. : nuñez to gravity-->+ persistent hematuria EXTREMITIES: No cyanosis NEUROLOGICAL: awake and alert, normal speech. moving all extremities. 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 --ultimately need bx lung to determine if metastatic Hurthle cell versus metastatic from non small cell carcinoma. --If metastatic Hurthle cell, no need for thyroidectomy. 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 --Treatment in terms of the non small cell is palliative. --Prognosis is likely carried by the non small cell component. --Agree with plans to go to rehab to tend to pelvic fracture. --Out pt staging could be coordinated and decide how to proceed with treatment pending pt' performance status. (3) Hematuria ICD Codes: R31.9 - Hematuria, unspecified Plan: --urology following and recommends continuing with nuñez catheter with PRN irrigation and removal only when urine clear x 48 hrs --likely d/t metastatic involvement of bladder/urethra (4) Leukocytosis ICD Codes: D72.829 - Elevated white blood cell count, unspecified Plan: --on Zosyn --ID following --unclear etiology --BC so far have been negative --?d/t tumor(s) (5) Thrombocytopenia ICD Codes: D69.6 - Thrombocytopenia, unspecified Plan: ---likely multifactorial d/t hematuria, ?infection, tumor, possible bone marrow involvement of the tumor(s) (6) Microcytic hypochromic anemia ICD Codes: D50.9 - Iron deficiency anemia, unspecified Plan: -check iron studies, B12/folate, LDH, haptoglobin --retic count low normal Assessment 67 y/o woman admitted s/p fall and pelvic fracture. Hematology consulted for findings of hypercalcemia, thyroid nodule, multiple metastatic lung lesion and adenopathy. h/o Hypertension, Hyperlipidemia, Obesity, Noncompliance, Metastatic thyroid cancer Pelvic fracture. Plan 1. continue nuñez management per urology 2. plan for systemic staging and additional tissue sampling for further clarification of diagnosis 3. once medically stable can be d/c to rehab and follow up in clinic to complete staging. 4. lab to prepare slide to review in lab 5. check repeat blood cultures for rising WBC 6. check iron studies/haptoglobin/LDH/B12/folate 7. check coags for DIC Lalitha Rowe Jun 06, 2017 10:18
--- NOTE | 2017-06-06 10:30 | HHI.PR ---
Subjective Remarks Patient seen and examined this morning. Received call this am about sepsis alert due to patient worsening leukocytosis yesterday and vitals this am. Patient with elevated BP and HR this am. She was given her regularly scheduled morning medications, repeat vitals are pending. ID aware of her worsening leukocytosis yesterday, repeat labs for today are pending. She denies CP or SOB. Happy to be accepted at [facility] in [place]. Objective Vital Signs Date Time Temp Pulse Resp B/P (MAP) Pulse Ox O2 Delivery O2 Flow Rate FiO2 06/06/17 08:17 96 Nasal Cannula 2.00 06/06/17 08:00 97.2 119 20 176/80 (112) 90 06/06/17 04:00 97.6 116 21 149/67 (94) 94 06/06/17 00:00 97.5 108 20 164/71 (102) 93 06/05/17 21:04 93 Nasal Cannula 2.00 06/05/17 20:00 97.4 104 18 154/67 (96) 93 06/05/17 20:00 Nasal Cannula 1.00 06/05/17 20:00 100 06/05/17 16:07 97.8 107 20 163/72 (102) 90 06/05/17 12:05 97.8 113 20 165/74 (104) 93 I/O 06/05/17 06/05/17 06/05/17 06/06/17 06/06/17 06/06/17 07:00 15:00 23:00 07:00 15:00 23:00 Intake Total 480 ml 460 ml 600 ml Output Total 950 ml 800 ml 1100 ml Balance -470 ml -340 ml -500 ml Intake Oral 480 ml 360 ml 500 ml IV Total 100 ml 100 ml Output Urine Total 950 ml 800 ml 1100 ml # Bowel Movements 0 1 Result Diagram: 06/05/17 0812 06/05/17 0812 Imaging Last Impressions Thyroid Biopsy Ultrasound 06/03/17 0000 Signed Impressions: Service Date/Time: May 13:59 - CONCLUSION: Uncomplicated ultrasound guided core needle biopsy of a complex cystic mass of the right thyroid. Sushant Juares Jr., MD Lymph Node Biopsy CT 06/02/17 0000 Signed Impressions: Service Date/Time: Friday, June 02, 2017 11:52 - CONCLUSION: Uncomplicated CT guided biopsy of a left pelvic mass likely relating to iliac chain lymph nodes. Sushant Juares Jr., MD Chest X-Ray 05/31/17 Signed Impressions: Service Date/Time: Wednesday, May 31, 2017 09:31 - CONCLUSION: Increasing nodular opacities throughout both lungs Patient has changes in the left base. I Pa Verdin MD FACR Abdomen X-Ray 05/31/17 Signed Impressions: Service Date/Time: Wednesday, May 31, 2017 10:21 - CONCLUSION: The tip of the NG tube in the antrum of the stomach. Sushant Juares Jr., MD Brain MRI 05/30/17 Signed Impressions: Service Date/Time: Tuesday, May 30, 2017 19:47 - CONCLUSION: 1. Tiny 9 mm enhancing extra-axial mass along the left high parietal region consistent with probable tiny meningioma. 2. No acute infarct, acute hemorrhage, midline shift or extra-axial bleed. Delta Allison MD Lower Extremity CT 05/28/17 Signed Impressions: Service Date/Time: Sunday, May 28, 2017 09:50 - CONCLUSION: 1. Acute nondisplaced superior and inferior pubic rami fractures on the left. 2. Retroperitoneal adenopathy worrisome for metastatic disease or myeloproliferative disorder. 3. Enlarged and lobulated uterus likely related to fibroids. Sushant Juares Jr., MD CT Angiography 05/28/17 Signed Impressions: Service Date/Time: Sunday, May 28, 2017 02:01 - CONCLUSION: Large mass on the right side of the trachea could be an enlarged thyroid. Innumerable nodules scattered throughout the lungs metastatic disease certainly within the differential. There are a number of nodules in the right lower lobe which would be amenable to CT-guided biopsy. Vince Galan MD Abdomen/Pelvis CT 05/28/17 Signed Impressions: Service Date/Time: Sunday, May 28, 2017 20:56 - CONCLUSION: 1. There is evidence of retroperitoneal metastatic lymphadenopathy and I believe potentially on the basis of cervical or endometrial carcinoma. Primary lesion versus additional metastatic involvement of the urinary bladder. There is also a nonspecific nodule in the expected region of the distal urethra. 2. Nodularity of both adrenal glands, most likely metastatic. 3. Visualized lung bases again show evidence of widespread and confluent pulmonary metastatic disease with small effusions. Kane Cedeño MD Maxillofacial CT 05/27/172016 Signed Impressions: Service Date/Time: May 20:34 - CONCLUSION: 1. No maxillofacial fracture is present. 2. There is bilateral maxillary mucoperiosteal thickening with 12 mm polypoid structure extending from the left maxillary antrum into the left posterior nasal cavity. 3. There is a 14 mm left parotid gland nodule. Differential diagnosis includes intraparotid lymph node or pleomorphic adenoma. Kane Bartlett MD Head CT 05/27/172016 Signed Impressions: Service Date/Time: May 20:34 - CONCLUSION: No acute abnormality is identified. Kane Bartlett MD Cervical Spine CT 05/27/172016 Signed Impressions: Service Date/Time: May 20:34 - CONCLUSION: 1. No acute cervical spine abnormality is identified. There is degenerative disc disease at C5-C6. 2. There is a 4.1 cm right thyroid nodule. If this is a new finding, suggest nonemergent outpatient ultrasound of the thyroid gland for further evaluation. 3. Abnormal linear and nodular parenchymal opacities in the upper lobes bilaterally. Since this does not pertain to the patient's acute problem, this finding should also be further evaluated with outpatient chest CT with IV contrast. Also suggest correlating with any prior outside imaging studies. Kane Bartlett MD Hip and Pelvis X-Ray 05/27/17 Signed Impressions: Service Date/Time: May 20:49 - CONCLUSION: 1. A subtle lucency in the left pelvis may represent a nondisplaced left superior pubic ramus fracture. 2. Mild osteoarthritis of the joints bilaterally. Kane Bartlett MD Ankle X-Ray 05/27/17 Signed Impressions: Service Date/Time: May 20:56 - CONCLUSION: No acute left ankle abnormality is identified. Kane Bartlett MD Other Results GENERAL: anxious appearing woman, nad SKIN: Warm and dry. Bruising noted on bridge of nose. HEAD: Normocephalic. EYES: No scleral icterus. No injection or drainage. Nose: blood noted in nares NECK: Supple, trachea midline. No JVD or lymphadenopathy. CARDIOVASCULAR: Regular rate and rhythm without murmurs, gallops, or rubs. RESPIRATORY: Breath sounds equal bilaterally. No accessory muscle use. GASTROINTESTINAL: Abdomen soft, non-tender, nondistended. MUSCULOSKELETAL: No cyanosis, or edema. : nuñez in place, dark blood in nuñez bag A/P Problem List: (1) Leukocytosis ICD Code: D72.829 - Elevated white blood cell count, unspecified (2) Closed fracture of left superior pubic ramus ICD Code: S32.512A - Fracture of superior rim of left pubis, initial encounter for closed fracture (3) Thyroid neoplasm malignant ICD Code: C73 - Malignant neoplasm of thyroid gland (4) Electrolyte disorder ICD Code: E87.8 - Other disorders of electrolyte and fluid balance, not elsewhere classified Status: Acute (5) Tachycardia ICD Code: R00.0 - Tachycardia, unspecified (6) Hematuria ICD Code: R31.9 - Hematuria, unspecified Assessment and Plan [id number] female with Scattered pulmonary nodules likely related to metastatic disease. Thyroid mass with Retroperitoneal metastatic lymphadenopathy S/P CT guided thyroid biopsy 06/03/17: "Hurthe cells with fibrous band/ capsule it from an unremarkable thyroid parenchyma. Differential diagnosis includes hurthe cell adenoma and hyperplastic nodule with oncocytic change." PelvisLymph node biopsy: "Poorly differentiated non-small cell carcinoma" Unable to perform CT guided biopsy of lung nodule patient did not tolerate supine position Heme/Onc: ultimately need lung biopsy to determine if metastatic hurthle cell vs. met from non small cell carcinoma (treatment would be palliative) Palliative care is following Gross hematuria likely result of non small cell CA/ureter CA has been eval by urology Dr. Pearson "hematuria most likely secondary to involvement of the bladder/urethra with the non-small cell carcinoma and exacerbated by irritation from the Nuñez" nuñez to remain in until urine clear for at least 48 hrs Will be worked up further after workup by Dr. Askew Heme/onc ordered iron studies/ldh/haptoglobin Leukocytosis Infectious process versus metastasis disease Appreciate input from infectious disease: If cultures continue to be negative may DC antibiotics Continue with Zosyn and monitor culture reports Encephalopathy, multifactorial (hypercalcemia, hypertensive encephalopathy and hypernatremia) Improved EEG 05/31: Encephalopathy without epileptic activity. Hypertensive urgency, rule out progressive reversible encephalopathy syndrome. Echo on which showed normal left ventricular systolic function EF 55 % to 60%. No RWMA Continue hydralazine 50 mg every 8 hour, Norvasc Hypernatremia. Resolved Hypokalemia Replete Superior and inferior pubic ramus fracture on the left. PT consult to treat and eval Impaired fasting glucose hemoglobin A1c 7.4 Continue with sliding scale insulin Likely can d/c on metformin Tachycardia Seems to be present since admission, BP and RR are stable EKG ordered to evaluated Replete K GI prophylaxis with Protonix and DVT prophylaxis with SCDs. 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 Problem Qualifiers (1) Closed fracture of left superior pubic ramus: Qualified Codes: S32.512A - Fracture of superior rim of left pubis, initial encounter for closed fracture Luisa Jimenez MD Jun 06, 2017 10:30
[2017-06-06 10:45] LABS: AUTOMATED NEUTROPHIL # 34.8 TH/MM3 (1.8-7.7); BASOPHIL # 0.1 TH/MM3 (0-0.2); BASOPHIL % 0.2 % (0.0-2.0); EOSINOPHIL % 0.1 % (0.0-4.0); HEMATOCRIT 26.3 % (35.0-46.0); LYMPH % 3.7 % (9.0-44.0); LYMPHOCYTE # 1.4 TH/MM3 (1.0-4.8); MEAN CORPUSCULAR HEMOGLOBIN 22.6 PG (27.0-34.0); MONO % 3.9 % (0.0-8.0); NEUT % 92.1 % (16.0-70.0); PLATELET COUNT 34 TH/MM3 (150-450); RED BLOOD COUNT 3.61 MIL/MM3 (4.00-5.30); RED CELL DISTRIBUTION WIDTH 21.7 % (11.6-17.2); WHITE BLOOD COUNT 37.8 TH/MM3 (4.0-11.0)
[2017-06-06 10:54] LABS: HEMO FLAGS AUTO DIFF
[2017-06-06 11:12] LABS: BICARBONATE 26.2 MEQ/L (21.0-32.0)
[2017-06-06 11:17] LABS: POTASSIUM 2.8 MEQ/L (3.5-5.1)
[2017-06-06] MEDS ORDERED: SODIUM CHLORID 0.9% 500 ML INJ 500 ML IV SCH (11:45)
[2017-06-06 11:48] LABS: BANDS 10 % (0-6); METAMYELOCYTES 1 % (0-1); NEUTROPHIL # MANUAL DIFF 35.9 TH/MM3 (1.8-7.7); POLYS (SEG NEUTROPHILS) 84 % (16-70); SCAN/DIFF FINAL DIFF MANUAL; WBC DIFF SAMPLE 100
[2017-06-06] MEDS ORDERED: POTASSIUM CHLORIDE 10 MEQ CONTROLLED RELEASE TAB PO ONE (12:15)
[2017-06-06] MEDS ORDERED: POTASSIUM CHLORIDE INJ 30 MEQ in SODIUM CHLORIDE 0.9% INJ 100 ML IV-CENTRAL ONE (12:30)
[2017-06-06] MEDS: POTASSIUM CHLOR 10 MEQ PREMIX 100 ML IV SCH ×3 (13:39→19:35)
[2017-06-06 16:15] LABS: RETIC % 1.9 % (0.4-3.0)
[2017-06-06 16:17] LABS: BASOPHIL % 0.1 % (0.0-2.0); HEMATOCRIT 25.5 % (35.0-46.0); LYMPH % 3.1 % (9.0-44.0); LYMPHOCYTE # 1.1 TH/MM3 (1.0-4.8); MEAN CELL VOLUME 72.7 FL (80.0-100.0); MEAN CORPUSCULAR HGB CONC 30.2 % (32.0-36.0); MONO % 4.2 % (0.0-8.0); NEUT % 92.6 % (16.0-70.0); PLATELET COUNT 32 TH/MM3 (150-450); RED BLOOD COUNT 3.51 MIL/MM3 (4.00-5.30); RED CELL DISTRIBUTION WIDTH 21.6 % (11.6-17.2); WHITE BLOOD COUNT 34.5 TH/MM3 (4.0-11.0)
[2017-06-06 16:28] LABS: REVIEW FLAG FINAL
[2017-06-06 16:29] LABS: HEMO FLAGS AUTO DIFF
[2017-06-06 16:30] LABS: APTT (PATIENT) 35.3 SEC (24.3-30.1); PROTHROMBIN TIME - PATIENT 23.3 SEC (9.8-11.6)
[2017-06-06 16:34] LABS: ALT (GPT) 33 U/L (10-53); AST (GOT) 47 U/L (15-37)
[2017-06-06 16:48] LABS: BICARBONATE 28.9 MEQ/L (21.0-32.0); MAGNESIUM 2.5 MG/DL (1.5-2.5)
[2017-06-06] MEDS: PANTOPRAZOLE SODIUM 40 MG VIAL IV PUSH SCH (16:49)
[2017-06-06 16:54] LABS: POTASSIUM 2.9 MEQ/L (3.5-5.1)
[2017-06-06 16:59] LABS: WESTERGREN SEDIMENTATION RATE 78 mm/hr (0-30)
[2017-06-06 17:00] LABS: ALKALINE PHOSPHATASE 327 U/L (45-117); FERRITIN 155 NG/ML (8-252); INDIRECT BILIRUBIN 0.6 MG/DL (0.0-0.8); LDH SERUM 811 U/L (84-246); TRANSFERRIN IRON PROFILE 132 MG/DL (200-360)
[2017-06-06 17:07] LABS: BANDS 3 % (0-6); CORRECTED NUCLEATED RBC 1 /100 WBC (0-0); NEUTROPHIL # MANUAL DIFF 32.4 TH/MM3 (1.8-7.7); POLYS (SEG NEUTROPHILS) 91 % (16-70); WBC DIFF SAMPLE 100
[2017-06-06 17:08] LABS: OVALOCYTES 1+ (NORMAL); PLATELET ESTIMATE SMEAR LOW (NORMAL); PLATELET MORPHOLOGY NORMAL (NORMAL); SCAN/DIFF FINAL DIFF MANUAL
[2017-06-06] MEDS ORDERED: POTASSIUM CHLOR 10 MEQ PREMIX 100 ML IV ONE (19:15)
[2017-06-06] MEDS: RESP: ALBUTEROL 2.5 MG/3 ML NEB (PRN) NEB (21:15)
[2017-06-07] VITALS (10 sets, daily range): BP systolic 120–173; BP diastolic 60–77; PULSE 108–115; RESP 16–24; TEMP 97.3–98.9; O2SAT 90–94
[2017-06-07] MEDS: ONDANSETRON HCL 4 MG/2 ML VIAL IVP PRN ×2 (01:13→09:37)
[2017-06-07] MEDS: ACETAMINOPHEN/HYDROcodone 325 MG/10 MG TAB PO PRN ×4 (01:14→23:02)
[2017-06-07] MEDS: cloNIDine HCL 0.1 MG TAB PO PRN (01:14)
[2017-06-07] MEDS: INSULIN NovoLIN REGULAR SUPPLEMENTAL SCALE SQ SCH ×6 (01:15→22:00)
[2017-06-07] MEDS: PIPERACIL-TAZO 4.5 GM PREMIX 100 ML IV SCH ×2 (03:23→09:37)
[2017-06-07] MEDS: FREE WATER G-TUBE SCH ×3 (06:00→17:32)
[2017-06-07] MEDS: hydrALAZINE HCL 50 MG TAB PO SCH ×3 (06:08→23:03)
--- NOTE | 2017-06-07 07:45 | HHI.PR ---
Subjective Remarks Patient seen and examined this morning. Vitals are stable and afebrile. The patient continues to be tachycardic. Daughter reports mother is very anxious, anxiety is worse in the evening. She states if mom has to stay in the hospital another day she will need something for her anxiety. She had an adverse reaction to ativan, required narcan. Objective Vital Signs Date Time Temp Pulse Resp B/P (MAP) Pulse Ox O2 Delivery O2 Flow Rate FiO2 06/07/17 04:00 97.4 111 20 126/60 (82) 94 06/07/17 00:00 97.3 112 24 173/77 (109) 93 06/06/17 21:19 93 Nasal Cannula 3.00 06/06/17 20:00 Nasal Cannula 1.00 06/06/17 20:00 114 06/06/17 20:00 97.4 117 22 144/69 (94) 93 06/06/17 16:17 93 Nasal Cannula 2.00 06/06/17 16:00 97.6 114 20 147/60 (89) 90 06/06/17 12:00 98.4 113 20 137/63 (87) 96 06/06/17 10:54 113 126/58 (80) 06/06/17 09:32 Nasal Cannula 1.00 06/06/17 09:32 121 06/06/17 08:17 96 Nasal Cannula 2.00 06/06/17 08:00 97.2 119 20 176/80 (112) 90 I/O 06/06/17 06/06/17 06/06/17 06/07/17 06/07/17 06/07/17 07:00 15:00 23:00 07:00 15:00 23:00 Intake Total 600 ml 700 ml 480 ml Output Total 1100 ml 650 ml 1100 ml Balance -500 ml 50 ml -620 ml Intake Oral 500 ml 380 ml IV Total 100 ml 700 ml 100 ml Output Urine Total 1100 ml 650 ml 1100 ml # Bowel Movements 1 1 2 Result Diagram: 06/06/17 1525 06/06/17 1525 Imaging Last Impressions Thyroid Biopsy Ultrasound 06/03/17 0000 Signed Impressions: Service Date/Time: May 13:59 - CONCLUSION: Uncomplicated ultrasound guided core needle biopsy of a complex cystic mass of the right thyroid. Sushant Juares Jr., MD Lymph Node Biopsy CT 06/02/17 Signed Impressions: Service Date/Time: Friday, June 02, 2017 11:52 - CONCLUSION: Uncomplicated CT guided biopsy of a left pelvic mass likely relating to iliac chain lymph nodes. Sushant Juares Jr., MD Chest X-Ray 05/31/17 Signed Impressions: Service Date/Time: Wednesday, May 31, 2017 09:31 - CONCLUSION: Increasing nodular opacities throughout both lungs Patient has changes in the left base. I Pa Verdin MD FACR Abdomen X-Ray 05/31/17 Signed Impressions: Service Date/Time: Wednesday, May 31, 2017 10:21 - CONCLUSION: The tip of the NG tube in the antrum of the stomach. Sushant Juares Jr., MD Brain MRI 05/30/17 Signed Impressions: Service Date/Time: Tuesday, May 30, 2017 19:47 - CONCLUSION: 1. Tiny 9 mm enhancing extra-axial mass along the left high parietal region consistent with probable tiny meningioma. 2. No acute infarct, acute hemorrhage, midline shift or extra-axial bleed. Delta Allison MD Lower Extremity CT 05/28/17 Signed Impressions: Service Date/Time: Sunday, May 28, 2017 09:50 - CONCLUSION: 1. Acute nondisplaced superior and inferior pubic rami fractures on the left. 2. Retroperitoneal adenopathy worrisome for metastatic disease or myeloproliferative disorder. 3. Enlarged and lobulated uterus likely related to fibroids. Sushant Juares Jr., MD CT Angiography 05/28/17 Signed Impressions: Service Date/Time: Sunday, May 28, 2017 02:01 - CONCLUSION: Large mass on the right side of the trachea could be an enlarged thyroid. Innumerable nodules scattered throughout the lungs metastatic disease certainly within the differential. There are a number of nodules in the right lower lobe which would be amenable to CT-guided biopsy. Vince Galan MD Abdomen/Pelvis CT 05/28/17 Signed Impressions: Service Date/Time: Sunday, May 28, 2017 20:56 - CONCLUSION: 1. There is evidence of retroperitoneal metastatic lymphadenopathy and I believe potentially on the basis of cervical or endometrial carcinoma. Primary lesion versus additional metastatic involvement of the urinary bladder. There is also a nonspecific nodule in the expected region of the distal urethra. 2. Nodularity of both adrenal glands, most likely metastatic. 3. Visualized lung bases again show evidence of widespread and confluent pulmonary metastatic disease with small effusions. Kane Cedeño MD Maxillofacial CT 05/27/172016 Signed Impressions: Service Date/Time: May 20:34 - CONCLUSION: 1. No maxillofacial fracture is present. 2. There is bilateral maxillary mucoperiosteal thickening with 12 mm polypoid structure extending from the left maxillary antrum into the left posterior nasal cavity. 3. There is a 14 mm left parotid gland nodule. Differential diagnosis includes intraparotid lymph node or pleomorphic adenoma. Kane Bartlett MD Head CT 05/27/172016 Signed Impressions: Service Date/Time: May 20:34 - CONCLUSION: No acute abnormality is identified. Kane Bartlett MD Cervical Spine CT 05/27/172016 Signed Impressions: Service Date/Time: May 20:34 - CONCLUSION: 1. No acute cervical spine abnormality is identified. There is degenerative disc disease at C5-C6. 2. There is a 4.1 cm right thyroid nodule. If this is a new finding, suggest nonemergent outpatient ultrasound of the thyroid gland for further evaluation. 3. Abnormal linear and nodular parenchymal opacities in the upper lobes bilaterally. Since this does not pertain to the patient's acute problem, this finding should also be further evaluated with outpatient chest CT with IV contrast. Also suggest correlating with any prior outside imaging studies. Kane Bartlett MD Hip and Pelvis X-Ray 05/27/17 0000 Signed Impressions: Service Date/Time: May 20:49 - CONCLUSION: 1. A subtle lucency in the left pelvis may represent a nondisplaced left superior pubic ramus fracture. 2. Mild osteoarthritis of the joints bilaterally. Kane Bartlett MD Ankle X-Ray 05/27/17 0000 Signed Impressions: Service Date/Time: May 20:56 - CONCLUSION: No acute left ankle abnormality is identified. Kane Bartlett MD Other Results GENERAL: anxious appearing woman, nad SKIN: Warm and dry. Bruising noted on bridge of nose. HEAD: Normocephalic. EYES: No scleral icterus. No injection or drainage. Nose: blood noted in nares NECK: Supple, trachea midline. No JVD or lymphadenopathy. CARDIOVASCULAR: Regular rate and rhythm without murmurs, gallops, or rubs. RESPIRATORY: Breath sounds equal bilaterally. No accessory muscle use. GASTROINTESTINAL: Abdomen soft, non-tender, nondistended. MUSCULOSKELETAL: No cyanosis, or edema. : nuñez in place, dark blood in nuñez bag A/P Problem List: (1) Leukocytosis ICD Code: D72.829 - Elevated white blood cell count, unspecified (2) Closed fracture of left superior pubic ramus ICD Code: S32.512A - Fracture of superior rim of left pubis, initial encounter for closed fracture (3) Thyroid neoplasm malignant ICD Code: C73 - Malignant neoplasm of thyroid gland (4) Electrolyte disorder ICD Code: E87.8 - Other disorders of electrolyte and fluid balance, not elsewhere classified Status: Acute (5) Tachycardia ICD Code: R00.0 - Tachycardia, unspecified (6) Hematuria ICD Code: R31.9 - Hematuria, unspecified Assessment and Plan [id number] female with Scattered pulmonary nodules likely related to metastatic disease. Thyroid mass with Retroperitoneal metastatic lymphadenopathy S/P CT guided thyroid biopsy 06/03/17: "Hurthe cells with fibrous band/ capsule it from an unremarkable thyroid parenchyma. Differential diagnosis includes hurthe cell adenoma and hyperplastic nodule with oncocytic change." PelvisLymph node biopsy: "Poorly differentiated non-small cell carcinoma" Unable to perform CT guided biopsy of lung nodule patient did not tolerate supine position Heme/Onc: ultimately need lung biopsy to determine if metastatic hurthle cell vs. met from non small cell carcinoma (treatment would be palliative) Palliative care is following Gross hematuria likely result of non small cell CA/ureter CA has been eval by urology Dr. Pearson "hematuria most likely secondary to involvement of the bladder/urethra with the non-small cell carcinoma and exacerbated by irritation from the Nuñez" nuñez to remain in until urine clear for at least 48 hrs Will be worked up further after workup by Dr. Askew Heme/onc ordered iron studies/ldh/haptoglobin Leukocytosis Infectious process versus metastasis disease Appreciate input from infectious disease: If cultures continue to be negative may DC antibiotics Continue with Zosyn and monitor culture reports Encephalopathy, multifactorial (hypercalcemia, hypertensive encephalopathy and hypernatremia) Improved EEG 05/31: Encephalopathy without epileptic activity. Hypertensive urgency, rule out progressive reversible encephalopathy syndrome. Echo on which showed normal left ventricular systolic function EF 55 % to 60%. No RWMA Continue hydralazine 50 mg every 8 hour, Norvasc Hypernatremia. Resolved Hypokalemia Replete Superior and inferior pubic ramus fracture on the left. PT consult to treat and eval Impaired fasting glucose hemoglobin A1c 7.4 Continue with sliding scale insulin Likely can d/c on metformin Tachycardia Seems to be present since admission, BP and RR are stable EKG ordered to evaluated Replete K, BMP this am pending due to persistent tachycardia and slight bump in cr will give some gentle hydration Anxiety Discussed case with clinical pharmacist. On 05/30 she received haloperidol, ativan, and morphine and because very sedated and difficult to wake. She received reversal agent with little response. Encouraged patient to use the vistaril thats on board, has not been used since 06/02. GI prophylaxis with Protonix and DVT prophylaxis with SCDs. No chemical DVT Prophylaxis due to thrombocytopenia Discharge Planning In summary this is a 67-year-old female patient with metastatic non-small cell carcinoma. The patient has undergone a thyroid biopsy in addition to a pelvic lymph node biopsy. Lung biopsy is needed to definitively determine source of cancer. During her admission the patient was noted to have gross hematuria. She was evaluated by Dr. Olea who noted that the hematuria was likely due to involvement of bladder urethra with non-small cell carcinoma and exacerbation by irritation from the Nuñez. He recommended that the Nuñez remain in for at least 48 hours after her urine becomes clear. The patient has continued to have significant leukocytosis. Infectious disease has been following. Concern is her leukocytosis is not due to an infectious process but due to her metastatic disease. She's been on Zosyn and her cultures are being followed. Dr. Askew plans to further work the patient up as an outpatient. Dr. Pearson reports that further workup will be after Dr. Askew workup. SNF placement has been arranged. - Clearance by infectious disease and hematology are pending. Problem Qualifiers (1) Closed fracture of left superior pubic ramus: Qualified Codes: S32.512A - Fracture of superior rim of left pubis, initial encounter for closed fracture Luisa Jimenez MD Jun 07, 2017 07:45
[2017-06-07] MEDS: SODIUM CHLORIDE 0.9% FLUSH 10 ML FLUSH IV FLUSH SCH ×2 (08:25→23:20)
[2017-06-07] MEDS: amLODIPine BESYLATE 5 MG TAB PO SCH (08:25)
[2017-06-07 09:38] LABS: APTT (PATIENT) 36.8 SEC (24.3-30.1); INTERNATIONAL NORMALIZED RATIO 2.3 RATIO; PROTHROMBIN TIME - PATIENT 26.3 SEC (9.8-11.6)
[2017-06-07 09:40] LABS: BASOPHIL % 0.1 % (0.0-2.0); HEMATOCRIT 25.1 % (35.0-46.0); LYMPH % 2.5 % (9.0-44.0); LYMPHOCYTE # 0.9 TH/MM3 (1.0-4.8); MEAN CELL VOLUME 73.3 FL (80.0-100.0); MEAN CORPUSCULAR HEMOGLOBIN 22.4 PG (27.0-34.0); MEAN CORPUSCULAR HGB CONC 30.6 % (32.0-36.0); MONO % 4.7 % (0.0-8.0); NEUT % 92.7 % (16.0-70.0); PLATELET COUNT 39 TH/MM3 (150-450); RED BLOOD COUNT 3.43 MIL/MM3 (4.00-5.30); RED CELL DISTRIBUTION WIDTH 21.9 % (11.6-17.2); WHITE BLOOD COUNT 36.7 TH/MM3 (4.0-11.0)
[2017-06-07 09:46] LABS: HEMO FLAGS AUTO DIFF
[2017-06-07 10:28] LABS: BANDS 3 % (0-6); NEUTROPHIL # MANUAL DIFF 35.6 TH/MM3 (1.8-7.7); PLATELET ESTIMATE SMEAR LOW (NORMAL); PLATELET MORPHOLOGY NORMAL (NORMAL); POLYS (SEG NEUTROPHILS) 94 % (16-70); SCAN/DIFF FINAL DIFF MANUAL; WBC DIFF SAMPLE 100
[2017-06-07] MEDS: SODIUM CHLOR 0.9% 1000 ML INJ 1,000 ML IV SCH ×2 (10:42→21:55)
[2017-06-07] MEDS ORDERED: diphenhydrAMINE HCL 25 MG CAP PO PRN (12:45)
--- NOTE | 2017-06-07 12:47 | PD.ONC.PN ---
Subjective Subjective Remarks Sleepy in bed, arousable. Seem to have SOB, looks weak and pale. Daughter at bedside. c/o anxiety, wants something now, was able to tolerate Xanax and Valium in the past. Noted adverse reaction to Lorazepam this admission. Gross hematuria continue. Objective Data Date Time Temp Pulse Resp B/P (MAP) Pulse Ox O2 Delivery O2 Flow Rate FiO2 06/07/17 11:41 98.9 108 20 145/63 (90) 91 06/07/17 08:37 Nasal Cannula 3.00 06/07/17 08:00 97.8 114 20 120/67 (84) 91 06/07/17 04:00 97.4 111 20 126/60 (82) 94 06/07/17 00:00 97.3 112 24 173/77 (109) 93 06/06/17 21:19 93 Nasal Cannula 3.00 06/06/17 20:00 Nasal Cannula 1.00 06/06/17 20:00 114 06/06/17 20:00 97.4 117 22 144/69 (94) 93 06/06/17 16:17 93 Nasal Cannula 2.00 06/06/17 16:00 97.6 114 20 147/60 (89) 90 06/07/17 06/07/17 06/07/17 07:00 15:00 23:00 Intake Total 480 ml Output Total 1100 ml Balance -620 ml Result Diagram: 06/07/17 0910 06/06/17 1525 Laboratory Results Laboratory Tests Test 06/06/17 15:25 06/07/17 09:10 White Blood Count 34.5 TH/MM3 36.7 TH/MM3 Red Blood Count 3.51 MIL/MM3 3.43 MIL/MM3 Hemoglobin 7.7 GM/DL 7.7 GM/DL Hematocrit 25.5 % 25.1 % Mean Corpuscular Volume 72.7 FL 73.3 FL Mean Corpuscular Hemoglobin 22.0 PG 22.4 PG Mean Corpuscular Hemoglobin Concent 30.2 % 30.6 % Red Cell Distribution Width 21.6 % 21.9 % Platelet Count 32 TH/MM3 39 TH/MM3 Mean Platelet Volume 9.1 FL 8.7 FL Neutrophils (%) (Auto) 92.6 % 92.7 % Lymphocytes (%) (Auto) 3.1 % 2.5 % Monocytes (%) (Auto) 4.2 % 4.7 % Eosinophils (%) (Auto) 0.0 % 0.0 % Basophils (%) (Auto) 0.1 % 0.1 % Neutrophils # (Auto) 32.0 TH/MM3 34.0 TH/MM3 Lymphocytes # (Auto) 1.1 TH/MM3 0.9 TH/MM3 Monocytes # (Auto) 1.5 TH/MM3 1.7 TH/MM3 Eosinophils # (Auto) 0.0 TH/MM3 0.0 TH/MM3 Basophils # (Auto) 0.0 TH/MM3 0.0 TH/MM3 CBC Comment AUTO DIFF AUTO DIFF Differential Total Cells Counted 100 100 Neutrophils % (Manual) 91 % 94 % Band Neutrophils % 3 % 3 % Lymphocytes % 3 % 2 % Monocytes % 3 % 1 % Neutrophils # (Manual) 32.4 TH/MM3 35.6 TH/MM3 Nucleated Red Blood Cells 1 /100 WBC Differential Comment FINAL DIFF MANUAL FINAL DIFF MANUAL Platelet Estimate LOW LOW Platelet Morphology Comment NORMAL NORMAL Ovalocytes 1+ Erythrocyte Sedimentation Rate 78 mm/hr Reticulocyte Count 1.9 % Absolute Reticulocyte Count 65.0 MIL/L Haptoglobin 268 MG/DL Prothrombin Time 23.3 SEC 26.3 SEC Prothromb Time International Ratio 2.0 RATIO 2.3 RATIO Activated Partial Thromboplast Time 35.3 SEC 36.8 SEC Fibrinogen 442 mg/dL Blood Urea Nitrogen 37 MG/DL Creatinine 1.04 MG/DL Random Glucose 155 MG/DL Calcium Level 7.5 MG/DL Magnesium Level 2.5 MG/DL Sodium Level 145 MEQ/L Potassium Level 2.9 MEQ/L Chloride Level 107 MEQ/L Carbon Dioxide Level 28.9 MEQ/L Anion Gap 9 MEQ/L Estimat Glomerular Filtration Rate 53 ML/MIN Iron Level 52 MCG/DL Total Iron Binding Capacity 185 MCG/DL Percent Iron Saturation 28.1 % Ferritin 155 NG/ML Total Bilirubin 1.0 MG/DL Direct Bilirubin 0.4 MG/DL Indirect Bilirubin 0.6 MG/DL Aspartate Amino Transf (AST/SGOT) 47 U/L Alanine Aminotransferase (ALT/SGPT) 33 U/L Alkaline Phosphatase 327 U/L Lactate Dehydrogenase 811 U/L 848 U/L C-Reactive Protein 10.40 MG/DL Total Protein 5.3 GM/DL Albumin 1.9 GM/DL Vitamin B12 Level 713 PG/ML Folate 4.7 NG/ML Culture Results Microbiology Date/Time Source Procedure Growth Status 06/06/17 15:25 Blood Peripheral Aerobic Blood Culture - Preliminary NO GROWTH IN 1 DAY Resulted 06/06/17 15:25 Blood Peripheral Anaerobic Blood Culture - Preliminary NO GROWTH IN 1 DAY Resulted 06/06/17 15:20 Blood Peripheral Aerobic Blood Culture - Preliminary NO GROWTH IN 1 DAY Resulted 06/06/17 15:20 Blood Peripheral Anaerobic Blood Culture - Preliminary NO GROWTH IN 1 DAY Resulted Administered Medications Medications (Trade) Dose Ordered Sig/[place] Route PRN Reason Start Time Stop Time Status Last Admin Dose Admin Naloxone HCl (Narcan Inj) 0.4 mg UNSCH PRN IV SEE LABEL COMMENTS 05/27/17 22:30 05/30/17 13:30 Clonidine (Catapres) 0.1 mg Q6H PRN PO bp>160/90 05/27/17 22:45 06/07/17 01:14 Sodium Chloride (NS Flush) 2 ml BID IV FLUSH 05/28/17 21:00 06/07/17 08:25 Ondansetron HCl (Zofran Inj) 4 mg Q6H PRN IVP NAUSEA OR VOMITING 05/28/17 09:15 06/07/17 09:37 Heparin Sodium (Porcine) (Heparin Inj) 5,000 units Q8H SQ 05/28/17 17:00 Future Hold 05/30/17 07:44 Acetaminophen (Tylenol) 650 mg Q6H PRN PO PAIN SCALE 1 TO 2 05/28/17 09:15 06/02/17 22:23 Acetaminophen/ Hydrocodone Bitart ([place] 5-325 Mg) 1 tab Q4H PRN PO PAIN SCALE 3 TO 5 05/28/17 09:15 06/06/17 00:21 Acetaminophen/ Hydrocodone Bitart ([place] 10-325 Mg) 1 tab Q4H PRN PO PAIN SCALE 6 TO 10 05/28/17 09:15 06/07/17 09:38 Hydroxyzine Pamoate (Vistaril) 25 mg Q6H PRN PO anxiety 05/28/17 17:00 06/02/17 22:23 Propranolol HCl (Inderal) 20 mg Q8HR PO 05/29/17 22:00 Future Hold 05/30/17 05:34 Amlodipine Besylate (Norvasc) 5 mg DAILY PO 05/30/17 09:00 06/07/17 08:25 Albuterol Sulfate (Albuterol Neb) 2.5 mg Q2HR NEB PRN NEB sob/wheeze 05/30/17 10:15 06/06/17 21:15 Pantoprazole Sodium (Protonix Inj) 40 mg Q24H IV PUSH 05/30/17 18:00 06/06/17 16:49 Miscellaneous Information Patient in critical care unit? Ass... [id number] .XX 05/30/17 20:30 05/30/17 20:30 Insulin Human Regular (NovoLIN R SUPPLEMENTAL SCALE) 1 Q4H SQ 05/31/17 10:00 06/07/17 09:53 Piperacillin Sod/ Tazobactam Sod 100 ml @ 200 mls/hr Q6H IV 05/31/17 10:00 06/07/17 09:37 Water (Free Water) 300 ml Q6HR G-TUBE 06/01/17 12:00 06/04/17 17:21 Hydralazine HCl (Apresoline) 50 mg Q8HR PO 06/03/17 10:00 06/07/17 06:08 Hydralazine HCl (Apresoline) 10 mg Q6HR PRN PO SBP>160, DBP>90 06/03/17 10:00 06/06/17 09:19 Sodium Chloride 1,000 ml @ 84 mls/hr [id number] IV 06/07/17 10:00 06/07/17 10:42 Objective Remarks GENERAL: Middle aged female lying in bed, tired. pale. SKIN: Warm and dry. Bruising in R Upper forearm. HEAD: Normocephalic. EYES: No injection or drainage. NECK: Supple, trachea midline. CARDIOVASCULAR: Regular rate and rhythm RESPIRATORY: occasional rhonchi. on 2L O2 via NC GASTROINTESTINAL: Abdomen soft, non-tender, nondistended. : nuñez to gravity-->+ persistent gross hematuria EXTREMITIES: No cyanosis NEUROLOGICAL: awake and alert, normal speech. moving all extremities. Assessment/Plan Problem List: (1) Thyroid neoplasm malignant ICD Codes: C73 - Malignant neoplasm of thyroid gland Plan: 06/07/17. Thyroid neoplasm not certain if metastatic. Euthyroid. -- thyroid nodule Hurthle cell adenoma vs carcinoma- cannot tell from FNA. --ultimately need bx lung to determine if metastatic Hurthle cell versus metastatic from non small cell carcinoma. --If metastatic Hurthle cell, no need for thyroidectomy. (2) Adenopathy ICD Codes: R59.1 - Generalized enlarged lymph nodes Plan: 06/07/17. Pelvic adenopathy, bladder tumor, gross hematuria. Not certain if lung lesions are also part of same tumor vs second primary. Plan out pt biopsy however pt's performance status is quite poor. Looks worse than Wednesday. Plan a transfusion. Correct hypokalemia and monitor if improve. 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 --Treatment in terms of the non small cell is palliative. --Prognosis is likely carried by the non small cell component. --Agree with plans to go to rehab to tend to pelvic fracture. --Out pt staging could be coordinated and decide how to proceed with treatment pending pt' performance status. (3) Hematuria ICD Codes: R31.9 - Hematuria, unspecified Plan: 06/07/17. Transfuse 2UPRBC for support, symptomatic from anemia Suspect platelets are consumed in the chronic bleed. --urology following and recommends continuing with nuñez catheter with PRN irrigation and removal only when urine clear x 48 hrs --likely d/t metastatic involvement of bladder/urethra (4) Thrombocytopenia ICD Codes: D69.6 - Thrombocytopenia, unspecified Plan: 06/07/17. Follow platelet count. No transfusion platelet for now. LDH elevated but haptoglobin high, renal function stable, unlikely microangiopathic hemolytic process. Suspect consumption from bleed. ---likely multifactorial d/t hematuria, ?infection, tumor, possible bone marrow involvement of the tumor(s) (5) Microcytic hypochromic anemia ICD Codes: D50.9 - Iron deficiency anemia, unspecified Plan: 06/07/17. Transfuse today. Unable to exclude iron deficiency with microcytosis however gross hematuria suggest reason is blood loss anemia. -check iron studies, B12/folate, LDH, haptoglobin --retic count low normal Assessment 67 y/o woman admitted s/p fall and pelvic fracture. Hematology consulted for findings of hypercalcemia, thyroid nodule, multiple metastatic lung lesion and adenopathy. h/o Hypertension, Hyperlipidemia, Obesity, Noncompliance, Metastatic thyroid cancer Pelvic fracture. Plan 1. Gross hematuria management per urology 2. Unlikely to tolerate CT guided lung biopsy with thrombocytopenia 3. Consider complete staging as out patient 4. Transfuse 2UPRBC symptomatic from anemia 5. One time dose Xanax for anxiety 6. Consult psychiatry to assist with depression and anxiety symptoms. 7. Replace K orally, monitor labs. 8. Discussed w/ ID, treatment largely palliative, palliative on board Mi Tong MD Jun 07, 2017 12:47
[2017-06-07 13:16] LABS: BICARBONATE 27.5 MEQ/L (21.0-32.0); POTASSIUM 3.2 MEQ/L (3.5-5.1)
--- NOTE | 2017-06-07 13:41 | HHI.HCPN ---
Reason for visit a. To assist with evaluation and management of symptoms including: dyspnea, confusion, anxiety, pain b. To assist medical decision maker(s) with: better understanding of current medical conditions; weighing benefits/burdens of medical treatment options; making medical treatment decisions. Subjective/Interval History Pt seen today to follow up on comfort, goals. 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 Treatment likely to be palliative if patient performance status tolerates. Patient also with some hematuria status post urology consult urology feels may be secondary to bladder/ureteral involvement from pelvic mass. 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 Patient planned for outpatient rehabilitation to improve performance status, possible outpatient staging for further treatment. H&H cont to trending down, 7.7/25.1, platelets 39. Orders for transfusion 2 U RBCs today. K+ 2.9 yesterday , repeat today pending. Pt seen in room dtr at bedside. Patient lethargic, anxious. Groans at times. Appears mildly short of breath. ? 2/2 anemia. She denies pain but does endorse anxiety. Gently explore with daughter and patient pathology findings, possibility of palliative treatment though further staging, other diagnostic information is needed, and patient performance status needs to be improved. Patient endorses that she just wants to go home, daughter endorses she has had increasing anxiety over the weekend. Of note patient apparently did not tolerate Ativan during this hospitalization with significant AMS/lethargy resulting. Some of this may be situational depression combined with anxiety discussed with patient and daughter possibility of SSRI to assist with long- term management of depression and anxiety. Difficult to fully release discuss treatment goals and long-term planning given patient anxious state. Daughter endorses pt w poor appetite today thus far, but better over weekend. . Advance Directives Health Care Surrogate: Completed, but not made available (daughter reports patient completed HCS on [place] however no copy currently available) Objective Vital Signs Date Time Temp Pulse Resp B/P (MAP) Pulse Ox O2 Delivery O2 Flow Rate FiO2 06/07/17 11:41 98.9 108 20 145/63 (90) 91 06/07/17 08:37 Nasal Cannula 3.00 06/07/17 08:00 97.8 114 20 120/67 (84) 91 06/07/17 04:00 97.4 111 20 126/60 (82) 94 06/07/17 00:00 97.3 112 24 173/77 (109) 93 06/06/17 21:19 93 Nasal Cannula 3.00 06/06/17 20:00 Nasal Cannula 1.00 06/06/17 20:00 114 06/06/17 20:00 97.4 117 22 144/69 (94) 93 06/06/17 16:17 93 Nasal Cannula 2.00 06/06/17 16:00 97.6 114 20 147/60 (89) 90 Intake & Output 06/07/17 06/07/17 06:59 18:59 Intake Total 880 ml Output Total 1100 ml Balance -220 ml Intake Oral 380 ml IV Total 500 ml Output Urine Total 1100 ml # Bowel Movements 2 Physical Exam CONSTITUTIONAL/GENERAL: This is an adequately nourished patient, lethargic, groans at times TUBES/LINES/DRAINS:PIV x2 BUE, nuñez catheter, SCDs, NC O2 CARDIOVASCULAR: Regular rate and rhythm without murmurs. No JVD. Peripheral pulses symmetric. RESPIRATORY/CHEST: Symmetric, unlabored respirations. mildly tachypneic . RR 22. NC 3L. Clear to auscultation, decreased air movement. Breath sounds equal bilaterally. GASTROINTESTINAL: Abdomen soft, non-tender, nondistended. No palpable masses. No guarding. Bowel sounds normoactive. GENITOURINARY: Without palpable bladder distension. Nuñez catheter in place clear red tinged/yellow urine. NEUROLOGICAL: lethargic/weak, mostly oriented, x2-3. anxiety limits insight. Does move all 4 extremities with significant weakness. PSYCHIATRIC: mild anxiety during exam . Diagnostic Tests Laboratory Laboratory Tests Test 06/04/17 16:14 06/04/17 22:44 06/05/17 08:12 06/06/17 09:37 Potassium Level 3.2 MEQ/L (3.5-5.1) 3.2 MEQ/L (3.5-5.1) 2.8 MEQ/L (3.5-5.1) Stool C. difficile Toxin (PCR) NEGATIVE (NEGATIVE) Stl C. difficile Toxin Epiderm 027 PRESUMPTIVE NEGATIVE White Blood Count 33.6 TH/MM3 (4.0-11.0) 37.8 TH/MM3 (4.0-11.0) Red Blood Count 3.64 MIL/MM3 (4.00-5.30) 3.61 MIL/MM3 (4.00-5.30) Hemoglobin 8.2 GM/DL (11.6-15.3) 8.2 GM/DL (11.6-15.3) Hematocrit 25.8 % (35.0-46.0) 26.3 % (35.0-46.0) Mean Corpuscular Volume 71.0 FL (80.0-100.0) 73.0 FL (80.0-100.0) Mean Corpuscular Hemoglobin 22.5 PG (27.0-34.0) 22.6 PG (27.0-34.0) Mean Corpuscular Hemoglobin Concent 31.8 % (32.0-36.0) 31.0 % (32.0-36.0) Red Cell Distribution Width 21.2 % (11.6-17.2) 21.7 % (11.6-17.2) Platelet Count 29 TH/MM3 (150-450) 34 TH/MM3 (150-450) Mean Platelet Volume 9.1 FL (7.0-11.0) 9.7 FL (7.0-11.0) Neutrophils (%) (Auto) 92.2 % (16.0-70.0) 92.1 % (16.0-70.0) Lymphocytes (%) (Auto) 3.4 % (9.0-44.0) 3.7 % (9.0-44.0) Monocytes (%) (Auto) 4.3 % (0.0-8.0) 3.9 % (0.0-8.0) Eosinophils (%) (Auto) 0.1 % (0.0-4.0) 0.1 % (0.0-4.0) Basophils (%) (Auto) 0.0 % (0.0-2.0) 0.2 % (0.0-2.0) Neutrophils # (Auto) 31.0 TH/MM3 (1.8-7.7) 34.8 TH/MM3 (1.8-7.7) Lymphocytes # (Auto) 1.1 TH/MM3 (1.0-4.8) 1.4 TH/MM3 (1.0-4.8) Monocytes # (Auto) 1.5 TH/MM3 (0-0.9) 1.5 TH/MM3 (0-0.9) Eosinophils # (Auto) 0.0 TH/MM3 (0-0.4) 0.0 TH/MM3 (0-0.4) Basophils # (Auto) 0.0 TH/MM3 (0-0.2) 0.1 TH/MM3 (0-0.2) CBC Comment AUTO DIFF AUTO DIFF Differential Total Cells Counted 100 100 Neutrophils % (Manual) 89 % (16-70) 84 % (16-70) Band Neutrophils % 5 % (0-6) 10 % (0-6) Lymphocytes % 4 % (9-44) 1 % (9-44) Monocytes % 2 % (0-8) 4 % (0-8) Neutrophils # (Manual) 31.6 TH/MM3 (1.8-7.7) 35.9 TH/MM3 (1.8-7.7) Differential Comment FINAL DIFF MANUAL FINAL DIFF MANUAL Platelet Estimate LOW (NORMAL) Platelet Morphology Comment NORMAL (NORMAL) Blood Urea Nitrogen 32 MG/DL (7-18) 37 MG/DL (7-18) Creatinine 0.92 MG/DL (0.50-1.00) 0.98 MG/DL (0.50-1.00) Random Glucose 140 MG/DL (74-106) 171 MG/DL (74-106) Total Protein 5.5 GM/DL (6.4-8.2) Calcium Level 7.2 MG/DL (8.5-10.1) 7.5 MG/DL (8.5-10.1) Sodium Level 142 MEQ/L (136-145) 145 MEQ/L (136-145) Chloride Level 105 MEQ/L (98-107) 106 MEQ/L (98-107) Carbon Dioxide Level 27.1 MEQ/L (21.0-32.0) 26.2 MEQ/L (21.0-32.0) Anion Gap 10 MEQ/L (5-15) 13 MEQ/L (5-15) Estimat Glomerular Filtration Rate 61 ML/MIN (>89) 57 ML/MIN (>89) Protein Corrected Calcium 8.1 MG/DL (8.5-10.1) Metamyelocytes 1 % (0-1) Test 06/06/17 15:25 06/07/17 09:10 06/07/17 12:37 White Blood Count 34.5 TH/MM3 (4.0-11.0) 36.7 TH/MM3 (4.0-11.0) Red Blood Count 3.51 MIL/MM3 (4.00-5.30) 3.43 MIL/MM3 (4.00-5.30) Hemoglobin 7.7 GM/DL (11.6-15.3) 7.7 GM/DL (11.6-15.3) Hematocrit 25.5 % (35.0-46.0) 25.1 % (35.0-46.0) Mean Corpuscular Volume 72.7 FL (80.0-100.0) 73.3 FL (80.0-100.0) Mean Corpuscular Hemoglobin 22.0 PG (27.0-34.0) 22.4 PG (27.0-34.0) Mean Corpuscular Hemoglobin Concent 30.2 % (32.0-36.0) 30.6 % (32.0-36.0) Red Cell Distribution Width 21.6 % (11.6-17.2) 21.9 % (11.6-17.2) Platelet Count 32 TH/MM3 (150-450) 39 TH/MM3 (150-450) Mean Platelet Volume 9.1 FL (7.0-11.0) 8.7 FL (7.0-11.0) Neutrophils (%) (Auto) 92.6 % (16.0-70.0) 92.7 % (16.0-70.0) Lymphocytes (%) (Auto) 3.1 % (9.0-44.0) 2.5 % (9.0-44.0) Monocytes (%) (Auto) 4.2 % (0.0-8.0) 4.7 % (0.0-8.0) Eosinophils (%) (Auto) 0.0 % (0.0-4.0) 0.0 % (0.0-4.0) Basophils (%) (Auto) 0.1 % (0.0-2.0) 0.1 % (0.0-2.0) Neutrophils # (Auto) 32.0 TH/MM3 (1.8-7.7) 34.0 TH/MM3 (1.8-7.7) Lymphocytes # (Auto) 1.1 TH/MM3 (1.0-4.8) 0.9 TH/MM3 (1.0-4.8) Monocytes # (Auto) 1.5 TH/MM3 (0-0.9) 1.7 TH/MM3 (0-0.9) Eosinophils # (Auto) 0.0 TH/MM3 (0-0.4) 0.0 TH/MM3 (0-0.4) Basophils # (Auto) 0.0 TH/MM3 (0-0.2) 0.0 TH/MM3 (0-0.2) CBC Comment AUTO DIFF AUTO DIFF Differential Total Cells Counted 100 100 Neutrophils % (Manual) 91 % (16-70) 94 % (16-70) Band Neutrophils % 3 % (0-6) 3 % (0-6) Lymphocytes % 3 % (9-44) 2 % (9-44) Monocytes % 3 % (0-8) 1 % (0-8) Neutrophils # (Manual) 32.4 TH/MM3 (1.8-7.7) 35.6 TH/MM3 (1.8-7.7) Nucleated Red Blood Cells 1 /100 WBC (0-0) Differential Comment FINAL DIFF MANUAL FINAL DIFF MANUAL Platelet Estimate LOW (NORMAL) LOW (NORMAL) Platelet Morphology Comment NORMAL (NORMAL) NORMAL (NORMAL) Ovalocytes 1+ (NORMAL) Erythrocyte Sedimentation Rate 78 mm/hr (0-30) Reticulocyte Count 1.9 % (0.4-3.0) Absolute Reticulocyte Count 65.0 MIL/L (20.0-150.0) Haptoglobin 268 MG/DL (30-200) Prothrombin Time 23.3 SEC (9.8-11.6) 26.3 SEC (9.8-11.6) Prothromb Time International Ratio 2.0 RATIO 2.3 RATIO Activated Partial Thromboplast Time 35.3 SEC (24.3-30.1) 36.8 SEC (24.3-30.1) Fibrinogen 442 mg/dL (227-377) Blood Urea Nitrogen 37 MG/DL (7-18) 43 MG/DL (7-18) Creatinine 1.04 MG/DL (0.50-1.00) 1.00 MG/DL (0.50-1.00) Random Glucose 155 MG/DL (74-106) 163 MG/DL (74-106) Calcium Level 7.5 MG/DL (8.5-10.1) 7.6 MG/DL (8.5-10.1) Magnesium Level 2.5 MG/DL (1.5-2.5) Sodium Level 145 MEQ/L (136-145) 147 MEQ/L (136-145) Potassium Level 2.9 MEQ/L (3.5-5.1) 3.2 MEQ/L (3.5-5.1) Chloride Level 107 MEQ/L (98-107) 109 MEQ/L (98-107) Carbon Dioxide Level 28.9 MEQ/L (21.0-32.0) 27.5 MEQ/L (21.0-32.0) Anion Gap 9 MEQ/L (5-15) 11 MEQ/L (5-15) Estimat Glomerular Filtration Rate 53 ML/MIN (>89) 55 ML/MIN (>89) Iron Level 52 MCG/DL (50-170) Total Iron Binding Capacity 185 MCG/DL (250-450) Percent Iron Saturation 28.1 % (20-50) Ferritin 155 NG/ML (8-252) Total Bilirubin 1.0 MG/DL (0.2-1.0) Direct Bilirubin 0.4 MG/DL (0.0-0.2) Indirect Bilirubin 0.6 MG/DL (0.0-0.8) Aspartate Amino Transf (AST/SGOT) 47 U/L (15-37) Alanine Aminotransferase (ALT/SGPT) 33 U/L (10-53) Alkaline Phosphatase 327 U/L (45-117) Lactate Dehydrogenase 811 U/L (84-246) 848 U/L (84-246) C-Reactive Protein 10.40 MG/DL (0.00-0.30) Total Protein 5.3 GM/DL (6.4-8.2) Albumin 1.9 GM/DL (3.4-5.0) Vitamin B12 Level 713 PG/ML (193-986) Folate 4.7 NG/ML (3.1-17.5) Result Diagram: 06/07/17 0910 06/06/17 1525 Microbiology Microbiology Date/Time Source Procedure Growth Status 06/06/17 15:25 Blood Peripheral Aerobic Blood Culture - Preliminary NO GROWTH IN 1 DAY Resulted 06/06/17 15:25 Blood Peripheral Anaerobic Blood Culture - Preliminary NO GROWTH IN 1 DAY Resulted 06/06/17 15:20 Blood Peripheral Aerobic Blood Culture - Preliminary NO GROWTH IN 1 DAY Resulted 06/06/17 15:20 Blood Peripheral Anaerobic Blood Culture - Preliminary NO GROWTH IN 1 DAY Resulted Imaging Last Impressions Thyroid Biopsy Ultrasound 06/03/17 0000 Signed Impressions: Service Date/Time: May 13:59 - CONCLUSION: Uncomplicated ultrasound guided core needle biopsy of a complex cystic mass of the right thyroid. Sushant Juares Jr., MD Lymph Node Biopsy CT 06/02/17 0000 Signed Impressions: Service Date/Time: Friday, June 02, 2017 11:52 - CONCLUSION: Uncomplicated CT guided biopsy of a left pelvic mass likely relating to iliac chain lymph nodes. Sushant Juares Jr., MD Chest X-Ray 05/31/17 0000 Signed Impressions: Service Date/Time: Wednesday, May 31, 2017 09:31 - CONCLUSION: Increasing nodular opacities throughout both lungs Patient has changes in the left base. I Pa Verdin MD FACR Abdomen X-Ray 05/31/17 0000 Signed Impressions: Service Date/Time: Wednesday, May 31, 2017 10:21 - CONCLUSION: The tip of the NG tube in the antrum of the stomach. Sushant Juares Jr., MD Brain MRI 05/30/17 0000 Signed Impressions: Service Date/Time: Tuesday, May 30, 2017 19:47 - CONCLUSION: 1. Tiny 9 mm enhancing extra-axial mass along the left high parietal region consistent with probable tiny meningioma. 2. No acute infarct, acute hemorrhage, midline shift or extra-axial bleed. Delta Allison MD Lower Extremity CT 05/28/17 0000 Signed Impressions: Service Date/Time: Sunday, May 28, 2017 09:50 - CONCLUSION: 1. Acute nondisplaced superior and inferior pubic rami fractures on the left. 2. Retroperitoneal adenopathy worrisome for metastatic disease or myeloproliferative disorder. 3. Enlarged and lobulated uterus likely related to fibroids. Sushant Juares Jr., MD CT Angiography 05/28/17 Signed Impressions: Service Date/Time: Sunday, May 28, 2017 02:01 - CONCLUSION: Large mass on the right side of the trachea could be an enlarged thyroid. Innumerable nodules scattered throughout the lungs metastatic disease certainly within the differential. There are a number of nodules in the right lower lobe which would be amenable to CT-guided biopsy. Vince Galan MD Abdomen/Pelvis CT 05/28/17 Signed Impressions: Service Date/Time: Sunday, May 28, 2017 20:56 - CONCLUSION: 1. There is evidence of retroperitoneal metastatic lymphadenopathy and I believe potentially on the basis of cervical or endometrial carcinoma. Primary lesion versus additional metastatic involvement of the urinary bladder. There is also a nonspecific nodule in the expected region of the distal urethra. 2. Nodularity of both adrenal glands, most likely metastatic. 3. Visualized lung bases again show evidence of widespread and confluent pulmonary metastatic disease with small effusions. Kane Cedeño MD Maxillofacial CT 05/27/172016 Signed Impressions: Service Date/Time: May 20:34 - CONCLUSION: 1. No maxillofacial fracture is present. 2. There is bilateral maxillary mucoperiosteal thickening with 12 mm polypoid structure extending from the left maxillary antrum into the left posterior nasal cavity. 3. There is a 14 mm left parotid gland nodule. Differential diagnosis includes intraparotid lymph node or pleomorphic adenoma. Kane Bartlett MD Head CT 05/27/172016 Signed Impressions: Service Date/Time: May 20:34 - CONCLUSION: No acute abnormality is identified. Kane Bartlett MD Cervical Spine CT 05/27/172016 Signed Impressions: Service Date/Time: May 20:34 - CONCLUSION: 1. No acute cervical spine abnormality is identified. There is degenerative disc disease at C5-C6. 2. There is a 4.1 cm right thyroid nodule. If this is a new finding, suggest nonemergent outpatient ultrasound of the thyroid gland for further evaluation. 3. Abnormal linear and nodular parenchymal opacities in the upper lobes bilaterally. Since this does not pertain to the patient's acute problem, this finding should also be further evaluated with outpatient chest CT with IV contrast. Also suggest correlating with any prior outside imaging studies. Kane Bartlett MD Hip and Pelvis X-Ray 05/27/17 0000 Signed Impressions: Service Date/Time: May 20:49 - CONCLUSION: 1. A subtle lucency in the left pelvis may represent a nondisplaced left superior pubic ramus fracture. 2. Mild osteoarthritis of the joints bilaterally. Kane Bartlett MD Ankle X-Ray 05/27/17 0000 Signed Impressions: Service Date/Time: May 20:56 - CONCLUSION: No acute left ankle abnormality is identified. Kane Bartlett MD Procedures 06/02 CT guided lymph node bx 06/03 us guided thyroid Bx . Assessment and Plan Disease Oriented Problem List: (1) Elevated troponin I level (2) Closed fracture of single pubic ramus of pelvis (3) Hypercalcemia (4) Adenopathy (5) Lesion of lung (6) Mass of cervix Symptom Scale: (1) Dyspnea (2) Anxiety (3) Pain (4) Confusion Pertinent Non-Medical Issues Psychosocial:Patient originally from [place], though has lived in [place] since the . Still working some, does [employer] services part-time. Supported locally by 3 adult children, her son lives with her . . 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 Apparently completed health care surrogate designation at [facility] Wednesday however this document is not present in chart. May offer to assist patient to complete healthcare surrogate again if she is able. Daughter indicates that she was named as primary surrogate with her sister is secondary. Patient , supported by 3 adult children, who per [place] statutes would be appropriate proxies if patient incapacitated. Ethical issues impacting care: Important Contacts VERNELL AGUILERA (DAUGHTER) [phone] Maribeth Thaddeus daughter [phone] Jared- son- lives w pt, using pt phone # [phone] . Prognosis This patient was admitted status post mechanical fall at home. Incidental findings via imaging of what appears to be widespread metastatic malignancy process. 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 Patient would certainly need additional biopsy from lung, as well as further staging to determine best treatment course. Per oncology pelvic would most likely only be offered palliative treatment, and any treatments would be if patient performance and functional status improved. If the patient did not wish to undergo further invasive testing and additional treatments , would be appropriate for hospice. . Code Status: Full Code Plan * Legal decision maker:Patient mental status fluctuates at times she may be capacitated. 06/04 mental status cont to improve, pt sharp. 06/01/17 completed [facility] MARIBETH- placed in chart, scanned to med records * Goals: Pt, family wish to continue aggressive tx course. Open to ongoing conversations as clinical course evolves. Patient has continually verbalize that she wants to go home. Certainly if with patient, family full insight into conditions and options,if the patient wished to go home and forego any other aggressive or invasive measures she would be appropriate for hospice if that was in line with their goals. * CODE STATUS: Full code * SYMPTOMS: --Dyspnea- resp status fluctuating, + CXR /CT findings multiple nodules concerning for malignancy; + on nebulizers, O2. Will cont to evaluate, no dyspnea endorsed today, maria e NC --Anxiety-potential for related to dyspnea, multiple new medical findings, acute ICU course. Cautious use of benzos at this time given concern for AMS, resp compromise, will cont to evaluate . pt mental status has cont to improve, AMS may be 2/2 ativan . Has prn vistaril, has not used since 06/02. could also consider trial of prn Xanax 0.25-0.5mg PO PRN Q 6 hr. Pt may benefit from longer term use of SSRI such as Lexapro, briefly discussed with dtr, pt today --Pain-status post mechanical fall with injury to pelvis, left leg. + intermittent pelvic/hip pain, will cont to evaluate. Cautious use of opiates given fluctuating mental status. nursing offering freq repositioning, prns, ice bags. prn norco 10mg used x2 today, x2 yesterday. 5mg dose used x1 yesterday. --Confusion-fluctuating mental status during hospital course, has steadily improved. MRI negative for stroke or acute process. Hypercalcemia, electrolyte abnormalities, leukocytosis, probably multifactorial * Palliative care will continue to follow during hospital course as condition evolves, to assist patient/decision-maker with understanding of medical conditions, weighing benefits/burdens of treatment options, for clarification of goals of treatment. Additionally will assist with any symptoms of palliative concern Attestation To help prompt me to consider important information that might be impacting today's encounter and assessment, information from prior notes written by myself or my colleagues may have been "brought forward" into today's note. My signature on this note, however, is an attestation that I personally performed the exam, history, and/or decision-making noted today, and, unless otherwise indicated, the interactions with patient, family, and staff as well as the review of records all occurred today. I also attest that the listed assessment and stated plan reflect my best clinical judgment today based on the combination of historical information, prior notes, and today's exam/ interactions. When time spent is documented, it refers only to time spent today by the signer, or if indicated, combined time spent today by collaborating physician/nurse practitioner. Yolis Fernando Jun 07, 2017 13:41
[2017-06-07] MEDS ORDERED: ALPRAZolam 0.25 MG TAB PO ONE (14:00)
[2017-06-07] MEDS: POTASSIUM CHLORIDE 20 MEQ CONTROLLED RELEASE TAB PO SCH ×2 (14:01→23:03)
[2017-06-07] MEDS ORDERED: ACETAMINOPHEN 325 MG TAB PO PRN (16:00)
--- NOTE | 2017-06-07 16:01 | HHI.IDPN ---
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 Vital Signs Date Time Temp Pulse Resp B/P (MAP) Pulse Ox O2 Delivery O2 Flow Rate FiO2 06/07/17 14:08 93 Nasal Cannula 3.00 06/07/17 11:41 98.9 108 20 145/63 (90) 91 06/07/17 08:37 Nasal Cannula 3.00 06/07/17 08:00 97.8 114 20 120/67 (84) 91 06/07/17 04:00 97.4 111 20 126/60 (82) 94 06/07/17 00:00 97.3 112 24 173/77 (109) 93 06/06/17 21:19 93 Nasal Cannula 3.00 06/06/17 20:00 Nasal Cannula 1.00 06/06/17 20:00 114 06/06/17 20:00 97.4 117 22 144/69 (94) 93 06/06/17 16:17 93 Nasal Cannula 2.00 06/06/17 16:00 97.6 114 20 147/60 (89) 90 . Laboratory Tests Test 06/06/17 09:37 06/06/17 15:25 06/07/17 09:10 White Blood Count 37.8 TH/MM3 34.5 TH/MM3 36.7 TH/MM3 Red Blood Count 3.61 MIL/MM3 3.51 MIL/MM3 3.43 MIL/MM3 Hemoglobin 8.2 GM/DL 7.7 GM/DL 7.7 GM/DL Hematocrit 26.3 % 25.5 % 25.1 % Mean Corpuscular Volume 73.0 FL 72.7 FL 73.3 FL Mean Corpuscular Hemoglobin 22.6 PG 22.0 PG 22.4 PG Mean Corpuscular Hemoglobin Concent 31.0 % 30.2 % 30.6 % Red Cell Distribution Width 21.7 % 21.6 % 21.9 % Platelet Count 34 TH/MM3 32 TH/MM3 39 TH/MM3 Mean Platelet Volume 9.7 FL 9.1 FL 8.7 FL Neutrophils (%) (Auto) 92.1 % 92.6 % 92.7 % Lymphocytes (%) (Auto) 3.7 % 3.1 % 2.5 % Monocytes (%) (Auto) 3.9 % 4.2 % 4.7 % Eosinophils (%) (Auto) 0.1 % 0.0 % 0.0 % Basophils (%) (Auto) 0.2 % 0.1 % 0.1 % Neutrophils # (Auto) 34.8 TH/MM3 32.0 TH/MM3 34.0 TH/MM3 Lymphocytes # (Auto) 1.4 TH/MM3 1.1 TH/MM3 0.9 TH/MM3 Monocytes # (Auto) 1.5 TH/MM3 1.5 TH/MM3 1.7 TH/MM3 Eosinophils # (Auto) 0.0 TH/MM3 0.0 TH/MM3 0.0 TH/MM3 Basophils # (Auto) 0.1 TH/MM3 0.0 TH/MM3 0.0 TH/MM3 CBC Comment AUTO DIFF AUTO DIFF AUTO DIFF Differential Total Cells Counted 100 100 100 Neutrophils % (Manual) 84 % 91 % 94 % Band Neutrophils % 10 % 3 % 3 % Lymphocytes % 1 % 3 % 2 % Monocytes % 4 % 3 % 1 % Neutrophils # (Manual) 35.9 TH/MM3 32.4 TH/MM3 35.6 TH/MM3 Metamyelocytes 1 % Differential Comment FINAL DIFF MANUAL FINAL DIFF MANUAL FINAL DIFF MANUAL Nucleated Red Blood Cells 1 /100 WBC Platelet Estimate LOW LOW Platelet Morphology Comment NORMAL NORMAL Ovalocytes 1+ Erythrocyte Sedimentation Rate 78 mm/hr Reticulocyte Count 1.9 % Absolute Reticulocyte Count 65.0 MIL/L Haptoglobin 268 MG/DL Laboratory Tests Test 06/06/17 09:37 06/06/17 15:25 06/07/17 09:10 06/07/17 12:37 Blood Urea Nitrogen 37 MG/DL 37 MG/DL 43 MG/DL Creatinine 0.98 MG/DL 1.04 MG/DL 1.00 MG/DL Random Glucose 171 MG/DL 155 MG/DL 163 MG/DL Calcium Level 7.5 MG/DL 7.5 MG/DL 7.6 MG/DL Sodium Level 145 MEQ/L 145 MEQ/L 147 MEQ/L Potassium Level 2.8 MEQ/L 2.9 MEQ/L 3.2 MEQ/L Chloride Level 106 MEQ/L 107 MEQ/L 109 MEQ/L Carbon Dioxide Level 26.2 MEQ/L 28.9 MEQ/L 27.5 MEQ/L Anion Gap 13 MEQ/L 9 MEQ/L 11 MEQ/L Estimat Glomerular Filtration Rate 57 ML/MIN 53 ML/MIN 55 ML/MIN Magnesium Level 2.5 MG/DL Iron Level 52 MCG/DL Total Iron Binding Capacity 185 MCG/DL Percent Iron Saturation 28.1 % Ferritin 155 NG/ML Total Bilirubin 1.0 MG/DL Direct Bilirubin 0.4 MG/DL Indirect Bilirubin 0.6 MG/DL Aspartate Amino Transf (AST/SGOT) 47 U/L Alanine Aminotransferase (ALT/SGPT) 33 U/L Alkaline Phosphatase 327 U/L Lactate Dehydrogenase 811 U/L 848 U/L C-Reactive Protein 10.40 MG/DL Total Protein 5.3 GM/DL Albumin 1.9 GM/DL Vitamin B12 Level 713 PG/ML Folate 4.7 NG/ML Microbiology Date/Time Source Procedure Growth Status 06/06/17 15:25 Blood Peripheral Aerobic Blood Culture - Preliminary NO GROWTH IN 1 DAY Resulted 06/06/17 15:25 Blood Peripheral Anaerobic Blood Culture - Preliminary NO GROWTH IN 1 DAY Resulted 06/06/17 15:20 Blood Peripheral Aerobic Blood Culture - Preliminary NO GROWTH IN 1 DAY Resulted 06/06/17 15:20 Blood Peripheral Anaerobic Blood Culture - Preliminary NO GROWTH IN 1 DAY Resulted Imaging Last Impressions Thyroid Biopsy Ultrasound 06/03/17 0000 Signed Impressions: Service Date/Time: May 13:59 - CONCLUSION: Uncomplicated ultrasound guided core needle biopsy of a complex cystic mass of the right thyroid. Sushant Juares Jr., MD Lymph Node Biopsy CT 06/02/17 0000 Signed Impressions: Service Date/Time: Friday, June 02, 2017 11:52 - CONCLUSION: Uncomplicated CT guided biopsy of a left pelvic mass likely relating to iliac chain lymph nodes. Sushant Juares Jr., MD Chest X-Ray 05/31/17 0000 Signed Impressions: Service Date/Time: Wednesday, May 31, 2017 09:31 - CONCLUSION: Increasing nodular opacities throughout both lungs Patient has changes in the left base. I Pa Verdin MD FACR Abdomen X-Ray 05/31/17 0000 Signed Impressions: Service Date/Time: Wednesday, May 31, 2017 10:21 - CONCLUSION: The tip of the NG tube in the antrum of the stomach. Sushant Juares Jr., MD Brain MRI 05/30/17 Signed Impressions: Service Date/Time: Tuesday, May 30, 2017 19:47 - CONCLUSION: 1. Tiny 9 mm enhancing extra-axial mass along the left high parietal region consistent with probable tiny meningioma. 2. No acute infarct, acute hemorrhage, midline shift or extra-axial bleed. Delta Allison MD Lower Extremity CT 05/28/17 Signed Impressions: Service Date/Time: Sunday, May 28, 2017 09:50 - CONCLUSION: 1. Acute nondisplaced superior and inferior pubic rami fractures on the left. 2. Retroperitoneal adenopathy worrisome for metastatic disease or myeloproliferative disorder. 3. Enlarged and lobulated uterus likely related to fibroids. Sushant Juares Jr., MD CT Angiography 05/28/17 Signed Impressions: Service Date/Time: Sunday, May 28, 2017 02:01 - CONCLUSION: Large mass on the right side of the trachea could be an enlarged thyroid. Innumerable nodules scattered throughout the lungs metastatic disease certainly within the differential. There are a number of nodules in the right lower lobe which would be amenable to CT-guided biopsy. Vince Galan MD Abdomen/Pelvis CT 05/28/17 Signed Impressions: Service Date/Time: Sunday, May 28, 2017 20:56 - CONCLUSION: 1. There is evidence of retroperitoneal metastatic lymphadenopathy and I believe potentially on the basis of cervical or endometrial carcinoma. Primary lesion versus additional metastatic involvement of the urinary bladder. There is also a nonspecific nodule in the expected region of the distal urethra. 2. Nodularity of both adrenal glands, most likely metastatic. 3. Visualized lung bases again show evidence of widespread and confluent pulmonary metastatic disease with small effusions. Kane Cedeño MD Maxillofacial CT 05/27/172016 Signed Impressions: Service Date/Time: May 20:34 - CONCLUSION: 1. No maxillofacial fracture is present. 2. There is bilateral maxillary mucoperiosteal thickening with 12 mm polypoid structure extending from the left maxillary antrum into the left posterior nasal cavity. 3. There is a 14 mm left parotid gland nodule. Differential diagnosis includes intraparotid lymph node or pleomorphic adenoma. Kane Bartlett MD Head CT 05/27/172016 Signed Impressions: Service Date/Time: May 20:34 - CONCLUSION: No acute abnormality is identified. Kane Bartlett MD Cervical Spine CT 05/27/172016 Signed Impressions: Service Date/Time: May 20:34 - CONCLUSION: 1. No acute cervical spine abnormality is identified. There is degenerative disc disease at C5-C6. 2. There is a 4.1 cm right thyroid nodule. If this is a new finding, suggest nonemergent outpatient ultrasound of the thyroid gland for further evaluation. 3. Abnormal linear and nodular parenchymal opacities in the upper lobes bilaterally. Since this does not pertain to the patient's acute problem, this finding should also be further evaluated with outpatient chest CT with IV contrast. Also suggest correlating with any prior outside imaging studies. Kane Bartlett MD Hip and Pelvis X-Ray 05/27/17 0000 Signed Impressions: Service Date/Time: May 20:49 - CONCLUSION: 1. A subtle lucency in the left pelvis may represent a nondisplaced left superior pubic ramus fracture. 2. Mild osteoarthritis of the joints bilaterally. Kane Bartlett MD Ankle X-Ray 05/27/17 0000 Signed Impressions: Service Date/Time: May 20:56 - CONCLUSION: No acute left ankle abnormality is identified. Kane Bartlett MD Physical Exam CONSTITUTIONAL/GENERAL: This is an obese elderly patient, in no apparent distress. TUBES/LINES/DRAINS: SKIN: No jaundice, rashes, or lesions. Skin temperature appropriate. Not diaphoretic. NECK: Trachea midline. Supple, nontender. CARDIOVASCULAR: Regular rate and rhythm without murmurs, gallops, or rubs. No JVD. Peripheral pulses symmetric. RESPIRATORY/CHEST: Symmetric, unlabored respirations. Clear to auscultation. Breath sounds equal bilaterally. No wheezes, rales, or rhonchi. GASTROINTESTINAL: Abdomen soft, non-tender, markedly obese moderately distended. No hepato-splenomegaly, or palpable masses. No guarding. Bowel sounds present. GENITOURINARY: Without palpable bladder distension. Rios catheter in place with brown-red urine, large amount MUSCULOSKELETAL: Extremities without clubbing, cyanosis, or edema. No joint tenderness or effusion noted. No calf tenderness. No mottling or clubbing. NEUROLOGICAL: Lethargic, confused Motor and sensory grossly within normal limits. Follows commands. Clear speech, but incoherent . Moves all extremities. 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
[2017-06-07] MEDS: PANTOPRAZOLE SODIUM 40 MG VIAL IV PUSH SCH (18:34)
--- NOTE | 2017-06-07 20:18 | EKG ---
Date Performed: 06/06/2017 Time Performed: 12:59:27 PTAGE: 67 years EKG: SINUS TACHYCARDIA ST DEVIATION AND MODERATE T-WAVE ABNORMALITY, CONSIDER LATERAL ISCHEMIA S T DEVIATION AND MODERATE T-WAVE ABNORMALITY, CONSIDER INFERIOR ISCHEMIA ABNORMAL ECG PREVIOUS TRACING : 05/28/2017 08.23 DOCTOR: Marina Lui Interpretating Date/Time 06/07/2017 20:15:01
[2017-06-08] VITALS (9 sets, daily range): BP systolic 97–148; BP diastolic 47–63; PULSE 70–121; RESP 16–22; TEMP 97.8–99.3; O2SAT 88–99
[2017-06-08] MEDS: RESP: ALBUTEROL 2.5 MG/3 ML NEB (PRN) NEB ×2 (01:05→03:11)
[2017-06-08] MEDS ORDERED: methylPREDNISolone SOD SUCC 125 MG/2 ML VIAL IV PUSH ONE (01:45)
[2017-06-08] MEDS: INSULIN NovoLIN REGULAR SUPPLEMENTAL SCALE SQ SCH ×6 (02:00→21:36)
--- NOTE | 2017-06-08 02:11 | RADRPT ---
EXAM DATE/TIME: 06/08/2017 01:37 [facility] COMPARISON: CT NEEDLE BIOPSY LYMPH NODE, LEFT, June 02, 2017, 11:52. CT PULMONARY ANGIOGRAM, May 28, 2017, 2:01. CHEST SINGLE AP, May 31, 2017, 9:31. INDICATIONS : Short of breath. MEDICAL HISTORY : None. SURGICAL HISTORY : None. ENCOUNTER: Initial ACUITY: 4 - 6 days PAIN SCORE: Non-responsive. LOCATION: Bilateral chest FINDINGS: Redemonstration of diffuse bilateral brain nodules which appear to have minimally progressed in the l eft mid to lower lung zones. More confluent opacities in the lung bases bilaterally. Cardiac basal co ntours are stable. Remainder of exam is unchanged. CONCLUSION: 1. Diffuse bilateral pulmonary nodules, minimally progressed in the left mid to lower lung zones. 2. Confluent nodules in the lung bases bilaterally, stable from prior exam. Cheko Clark MD on June 08, 2017 at 2:05 Board Certified Radiologist. This report was verified electronically.
[2017-06-08] MEDS: hydrALAZINE HCL 50 MG TAB PO SCH ×4 (05:41→21:31)
[2017-06-08] MEDS: ACETAMINOPHEN/HYDROcodone 325 MG/10 MG TAB PO PRN ×4 (05:41→20:15)
[2017-06-08] MEDS: FREE WATER G-TUBE SCH ×5 (06:00→22:48)
[2017-06-08 09:21] LABS: APTT (PATIENT) 37.1 SEC (24.3-30.1); AUTOMATED NEUTROPHIL # 36.5 TH/MM3 (1.8-7.7); BASOPHIL # 0.2 TH/MM3 (0-0.2); BASOPHIL % 0.5 % (0.0-2.0); HEMATOCRIT 32.7 % (35.0-46.0); INTERNATIONAL NORMALIZED RATIO 2.5 RATIO; LYMPH % 2.9 % (9.0-44.0); LYMPHOCYTE # 1.1 TH/MM3 (1.0-4.8); MEAN CORPUSCULAR HEMOGLOBIN 24.6 PG (27.0-34.0); MEAN CORPUSCULAR HGB CONC 31.6 % (32.0-36.0); MONO % 3.1 % (0.0-8.0); NEUT % 93.5 % (16.0-70.0); PLATELET COUNT 42 TH/MM3 (150-450); PROTHROMBIN TIME - PATIENT 28.2 SEC (9.8-11.6); RED BLOOD COUNT 4.19 MIL/MM3 (4.00-5.30); RED CELL DISTRIBUTION WIDTH 22.2 % (11.6-17.2)
[2017-06-08 09:41] LABS: HEMO FLAGS AUTO DIFF
[2017-06-08 10:01] LABS: ALKALINE PHOSPHATASE 405 U/L (45-117); ALT (GPT) 50 U/L (10-53); ANION GAP 13 MEQ/L (5-15); AST (GOT) 47 U/L (15-37); BICARBONATE 25.2 MEQ/L (21.0-32.0); BLOOD UREA NITROGEN 55 MG/DL (7-18); CHLORIDE 107 MEQ/L (98-107); GLOMERULAR FILTRATION RATE 48 ML/MIN (>89); LDH SERUM 785 U/L (84-246); MAGNESIUM 2.5 MG/DL (1.5-2.5); POTASSIUM 3.3 MEQ/L (3.5-5.1); SODIUM (NA) 145 MEQ/L (136-145); TOTAL BILIRUBIN ADULT 0.8 MG/DL (0.2-1.0)
[2017-06-08] MEDS: amLODIPine BESYLATE 5 MG TAB PO SCH (10:09)
[2017-06-08] MEDS: ONDANSETRON HCL 4 MG/2 ML VIAL IVP PRN (10:09)
[2017-06-08] MEDS: POTASSIUM CHLORIDE 20 MEQ CONTROLLED RELEASE TAB PO SCH ×3 (10:09→21:00)
[2017-06-08] MEDS: SODIUM CHLOR 0.9% 1000 ML INJ 1,000 ML IV SCH ×2 (10:09→21:45)
[2017-06-08] MEDS: SODIUM CHLORIDE 0.9% FLUSH 10 ML FLUSH IV FLUSH SCH ×2 (10:09→20:16)
[2017-06-08 10:39] LABS: BANDS 8 % (0-6); METAMYELOCYTES 2 % (0-1); NEUTROPHIL # MANUAL DIFF 36.3 TH/MM3 (1.8-7.7); POLYS (SEG NEUTROPHILS) 83 % (16-70); WBC DIFF SAMPLE 100
[2017-06-08 10:45] LABS: PLATELET ESTIMATE SMEAR LOW (NORMAL); PLATELET MORPHOLOGY NORMAL (NORMAL)
[2017-06-08 10:46] LABS: OVALOCYTES 1+ (NORMAL); SCAN/DIFF FINAL DIFF MANUAL
--- NOTE | 2017-06-08 11:07 | PD.ONC.PN ---
Subjective Subjective Remarks Afebrile overnight. Patient resting in bed. Somewhat lethargic. Overnight became hypoxic/wheezing and was started on solu-medrol. Objective Data Date Time Temp Pulse Resp B/P (MAP) Pulse Ox O2 Delivery O2 Flow Rate FiO2 06/08/17 08:00 99.1 116 18 129/58 (81) 90 06/08/17 05:18 98.1 116 16 140/63 (88) 92 06/08/17 00:36 97.8 111 16 145/63 (90) 93 06/07/17 23:55 Humidified 06/07/17 20:52 97.8 112 16 150/67 (94) 91 06/07/17 20:50 91 Nasal Cannula 6.00 06/07/17 19:06 Nasal Cannula 5.00 06/07/17 18:45 92 Nasal Cannula 5.00 06/07/17 18:25 98.1 113 20 153/66 92 06/07/17 17:57 97.7 115 20 158/70 90 06/07/17 16:00 97.9 114 18 143/63 (89) 92 06/07/17 14:08 93 Nasal Cannula 3.00 06/07/17 11:41 98.9 108 20 145/63 (90) 91 06/08/17 06/08/17 06/08/17 07:00 15:00 23:00 Intake Total 938 ml Output Total 650 ml Balance 288 ml Result Diagram: 06/08/17 0811 06/08/17 0811 Laboratory Results Laboratory Tests Test 06/07/17 12:37 06/08/17 08:11 Blood Urea Nitrogen 43 MG/DL 55 MG/DL Creatinine 1.00 MG/DL 1.14 MG/DL Random Glucose 163 MG/DL 159 MG/DL Calcium Level 7.6 MG/DL 7.5 MG/DL Sodium Level 147 MEQ/L 145 MEQ/L Potassium Level 3.2 MEQ/L 3.3 MEQ/L Chloride Level 109 MEQ/L 107 MEQ/L Carbon Dioxide Level 27.5 MEQ/L 25.2 MEQ/L Anion Gap 11 MEQ/L 13 MEQ/L Estimat Glomerular Filtration Rate 55 ML/MIN 48 ML/MIN White Blood Count 39.0 TH/MM3 Red Blood Count 4.19 MIL/MM3 Hemoglobin 10.3 GM/DL Hematocrit 32.7 % Mean Corpuscular Volume 78.0 FL Mean Corpuscular Hemoglobin 24.6 PG Mean Corpuscular Hemoglobin Concent 31.6 % Red Cell Distribution Width 22.2 % Platelet Count 42 TH/MM3 Mean Platelet Volume 9.0 FL Neutrophils (%) (Auto) 93.5 % Lymphocytes (%) (Auto) 2.9 % Monocytes (%) (Auto) 3.1 % Eosinophils (%) (Auto) 0.0 % Basophils (%) (Auto) 0.5 % Neutrophils # (Auto) 36.5 TH/MM3 Lymphocytes # (Auto) 1.1 TH/MM3 Monocytes # (Auto) 1.2 TH/MM3 Eosinophils # (Auto) 0.0 TH/MM3 Basophils # (Auto) 0.2 TH/MM3 CBC Comment AUTO DIFF Differential Total Cells Counted 100 Neutrophils % (Manual) 83 % Band Neutrophils % 8 % Lymphocytes % 2 % Monocytes % 5 % Neutrophils # (Manual) 36.3 TH/MM3 Metamyelocytes 2 % Differential Comment FINAL DIFF MANUAL Platelet Estimate LOW Platelet Morphology Comment NORMAL Ovalocytes 1+ Prothrombin Time 28.2 SEC Prothromb Time International Ratio 2.5 RATIO Activated Partial Thromboplast Time 37.1 SEC Total Protein 5.6 GM/DL Albumin 1.9 GM/DL Magnesium Level 2.5 MG/DL Alkaline Phosphatase 405 U/L Aspartate Amino Transf (AST/SGOT) 47 U/L Alanine Aminotransferase (ALT/SGPT) 50 U/L Lactate Dehydrogenase 785 U/L Total Bilirubin 0.8 MG/DL Culture Results Microbiology Date/Time Source Procedure Growth Status 06/06/17 15:25 Blood Peripheral Aerobic Blood Culture - Preliminary NO GROWTH IN 1 DAY Resulted 06/06/17 15:25 Blood Peripheral Anaerobic Blood Culture - Preliminary NO GROWTH IN 1 DAY Resulted 06/06/17 15:20 Blood Peripheral Aerobic Blood Culture - Preliminary NO GROWTH IN 1 DAY Resulted 06/06/17 15:20 Blood Peripheral Anaerobic Blood Culture - Preliminary NO GROWTH IN 1 DAY Resulted Imaging Studies Last 24 hours Impressions Chest X-Ray 06/08/17 0000 Signed Impressions: Service Date/Time: Thursday, June 08, 2017 01:37 - CONCLUSION: 1. Diffuse bilateral pulmonary nodules, minimally progressed in the left mid to lower lung zones. 2. Confluent nodules in the lung bases bilaterally, stable from prior exam. Cheko Clark MD Administered Medications Medications (Trade) Dose Ordered Sig/Gary Route PRN Reason Start Time Stop Time Status Last Admin Dose Admin Naloxone HCl (Narcan Inj) 0.4 mg UNSCH PRN IV SEE LABEL COMMENTS 05/27/17 22:30 05/30/17 13:30 Clonidine (Catapres) 0.1 mg Q6H PRN PO bp>160/90 05/27/17 22:45 06/07/17 01:14 Sodium Chloride (NS Flush) 2 ml BID IV FLUSH 05/28/17 21:00 06/08/17 10:09 Ondansetron HCl (Zofran Inj) 4 mg Q6H PRN IVP NAUSEA OR VOMITING 05/28/17 09:15 06/08/17 10:09 Heparin Sodium (Porcine) (Heparin Inj) 5,000 units Q8H SQ 05/28/17 17:00 Future Hold 05/30/17 07:44 Acetaminophen (Tylenol) 650 mg Q6H PRN PO PAIN SCALE 1 TO 2 05/28/17 09:15 06/02/17 22:23 Acetaminophen/ Hydrocodone Bitart ([place] 5-325 Mg) 1 tab Q4H PRN PO PAIN SCALE 3 TO 5 05/28/17 09:15 06/06/17 00:21 Acetaminophen/ Hydrocodone Bitart ([place] 10-325 Mg) 1 tab Q4H PRN PO PAIN SCALE 6 TO 10 05/28/17 09:15 06/08/17 10:09 Hydroxyzine Pamoate (Vistaril) 25 mg Q6H PRN PO anxiety 05/28/17 17:00 06/02/17 22:23 Propranolol HCl (Inderal) 20 mg Q8HR PO 05/29/17 22:00 Future Hold 05/30/17 05:34 Amlodipine Besylate (Norvasc) 5 mg DAILY PO 05/30/17 09:00 06/08/17 10:09 Albuterol Sulfate (Albuterol Neb) 2.5 mg Q2HR NEB PRN NEB sob/wheeze 05/30/17 10:15 06/08/17 03:11 Pantoprazole Sodium (Protonix Inj) 40 mg Q24H IV PUSH 05/30/17 18:00 06/07/17 18:34 Miscellaneous Information Patient in critical care unit? Ass... [id number] .XX 05/30/17 20:30 8/27/17 20:30 Insulin Human Regular (NovoLIN R SUPPLEMENTAL SCALE) 1 Q4H SQ 05/31/17 10:00 06/08/17 10:27 Water (Free Water) 300 ml Q6HR G-TUBE 06/01/17 12:00 06/04/17 17:21 Hydralazine HCl (Apresoline) 50 mg Q8HR PO 06/03/17 10:00 06/08/17 05:41 Hydralazine HCl (Apresoline) 10 mg Q6HR PRN PO SBP>160, DBP>90 06/03/17 10:00 06/06/17 09:19 Sodium Chloride 1,000 ml @ 84 mls/hr [id number] IV 06/07/17 10:00 06/08/17 10:09 Acetaminophen (Tylenol) 650 mg Q4H PRN PO SEE LABEL COMMENTS 06/07/17 16:00 06/07/17 18:01 Diphenhydramine HCl (Benadryl) 25 mg Q4H PRN PO SEE LABEL COMMENTS 06/07/17 12:45 06/07/17 18:01 Potassium Chloride (KCl) 20 meq Q12HR PO 06/07/17 14:00 06/08/17 10:09 Objective Remarks GENERAL: Middle aged female supine in bed, sleeping on approach. awakens to physical stimuli. SKIN: Warm and dry. HEAD: Normocephalic. EYES: No injection or drainage. NECK: Supple, trachea midline. CARDIOVASCULAR: Regular rate and rhythm without murmurs. RESPIRATORY: occasional rhonchi. On 6L O2 via NC GASTROINTESTINAL: Abdomen soft, non-tender, nondistended. EXTREMITIES: No cyanosis, or edema. MUSCULOSKELETAL: Adequate muscle tone. NEUROLOGICAL: lethargic. awakens to physical stimuli or loud verbal command. follows commands. Assessment/Plan Problem List: (1) Thyroid neoplasm malignant ICD Codes: C73 - Malignant neoplasm of thyroid gland Plan: - thyroid nodule Hurthle cell adenoma vs carcinoma- cannot tell from FNA. --ultimately need bx lung to determine if metastatic Hurthle cell versus metastatic from non small cell carcinoma. --If metastatic Hurthle cell, no need for thyroidectomy. (2) Adenopathy ICD Codes: R59.1 - Generalized enlarged lymph nodes Plan: --will need lung biopsy at some point, unfortunately d/t patient PFS unable to obtain at present. 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 --Treatment in terms of the non small cell is palliative. (3) Hematuria ICD Codes: R31.9 - Hematuria, unspecified Plan: --urology following and recommends continuing with nuñez catheter with PRN irrigation and removal only when urine clear x 48 hrs --likely d/t metastatic involvement of bladder/urethra (4) Thrombocytopenia ICD Codes: D69.6 - Thrombocytopenia, unspecified Plan: --Suspect consumption from bleed. --coags prolonged, ?component of DIC ---likely multifactorial d/t hematuria, ?infection, tumor, possible bone marrow involvement of the tumor(s) (5) Microcytic hypochromic anemia ICD Codes: D50.9 - Iron deficiency anemia, unspecified Plan: 06/08/17.06/08/17. noted hgb improvement today after transfusion yesterday, --iron studies show normal serum iron, % saturation and ferritin, low TIBC Assessment 67 y/o woman admitted s/p fall and pelvic fracture. Hematology consulted for findings of hypercalcemia, thyroid nodule, multiple metastatic lung lesion and adenopathy. h/o Hypertension, Hyperlipidemia, Obesity, Noncompliance, Metastatic thyroid cancer Pelvic fracture. Plan 1. monitor CBC, no transfusion needed today 2. patient has continued to decline, has very poor performance status and would be hospice appropriate. 3. continue supportive care Attending Statement The exam, history, and the medical decision-making described in the above note were completed with the assistance of the mid-level provider. I reviewed and agree with the findings presented. I attest that I had a [id number] encounter with the patient on the same day, and personally performed and documented my assessment and findings in the medical record. Unable to arouse pt this evening. Lengthy discussion with Daughter SVETA Evans, left voicemail with other daughter as well. Discussing DNR status, they have not made this decision yet. Discussed that pt KPS is poor and declining to consider palliative chemo therapy , especially when she can not make decision independently. Family hoping that episode of lethargy is something psychological that she will "pull out of" and then they can discuss decisions for her care. Advised Daughter the patient looks to have a clinical decline, laboratory evaluations likewise show worsening, cancer from possibly two primaries are progression, it's unlikely that a meaningful palliative treatment could be offered that would help. She would be an excellent candidate for hospice care. Daughter Cristina admits to discussing this with sister earlier. Offer hospice consult for information gathering which she agreed. Lalitha Rowe Jun 08, 2017 11:07 Mi Tong MD Jun 08, 2017 19:40
--- NOTE | 2017-06-08 12:56 | PD.PSY.CON ---
Provisional Diagnosis Admission Date May 27, 2017 at 22:33 [place]. Adjustment disorder with anxiety History of Present Illness Service Psychiatry Consult Requested By Reason for Consult Rationing of anxiety and depression Primary Care Physician No Primary Care Physician HPI The patient is a 67-year-old woman, domicile with her son in [place], unemployed, retired, , without any previous psychiatric history, no previous psychiatric hospitalizations, no previous suicidal attempts, medical history hypertension and borderline diabetes mellitus, admitted s/p fall and pelvic fracture. Hematology consulted for findings of hypercalcemia, thyroid nodule, multiple metastatic lung lesion and adenopathy. Consulted to psychiatry for management of depression and anxiety. Patient was seen today for psychiatric evaluation, patient seems to be very sleepy, difficult to arouse , no very engageable in a conversation for psychiatric assessment. However, patient answer most of our questions in a very monosyllabic way. Patient says that at this moment she feels fine, she denies distress, she denies pain at this moment. Patient reports good mood at this moment, she denies hopelessness , she denies helplessness, but reports problem sleeping at night, anxiety during the day, she denies suicidal and homicidal ideation, she denies visual and auditory hallucinations. Patient seems to be a little bit confused, partially oriented in time and place. No cooperative with cognitive assessment. Her daughter Camilla Young, present in the room, provides some significant collateral information. She says that the patient doesn't have any previous psychiatric history. She has noticed that the patient is basically at baseline with the exception of periodic anxiety and confusion. Patient and daughter denies the use of illicit drugs or alcohol. Review of Systems Constitutional: DENIES: Diaphoretic episodes, Fatigue, Fever, Weight gain, Weight loss, Chills, Dizziness, Change in appetite, Night Sweats Endocrine: DENIES: Abnorml menstrual pattern, Heat/cold intolerance, Polydipsia , Polyuria, Polyphagia Eyes: DENIES: Blurred vision, Diplopia, Eye inflammation, Eye pain, Vision loss , Photosensitivity, Double Vision Ears, nose, mouth, throat: DENIES: Tinnitus, Hearing loss, Vertigo, Nasal discharge, Oral lesions, Throat pain, Hoarseness, Ear Pain, Running Nose, Epistaxis, Sinus Pain, Toothache, Odynophagia Respiratory: DENIES: Apneas, Cough, Snoring, Wheezing, Hemoptysis, Sputum production, Shortness of breath Cardiovascular: DENIES: Chest pain, Palpitations, Syncope, Dyspnea on Exertion , PND, Lower Extremity Edema, Orthopnea, Claudication Gastrointestinal: DENIES: Abdominal pain, Black stools, Bloody stools, Constipation, Diarrhea, Nausea, Vomiting, Difficulty Swallowing, Anorexia Integumentary: DENIES: Abnormal pigmentation, Pruritus, Rash, Nail changes, Breast masses, Breast skin changes, Nipple discharge Hematologic/lymphatic: DENIES: Bruising, Lymphadenopathy Immunologic/allergic: DENIES: Eczema, Urticaria Neurologic: DENIES: Abnormal gait, Headache, Localized weakness, Paresthesias, Seizures, Speech Problems, Tremor, Poor Balance Psychiatric: COMPLAINS OF: Anxiety, DENIES: Confusion, Mood changes, Depression , Hallucinations, Agitation, Suicidal Ideation, Homicidal Ideation, Delusions Past Family Social History Coded Allergies: No Known Allergies (Verified , 05/27/17) Current Medications Medications (Trade) Dose Ordered Sig/[place] Route Start Time Stop Time Status Last Admin (Narcan Inj) 0.4 mg UNSCH PRN IV 05/27/17 22:30 05/30/17 13:30 (Catapres) 0.1 mg Q6H PRN PO 05/27/17 22:45 06/07/17 01:14 (NS Flush) 2 ml UNSCH PRN IV FLUSH 05/28/17 09:15 (NS Flush) 2 ml BID IV FLUSH 05/28/17 21:00 06/08/17 10:09 (Zofran Inj) 4 mg Q6H PRN IVP 05/28/17 09:15 06/08/17 10:09 (Heparin Inj) 5,000 units Q8H SQ 05/28/17 17:00 Future Hold 05/30/17 07:44 (Tylenol) 650 mg Q6H PRN PO 05/28/17 09:15 06/02/17 22:23 ([place] 5-325 Mg) 1 tab Q4H PRN PO 05/28/17 09:15 06/06/17 00:21 ([place] 10-325 Mg) 1 tab Q4H PRN PO 05/28/17 09:15 06/08/17 10:09 (Milk Of Magnesia Liq) 30 ml Q12H PRN PO 05/28/17 09:15 (Dulcolax Supp) 10 mg DAILY PRN RECTAL 05/28/17 09:15 (Vistaril) 25 mg Q6H PRN PO 05/28/17 17:00 06/02/17 22:23 (Inderal) 20 mg Q8HR PO 05/29/17 22:00 Future Hold 05/30/17 05:34 (Norvasc) 5 mg DAILY PO 05/30/17 09:00 06/08/17 10:09 (Albuterol Neb) 2.5 mg Q2HR NEB PRN NEB 05/30/17 10:15 06/08/17 03:11 (Protonix Inj) 40 mg Q24H IV PUSH 05/30/17 18:00 06/07/17 18:34 Miscellaneous Information Patient in critical care unit? Ass... [id number] .XX 05/30/17 20:30 05/30/17 20:30 (Ofirmev 1000 Mg/ 100 ml Inj) 1,000 mg Q6H PRN IV 05/31/17 06:00 (D50w (Vial) Inj) 50 ml UNSCH PRN IV 05/31/17 08:45 (Glucagon Inj) 1 mg UNSCH PRN OTHER 05/31/17 08:45 (NovoLIN R SUPPLEMENTAL SCALE) 1 Q4H SQ 05/31/17 10:00 06/08/17 10:27 (Free Water) 300 ml Q6HR G-TUBE 06/01/17 12:00 06/04/17 17:21 (Apresoline) 50 mg Q8HR PO 06/03/17 10:00 06/08/17 05:41 (Apresoline) 10 mg Q6HR PRN PO 06/03/17 10:00 06/06/17 09:19 Sodium Chloride 1,000 ml @ 84 mls/hr [id number] IV 06/07/17 10:00 06/08/17 10:09 (Tylenol) 650 mg Q4H PRN PO 06/07/17 16:00 06/07/17 18:01 (Benadryl) 25 mg Q4H PRN PO 06/07/17 12:45 06/07/17 18:01 (KCl) 20 meq Q12HR PO 06/07/17 14:00 06/08/17 10:09 Family History Patient denies family psychiatric history Social History Patient was born and raised in [place], she is , lives in [place] with her son, unemployed, supported by the time and benefits, she has 3 kids, her highest level of education is college Patient's Strengths (min. 2) Family support Physical Exam No EPS, no tremors, no significant hypoactivity and psychomotor retardation present Vital Signs Vital Signs Date Time Temp Pulse Resp B/P (MAP) Pulse Ox O2 Delivery O2 Flow Rate FiO2 06/08/17 12:00 99.0 113 20 135/60 (85) 91 06/07/17 23:55 Humidified 06/07/17 20:50 6.00 I/O 06/08/17 06/08/17 06/09/17 08:00 16:00 00:00 Intake Total 938 ml Output Total 650 ml Balance 288 ml Lab Results Test 06/07/17 12:37 06/08/17 08:11 Blood Urea Nitrogen 43 MG/DL 55 MG/DL Creatinine 1.00 MG/DL 1.14 MG/DL Random Glucose 163 MG/DL 159 MG/DL Calcium Level 7.6 MG/DL 7.5 MG/DL Sodium Level 147 MEQ/L 145 MEQ/L Potassium Level 3.2 MEQ/L 3.3 MEQ/L Chloride Level 109 MEQ/L 107 MEQ/L Carbon Dioxide Level 27.5 MEQ/L 25.2 MEQ/L Anion Gap 11 MEQ/L 13 MEQ/L Estimat Glomerular Filtration Rate 55 ML/MIN 48 ML/MIN White Blood Count 39.0 TH/MM3 Red Blood Count 4.19 MIL/MM3 Hemoglobin 10.3 GM/DL Hematocrit 32.7 % Mean Corpuscular Volume 78.0 FL Mean Corpuscular Hemoglobin 24.6 PG Mean Corpuscular Hemoglobin Concent 31.6 % Red Cell Distribution Width 22.2 % Platelet Count 42 TH/MM3 Mean Platelet Volume 9.0 FL Neutrophils (%) (Auto) 93.5 % Lymphocytes (%) (Auto) 2.9 % Monocytes (%) (Auto) 3.1 % Eosinophils (%) (Auto) 0.0 % Basophils (%) (Auto) 0.5 % Neutrophils # (Auto) 36.5 TH/MM3 Lymphocytes # (Auto) 1.1 TH/MM3 Monocytes # (Auto) 1.2 TH/MM3 Eosinophils # (Auto) 0.0 TH/MM3 Basophils # (Auto) 0.2 TH/MM3 CBC Comment AUTO DIFF Differential Total Cells Counted 100 Neutrophils % (Manual) 83 % Band Neutrophils % 8 % Lymphocytes % 2 % Monocytes % 5 % Neutrophils # (Manual) 36.3 TH/MM3 Metamyelocytes 2 % Differential Comment FINAL DIFF MANUAL Platelet Estimate LOW Platelet Morphology Comment NORMAL Ovalocytes 1+ Prothrombin Time 28.2 SEC Prothromb Time International Ratio 2.5 RATIO Activated Partial Thromboplast Time 37.1 SEC Total Protein 5.6 GM/DL Albumin 1.9 GM/DL Magnesium Level 2.5 MG/DL Alkaline Phosphatase 405 U/L Aspartate Amino Transf (AST/SGOT) 47 U/L Alanine Aminotransferase (ALT/SGPT) 50 U/L Lactate Dehydrogenase 785 U/L Total Bilirubin 0.8 MG/DL Date/Time Source Procedure Growth Status 06/06/17 15:25 Blood Peripheral Aerobic Blood Culture - Preliminary NO GROWTH IN 2 DAYS Resulted 06/06/17 15:25 Blood Peripheral Anaerobic Blood Culture - Preliminary NO GROWTH IN 2 DAYS Resulted 05/27/17 22:55 Urine Clean Catch Urine Culture - Final No growth. Complete Mental Status Examination Appearance woman, lethargic, disengage, very poorly cooperative Speech: Hesitant, Slow Orientation: Person, Place Thought Process: Linear, Thought Blocking Thought Content: Unremarkable Language Limited due to level of delirium Fund of Knowledge Limited due to level of delirium Hallucination Type: None Suicidal Ideation: No Previous Suicide Attempts: No Homicidal Ideation: No Previous Homicide Attempts: No Insight: Poor Judgment: Poor Affect if Inappropriate: Blunt Mood: Oppositional, Other (dysthymic) Motor Activity: Normal gait Assessment & Plan Problem List: (1) Adjustment disorder with anxiety ICD Codes: F43.22 - Adjustment disorder with anxiety Assessment & Plan: On psychiatric evaluation today patient seems to be lethargic, he cooperative with evaluation, confused, partially oriented in time and place. Patient denies distress, she denies mood symptoms, she reports episodic anxiety and insomnia. However, at this moment patient denies anxiety, denies suicidal ideation, denies visual and auditory hallucinations. Patient doesn't have any previous psychiatric history, no previous suicidal attempts, depression is the anxiety most part is related with acute medical condition and hospitalization. Hypoactive delirium also can be a source of anxiety. Would avoid deliriougenic drugs for anxiety, such as anticholinergics, benzodiazepines , narcotics, as much as possible. Effexor 37.5 mg once a day could address depressive symptoms of anxiety. Another alternative is gabapentin 300 mg 3 times a day if anxiety persists. We'll follow-up, Assessment & Plan Estimated LOS: Shailesh Chavez MD Jun 08, 2017 12:56
--- NOTE | 2017-06-08 14:32 | HHI.PR ---
Subjective Remarks Follow-up for thyroid mass with retroperitoneal metastatic lymphadenopathy, pulmonary nodules. Patient does not speak clearly. She is moaning. When asked question, she appears to deny any acute concerns. She has been afebrile. Objective Vitals Vital Signs Date Time Temp Pulse Resp B/P (MAP) Pulse Ox O2 Delivery O2 Flow Rate FiO2 06/08/17 13:49 Nasal Cannula 6.00 06/08/17 12:00 99.0 113 20 135/60 (85) 91 06/08/17 10:30 120 06/08/17 10:30 Nasal Cannula 5.00 Humidified 06/08/17 08:00 99.1 116 18 129/58 (81) 90 06/08/17 05:18 98.1 116 16 140/63 (88) 92 06/08/17 00:36 97.8 111 16 145/63 (90) 93 06/07/17 23:55 Humidified 06/07/17 20:52 97.8 112 16 150/67 (94) 91 06/07/17 20:50 91 Nasal Cannula 6.00 06/07/17 19:06 Nasal Cannula 5.00 06/07/17 18:45 92 Nasal Cannula 5.00 06/07/17 18:25 98.1 113 20 153/66 92 06/07/17 17:57 97.7 115 20 158/70 90 06/07/17 16:00 97.9 114 18 143/63 (89) 92 I/O 06/07/17 06/07/17 06/07/17 06/08/17 06/08/17 06/08/17 06:59 14:59 22:59 06:59 14:59 22:59 Intake Total 480 ml 510 ml 938 ml Output Total 1100 ml 700 ml 650 ml Balance -620 ml -190 ml 288 ml Intake Oral 380 ml 240 ml 200 ml IV Total 100 ml 478 ml Packed Cells 250 ml 250 ml Blood Product IV Normal Saline Flush 20 ml 10 ml Output Urine Total 1100 ml 700 ml 650 ml # Bowel Movements 2 2 1 Result Diagram: 06/08/17 0811 06/08/17 0811 Imaging Last Impressions Chest X-Ray 06/08/17 0000 Signed Impressions: Service Date/Time: Thursday, June 08, 2017 01:37 - CONCLUSION: 1. Diffuse bilateral pulmonary nodules, minimally progressed in the left mid to lower lung zones. 2. Confluent nodules in the lung bases bilaterally, stable from prior exam. Cheko Clark MD Thyroid Biopsy Ultrasound 06/03/17 Signed Impressions: Service Date/Time: May 13:59 - CONCLUSION: Uncomplicated ultrasound guided core needle biopsy of a complex cystic mass of the right thyroid. Sushant Juares Jr., MD Lymph Node Biopsy CT 06/02/17 Signed Impressions: Service Date/Time: Friday, June 02, 2017 11:52 - CONCLUSION: Uncomplicated CT guided biopsy of a left pelvic mass likely relating to iliac chain lymph nodes. Sushant Juares Jr., MD Abdomen X-Ray 05/31/17 Signed Impressions: Service Date/Time: Wednesday, May 31, 2017 10:21 - CONCLUSION: The tip of the NG tube in the antrum of the stomach. Sushant Juares Jr., MD Brain MRI 05/30/17 Signed Impressions: Service Date/Time: Tuesday, May 30, 2017 19:47 - CONCLUSION: 1. Tiny 9 mm enhancing extra-axial mass along the left high parietal region consistent with probable tiny meningioma. 2. No acute infarct, acute hemorrhage, midline shift or extra-axial bleed. Delta Allison MD Lower Extremity CT 05/28/17 Signed Impressions: Service Date/Time: Sunday, May 28, 2017 09:50 - CONCLUSION: 1. Acute nondisplaced superior and inferior pubic rami fractures on the left. 2. Retroperitoneal adenopathy worrisome for metastatic disease or myeloproliferative disorder. 3. Enlarged and lobulated uterus likely related to fibroids. Sushant Juares Jr., MD CT Angiography 05/28/17 Signed Impressions: Service Date/Time: Sunday, May 28, 2017 02:01 - CONCLUSION: Large mass on the right side of the trachea could be an enlarged thyroid. Innumerable nodules scattered throughout the lungs metastatic disease certainly within the differential. There are a number of nodules in the right lower lobe which would be amenable to CT-guided biopsy. Vince Galan MD Abdomen/Pelvis CT 05/28/17 Signed Impressions: Service Date/Time: Sunday, May 28, 2017 20:56 - CONCLUSION: 1. There is evidence of retroperitoneal metastatic lymphadenopathy and I believe potentially on the basis of cervical or endometrial carcinoma. Primary lesion versus additional metastatic involvement of the urinary bladder. There is also a nonspecific nodule in the expected region of the distal urethra. 2. Nodularity of both adrenal glands, most likely metastatic. 3. Visualized lung bases again show evidence of widespread and confluent pulmonary metastatic disease with small effusions. Kane Cedeño MD Maxillofacial CT 05/27/172016 Signed Impressions: Service Date/Time: May 20:34 - CONCLUSION: 1. No maxillofacial fracture is present. 2. There is bilateral maxillary mucoperiosteal thickening with 12 mm polypoid structure extending from the left maxillary antrum into the left posterior nasal cavity. 3. There is a 14 mm left parotid gland nodule. Differential diagnosis includes intraparotid lymph node or pleomorphic adenoma. Kane Bartlett MD Head CT 05/27/172016 Signed Impressions: Service Date/Time: May 20:34 - CONCLUSION: No acute abnormality is identified. Kane Bartlett MD Cervical Spine CT 05/27/172016 Signed Impressions: Service Date/Time: May 20:34 - CONCLUSION: 1. No acute cervical spine abnormality is identified. There is degenerative disc disease at C5-C6. 2. There is a 4.1 cm right thyroid nodule. If this is a new finding, suggest nonemergent outpatient ultrasound of the thyroid gland for further evaluation. 3. Abnormal linear and nodular parenchymal opacities in the upper lobes bilaterally. Since this does not pertain to the patient's acute problem, this finding should also be further evaluated with outpatient chest CT with IV contrast. Also suggest correlating with any prior outside imaging studies. Kane Bartlett MD Hip and Pelvis X-Ray 05/27/17 0000 Signed Impressions: Service Date/Time: May 20:49 - CONCLUSION: 1. A subtle lucency in the left pelvis may represent a nondisplaced left superior pubic ramus fracture. 2. Mild osteoarthritis of the joints bilaterally. Kane Bartlett MD Ankle X-Ray 05/27/17 0000 Signed Impressions: Service Date/Time: May 20:56 - CONCLUSION: No acute left ankle abnormality is identified. Kane Bartlett MD Objective Remarks GENERAL: Drowsy, does not answer questions. NAD. SKIN: Warm and dry. HEAD: Normocephalic. EYES: No scleral icterus. No injection or drainage. NECK: Supple, trachea midline. No JVD or lymphadenopathy. CARDIOVASCULAR: Regular rate and rhythm without murmurs, gallops, or rubs. RESPIRATORY: Breath sounds equal bilaterally. No accessory muscle use. GASTROINTESTINAL: Abdomen soft, non-tender, nondistended. MUSCULOSKELETAL: No cyanosis, or edema. BACK: Nontender without obvious deformity. No CVA tenderness. A/P Problem List: (1) Closed fracture of left superior pubic ramus ICD Code: S32.512A - Fracture of superior rim of left pubis, initial encounter for closed fracture (2) Closed fracture of left inferior pubic ramus ICD Code: S32.592A - Other specified fracture of left pubis, initial encounter for closed fracture (3) Electrolyte disorder ICD Code: E87.8 - Other disorders of electrolyte and fluid balance, not elsewhere classified Status: Acute (4) Elevated troponin I level ICD Code: R74.8 - Abnormal levels of other serum enzymes Status: Acute (5) Hypercalcemia ICD Code: E83.52 - Hypercalcemia Status: Acute Assessment and Plan Ms. Carlton is a 67-year-old female patient with metastatic non-small cell carcinoma. The patient has undergone a thyroid biopsy in addition to a pelvic lymph node biopsy. Lung biopsy is needed to definitively determine source of cancer. During her admission the patient was noted to have gross hematuria. She was evaluated by Dr. Olea who noted that the hematuria was likely due to involvement of bladder urethra with non-small cell carcinoma and exacerbation by irritation from the Rios. He recommended that the Rios remain in for at least 48 hours after her urine becomes clear. The patient has continued to have significant leukocytosis. Infectious disease has been following. Concern is her leukocytosis is not due to an infectious process but due to her metastatic disease. She's been on Zosyn and her cultures are being followed. Dr. Askew plans to further work the patient up as an outpatient. Dr. Pearson reports that further workup will be after Dr. Askew workup. Heme/ onc following. Scattered pulmonary nodules likely related to metastatic disease. Thyroid mass with Retroperitoneal metastatic lymphadenopathy S/P CT guided thyroid biopsy 06/03/17: "Hurthe cells with fibrous band/ capsule it from an unremarkable thyroid parenchyma. Differential diagnosis includes hurthe cell adenoma and hyperplastic nodule with oncocytic change." Pelvis Lymph node biopsy: "Poorly differentiated non-small cell carcinoma" Unable to perform CT guided biopsy of lung nodule patient did not tolerate supine position Heme/Onc: ultimately need lung biopsy to determine if metastatic hurthle cell vs. met from non small cell carcinoma (treatment would be palliative) Palliative care is following. Heme/onc recommends hospice care and has discussed with patient's family. Gross hematuria likely result of non small cell CA/ureter CA has been eval by urology Dr. Pearson "hematuria most likely secondary to involvement of the bladder/urethra with the non-small cell carcinoma. Leukocytosis Infectious process versus metastasis disease Appreciate input from infectious disease: If cultures continue to be negative may DC antibiotics Abx discontinued. Will continue to monitor off Abx. Encephalopathy, multifactorial (hypercalcemia, hypertensive encephalopathy and hypernatremia) Improved EEG 05/31: Encephalopathy without epileptic activity. Hypertensive urgency, rule out progressive reversible encephalopathy syndrome. Echo on which showed normal left ventricular systolic function EF 55 % to 60%. No RWMA Continue hydralazine 50 mg every 8 hour, Norvasc Superior and inferior pubic ramus fracture on the left. PT consult to treat and eval Impaired fasting glucose hemoglobin A1c 7.4 Continue with sliding scale insulin Ventricular tachycardia - non-sustained. - Discussed with RN. Mg is 2.5. K+ 3.3. We will try to keep K+ around 4. - Provide 20meq X 2 IV KCL. Full code. SCD/TEDs. Problem Qualifiers (1) Closed fracture of left superior pubic ramus: Qualified Codes: S32.512A - Fracture of superior rim of left pubis, initial encounter for closed fracture (2) Closed fracture of left inferior pubic ramus: Qualified Codes: S32.592A - Other specified fracture of left pubis, initial encounter for closed fracture Ana Paula Denis DO Jun 08, 2017 14:32
--- NOTE | 2017-06-08 15:02 | HHI.HCPN ---
Reason for visit a. To assist with evaluation and management of symptoms including: dyspnea, confusion, anxiety, pain b. To assist medical decision maker(s) with: better understanding of current medical conditions; weighing benefits/burdens of medical treatment options; making medical treatment decisions. Subjective/Interval History Pt seen today to follow up on comfort, goals. 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 Treatment likely to be palliative if patient performance status tolerates. Patient also with some hematuria status post urology consult urology feels may be secondary to bladder/ureteral involvement from pelvic mass. 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 s/p transfusion 2 U RBC yesterday. h&H stable, persistent thrombocytopenia,plt 42. BUN/creatinine trending up- 55/1.14. WBC cont to trend up 39. BC from 06/06 no growth to day. Tachycardic, tachypneic.Now on 5-6 L NC O2. Discussed with oncology PA, patient with general clinical decline in the past several days. Though oncology initially recommending additional diagnostics to further cancer diagnosis and treatment options patient has also had worsening clinical status, and is known to have widespread disease process. Appropriate for hospice if goals compatible. Pt seen in room no visitors present. Dual visit with Norman LYNN. Patient lethargic, sleeping, makes a groaning sound while sleeping. When I awaken her and ask her why she is groaning she says I don't know. Appears mildly short of breath, though denies complaints of shortness of breath. She denies anxiety. When asked specifically about pain she says no. When asked why she is in the hospital she says because she fell, though she is unable to further elaborate on hospital course. She seems to have very poor/ limited insight today. Ask her what she wants to happen during hospital course, she repeats that she wants a Coke. Advised that I would call her daughter to provide an update. When not stimulated she seems to resume sleeping with a moaning calling out sound. Call to daughter Maribeth, voicemail left. Awaiting a call back. . Advance Directives Health Care Surrogate: Completed, but not made available (daughter reports patient completed HCS on [place] in [place] however no copy currently available) Objective Vital Signs Date Time Temp Pulse Resp B/P (MAP) Pulse Ox O2 Delivery O2 Flow Rate FiO2 06/08/17 13:49 Nasal Cannula 6.00 06/08/17 12:00 99.0 113 20 135/60 (85) 91 06/08/17 10:30 120 06/08/17 10:30 Nasal Cannula 5.00 Humidified 06/08/17 08:00 99.1 116 18 129/58 (81) 90 06/08/17 05:18 98.1 116 16 140/63 (88) 92 06/08/17 00:36 97.8 111 16 145/63 (90) 93 06/07/17 23:55 Humidified 06/07/17 20:52 97.8 112 16 150/67 (94) 91 06/07/17 20:50 91 Nasal Cannula 6.00 06/07/17 19:06 Nasal Cannula 5.00 06/07/17 18:45 92 Nasal Cannula 5.00 06/07/17 18:25 98.1 113 20 153/66 92 06/07/17 17:57 97.7 115 20 158/70 90 06/07/17 16:00 97.9 114 18 143/63 (89) 92 Intake & Output 06/08/17 06/08/17 07:00 19:00 Intake Total 1208 ml Output Total 650 ml Balance 558 ml Intake Oral 200 ml IV Total 478 ml Packed Cells 500 ml Blood Product IV Normal Saline Flush 30 ml Output Urine Total 650 ml # Bowel Movements 1 Physical Exam CONSTITUTIONAL/GENERAL: This is an adequately nourished patient, lethargic, moaning TUBES/LINES/DRAINS:PIV x2 BUE, nuñez catheter, SCDs, NC O2 CARDIOVASCULAR: Regular rate and rhythm without murmurs. No JVD. Peripheral pulses symmetric. RESPIRATORY/CHEST: Symmetric, unlabored respirations. mildly tachypneic . RR 22. NC 4L. Clear to auscultation, decreased air movement. Breath sounds equal bilaterally. GASTROINTESTINAL: Abdomen soft, non-tender, nondistended. No palpable masses. No guarding. Bowel sounds normoactive. GENITOURINARY: Without palpable bladder distension. Nuñez catheter in place clear red tinged/yellow urine. NEUROLOGICAL: lethargic/weak, appears oriented to self and hospital, unable to further assess orientation. Follows some simple commands. Does move all 4 extremities with significant weakness. PSYCHIATRIC: ?mild anxiety /groaning during exam . Diagnostic Tests Laboratory Laboratory Tests Test 06/06/17 09:37 06/06/17 15:25 06/07/17 09:10 06/07/17 12:37 White Blood Count 37.8 TH/MM3 (4.0-11.0) 34.5 TH/MM3 (4.0-11.0) 36.7 TH/MM3 (4.0-11.0) Red Blood Count 3.61 MIL/MM3 (4.00-5.30) 3.51 MIL/MM3 (4.00-5.30) 3.43 MIL/MM3 (4.00-5.30) Hemoglobin 8.2 GM/DL (11.6-15.3) 7.7 GM/DL (11.6-15.3) 7.7 GM/DL (11.6-15.3) Hematocrit 26.3 % (35.0-46.0) 25.5 % (35.0-46.0) 25.1 % (35.0-46.0) Mean Corpuscular Volume 73.0 FL (80.0-100.0) 72.7 FL (80.0-100.0) 73.3 FL (80.0-100.0) Mean Corpuscular Hemoglobin 22.6 PG (27.0-34.0) 22.0 PG (27.0-34.0) 22.4 PG (27.0-34.0) Mean Corpuscular Hemoglobin Concent 31.0 % (32.0-36.0) 30.2 % (32.0-36.0) 30.6 % (32.0-36.0) Red Cell Distribution Width 21.7 % (11.6-17.2) 21.6 % (11.6-17.2) 21.9 % (11.6-17.2) Platelet Count 34 TH/MM3 (150-450) 32 TH/MM3 (150-450) 39 TH/MM3 (150-450) Mean Platelet Volume 9.7 FL (7.0-11.0) 9.1 FL (7.0-11.0) 8.7 FL (7.0-11.0) Neutrophils (%) (Auto) 92.1 % (16.0-70.0) 92.6 % (16.0-70.0) 92.7 % (16.0-70.0) Lymphocytes (%) (Auto) 3.7 % (9.0-44.0) 3.1 % (9.0-44.0) 2.5 % (9.0-44.0) Monocytes (%) (Auto) 3.9 % (0.0-8.0) 4.2 % (0.0-8.0) 4.7 % (0.0-8.0) Eosinophils (%) (Auto) 0.1 % (0.0-4.0) 0.0 % (0.0-4.0) 0.0 % (0.0-4.0) Basophils (%) (Auto) 0.2 % (0.0-2.0) 0.1 % (0.0-2.0) 0.1 % (0.0-2.0) Neutrophils # (Auto) 34.8 TH/MM3 (1.8-7.7) 32.0 TH/MM3 (1.8-7.7) 34.0 TH/MM3 (1.8-7.7) Lymphocytes # (Auto) 1.4 TH/MM3 (1.0-4.8) 1.1 TH/MM3 (1.0-4.8) 0.9 TH/MM3 (1.0-4.8) Monocytes # (Auto) 1.5 TH/MM3 (0-0.9) 1.5 TH/MM3 (0-0.9) 1.7 TH/MM3 (0-0.9) Eosinophils # (Auto) 0.0 TH/MM3 (0-0.4) 0.0 TH/MM3 (0-0.4) 0.0 TH/MM3 (0-0.4) Basophils # (Auto) 0.1 TH/MM3 (0-0.2) 0.0 TH/MM3 (0-0.2) 0.0 TH/MM3 (0-0.2) CBC Comment AUTO DIFF AUTO DIFF AUTO DIFF Differential Total Cells Counted 100 100 100 Neutrophils % (Manual) 84 % (16-70) 91 % (16-70) 94 % (16-70) Band Neutrophils % 10 % (0-6) 3 % (0-6) 3 % (0-6) Lymphocytes % 1 % (9-44) 3 % (9-44) 2 % (9-44) Monocytes % 4 % (0-8) 3 % (0-8) 1 % (0-8) Neutrophils # (Manual) 35.9 TH/MM3 (1.8-7.7) 32.4 TH/MM3 (1.8-7.7) 35.6 TH/MM3 (1.8-7.7) Metamyelocytes 1 % (0-1) Differential Comment FINAL DIFF MANUAL FINAL DIFF MANUAL FINAL DIFF MANUAL Blood Urea Nitrogen 37 MG/DL (7-18) 37 MG/DL (7-18) 43 MG/DL (7-18) Creatinine 0.98 MG/DL (0.50-1.00) 1.04 MG/DL (0.50-1.00) 1.00 MG/DL (0.50-1.00) Random Glucose 171 MG/DL (74-106) 155 MG/DL (74-106) 163 MG/DL (74-106) Calcium Level 7.5 MG/DL (8.5-10.1) 7.5 MG/DL (8.5-10.1) 7.6 MG/DL (8.5-10.1) Sodium Level 145 MEQ/L (136-145) 145 MEQ/L (136-145) 147 MEQ/L (136-145) Potassium Level 2.8 MEQ/L (3.5-5.1) 2.9 MEQ/L (3.5-5.1) 3.2 MEQ/L (3.5-5.1) Chloride Level 106 MEQ/L (98-107) 107 MEQ/L (98-107) 109 MEQ/L (98-107) Carbon Dioxide Level 26.2 MEQ/L (21.0-32.0) 28.9 MEQ/L (21.0-32.0) 27.5 MEQ/L (21.0-32.0) Anion Gap 13 MEQ/L (5-15) 9 MEQ/L (5-15) 11 MEQ/L (5-15) Estimat Glomerular Filtration Rate 57 ML/MIN (>89) 53 ML/MIN (>89) 55 ML/MIN (>89) Nucleated Red Blood Cells 1 /100 WBC (0-0) Platelet Estimate LOW (NORMAL) LOW (NORMAL) Platelet Morphology Comment NORMAL (NORMAL) NORMAL (NORMAL) Ovalocytes 1+ (NORMAL) Erythrocyte Sedimentation Rate 78 mm/hr (0-30) Reticulocyte Count 1.9 % (0.4-3.0) Absolute Reticulocyte Count 65.0 MIL/L (20.0-150.0) Haptoglobin 268 MG/DL (30-200) Prothrombin Time 23.3 SEC (9.8-11.6) 26.3 SEC (9.8-11.6) Prothromb Time International Ratio 2.0 RATIO 2.3 RATIO Activated Partial Thromboplast Time 35.3 SEC (24.3-30.1) 36.8 SEC (24.3-30.1) Fibrinogen 442 mg/dL (227-377) Magnesium Level 2.5 MG/DL (1.5-2.5) Iron Level 52 MCG/DL (50-170) Total Iron Binding Capacity 185 MCG/DL (250-450) Percent Iron Saturation 28.1 % (20-50) Ferritin 155 NG/ML (8-252) Total Bilirubin 1.0 MG/DL (0.2-1.0) Direct Bilirubin 0.4 MG/DL (0.0-0.2) Indirect Bilirubin 0.6 MG/DL (0.0-0.8) Aspartate Amino Transf (AST/SGOT) 47 U/L (15-37) Alanine Aminotransferase (ALT/SGPT) 33 U/L (10-53) Alkaline Phosphatase 327 U/L (45-117) Lactate Dehydrogenase 811 U/L (84-246) 848 U/L (84-246) C-Reactive Protein 10.40 MG/DL (0.00-0.30) Total Protein 5.3 GM/DL (6.4-8.2) Albumin 1.9 GM/DL (3.4-5.0) Vitamin B12 Level 713 PG/ML (193-986) Folate 4.7 NG/ML (3.1-17.5) Test 06/08/17 08:11 White Blood Count 39.0 TH/MM3 (4.0-11.0) Red Blood Count 4.19 MIL/MM3 (4.00-5.30) Hemoglobin 10.3 GM/DL (11.6-15.3) Hematocrit 32.7 % (35.0-46.0) Mean Corpuscular Volume 78.0 FL (80.0-100.0) Mean Corpuscular Hemoglobin 24.6 PG (27.0-34.0) Mean Corpuscular Hemoglobin Concent 31.6 % (32.0-36.0) Red Cell Distribution Width 22.2 % (11.6-17.2) Platelet Count 42 TH/MM3 (150-450) Mean Platelet Volume 9.0 FL (7.0-11.0) Neutrophils (%) (Auto) 93.5 % (16.0-70.0) Lymphocytes (%) (Auto) 2.9 % (9.0-44.0) Monocytes (%) (Auto) 3.1 % (0.0-8.0) Eosinophils (%) (Auto) 0.0 % (0.0-4.0) Basophils (%) (Auto) 0.5 % (0.0-2.0) Neutrophils # (Auto) 36.5 TH/MM3 (1.8-7.7) Lymphocytes # (Auto) 1.1 TH/MM3 (1.0-4.8) Monocytes # (Auto) 1.2 TH/MM3 (0-0.9) Eosinophils # (Auto) 0.0 TH/MM3 (0-0.4) Basophils # (Auto) 0.2 TH/MM3 (0-0.2) CBC Comment AUTO DIFF Differential Total Cells Counted 100 Neutrophils % (Manual) 83 % (16-70) Band Neutrophils % 8 % (0-6) Lymphocytes % 2 % (9-44) Monocytes % 5 % (0-8) Neutrophils # (Manual) 36.3 TH/MM3 (1.8-7.7) Metamyelocytes 2 % (0-1) Differential Comment FINAL DIFF MANUAL Platelet Estimate LOW (NORMAL) Platelet Morphology Comment NORMAL (NORMAL) Ovalocytes 1+ (NORMAL) Prothrombin Time 28.2 SEC (9.8-11.6) Prothromb Time International Ratio 2.5 RATIO Activated Partial Thromboplast Time 37.1 SEC (24.3-30.1) Blood Urea Nitrogen 55 MG/DL (7-18) Creatinine 1.14 MG/DL (0.50-1.00) Random Glucose 159 MG/DL (74-106) Total Protein 5.6 GM/DL (6.4-8.2) Albumin 1.9 GM/DL (3.4-5.0) Calcium Level 7.5 MG/DL (8.5-10.1) Magnesium Level 2.5 MG/DL (1.5-2.5) Alkaline Phosphatase 405 U/L (45-117) Aspartate Amino Transf (AST/SGOT) 47 U/L (15-37) Alanine Aminotransferase (ALT/SGPT) 50 U/L (10-53) Lactate Dehydrogenase 785 U/L (84-246) Total Bilirubin 0.8 MG/DL (0.2-1.0) Sodium Level 145 MEQ/L (136-145) Potassium Level 3.3 MEQ/L (3.5-5.1) Chloride Level 107 MEQ/L (98-107) Carbon Dioxide Level 25.2 MEQ/L (21.0-32.0) Anion Gap 13 MEQ/L (5-15) Estimat Glomerular Filtration Rate 48 ML/MIN (>89) Result Diagram: 06/08/17 0811 06/08/17 0811 Microbiology Microbiology Date/Time Source Procedure Growth Status 06/06/17 15:25 Blood Peripheral Aerobic Blood Culture - Preliminary NO GROWTH IN 2 DAYS Resulted 06/06/17 15:25 Blood Peripheral Anaerobic Blood Culture - Preliminary NO GROWTH IN 2 DAYS Resulted 06/06/17 15:20 Blood Peripheral Aerobic Blood Culture - Preliminary NO GROWTH IN 2 DAYS Resulted 06/06/17 15:20 Blood Peripheral Anaerobic Blood Culture - Preliminary NO GROWTH IN 2 DAYS Resulted Imaging Last Impressions Chest X-Ray 06/08/17 0000 Signed Impressions: Service Date/Time: Thursday, June 08, 2017 01:37 - CONCLUSION: 1. Diffuse bilateral pulmonary nodules, minimally progressed in the left mid to lower lung zones. 2. Confluent nodules in the lung bases bilaterally, stable from prior exam. Cheko Clark MD Thyroid Biopsy Ultrasound 06/03/17 0000 Signed Impressions: Service Date/Time: May 13:59 - CONCLUSION: Uncomplicated ultrasound guided core needle biopsy of a complex cystic mass of the right thyroid. Sushant Juares Jr., MD Lymph Node Biopsy CT 06/02/17 Signed Impressions: Service Date/Time: Friday, June 02, 2017 11:52 - CONCLUSION: Uncomplicated CT guided biopsy of a left pelvic mass likely relating to iliac chain lymph nodes. Sushant Juares Jr., MD Abdomen X-Ray 05/31/17 Signed Impressions: Service Date/Time: Wednesday, May 31, 2017 10:21 - CONCLUSION: The tip of the NG tube in the antrum of the stomach. Sushant Juares Jr., MD Brain MRI 05/30/17 Signed Impressions: Service Date/Time: Tuesday, May 30, 2017 19:47 - CONCLUSION: 1. Tiny 9 mm enhancing extra-axial mass along the left high parietal region consistent with probable tiny meningioma. 2. No acute infarct, acute hemorrhage, midline shift or extra-axial bleed. Delta Allison MD Lower Extremity CT 05/28/17 Signed Impressions: Service Date/Time: Sunday, May 28, 2017 09:50 - CONCLUSION: 1. Acute nondisplaced superior and inferior pubic rami fractures on the left. 2. Retroperitoneal adenopathy worrisome for metastatic disease or myeloproliferative disorder. 3. Enlarged and lobulated uterus likely related to fibroids. Sushant Juares Jr., MD CT Angiography 05/28/17 Signed Impressions: Service Date/Time: Sunday, May 28, 2017 02:01 - CONCLUSION: Large mass on the right side of the trachea could be an enlarged thyroid. Innumerable nodules scattered throughout the lungs metastatic disease certainly within the differential. There are a number of nodules in the right lower lobe which would be amenable to CT-guided biopsy. Vince Galan MD Abdomen/Pelvis CT 05/28/17 0000 Signed Impressions: Service Date/Time: Sunday, May 28, 2017 20:56 - CONCLUSION: 1. There is evidence of retroperitoneal metastatic lymphadenopathy and I believe potentially on the basis of cervical or endometrial carcinoma. Primary lesion versus additional metastatic involvement of the urinary bladder. There is also a nonspecific nodule in the expected region of the distal urethra. 2. Nodularity of both adrenal glands, most likely metastatic. 3. Visualized lung bases again show evidence of widespread and confluent pulmonary metastatic disease with small effusions. Kane Cedeño MD Maxillofacial CT 05/27/172016 Signed Impressions: Service Date/Time: May 20:34 - CONCLUSION: 1. No maxillofacial fracture is present. 2. There is bilateral maxillary mucoperiosteal thickening with 12 mm polypoid structure extending from the left maxillary antrum into the left posterior nasal cavity. 3. There is a 14 mm left parotid gland nodule. Differential diagnosis includes intraparotid lymph node or pleomorphic adenoma. Kane Bartlett MD Head CT 05/27/172016 Signed Impressions: Service Date/Time: May 20:34 - CONCLUSION: No acute abnormality is identified. Kane Bartlett MD Cervical Spine CT 05/27/172016 Signed Impressions: Service Date/Time: May 20:34 - CONCLUSION: 1. No acute cervical spine abnormality is identified. There is degenerative disc disease at C5-C6. 2. There is a 4.1 cm right thyroid nodule. If this is a new finding, suggest nonemergent outpatient ultrasound of the thyroid gland for further evaluation. 3. Abnormal linear and nodular parenchymal opacities in the upper lobes bilaterally. Since this does not pertain to the patient's acute problem, this finding should also be further evaluated with outpatient chest CT with IV contrast. Also suggest correlating with any prior outside imaging studies. Kane Bartlett MD Hip and Pelvis X-Ray 05/27/17 Signed Impressions: Service Date/Time: May 20:49 - CONCLUSION: 1. A subtle lucency in the left pelvis may represent a nondisplaced left superior pubic ramus fracture. 2. Mild osteoarthritis of the joints bilaterally. Kane Bartlett MD Ankle X-Ray 05/27/17 0000 Signed Impressions: Service Date/Time: May 20:56 - CONCLUSION: No acute left ankle abnormality is identified. Kane Bartlett MD Procedures 06/02 CT guided lymph node bx 06/03 us guided thyroid Bx . Assessment and Plan Disease Oriented Problem List: (1) Elevated troponin I level (2) Closed fracture of single pubic ramus of pelvis (3) Hypercalcemia (4) Adenopathy (5) Lesion of lung (6) Mass of cervix Symptom Scale: (1) Dyspnea (2) Anxiety (3) Pain (4) Confusion Pertinent Non-Medical Issues Psychosocial:Patient originally from [place], though has lived in [place] since the 1980s. 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 Supported locally by 3 adult children, her son lives with her . . 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 Apparently completed health care surrogate designation at [facility] Wednesday however this document is not present in chart. May offer to assist patient to complete healthcare surrogate again if she is able. Daughter indicates that she was named as primary surrogate with her sister is secondary. Patient , supported by 3 adult children, who per [place] statutes would be appropriate proxies if patient incapacitated. Ethical issues impacting care: Important Contacts VERNELL AGUILERA (DAUGHTER) [phone] Maribeth Travis daughter [phone] ([facility]) Jared- son- lives w pt, using pt phone # [phone] . Prognosis This patient was admitted status post mechanical fall at home. Incidental findings via imaging of what appears to be widespread metastatic malignancy process. 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 Patient would certainly need additional biopsy from lung, as well as further staging to determine best treatment course. Per oncology pelvic would most likely only be offered palliative treatment, and any treatments would be if patient performance and functional status improved. If the patient did not wish to undergo further invasive testing and additional treatments , would be appropriate for hospice. . Code Status: Full Code Plan * Legal decision maker:Patient mental status fluctuates at times she may be capacitated. 06/04 mental status cont to improve, pt sharp. 06/01/17 completed [facility] NAMING DTR MARIBETH- placed in chart, scanned to med records * Goals: Patient and family initially expressing aggressive goals to pursue further diagnostic and treatment options. Patient with steady clinical decline in the past few days. Plan to readdress conditions, goals today, I have left voicemail for daughter. Patient is more lethargic and appears to have limited insight. Best supported for decision making by her designated healthcare surrogate. * CODE STATUS: Full code * SYMPTOMS: --Dyspnea- resp status fluctuating, + CXR /CT findings multiple nodules concerning for malignancy; + on nebulizers, O2. Will cont to evaluate, no dyspnea endorsed today, maria e NC, though she does appear visibly short of breath. --Anxiety-potential for related to dyspnea, multiple new medical findings, acute ICU course. Cautious use of benzos at this time given concern for AMS, resp compromise, will cont to evaluate . pt mental status has cont to improve, AMS may be 2/2 ativan . Has prn vistaril, has not used since 06/02. Psychiatry has evaluated and has started patient on Effexor. Recommends avoiding opiates, benzodiazepines, anticholinergics. --Pain-status post mechanical fall with injury to pelvis, left leg. + intermittent pelvic/hip pain, will cont to evaluate. Cautious use of opiates given fluctuating mental status. nursing offering freq repositioning, prns, ice bags. prn norco 10mg used x2 today, x4 yesterday. Patient moaning though denies pain when I ask her --Confusion-fluctuating mental status during hospital course, has steadily improved. MRI negative for stroke or acute process. Hypercalcemia, electrolyte abnormalities, leukocytosis, probably multifactorial * Palliative care will continue to follow during hospital course as condition evolves, to assist patient/decision-maker with understanding of medical conditions, weighing benefits/burdens of treatment options, for clarification of goals of treatment. Additionally will assist with any symptoms of palliative concern Attestation To help prompt me to consider important information that might be impacting today's encounter and assessment, information from prior notes written by myself or my colleagues may have been "brought forward" into today's note. My signature on this note, however, is an attestation that I personally performed the exam, history, and/or decision-making noted today, and, unless otherwise indicated, the interactions with patient, family, and staff as well as the review of records all occurred today. I also attest that the listed assessment and stated plan reflect my best clinical judgment today based on the combination of historical information, prior notes, and today's exam/ interactions. When time spent is documented, it refers only to time spent today by the signer, or if indicated, combined time spent today by collaborating physician/nurse practitioner. Yolis Fernando Jun 08, 2017 15:02
[2017-06-08] MEDS: POTASSIUM CHLOR 20 MEQ PREMIX 100 ML IV SCH ×2 (18:02→20:16)
[2017-06-08] MEDS: PANTOPRAZOLE SODIUM 40 MG VIAL IV PUSH SCH (18:02)
[2017-06-08] MEDS: hydrALAZINE HCL 10 MG TAB PO PRN (20:14)
[2017-06-08] MEDS: ACETAMINOPHEN/HYDROcodone 325 MG/5 MG TAB PO PRN (21:31)
[2017-06-09] VITALS (16 sets, daily range): BP systolic 99–154; BP diastolic 47–67; PULSE 80–117; RESP 18–22; TEMP 98–100.6; O2SAT 93–99
[2017-06-09] MEDS: RESP: ALBUTEROL 2.5 MG/3 ML NEB (PRN) NEB (00:17)
[2017-06-09] MEDS: INSULIN NovoLIN REGULAR SUPPLEMENTAL SCALE SQ SCH ×6 (01:52→21:19)
--- NOTE | 2017-06-09 02:48 | RADRPT ---
EXAM DATE/TIME: 06/09/2017 02:16 [facility] COMPARISON: CHEST SINGLE AP, June 08, 2017, 1:37. INDICATIONS : Short of breath. MEDICAL HISTORY : None. SURGICAL HISTORY : None. ENCOUNTER: Subsequent ACUITY: 1 week PAIN SCORE: 0/10 LOCATION: Bilateral chest FINDINGS: Again noted are numerous bilateral pulmonary nodules which appear more confluent in the lower lung zo allison bilaterally. Increased hazy opacity in the lower lobes bilaterally consistent with developing ple ural effusions. Cardiomediastinal contours are stable. Remainder of exam is unchanged. CONCLUSION: 1. Stable numerous diffuse bilateral pulmonary nodules are, more confluent in the lower lung zones. 2. Suspect developing bilateral pleural effusions. Cheko Clark MD on June 09, 2017 at 2:43 Board Certified Radiologist. This report was verified electronically.
[2017-06-09] MEDS ORDERED: NOREPINEPHRINE-DEXTROSE DRIP 250 ML IV ONE (03:04)
[2017-06-09] MEDS ORDERED: SUCCINYLCHOLINE CHLORIDE 200 MG/10 ML VIAL IV PUSH ONE (03:15)
[2017-06-09] MEDS ORDERED: ETOMIDATE 20 MG/10 ML VIAL IV PUSH ONE (03:15)
[2017-06-09] MEDS ORDERED: MIDAZOLAM 100 MG/100 ML INJ 100 ML IV PRN (03:15)
--- NOTE | 2017-06-09 03:31 | HHI.CCPN ---
Subjective Remarks/Hospital Course The patient is a 67-year-old female with past medical history of hypertension, hyperlipidemia noncompliance. She has not seen a physician for over four years. She presented to the [facility] after she sustained a non-syncopal fall down the stairs after losing her balance. She also was complaining of left ankle pain. On initial presentation, she was admitted under the hospitalist service on May 27 and was found to have hypercalcemia with a corrected calcium level of 13.7, hypokalemia with potassium level 2.0 and mild acute kidney injury with creatinine level of 1.20. Her initial lactic acid level was 3.7. Also, she had leukocytosis with a WBC of 21.4. Pelvic x-ray showed a nondisplaced left superior pubic ramus fracture and mild osteoarthritis of the joints bilaterally. Her initial chest x-ray on admission showed diffuse nodular and reticulonodular opacities bilaterally. Subsequently the patient underwent CT angiogram of the chest on May 28, which showed a large mass on the right side of the trachea which could be an enlarged thyroid in addition to innumerable nodules scattered throughout the lungs, probable metastatic disease. A CT abdomen and pelvis was obtained as well , which showed evidence of retroperitoneal metastatic lymphadenopathy, nonspecific nodule in the distal urethra in addition to nodularity of both adrenal glands. A CT scan of the brain showed no acute abnormality. During her hospital course, she was being followed by Dr. Tong from the oncology service in addition to orthopedic surgery. She was being treated with antibiotics. In addition, she was on calcitonin for hypercalcemia. The patient also received Zometa to correct her hypercalcemia. Today the patient had worsening mental status. An ABG was performed on 5 liters oxygen which showed a pH of 7.49, CO2 49, pAO2 of 68, bicarb 38 and saturation 92%. She is scheduled to undergo CT-guided lung biopsy of a pulmonary nodule in addition to MRI of the brain for further evaluation of her mental status. The patient received Haldol 2 mg IV at 1500 in addition to lorazepam 0.5 mg at 01:00 a.m. and morphine 1 mg at 07:45 this morning. She was given Romazicon at 1343 and Narcan 0.4 mg without any significant improvement. When seen, she is hypertensive with systolic blood pressure of 160s to 190s and tachycardic. Most of the history was obtained from reviewing the medical records and from and discussion with the patient's daughter who was at the bedside. Due to findings of large mass on the right side of the trachea and due to her high-risk of possible complication with intubation, she is being transferred to [facility]. She had an echocardiogram yesterday which showed normal left ventricular systolic function with an ejection fraction of 55% to 60%. No regional wall motion abnormalities identified. 05/31 No events overnight, lethargic MRI brain last night showed tiny 9 mm enhancing extra-axial mass along the left high parietal region consistent with probable tiny meningioma. No acute infarct, acute hemorrhage, midline shift/ bleed. Had T: 101.3 last night. 06/01 Patient is lying in bed in NAD. T:99.8. Patient seems more awake and alert today. 06/02: Not in any acute distress, s/p left iliac chain node biopsy. Na improved to 150 from 158. Slight increase in WBC from 20.7 to 21.6. cultures are all negative to date. Original plan to biopsy lung was aborted as patient unable to tolerate prone positioning even with sedation. Clinically appears to be metastatic thyroid cancer-D/W Dr. Tong 06/09 : Patient found unresponsive in the bed with agonal breathing. RN confirmed with the family full code and okay to intubate. Objective Vital Signs Date Time Temp Pulse Resp B/P (MAP) Pulse Ox O2 Delivery O2 Flow Rate FiO2 06/09/17 00:17 93 Non-Rebreather 15.00 06/08/17 23:45 99.3 104 18 97/47 (64) Result Diagram: 06/08/17 0811 06/08/17 0811 Imaging Last Impressions Chest X-Ray 05/31/17 0000 Signed Impressions: Service Date/Time: Wednesday, May 31, 2017 09:31 - CONCLUSION: Increasing nodular opacities throughout both lungs Patient has changes in the left base. I Pa Verdin MD FACR Abdomen X-Ray 05/31/17 0000 Signed Impressions: Service Date/Time: Wednesday, May 31, 2017 10:21 - CONCLUSION: The tip of the NG tube in the antrum of the stomach. Sushant Juares Jr., MD Brain MRI 05/30/17 0000 Signed Impressions: Service Date/Time: Tuesday, May 30, 2017 19:47 - CONCLUSION: 1. Tiny 9 mm enhancing extra-axial mass along the left high parietal region consistent with probable tiny meningioma. 2. No acute infarct, acute hemorrhage, midline shift or extra-axial bleed. Delta Allison MD Lower Extremity CT 05/28/17 Signed Impressions: Service Date/Time: Sunday, May 28, 2017 09:50 - CONCLUSION: 1. Acute nondisplaced superior and inferior pubic rami fractures on the left. 2. Retroperitoneal adenopathy worrisome for metastatic disease or myeloproliferative disorder. 3. Enlarged and lobulated uterus likely related to fibroids. Sushant Juares Jr., MD CT Angiography 05/28/17 Signed Impressions: Service Date/Time: Sunday, May 28, 2017 02:01 - CONCLUSION: Large mass on the right side of the trachea could be an enlarged thyroid. Innumerable nodules scattered throughout the lungs metastatic disease certainly within the differential. There are a number of nodules in the right lower lobe which would be amenable to CT-guided biopsy. Vince Galan MD Abdomen/Pelvis CT 05/28/17 Signed Impressions: Service Date/Time: Sunday, May 28, 2017 20:56 - CONCLUSION: 1. There is evidence of retroperitoneal metastatic lymphadenopathy and I believe potentially on the basis of cervical or endometrial carcinoma. Primary lesion versus additional metastatic involvement of the urinary bladder. There is also a nonspecific nodule in the expected region of the distal urethra. 2. Nodularity of both adrenal glands, most likely metastatic. 3. Visualized lung bases again show evidence of widespread and confluent pulmonary metastatic disease with small effusions. Kane Cedeño MD Maxillofacial CT 05/27/172016 Signed Impressions: Service Date/Time: May 20:34 - CONCLUSION: 1. No maxillofacial fracture is present. 2. There is bilateral maxillary mucoperiosteal thickening with 12 mm polypoid structure extending from the left maxillary antrum into the left posterior nasal cavity. 3. There is a 14 mm left parotid gland nodule. Differential diagnosis includes intraparotid lymph node or pleomorphic adenoma. Kane Bartlett MD Head CT 05/27/172016 Signed Impressions: Service Date/Time: May 20:34 - CONCLUSION: No acute abnormality is identified. Kane Bartlett MD Cervical Spine CT 05/27/172016 Signed Impressions: Service Date/Time: May 20:34 - CONCLUSION: 1. No acute cervical spine abnormality is identified. There is degenerative disc disease at C5-C6. 2. There is a 4.1 cm right thyroid nodule. If this is a new finding, suggest nonemergent outpatient ultrasound of the thyroid gland for further evaluation. 3. Abnormal linear and nodular parenchymal opacities in the upper lobes bilaterally. Since this does not pertain to the patient's acute problem, this finding should also be further evaluated with outpatient chest CT with IV contrast. Also suggest correlating with any prior outside imaging studies. Kane Bartlett MD Hip and Pelvis X-Ray 05/27/17 Signed Impressions: Service Date/Time: May 20:49 - CONCLUSION: 1. A subtle lucency in the left pelvis may represent a nondisplaced left superior pubic ramus fracture. 2. Mild osteoarthritis of the joints bilaterally. Kane Bartlett MD Ankle X-Ray 05/27/17 Signed Impressions: Service Date/Time: May 20:56 - CONCLUSION: No acute left ankle abnormality is identified. Kane Bartlett MD Objective Remarks GENERAL: Sedated and intubated SKIN: Warm and dry. HEAD: Normocephalic. EYES: No scleral icterus. No injection or drainage. NECK: Supple, trachea midline. No JVD or lymphadenopathy. CARDIOVASCULAR: Regular rate and rhythm without murmurs, gallops, or rubs. RESPIRATORY: Breath sounds equal bilaterally. No accessory muscle use. GASTROINTESTINAL: Abdomen soft, non-tender, nondistended. MUSCULOSKELETAL: No cyanosis, or edema. Neuro: Sedated and intubated. Withdraws from pain, and all 4 extremities. Pupils are 2 mm equal bilaterally reactive to light. A/P Assessment and Plan Assessment: Probable metastatic thyroid malignancy Encephalopathy, multifactorial (hypercalcemia, hypertensive encephalopathy and hypernatremia) Hypertensive urgency, rule out progressive reversible encephalopathy syndrome. Scattered pulmonary nodules likely related to metastatic disease. Thyroid mass. Hypercalcemia. Hypernatremia. Retroperitoneal metastatic lymphadenopathy. Hyperlipidemia. Leukocytosis. Anemia and thrombocytopenia. Superior and inferior pubic ramus fracture on the left. Plan: Neuro: Monitor neuro status closely and avoid any sedatives. Improving neuro exam with correction of metabolic causes UDS :negative for opiates, amphetamines, benzodiazepines. MRI brain:Tiny 9 mm enhancing extra-axial mass along the left high parietal region consistent with probable tiny meningioma. EEG 05/31: Encephalopathy wo epileptic activity. Pulm: Intubated for an airway protection Bronchodilators , Aspiration precautions. CV: On Lopressor 2.5 mg IV q. 6 Monitor HR and BP maintain MAP>65 mmHg. Echo on which showed normal left ventricular systolic function EF 55% to 60%. No RWMA : Monitor renal function, intake and output and electrolyte replacement as needed. D5W@100ml/hr, monitor sodium level- steadily improving GI: Mechanical soft with thin liquids per speech On Protonix 40 mg daily for GI prophylaxis. ID: Continue abx ( Zosyn, Vano), monitor for isgns of infections ( Fever, WBC). DCd vanc today BC 05/31: NGTD BC and UC 05/27: No growth Leukocytosis may be non infectious, await biopsy. Heme: Monitor CBC, Onc and [employer]/Onc are following- D/W Dr. Tong. Await biopsy results. If no diagnosis, will consider general get surgery consult for thyroid mass biopsy Endo: Increase SSI medium scale for glycemic control. TSH <0.005, FT4: 1.35, FT3: 1.46, ? euthyroid sick syndrome. Her PTH level is 16.3. GI prophylaxis with Protonix and DVT prophylaxis with SCDs. No chemical DVT Prophylaxis due to thrombocytopenia Palliative care is following Critical Care: The total critical care time was 35 minutes. Time to perform other separately billable procedures was not included in the critical care time. Marcel Vizcaino MD Jun 09, 2017 03:31
--- NOTE | 2017-06-09 03:39 | PD.PROCEDR ---
Procedure Note Procedure Endotracheal Intubation A time-out was completed verifying correct patient, procedure, site, positioning , and special equipment if applicable. The patient was placed in a flat position. Sedation was obtained using Etomidate 20mg. The patient was easily ventilated using an ambu bag. The [employer]/ MAC 4 BLADE was used and inserted into the oropharynx at which time there was a Grade 1 view of the vocal cords. A 8-thai endotracheal tube was inserted and visualized going through the vocal cords. The stylette was removed. Colorimetric change was visualized on the CO2 meter. Breath sounds were heard in both lung kelsey equally. The endotracheal tube was placed at 23 cm, measured at the teeth. A chest x-ray was ordered to assess for pneumothorax and verify endotrachealtube placement. Estimated Blood Loss: 0 The patient tolerated the procedure well and there were no complications. Marcel Vizcaino MD Jun 09, 2017 03:39
--- NOTE | 2017-06-09 03:39 | PD.PROCEDR ---
Procedure Note Procedure Centerline placement A time-out was completed verifying correct patient, procedure, site, positioning , and special equipment if applicable. The patient was placed in a dependent position appropriate for central line placement based on the vein to be cannulated. The patients right neck was prepped and draped in sterile fashion. 1% Lidocaine was used to anesthetize the surrounding skin area. A triple lumen 9 -[place] catheter was introduced into the the internal jugular vein using the Seldinger technique and under ultrasound guidance. The catheter was threaded smoothly over the guide wire and appropriate blood return was obtained. Each lumen of the catheter was evacuated of air and flushed with sterile saline. The catheter was then sutured in place to the skin and a sterile dressing applied. Perfusion to the extremity distal to the point of catheter insertion was checked and found to be adequate. Estimated Blood Loss: 1ml The patient tolerated the procedure well and there were no complications. Marcel Vizcaino MD Jun 09, 2017 03:39
[2017-06-09] MEDS: SODIUM CHLOR 0.45% 1000 ML INJ 1,000 ML IV SCH ×3 (03:45→22:24)
[2017-06-09] MEDS: hydrALAZINE HCL 50 MG TAB PO SCH ×3 (04:07→19:20)
[2017-06-09] MEDS: FREE WATER G-TUBE SCH ×5 (04:08→22:24)
--- NOTE | 2017-06-09 05:06 | RADRPT ---
EXAM DATE/TIME: 06/09/2017 03:15 [facility] COMPARISON: CHEST SINGLE AP, June 09, 2017, 2:16. INDICATIONS : Short of breath. Post intubation. MEDICAL HISTORY : None. SURGICAL HISTORY : None. ENCOUNTER: Subsequent ACUITY: 1 week PAIN SCORE: 0/10 LOCATION: Bilateral chest FINDINGS: Patient has been intubated with ET tube approximately 2.5 cm above the to. Right IJ central line with tip in the atrial caval junction. Redemonstration of numerous bilateral pulmonary nodules with l eft pleural effusion and associated airspace disease. Suspect small right pleural effusion. cardiomed iastinal contours are stable. Remainder of the exam is unchanged. CONCLUSION: 1. ETT and right IJ central line in good position. 2. Stable examination with diffuse numerous bilateral poorly nodules and small left pleural effusion with progressing left lower lobe airspace disease. 3. Suspect small right pleural effusion. Cheko Clark MD on June 09, 2017 at 5:01 Board Certified Radiologist. This report was verified electronically.
[2017-06-09 05:37] LABS: BLOOD GAS BASE EXCESS -3.4 mmol/L (-2-2); BLOOD GAS CARBOXYHEMOGLOBIN 1.6 % (0-4); BLOOD GAS HCO3 21 mmol/L (22-26); BLOOD GAS METHEMOGLOBIN 1.4 % (0-2); BLOOD GAS O2 HGB SATURATION 95 % (90-100); BLOOD GAS OXYGEN CONTENT 11.5 Vol % (12.0-20.0); BLOOD GAS PCO2 36 mmHg (38-42); BLOOD GAS PO2 120 mmHg (61-120); BLOOD GAS TOTAL HGB 8.4 G/DL (12.0-16.0); CRITICAL VALUE NO; OXYGEN DEVICE VENTILATOR; TEMP CORR TO 98.6
[2017-06-09 05:38] LABS: DRAW SITE RT RADIAL; FIO2 80 %; NUMBER OF ARTERIAL PUNCTURES 1; STAT NO; ULNAR PULSE PRESENT
[2017-06-09 06:24] LABS: AUTOMATED NEUTROPHIL # 22.3 TH/MM3 (1.8-7.7); BASOPHIL # 0.1 TH/MM3 (0-0.2); BASOPHIL % 0.3 % (0.0-2.0); HEMATOCRIT 27.1 % (35.0-46.0); LYMPH % 1.8 % (9.0-44.0); LYMPHOCYTE # 0.4 TH/MM3 (1.0-4.8); MEAN CELL VOLUME 79.5 FL (80.0-100.0); MEAN CORPUSCULAR HEMOGLOBIN 24.8 PG (27.0-34.0); MEAN CORPUSCULAR HGB CONC 31.2 % (32.0-36.0); MONO % 4.9 % (0.0-8.0); PLATELET COUNT 37 TH/MM3 (150-450); RED CELL DISTRIBUTION WIDTH 22.4 % (11.6-17.2); WHITE BLOOD COUNT 23.9 TH/MM3 (4.0-11.0)
[2017-06-09 06:30] LABS: APTT (PATIENT) 35.9 SEC (24.3-30.1); INTERNATIONAL NORMALIZED RATIO 2.6 RATIO; PROTHROMBIN TIME - PATIENT 29.8 SEC (9.8-11.6)
[2017-06-09 06:35] LABS: HEMO FLAGS AUTO DIFF
[2017-06-09] MEDS ORDERED: CHLORHEXIDINE GLUCONATE 2 % 1 PACK (2 CLOTHS)(extra cloths) TOPICAL PRN (07:30)
[2017-06-09] MEDS: fentaNYL DRIP 250 ML IV PRN (07:40)
[2017-06-09] MEDS: SODIUM CHLORIDE 0.9% FLUSH 10 ML FLUSH IV FLUSH SCH ×2 (09:00→19:19)
[2017-06-09] MEDS: amLODIPine BESYLATE 5 MG TAB PO SCH (09:00)
[2017-06-09] MEDS: VENLAFAXINE HCL XR 37.5 MG CAP PO SCH (09:00)
[2017-06-09] MEDS: POTASSIUM CHLORIDE 20 MEQ CONTROLLED RELEASE TAB PO SCH ×2 (09:00→19:19)
[2017-06-09 09:40] LABS: SCAN/DIFF AUTO DIFF CONFIRMED; STOMATOCYTES 1+ (NORMAL)
--- NOTE | 2017-06-09 10:30 | HHI.HCPN ---
Reason for visit a. To assist with evaluation and management of symptoms including: dyspnea, confusion, anxiety, pain b. To assist medical decision maker(s) with: better understanding of current medical conditions; weighing benefits/burdens of medical treatment options; making medical treatment decisions. Subjective/Interval History Pt seen today to follow up on comfort, goals. 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 Treatment likely to be palliative if patient performance status tolerates. Patient also with some hematuria status post urology consult urology feels may be secondary to bladder/ureteral involvement from pelvic mass. 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 Pt w change in condition overnight, found around 3am minimally responsive w agonal respirations, emergently intubated (critical care notes discussion w family) , transferred to ICU, central line placed. Minimally responsive in ICU, on fentanyl for comfort of mech vent. S/p 2 U RBC transfusion Wednesday. Plts cont to trend down 37, Hgb 8.4, hct 27.1. WBC 23.9. Pt seen in ICU room Dual visit with Norman LYNN. 2 daughters, son at bedside. Pt nonresponsive on mech vent. Appears comfortable- no signs tachypnea or distress. D/w family at length at bedside. Review of hospital course, current condition after clinical changes overnight. They detail they were able to speak w oncology Dr Tong yesterday evening and understand pt would not be a good tx candidate for multiple malignancy processes. They had been discussing DNR, but were not ready to make that decision when pt had changes overnight. They inform that pt brother trying to get a flight in from [place] today or tomorrow if cant get today. They endorse pt understood she was declining, and had familiarity with cancer and would not want any further invasive, or heroic measures. They request DNR but to keep pt intubated until brother can get in town. They anticipate compassionate withdrawal of vent/life support once family has seen pt and transition to comfort measures (probably Wed/Wed) In the mean time, they request NO escalation of tx-- no cpr, NO addition of pressors. all questions answered, anticipatory guidance provided RE withdrawal process. Tax Commissioner support requested, notified title curative specialistdyana Cano. D/w primary Nurse . Advance Directives Health Care Surrogate: Completed, but not made available (daughter reports patient completed HCS [place] however no copy currently available) Objective Vital Signs Date Time Temp Pulse Resp B/P (MAP) Pulse Ox O2 Delivery O2 Flow Rate FiO2 06/09/17 07:35 97 70 06/09/17 06:00 80 06/09/17 05:24 80 06/09/17 04:00 98.2 88 19 109/55 (73) 98 06/09/17 03:00 99 80 06/09/17 03:00 99.0 106 22 99/47 (64) 93 06/09/17 00:17 93 Non-Rebreather 15.00 06/08/17 23:45 99.3 104 18 97/47 (64) 93 06/08/17 20:15 99.2 111 18 111/54 (73) 95 06/08/17 15:10 99.0 121 22 148/63 (91) 88 06/08/17 14:50 Simple Mask 6.00 06/08/17 13:49 Nasal Cannula 6.00 06/08/17 12:00 99.0 113 20 135/60 (85) 91 06/08/17 10:30 120 06/08/17 10:30 Nasal Cannula 5.00 Humidified Intake & Output 06/09/17 06/09/17 07:00 19:00 Intake Total 1100 ml 1000 ml Output Total 125 ml Balance 975 ml 1000 ml Intake Oral 0 ml IV Total 1100 ml 1000 ml Output Urine Total 125 ml # Bowel Movements 0 Physical Exam CONSTITUTIONAL/GENERAL: This is an adequately nourished patient, sedated, comfortable on mechanical vent TUBES/LINES/DRAINS:PIV x2 BUE, nuñez catheter, SCDs, ET tube CARDIOVASCULAR: Regular rate and rhythm without murmurs. Tachycardic rate 110 No JVD. Peripheral pulses symmetric. RESPIRATORY/CHEST: Symmetric, unlabored respirations. Occasional spontaneous respiration over ventilator rate. Clear to auscultation, decreased air movement. Breath sounds equal bilaterally. GASTROINTESTINAL: Abdomen soft, unable to determine tenderness, nondistended. No palpable masses. No guarding. Bowel sounds hypoactive. GENITOURINARY: Without palpable bladder distension. Nuñez catheter in place clear red urine. NEUROLOGICAL: Nonresponsive to exam. On fentanyl drip 150 mics/hour. Appears comfortable. No eye opening. Pupils 2 mm, questionable reaction to light. PSYCHIATRIC: Limited assessment due to clinical condition, no apparent distress . Diagnostic Tests Laboratory Laboratory Tests Test 06/06/17 15:25 06/07/17 09:10 06/07/17 12:37 06/08/17 08:11 White Blood Count 34.5 TH/MM3 (4.0-11.0) 36.7 TH/MM3 (4.0-11.0) 39.0 TH/MM3 (4.0-11.0) Red Blood Count 3.51 MIL/MM3 (4.00-5.30) 3.43 MIL/MM3 (4.00-5.30) 4.19 MIL/MM3 (4.00-5.30) Hemoglobin 7.7 GM/DL (11.6-15.3) 7.7 GM/DL (11.6-15.3) 10.3 GM/DL (11.6-15.3) Hematocrit 25.5 % (35.0-46.0) 25.1 % (35.0-46.0) 32.7 % (35.0-46.0) Mean Corpuscular Volume 72.7 FL (80.0-100.0) 73.3 FL (80.0-100.0) 78.0 FL (80.0-100.0) Mean Corpuscular Hemoglobin 22.0 PG (27.0-34.0) 22.4 PG (27.0-34.0) 24.6 PG (27.0-34.0) Mean Corpuscular Hemoglobin Concent 30.2 % (32.0-36.0) 30.6 % (32.0-36.0) 31.6 % (32.0-36.0) Red Cell Distribution Width 21.6 % (11.6-17.2) 21.9 % (11.6-17.2) 22.2 % (11.6-17.2) Platelet Count 32 TH/MM3 (150-450) 39 TH/MM3 (150-450) 42 TH/MM3 (150-450) Mean Platelet Volume 9.1 FL (7.0-11.0) 8.7 FL (7.0-11.0) 9.0 FL (7.0-11.0) Neutrophils (%) (Auto) 92.6 % (16.0-70.0) 92.7 % (16.0-70.0) 93.5 % (16.0-70.0) Lymphocytes (%) (Auto) 3.1 % (9.0-44.0) 2.5 % (9.0-44.0) 2.9 % (9.0-44.0) Monocytes (%) (Auto) 4.2 % (0.0-8.0) 4.7 % (0.0-8.0) 3.1 % (0.0-8.0) Eosinophils (%) (Auto) 0.0 % (0.0-4.0) 0.0 % (0.0-4.0) 0.0 % (0.0-4.0) Basophils (%) (Auto) 0.1 % (0.0-2.0) 0.1 % (0.0-2.0) 0.5 % (0.0-2.0) Neutrophils # (Auto) 32.0 TH/MM3 (1.8-7.7) 34.0 TH/MM3 (1.8-7.7) 36.5 TH/MM3 (1.8-7.7) Lymphocytes # (Auto) 1.1 TH/MM3 (1.0-4.8) 0.9 TH/MM3 (1.0-4.8) 1.1 TH/MM3 (1.0-4.8) Monocytes # (Auto) 1.5 TH/MM3 (0-0.9) 1.7 TH/MM3 (0-0.9) 1.2 TH/MM3 (0-0.9) Eosinophils # (Auto) 0.0 TH/MM3 (0-0.4) 0.0 TH/MM3 (0-0.4) 0.0 TH/MM3 (0-0.4) Basophils # (Auto) 0.0 TH/MM3 (0-0.2) 0.0 TH/MM3 (0-0.2) 0.2 TH/MM3 (0-0.2) CBC Comment AUTO DIFF AUTO DIFF AUTO DIFF Differential Total Cells Counted 100 100 100 Neutrophils % (Manual) 91 % (16-70) 94 % (16-70) 83 % (16-70) Band Neutrophils % 3 % (0-6) 3 % (0-6) 8 % (0-6) Lymphocytes % 3 % (9-44) 2 % (9-44) 2 % (9-44) Monocytes % 3 % (0-8) 1 % (0-8) 5 % (0-8) Neutrophils # (Manual) 32.4 TH/MM3 (1.8-7.7) 35.6 TH/MM3 (1.8-7.7) 36.3 TH/MM3 (1.8-7.7) Nucleated Red Blood Cells 1 /100 WBC (0-0) Differential Comment FINAL DIFF MANUAL FINAL DIFF MANUAL FINAL DIFF MANUAL Platelet Estimate LOW (NORMAL) LOW (NORMAL) LOW (NORMAL) Platelet Morphology Comment NORMAL (NORMAL) NORMAL (NORMAL) NORMAL (NORMAL) Ovalocytes 1+ (NORMAL) 1+ (NORMAL) Erythrocyte Sedimentation Rate 78 mm/hr (0-30) Reticulocyte Count 1.9 % (0.4-3.0) Absolute Reticulocyte Count 65.0 MIL/L (20.0-150.0) Haptoglobin 268 MG/DL (30-200) Prothrombin Time 23.3 SEC (9.8-11.6) 26.3 SEC (9.8-11.6) 28.2 SEC (9.8-11.6) Prothromb Time International Ratio 2.0 RATIO 2.3 RATIO 2.5 RATIO Activated Partial Thromboplast Time 35.3 SEC (24.3-30.1) 36.8 SEC (24.3-30.1) 37.1 SEC (24.3-30.1) Fibrinogen 442 mg/dL (227-377) Blood Urea Nitrogen 37 MG/DL (7-18) 43 MG/DL (7-18) 55 MG/DL (7-18) Creatinine 1.04 MG/DL (0.50-1.00) 1.00 MG/DL (0.50-1.00) 1.14 MG/DL (0.50-1.00) Random Glucose 155 MG/DL (74-106) 163 MG/DL (74-106) 159 MG/DL (74-106) Calcium Level 7.5 MG/DL (8.5-10.1) 7.6 MG/DL (8.5-10.1) 7.5 MG/DL (8.5-10.1) Magnesium Level 2.5 MG/DL (1.5-2.5) 2.5 MG/DL (1.5-2.5) Sodium Level 145 MEQ/L (136-145) 147 MEQ/L (136-145) 145 MEQ/L (136-145) Potassium Level 2.9 MEQ/L (3.5-5.1) 3.2 MEQ/L (3.5-5.1) 3.3 MEQ/L (3.5-5.1) Chloride Level 107 MEQ/L (98-107) 109 MEQ/L (98-107) 107 MEQ/L (98-107) Carbon Dioxide Level 28.9 MEQ/L (21.0-32.0) 27.5 MEQ/L (21.0-32.0) 25.2 MEQ/L (21.0-32.0) Anion Gap 9 MEQ/L (5-15) 11 MEQ/L (5-15) 13 MEQ/L (5-15) Estimat Glomerular Filtration Rate 53 ML/MIN (>89) 55 ML/MIN (>89) 48 ML/MIN (>89) Iron Level 52 MCG/DL (50-170) Total Iron Binding Capacity 185 MCG/DL (250-450) Percent Iron Saturation 28.1 % (20-50) Ferritin 155 NG/ML (8-252) Total Bilirubin 1.0 MG/DL (0.2-1.0) 0.8 MG/DL (0.2-1.0) Direct Bilirubin 0.4 MG/DL (0.0-0.2) Indirect Bilirubin 0.6 MG/DL (0.0-0.8) Aspartate Amino Transf (AST/SGOT) 47 U/L (15-37) 47 U/L (15-37) Alanine Aminotransferase (ALT/SGPT) 33 U/L (10-53) 50 U/L (10-53) Alkaline Phosphatase 327 U/L (45-117) 405 U/L (45-117) Lactate Dehydrogenase 811 U/L (84-246) 848 U/L (84-246) 785 U/L (84-246) C-Reactive Protein 10.40 MG/DL (0.00-0.30) Total Protein 5.3 GM/DL (6.4-8.2) 5.6 GM/DL (6.4-8.2) Albumin 1.9 GM/DL (3.4-5.0) 1.9 GM/DL (3.4-5.0) Vitamin B12 Level 713 PG/ML (193-986) Folate 4.7 NG/ML (3.1-17.5) Metamyelocytes 2 % (0-1) Test 06/09/17 05:00 06/09/17 05:20 06/09/17 07:59 White Blood Count 23.9 TH/MM3 (4.0-11.0) Red Blood Count 3.40 MIL/MM3 (4.00-5.30) Hemoglobin 8.4 GM/DL (11.6-15.3) Hematocrit 27.1 % (35.0-46.0) Mean Corpuscular Volume 79.5 FL (80.0-100.0) Mean Corpuscular Hemoglobin 24.8 PG (27.0-34.0) Mean Corpuscular Hemoglobin Concent 31.2 % (32.0-36.0) Red Cell Distribution Width 22.4 % (11.6-17.2) Platelet Count 37 TH/MM3 (150-450) Mean Platelet Volume 9.6 FL (7.0-11.0) Neutrophils (%) (Auto) 93.0 % (16.0-70.0) Lymphocytes (%) (Auto) 1.8 % (9.0-44.0) Monocytes (%) (Auto) 4.9 % (0.0-8.0) Eosinophils (%) (Auto) 0.0 % (0.0-4.0) Basophils (%) (Auto) 0.3 % (0.0-2.0) Neutrophils # (Auto) 22.3 TH/MM3 (1.8-7.7) Lymphocytes # (Auto) 0.4 TH/MM3 (1.0-4.8) Monocytes # (Auto) 1.2 TH/MM3 (0-0.9) Eosinophils # (Auto) 0.0 TH/MM3 (0-0.4) Basophils # (Auto) 0.1 TH/MM3 (0-0.2) CBC Comment AUTO DIFF Differential Comment AUTO DIFF CONFIRMED Stomatocytes 1+ (NORMAL) Prothrombin Time 29.8 SEC (9.8-11.6) Prothromb Time International Ratio 2.6 RATIO Activated Partial Thromboplast Time 35.9 SEC (24.3-30.1) Lactate Dehydrogenase 765 U/L (84-246) Blood Gas Puncture Site RT RADIAL Blood Gas Patient Temperature 98.6 Blood Gas HCO3 21 mmol/L (22-26) Blood Gas Base Excess -3.4 mmol/L (-2-2) Blood Gas Oxygen Saturation 95 % (90-100) Arterial Blood pH 7.38 (7.380-7.420) Arterial Blood Partial Pressure CO2 36 mmHg (38-42) Arterial Blood Partial Pressure O2 120 mmHg (61-120) Arterial Blood Oxygen Content 11.5 Vol % (12.0-20.0) Arterial Blood Carboxyhemoglobin 1.6 % (0-4) Arterial Blood Methemoglobin 1.4 % (0-2) Blood Gas Hemoglobin 8.4 G/DL (12.0-16.0) Oxygen Delivery Device VENTILATOR Blood Gas Ventilator Setting Blood Gas Inspired Oxygen 80 % Result Diagram: 06/09/17 0500 06/08/17 0811 Microbiology Microbiology Date/Time Source Procedure Growth Status 06/06/17 15:25 Blood Peripheral Aerobic Blood Culture - Preliminary NO GROWTH IN 2 DAYS Resulted 06/06/17 15:25 Blood Peripheral Anaerobic Blood Culture - Preliminary NO GROWTH IN 2 DAYS Resulted 06/06/17 15:20 Blood Peripheral Aerobic Blood Culture - Preliminary NO GROWTH IN 2 DAYS Resulted 06/06/17 15:20 Blood Peripheral Anaerobic Blood Culture - Preliminary NO GROWTH IN 2 DAYS Resulted Imaging Last Impressions Chest X-Ray 06/09/17 0000 Signed Impressions: Service Date/Time: Friday, June 09, 2017 03:15 - CONCLUSION: 1. ETT and right IJ central line in good position. 2. Stable examination with diffuse numerous bilateral poorly nodules and small left pleural effusion with progressing left lower lobe airspace disease. 3. Suspect small right pleural effusion. Cheko Clark MD Thyroid Biopsy Ultrasound 06/03/17 0000 Signed Impressions: Service Date/Time: May 13:59 - CONCLUSION: Uncomplicated ultrasound guided core needle biopsy of a complex cystic mass of the right thyroid. Sushant Juares Jr., MD Lymph Node Biopsy CT 06/02/17 0000 Signed Impressions: Service Date/Time: Friday, June 02, 2017 11:52 - CONCLUSION: Uncomplicated CT guided biopsy of a left pelvic mass likely relating to iliac chain lymph nodes. Sushant Juares Jr., MD Abdomen X-Ray 05/31/17 Signed Impressions: Service Date/Time: Wednesday, May 31, 2017 10:21 - CONCLUSION: The tip of the NG tube in the antrum of the stomach. Sushant Juares Jr., MD Brain MRI 05/30/17 Signed Impressions: Service Date/Time: Tuesday, May 30, 2017 19:47 - CONCLUSION: 1. Tiny 9 mm enhancing extra-axial mass along the left high parietal region consistent with probable tiny meningioma. 2. No acute infarct, acute hemorrhage, midline shift or extra-axial bleed. Delta Allison MD Lower Extremity CT 05/28/17 0000 Signed Impressions: Service Date/Time: Sunday, May 28, 2017 09:50 - CONCLUSION: 1. Acute nondisplaced superior and inferior pubic rami fractures on the left. 2. Retroperitoneal adenopathy worrisome for metastatic disease or myeloproliferative disorder. 3. Enlarged and lobulated uterus likely related to fibroids. Sushant Juares Jr., MD CT Angiography 05/28/17 0000 Signed Impressions: Service Date/Time: Sunday, May 28, 2017 02:01 - CONCLUSION: Large mass on the right side of the trachea could be an enlarged thyroid. Innumerable nodules scattered throughout the lungs metastatic disease certainly within the differential. There are a number of nodules in the right lower lobe which would be amenable to CT-guided biopsy. Vince Galan MD Abdomen/Pelvis CT 05/28/17 0000 Signed Impressions: Service Date/Time: Sunday, May 28, 2017 20:56 - CONCLUSION: 1. There is evidence of retroperitoneal metastatic lymphadenopathy and I believe potentially on the basis of cervical or endometrial carcinoma. Primary lesion versus additional metastatic involvement of the urinary bladder. There is also a nonspecific nodule in the expected region of the distal urethra. 2. Nodularity of both adrenal glands, most likely metastatic. 3. Visualized lung bases again show evidence of widespread and confluent pulmonary metastatic disease with small effusions. Kane Cedeño MD Maxillofacial CT 05/27/172016 Signed Impressions: Service Date/Time: May 20:34 - CONCLUSION: 1. No maxillofacial fracture is present. 2. There is bilateral maxillary mucoperiosteal thickening with 12 mm polypoid structure extending from the left maxillary antrum into the left posterior nasal cavity. 3. There is a 14 mm left parotid gland nodule. Differential diagnosis includes intraparotid lymph node or pleomorphic adenoma. Kane Bartlett MD Head CT 05/27/172016 Signed Impressions: Service Date/Time: May 20:34 - CONCLUSION: No acute abnormality is identified. Kane Bartlett MD Cervical Spine CT 05/27/172016 Signed Impressions: Service Date/Time: May 20:34 - CONCLUSION: 1. No acute cervical spine abnormality is identified. There is degenerative disc disease at C5-C6. 2. There is a 4.1 cm right thyroid nodule. If this is a new finding, suggest nonemergent outpatient ultrasound of the thyroid gland for further evaluation. 3. Abnormal linear and nodular parenchymal opacities in the upper lobes bilaterally. Since this does not pertain to the patient's acute problem, this finding should also be further evaluated with outpatient chest CT with IV contrast. Also suggest correlating with any prior outside imaging studies. Kane Bartlett MD Hip and Pelvis X-Ray 05/27/17 0000 Signed Impressions: Service Date/Time: May 20:49 - CONCLUSION: 1. A subtle lucency in the left pelvis may represent a nondisplaced left superior pubic ramus fracture. 2. Mild osteoarthritis of the joints bilaterally. Kane Bartlett MD Ankle X-Ray 05/27/17 0000 Signed Impressions: Service Date/Time: May 20:56 - CONCLUSION: No acute left ankle abnormality is identified. Kane Bartlett MD Procedures 06/09--intubated, central line placed 06/02 CT guided lymph node bx 06/03 us guided thyroid Bx . Assessment and Plan Disease Oriented Problem List: (1) Elevated troponin I level (2) Closed fracture of single pubic ramus of pelvis (3) Hypercalcemia (4) Adenopathy (5) Lesion of lung (6) Mass of cervix Symptom Scale: (1) Dyspnea (2) Anxiety (3) Pain (4) Confusion Pertinent Non-Medical Issues Psychosocial:Patient originally from [place], though has lived in [place] since the 1980s. Still working some, does [employer] services part-time. Supported locally by 3 adult children, her son lives with her . . Spiritual: Yazidi would appreciate fund raiser,title curative specialist support Legal:Patient mental status fluctuates at times she may be capacitated. Apparently completed health care surrogate designation at [facility] Wednesday however this document is not present in chart. May offer to assist patient to complete healthcare surrogate again if she is able. Daughter indicates that she was named as primary surrogate with her sister is secondary. Patient , supported by 3 adult children, who per [place] statutes would be appropriate proxies if patient incapacitated. Ethical issues impacting care: Important Contacts VERNELL AGUILERA (DAUGHTER) [phone] Maribeth Travis daughter [phone] ([facility]) Jared- son- lives w pt, using pt phone # [phone] . Prognosis This patient was admitted status post mechanical fall at home. Incidental findings via imaging of what appears to be widespread metastatic malignancy process. 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 Patient would certainly need additional biopsy from lung, as well as further staging to determine best treatment course. Per oncology pelvic would most likely only be offered palliative treatment, and any treatments would be if patient performance and functional status improved. If the patient did not wish to undergo further invasive testing and additional treatments , would be appropriate for hospice. . Code Status: Full Code Plan * Legal decision maker:Patient mental status fluctuates at times she may be capacitated. 06/09 nonresponsive, intubated. Dtr is HCS. 06/01/17 completed [facility] NAMING DTR MARIBETH- placed in chart, scanned to med records * Goals: They endorse pt understood she was declining, and had familiarity with cancer and would not want any further invasive, or heroic measures. They request DNR but to keep pt intubated until brother can get in town. They anticipate compassionate withdrawal of vent/life support once family has seen pt and transition to comfort measures (probably Fri/Sat) In the mean time, they request NO escalation of tx-- no cpr, NO addition of pressors. Palliative will place exhibits B, C in chart with palliative physician signature in case this should occur over the weekend * CODE STATUS: ALT CODE- INTUBATION ONLY * SYMPTOMS: --Dyspnea- resp status fluctuating, + CXR /CT findings multiple nodules concerning for malignancy; + on nebulizers, O2. agonal resps overnight, intubated around 3am. Now breathing comfortably mechanical vent, fentanyl for sedation. --Anxiety-potential for related to dyspnea, multiple new medical findings, acute ICU course. Cautious use of benzos at this time given concern for AMS, resp compromise, will cont to evaluate . pt mental status has cont to improve, AMS may be 2/2 ativan . Psychiatry has evaluated and has started patient on Effexor. Recommends avoiding opiates, benzodiazepines, anticholinergics. Patient with decreased level of responsiveness overnight now sedated on mechanical vent no apparent distress --Pain-status post mechanical fall with injury to pelvis, left leg. + intermittent pelvic/hip pain, will cont to evaluate. Cautious use of opiates given fluctuating mental status. nursing offering freq repositioning, prns, ice bags. prn norco 10mg used x2 today, x4 yesterday. Patient moaning though denies pain yesterday when asked. Patient with change in condition overnight now intubated and sedated on mechanical vent. Appears comfortable. --Confusion-fluctuating mental status during hospital course, has steadily improved. MRI negative for stroke or acute process. Hypercalcemia, electrolyte abnormalities, leukocytosis, probably multifactorial. Patient with change in condition overnight now intubated and sedated on mechanical vent. Appears comfortable. * Palliative care will continue to follow during hospital course as condition evolves, to assist patient/decision-maker with understanding of medical conditions, weighing benefits/burdens of treatment options, for clarification of goals of treatment. Additionally will assist with any symptoms of palliative concern Attestation To help prompt me to consider important information that might be impacting today's encounter and assessment, information from prior notes written by myself or my colleagues may have been "brought forward" into today's note. My signature on this note, however, is an attestation that I personally performed the exam, history, and/or decision-making noted today, and, unless otherwise indicated, the interactions with patient, family, and staff as well as the review of records all occurred today. I also attest that the listed assessment and stated plan reflect my best clinical judgment today based on the combination of historical information, prior notes, and today's exam/ interactions. When time spent is documented, it refers only to time spent today by the signer, or if indicated, combined time spent today by collaborating physician/nurse practitioner. Yolis Fernando Jun 09, 2017 10:30
--- NOTE | 2017-06-09 13:34 | PD.ONC.PN ---
Subjective Subjective Remarks Tmax 100.6 overnight. Patient intubated, sedated. No family members at bedside. Objective Data Date Time Temp Pulse Resp B/P (MAP) Pulse Ox O2 Delivery O2 Flow Rate FiO2 06/09/17 12:17 98 55 06/09/17 12:00 96 06/09/17 10:00 104 06/09/17 08:00 100.6 117 18 154/67 (96) 96 06/09/17 08:00 117 06/09/17 08:00 70 06/09/17 07:35 97 70 06/09/17 06:00 80 06/09/17 05:24 80 06/09/17 04:00 98.2 88 19 109/55 (73) 98 06/09/17 03:00 99 80 06/09/17 03:00 99.0 106 22 99/47 (64) 93 06/09/17 00:17 93 Non-Rebreather 15.00 06/08/17 23:45 99.3 104 18 97/47 (64) 93 06/08/17 20:15 99.2 111 18 111/54 (73) 95 06/08/17 15:10 99.0 121 22 148/63 (91) 88 06/08/17 14:50 Simple Mask 6.00 06/08/17 13:49 Nasal Cannula 6.00 06/09/17 06/09/17 06/09/17 07:00 15:00 23:00 Intake Total 0 ml 1000 ml Output Total 125 ml Balance -125 ml 1000 ml Result Diagram: 06/09/17 0500 06/08/17 0811 Laboratory Results Laboratory Tests Test 06/09/17 05:00 06/09/17 05:20 06/09/17 07:59 White Blood Count 23.9 TH/MM3 Red Blood Count 3.40 MIL/MM3 Hemoglobin 8.4 GM/DL Hematocrit 27.1 % Mean Corpuscular Volume 79.5 FL Mean Corpuscular Hemoglobin 24.8 PG Mean Corpuscular Hemoglobin Concent 31.2 % Red Cell Distribution Width 22.4 % Platelet Count 37 TH/MM3 Mean Platelet Volume 9.6 FL Neutrophils (%) (Auto) 93.0 % Lymphocytes (%) (Auto) 1.8 % Monocytes (%) (Auto) 4.9 % Eosinophils (%) (Auto) 0.0 % Basophils (%) (Auto) 0.3 % Neutrophils # (Auto) 22.3 TH/MM3 Lymphocytes # (Auto) 0.4 TH/MM3 Monocytes # (Auto) 1.2 TH/MM3 Eosinophils # (Auto) 0.0 TH/MM3 Basophils # (Auto) 0.1 TH/MM3 CBC Comment AUTO DIFF Differential Comment AUTO DIFF CONFIRMED Stomatocytes 1+ Prothrombin Time 29.8 SEC Prothromb Time International Ratio 2.6 RATIO Activated Partial Thromboplast Time 35.9 SEC Lactate Dehydrogenase 765 U/L Blood Gas Puncture Site RT RADIAL Blood Gas Patient Temperature 98.6 Blood Gas HCO3 21 mmol/L Blood Gas Base Excess -3.4 mmol/L Blood Gas Oxygen Saturation 95 % Arterial Blood pH 7.38 Arterial Blood Partial Pressure CO2 36 mmHg Arterial Blood Partial Pressure O2 120 mmHg Arterial Blood Oxygen Content 11.5 Vol % Arterial Blood Carboxyhemoglobin 1.6 % Arterial Blood Methemoglobin 1.4 % Blood Gas Hemoglobin 8.4 G/DL Oxygen Delivery Device VENTILATOR Blood Gas Ventilator Setting Blood Gas Inspired Oxygen 80 % Nasal Screen MRSA (PCR) MRSA NOT DETECTED Culture Results Microbiology Date/Time Source Procedure Growth Status 06/06/17 15:25 Blood Peripheral Aerobic Blood Culture - Preliminary NO GROWTH IN 3 DAYS Resulted 06/06/17 15:25 Blood Peripheral Anaerobic Blood Culture - Preliminary NO GROWTH IN 3 DAYS Resulted 06/06/17 15:20 Blood Peripheral Aerobic Blood Culture - Preliminary NO GROWTH IN 3 DAYS Resulted 06/06/17 15:20 Blood Peripheral Anaerobic Blood Culture - Preliminary NO GROWTH IN 3 DAYS Resulted Imaging Studies Last 24 hours Impressions Chest X-Ray 06/09/17 0000 Signed Impressions: Service Date/Time: Friday, June 09, 2017 03:15 - CONCLUSION: 1. ETT and right IJ central line in good position. 2. Stable examination with diffuse numerous bilateral poorly nodules and small left pleural effusion with progressing left lower lobe airspace disease. 3. Suspect small right pleural effusion. Cheko Clark MD Chest X-Ray 06/09/17 0000 Signed Impressions: Service Date/Time: Friday, June 09, 2017 02:16 - CONCLUSION: 1. Stable numerous diffuse bilateral pulmonary nodules are, more confluent in the lower lung zones. 2. Suspect developing bilateral pleural effusions. Cheko Clark MD Administered Medications Medications (Trade) Dose Ordered Sig/Gary Route PRN Reason Start Time Stop Time Status Last Admin Dose Admin Naloxone HCl (Narcan Inj) 0.4 mg UNSCH PRN IV SEE LABEL COMMENTS 05/27/17 22:30 05/30/17 13:30 Clonidine (Catapres) 0.1 mg Q6H PRN PO bp>160/90 05/27/17 22:45 06/07/17 01:14 Sodium Chloride (NS Flush) 2 ml BID IV FLUSH 05/28/17 21:00 06/08/17 20:16 Ondansetron HCl (Zofran Inj) 4 mg Q6H PRN IVP NAUSEA OR VOMITING 05/28/17 09:15 06/08/17 10:09 Heparin Sodium (Porcine) (Heparin Inj) 5,000 units Q8H SQ 05/28/17 17:00 Future Hold 05/30/17 07:44 Acetaminophen (Tylenol) 650 mg Q6H PRN PO PAIN SCALE 1 TO 2 05/28/17 09:15 06/02/17 22:23 Acetaminophen/ Hydrocodone Bitart (Mohawk 5-325 Mg) 1 tab Q4H PRN PO PAIN SCALE 3 TO 5 05/28/17 09:15 06/06/17 00:21 Acetaminophen/ Hydrocodone Bitart (Mohawk 10-325 Mg) 1 tab Q4H PRN PO PAIN SCALE 6 TO 10 05/28/17 09:15 06/08/17 15:20 Hydroxyzine Pamoate (Vistaril) 25 mg Q6H PRN PO anxiety 05/28/17 17:00 06/02/17 22:23 Propranolol HCl (Inderal) 20 mg Q8HR PO 05/29/17 22:00 Future Hold 05/30/17 05:34 Amlodipine Besylate (Norvasc) 5 mg DAILY PO 05/30/17 09:00 06/08/17 10:09 Albuterol Sulfate (Albuterol Neb) 2.5 mg Q2HR NEB PRN NEB sob/wheeze 05/30/17 10:15 06/09/17 00:17 Pantoprazole Sodium (Protonix Inj) 40 mg Q24H IV PUSH 05/30/17 18:00 06/08/17 18:02 Insulin Human Regular (NovoLIN R SUPPLEMENTAL SCALE) 1 Q4H SQ 05/31/17 10:00 06/09/17 13:29 Water (Free Water) 300 ml Q6HR G-TUBE 06/01/17 12:00 06/04/17 17:21 Hydralazine HCl (Apresoline) 50 mg Q8HR PO 06/03/17 10:00 06/08/17 15:20 Hydralazine HCl (Apresoline) 10 mg Q6HR PRN PO SBP>160, DBP>90 06/03/17 10:00 06/08/17 20:14 Acetaminophen (Tylenol) 650 mg Q4H PRN PO SEE LABEL COMMENTS 06/07/17 16:00 06/07/17 18:01 Diphenhydramine HCl (Benadryl) 25 mg Q4H PRN PO SEE LABEL COMMENTS 06/07/17 12:45 06/07/17 18:01 Potassium Chloride (KCl) 20 meq Q12HR PO 06/07/17 14:00 06/08/17 10:09 Fentanyl Citrate 250 ml @ 5 mls/hr TITRATE PRN IV SEDATION 06/09/17 03:15 06/09/17 07:40 Sodium Chloride 1,000 ml @ 84 mls/hr [id number] IV 06/09/17 03:45 06/09/17 03:45 Miscellaneous Information Patient in critical care unit? Ass... [id number] .XX 06/09/17 07:30 06/09/17 07:30 Objective Remarks GENERAL: Intubated, sedated female supine in bed SKIN: Warm and dry. HEAD: Normocephalic. EYES: No injection or drainage. NECK: Supple, trachea midline. CARDIOVASCULAR: +S1/S2 RESPIRATORY: anterior kelsey clear. 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 --ultimately need bx lung to determine if metastatic Hurthle cell versus metastatic from non small cell carcinoma. --If metastatic Hurthle cell, no need for thyroidectomy. (2) Adenopathy ICD Codes: R59.1 - Generalized enlarged lymph nodes Plan: --will need lung biopsy at some point, unfortunately d/t patient PFS unable to obtain at present. 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 --Treatment in terms of the non small cell is palliative. (3) Hematuria ICD Codes: R31.9 - Hematuria, unspecified Plan: --urology following and recommends continuing with nuñez catheter with PRN irrigation and removal only when urine clear x 48 hrs --likely d/t metastatic involvement of bladder/urethra (4) Thrombocytopenia ICD Codes: D69.6 - Thrombocytopenia, unspecified Plan: --Suspect consumption from bleed. --coags prolonged, ?component of DIC ---likely multifactorial d/t hematuria, ?infection, tumor, possible bone marrow involvement of the tumor(s) (5) Microcytic hypochromic anemia ICD Codes: D50.9 - Iron deficiency anemia, unspecified Plan: 06/08/17.06/08/17. noted hgb improvement today after transfusion yesterday, --iron studies show normal serum iron, % saturation and ferritin, low TIBC Assessment 67 y/o woman admitted s/p fall and pelvic fracture. Hematology consulted for findings of hypercalcemia, thyroid nodule, multiple metastatic lung lesion and adenopathy. h/o Hypertension, Hyperlipidemia, Obesity, Noncompliance, Metastatic thyroid cancer Pelvic fracture. Plan 1. patient family planning for compassionate extubation/hospice/comfort measures on Wednesday or Wednesday once family arrives in town. 2. family does not want any further escalation of care at this time. continue supportive care Attending Statement The exam, history, and the medical decision-making described in the above note were completed with the assistance of the mid-level provider. I reviewed and agree with the findings presented. I attest that I had a [id number] encounter with the patient on the same day, and personally performed and documented my assessment and findings in the medical record. Pt seen and examined. Pt intubated, opens eyes spontaneously, appears to nod in understanding. Nursing reports this response is inconsistent varying throughout the day. Events overnight noted. Proceed with extubation as per family's request tomorrow. Palliative care following and assume care after. Will sign off. Lalitha Rowe Jun 09, 2017 13:33 Mi Tong MD Jun 09, 2017 19:31
--- NOTE | 2017-06-09 17:06 | HHI.PR ---
Addendum to Inpatient Note Additional Information Events noted pt transferred to ICU / resp issues patient family planning for compassionate extubation/hospice/comfort measures on Wednesday or Wednesday once family arrives in town. family does not want any further escalation of care at this time. continue supportive care will sign off Yoko Yarbrough MD Jun 09, 2017 17:06
[2017-06-09] MEDS: PANTOPRAZOLE SODIUM 40 MG VIAL IV PUSH SCH (17:36)
[2017-06-09] MEDS: CHLORHEXIDINE GLUCONATE 2 % 1 PACK (2 CLOTHS)(taper/protocol) TOPICAL SCH (22:24)
[2017-06-10] VITALS (18 sets, daily range): BP systolic 97–133; BP diastolic 44–66; PULSE 101–153; RESP 18; TEMP 98.1–100.3; O2SAT 93–98
[2017-06-10] MEDS: INSULIN NovoLIN REGULAR SUPPLEMENTAL SCALE SQ SCH ×6 (00:53→22:00)
[2017-06-10] MEDS: hydrALAZINE HCL 50 MG TAB PO SCH ×2 (04:22→07:51)
[2017-06-10] MEDS: METOPROLOL TARTRATE 5 MG/5 ML VIAL IV PUSH PRN ×3 (04:52→21:37)
--- NOTE | 2017-06-10 05:49 | MG ---
cc: BATOOL SUÁREZ MD Lab No: [id number] Date: 06/09/2017 Age: 67 Sex: F Race: EEG RECORD NUMBER [id number] DATE OF 1950 NOTE A 67-year-old, intubated, on fentanyl. FINDINGS Generalized 1-3 Hz delta activity occurring 20-50 microvolts with mild EEG variability reactivity. Pseudo-sharp waves cluster occurring in the frontal region epoch 64 for a few epochs with cessation. No driving with photic stimulation. Single EKG showing sinus rhythm. INTERPRETATION Moderate to severe encephalopathy. One sharp cluster of pseudo-sharp frontal waves. Clinical correlation. Batool Suárez MD MG/SSB /8:16 PM /5:36 AM
[2017-06-10] MEDS: SODIUM CHLORIDE 0.9% FLUSH 10 ML FLUSH IV FLUSH SCH ×2 (07:51→21:36)
[2017-06-10] MEDS: POTASSIUM CHLORIDE 20 MEQ CONTROLLED RELEASE TAB PO SCH ×2 (07:52→21:36)
[2017-06-10] MEDS: VENLAFAXINE HCL XR 37.5 MG CAP PO SCH (07:52)
[2017-06-10] MEDS: amLODIPine BESYLATE 5 MG TAB PO SCH (07:52)
[2017-06-10] MEDS ORDERED: DILTIAZEM HCL 25 MG/5 ML VIAL IV PUSH ONE (08:00)
--- NOTE | 2017-06-10 08:13 | HHI.CCPN ---
Subjective Remarks/Hospital Course The patient is a 67-year-old female with past medical history of hypertension, hyperlipidemia noncompliance. She has not seen a physician for over four years. She presented to the [facility] after she sustained a non-syncopal fall down the stairs after losing her balance. She also was complaining of left ankle pain. On initial presentation, she was admitted under the hospitalist service on May 27 and was found to have hypercalcemia with a corrected calcium level of 13.7, hypokalemia with potassium level 2.0 and mild acute kidney injury with creatinine level of 1.20. Her initial lactic acid level was 3.7. Also, she had leukocytosis with a WBC of 21.4. Pelvic x-ray showed a nondisplaced left superior pubic ramus fracture and mild osteoarthritis of the joints bilaterally. Her initial chest x-ray on admission showed diffuse nodular and reticulonodular opacities bilaterally. Subsequently the patient underwent CT angiogram of the chest on May 28, which showed a large mass on the right side of the trachea which could be an enlarged thyroid in addition to innumerable nodules scattered throughout the lungs, probable metastatic disease. A CT abdomen and pelvis was obtained as well , which showed evidence of retroperitoneal metastatic lymphadenopathy, nonspecific nodule in the distal urethra in addition to nodularity of both adrenal glands. A CT scan of the brain showed no acute abnormality. During her hospital course, she was being followed by Dr. Tong from the oncology service in addition to orthopedic surgery. She was being treated with antibiotics. In addition, she was on calcitonin for hypercalcemia. The patient also received Zometa to correct her hypercalcemia. Today the patient had worsening mental status. An ABG was performed on 5 liters oxygen which showed a pH of 7.49, CO2 49, pAO2 of 68, bicarb 38 and saturation 92%. She is scheduled to undergo CT-guided lung biopsy of a pulmonary nodule in addition to MRI of the brain for further evaluation of her mental status. The patient received Haldol 2 mg IV at 1500 in addition to lorazepam 0.5 mg at 01:00 a.m. and morphine 1 mg at 07:45 this morning. She was given Romazicon at 1343 and Narcan 0.4 mg without any significant improvement. When seen, she is hypertensive with systolic blood pressure of 160s to 190s and tachycardic. Most of the history was obtained from reviewing the medical records and from and discussion with the patient's daughter who was at the bedside. Due to findings of large mass on the right side of the trachea and due to her high-risk of possible complication with intubation, she is being transferred to [facility]. She had an echocardiogram yesterday which showed normal left ventricular systolic function with an ejection fraction of 55% to 60%. No regional wall motion abnormalities identified. 05/31 No events overnight, lethargic MRI brain last night showed tiny 9 mm enhancing extra-axial mass along the left high parietal region consistent with probable tiny meningioma. No acute infarct, acute hemorrhage, midline shift/ bleed. Had T: 101.3 last night. 06/01 Patient is lying in bed in NAD. T:99.8. Patient seems more awake and alert today. 06/02: Not in any acute distress, s/p left iliac chain node biopsy. Na improved to 150 from 158. Slight increase in WBC from 20.7 to 21.6. cultures are all negative to date. Original plan to biopsy lung was aborted as patient unable to tolerate prone positioning even with sedation. Clinically appears to be metastatic thyroid cancer-D/W Dr. Tong 06/09 : Patient found unresponsive in the bed with agonal breathing. RN confirmed with the family full code and okay to intubate. 06/10: Developed A. fib with RVR, no response to IV metoprolol. Started on Cardizem infusion. Patient is more awake today opens eyes for commands in upper extremities. Family planning on compassionate withdrawal, will d/w palliative care. We'll attempt to improve patient in decision making, reduce Fentanyl gtt to 50 mcg/min Objective Vital Signs Date Time Temp Pulse Resp B/P (MAP) Pulse Ox O2 Delivery O2 Flow Rate FiO2 06/10/17 06:00 103 06/10/17 04:26 98 50 06/10/17 04:00 98.1 18 117/57 (77) 06/09/17 00:17 Non-Rebreather 15.00 Intake and Output 06/10/17 06/10/17 06/11/17 08:00 16:00 00:00 Intake Total 0 ml Output Total 125 ml Balance -125 ml Result Diagram: 06/09/17 0500 06/08/17 0811 Imaging Last Impressions Chest X-Ray 05/31/17 Signed Impressions: Service Date/Time: Wednesday, May 31, 2017 09:31 - CONCLUSION: Increasing nodular opacities throughout both lungs Patient has changes in the left base. I Pa Verdin MD FACR Abdomen X-Ray 05/31/17 Signed Impressions: Service Date/Time: Wednesday, May 31, 2017 10:21 - CONCLUSION: The tip of the NG tube in the antrum of the stomach. Sushant Juares Jr., MD Brain MRI 05/30/17 Signed Impressions: Service Date/Time: Tuesday, May 30, 2017 19:47 - CONCLUSION: 1. Tiny 9 mm enhancing extra-axial mass along the left high parietal region consistent with probable tiny meningioma. 2. No acute infarct, acute hemorrhage, midline shift or extra-axial bleed. Delta Allison MD Lower Extremity CT 05/28/17 Signed Impressions: Service Date/Time: Sunday, May 28, 2017 09:50 - CONCLUSION: 1. Acute nondisplaced superior and inferior pubic rami fractures on the left. 2. Retroperitoneal adenopathy worrisome for metastatic disease or myeloproliferative disorder. 3. Enlarged and lobulated uterus likely related to fibroids. Sushant Juares Jr., MD CT Angiography 05/28/17 Signed Impressions: Service Date/Time: Sunday, May 28, 2017 02:01 - CONCLUSION: Large mass on the right side of the trachea could be an enlarged thyroid. Innumerable nodules scattered throughout the lungs metastatic disease certainly within the differential. There are a number of nodules in the right lower lobe which would be amenable to CT-guided biopsy. Vince Galan MD Abdomen/Pelvis CT 05/28/17 Signed Impressions: Service Date/Time: Sunday, May 28, 2017 20:56 - CONCLUSION: 1. There is evidence of retroperitoneal metastatic lymphadenopathy and I believe potentially on the basis of cervical or endometrial carcinoma. Primary lesion versus additional metastatic involvement of the urinary bladder. There is also a nonspecific nodule in the expected region of the distal urethra. 2. Nodularity of both adrenal glands, most likely metastatic. 3. Visualized lung bases again show evidence of widespread and confluent pulmonary metastatic disease with small effusions. Kane Cedeño MD Maxillofacial CT 05/27/172016 Signed Impressions: Service Date/Time: May 20:34 - CONCLUSION: 1. No maxillofacial fracture is present. 2. There is bilateral maxillary mucoperiosteal thickening with 12 mm polypoid structure extending from the left maxillary antrum into the left posterior nasal cavity. 3. There is a 14 mm left parotid gland nodule. Differential diagnosis includes intraparotid lymph node or pleomorphic adenoma. Kane Bartlett MD Head CT 05/27/172016 Signed Impressions: Service Date/Time: May 20:34 - CONCLUSION: No acute abnormality is identified. Kane Bartlett MD Cervical Spine CT 05/27/172016 Signed Impressions: Service Date/Time: May 20:34 - CONCLUSION: 1. No acute cervical spine abnormality is identified. There is degenerative disc disease at C5-C6. 2. There is a 4.1 cm right thyroid nodule. If this is a new finding, suggest nonemergent outpatient ultrasound of the thyroid gland for further evaluation. 3. Abnormal linear and nodular parenchymal opacities in the upper lobes bilaterally. Since this does not pertain to the patient's acute problem, this finding should also be further evaluated with outpatient chest CT with IV contrast. Also suggest correlating with any prior outside imaging studies. Kane Bartlett MD Hip and Pelvis X-Ray 05/27/17 Signed Impressions: Service Date/Time: May 20:49 - CONCLUSION: 1. A subtle lucency in the left pelvis may represent a nondisplaced left superior pubic ramus fracture. 2. Mild osteoarthritis of the joints bilaterally. Kane Bartlett MD Ankle X-Ray 05/27/17 0000 Signed Impressions: Service Date/Time: May 20:56 - CONCLUSION: No acute left ankle abnormality is identified. Kane Bartlett MD Objective Remarks GENERAL: Sedated and intubated SKIN: Warm and dry. HEAD: Normocephalic. EYES: No scleral icterus. No injection or drainage. NECK: Supple, trachea midline. No JVD or lymphadenopathy. CARDIOVASCULAR: Regular rate and rhythm without murmurs, gallops, or rubs. RESPIRATORY: Breath sounds equal bilaterally. No accessory muscle use. Few basilar crackles GASTROINTESTINAL: Abdomen soft, non-tender, nondistended. MUSCULOSKELETAL: No cyanosis, or edema. Neuro: Sedated and intubated. Pupils are 2 mm equal bilaterally reactive to light. Opens eyes nodding her head to questions, follows commands on bilateral upper extremities A/P Assessment and Plan Assessment: Probable metastatic thyroid malignancy Encephalopathy, multifactorial (hypercalcemia, hypertensive encephalopathy, sepsis and hypernatremia) Hypertensive urgency, rule out progressive reversible encephalopathy syndrome. Scattered pulmonary nodules likely related to metastatic disease. Thyroid mass. Hypercalcemia. Hypernatremia. Retroperitoneal metastatic lymphadenopathy. Hyperlipidemia. Leukocytosis. Anemia and thrombocytopenia. Superior and inferior pubic ramus fracture on the left. Plan: Neuro: Monitor neuro status closely and avoid any sedatives. Improving neuro exam today. EEG 06/09, moderate to severe encephalopathy UDS :negative for opiates, amphetamines, benzodiazepines. MRI brain:Tiny 9 mm enhancing extra-axial mass along the left high parietal region consistent with probable tiny meningioma. EEG 05/31: Encephalopathy wo epileptic activity. Currently on fentanyl for sedation and vent synchrony Pulm: Intubated for an airway protection. PRVC AC Bronchodilators , Aspiration precautions. Start SBT today CV: On Lopressor 2.5 mg IV q. 6 Start Cardizem infusion for atrial fibrillation with RVR Monitor HR and BP maintain MAP>65 mmHg. Echo on which showed normal left ventricular systolic function EF 55% to 60%. No RWMA : Monitor renal function, intake and output and electrolyte replacement as needed. DC 1/2 NS, monitor sodium level Bumex 2 mg IV x1. IV albumin 25 GM x1 GI: Mechanical soft with thin liquids per speech On Protonix 40 mg daily for GI prophylaxis. ID: Monitor off ABX per ID BC 05/31: NGTD BC and UC 05/27: No growth Leukocytosis may be non infectious, await biopsy. Heme: Monitor CBC, Onc and Critical Care Nurse Practitioner/Onc are following- D/W Dr. Tong. 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 Treatment is palliative per hematology oncology Unclear whether the lung nodules are metastatic from Hurthle cell or non small cell Endo: Increase SSI medium scale for glycemic control. TSH <0.005, FT4: 1.35, FT3: 1.46, ? euthyroid sick syndrome. Her PTH level is 16.3. GI prophylaxis with Protonix and DVT prophylaxis with SCDs. No chemical DVT Prophylaxis due to thrombocytopenia Palliative care is following Critical Care: Level 3 Family planning to withdrawal life support today. Patient being more awake, need to be included in decision-making if possible. Will discuss with palliative care Andreina Middleton MD Jun 10, 2017 08:13
[2017-06-10] MEDS ORDERED: ALBUMIN HUMAN 25% 25 GM/100 ML BAGP IV ONE (09:00)
[2017-06-10] MEDS ORDERED: BUMETANIDE INJ 1 MG/4 ML VIAL IV PUSH ONE (09:00)
[2017-06-10] MEDS ORDERED: POTASSIUM CHLORIDE 25 MEQ EFFERVESCENT TAB PO ONE (09:00)
--- NOTE | 2017-06-10 09:39 | RADRPT ---
EXAM DATE/TIME: 06/10/2017 07:56 [facility] COMPARISON: CHEST SINGLE AP, June 09, 2017, 3:15. INDICATIONS : Respiratory disease. MEDICAL HISTORY : None. SURGICAL HISTORY : None. ENCOUNTER: Subsequent ACUITY: 2 weeks PAIN SCORE: Non-responsive. LOCATION: Bilateral chest FINDINGS: An endotracheal tube has its tip 3 cm above the to. A right internal jugular central line has it s tip in the superior vena cava. Diffuse bilateral pulmonary infiltrates are again noted and unchang ed. The heart is stable. CONCLUSION: 1. Stable diffuse bilateral pulmonary infiltrates. 2. Endotracheal tube and right internal jugular central line are stable. Delta Allison MD on June 10, 2017 at 9:21 Board Certified Radiologist. This report was verified electronically.
[2017-06-10] MEDS: FREE WATER G-TUBE SCH ×2 (12:00→14:30)
[2017-06-10 15:12] LABS: AUTOMATED NEUTROPHIL # 19.6 TH/MM3 (1.8-7.7); BASOPHIL % 0.1 % (0.0-2.0); HEMATOCRIT 27.8 % (35.0-46.0); LYMPH % 2.1 % (9.0-44.0); LYMPHOCYTE # 0.5 TH/MM3 (1.0-4.8); MEAN CELL VOLUME 79.4 FL (80.0-100.0); MEAN CORPUSCULAR HGB CONC 31.5 % (32.0-36.0); MONO % 4.5 % (0.0-8.0); NEUT % 93.3 % (16.0-70.0); PLATELET COUNT 27 TH/MM3 (150-450); RED CELL DISTRIBUTION WIDTH 23.8 % (11.6-17.2)
[2017-06-10 15:21] LABS: ALT (GPT) 48 U/L (10-53); ANION GAP 12 MEQ/L (5-15); AST (GOT) 43 U/L (15-37); BLOOD UREA NITROGEN 114 MG/DL (7-18); CHLORIDE 114 MEQ/L (98-107); GLOMERULAR FILTRATION RATE 18 ML/MIN (>89); POTASSIUM 5.9 MEQ/L (3.5-5.1); SODIUM (NA) 146 MEQ/L (136-145)
[2017-06-10 15:28] LABS: ALKALINE PHOSPHATASE 328 U/L (45-117); TOTAL BILIRUBIN ADULT 1.2 MG/DL (0.2-1.0)
[2017-06-10 15:38] LABS: HEMO FLAGS AUTO DIFF
[2017-06-10 15:58] LABS: BANDS 3 % (0-6); CORRECTED NUCLEATED RBC 1 /100 WBC (0-0); METAMYELOCYTES 2 % (0-1); NEUTROPHIL # MANUAL DIFF 19.1 TH/MM3 (1.8-7.7); POLYS (SEG NEUTROPHILS) 86 % (16-70); WBC DIFF SAMPLE 100
[2017-06-10 16:01] LABS: KERATOCYTES OCC (NORMAL); OVALOCYTES 1+ (NORMAL); PLATELET ESTIMATE SMEAR LOW (NORMAL); PLATELET MORPHOLOGY NORMAL (NORMAL); SCAN/DIFF FINAL DIFF MANUAL
--- NOTE | 2017-06-10 17:01 | HHI.HCPN ---
Reason for visit a. To assist with evaluation and management of symptoms including: dyspnea, confusion, anxiety, pain b. To assist medical decision maker(s) with: better understanding of current medical conditions; weighing benefits/burdens of medical treatment options; making medical treatment decisions. Subjective/Interval History Patient seen and examined in ICU to follow up on comfort, goals. Dual visit with Norman LYNN. 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 Treatment likely to be palliative if patient performance status tolerates. Patient also with some hematuria status post urology consult urology feels may be secondary to bladder/ureteral involvement from pelvic mass. 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 Patient has reportedly been more alert this morning per nurse and litigation specialist. She was awake and following commands. At the time of my visit she was difficult to arouse and would only open her eyes briefly. She nodded no to pain, but unable to answer any questions or follow commands for me. I spoke with son and daughterLauren at bedside. We attempted to call [facility], daughter Cristina she did not answer. Reviewed my conversation with Dr. Middleton regarding determining if family wanted to wait to proceed with withdrawal of life support in case she would be able to participate in her own decision making. Children feel while she has been more awake she is "still not all there." They feel like she was more alert to see her granddaughter. They do not feel like she will be able to participate in her own decision making. They feel certain they know she would not want to live like this and feel she "lived up to the day she came to the hospital." Son is tearful. Offered business performance analyst/capsule inspector. Patient had Last Rights and capsule inspector has been periodically visiting. Family would be agreeable per Dr. Davidson conversation to wean sedation if possible. However, want weaning stopped if she appears painful. We agreed to meet again on 06/11/17 at 10am to reevaluate status before transitioning to comfort measures/ withdrawal of life support. Afebrile. Tachycardic. BP 97/44. WBC 21, HGB 8.8, platelets 27. Creatinine increased to 2.[address] Middleton and Jasper, RN. . Family/friend interactions Se interval note. . Advance Directives Health Care Surrogate: Copy in medical record Advance Directive Specifics Health Care Surrogate(s): Designated health care surrogate, Cristina Travis, daughter. . Significant change in goals: Intubation Only. Possible withdrawal of life support on . Palliative care will meet with children again on 06/11/17 at 10am. . Objective Vital Signs Date Time Temp Pulse Resp B/P (MAP) Pulse Ox O2 Delivery O2 Flow Rate FiO2 06/10/17 16:20 93 40 06/10/17 14:00 121 06/10/17 12:12 93 40 06/10/17 12:00 45 06/10/17 12:00 98.9 121 18 97/44 (61) 93 06/10/17 12:00 124 06/10/17 10:00 136 06/10/17 08:29 97 45 06/10/17 08:00 45 06/10/17 08:00 98.8 153 18 101/66 (78) 96 06/10/17 08:00 140 06/10/17 06:00 103 06/10/17 04:26 98 50 06/10/17 04:00 98.1 101 18 117/57 (77) 96 06/10/17 04:00 103 06/10/17 04:00 70 06/10/17 02:00 103 06/10/17 00:18 97 50 06/10/17 00:00 70 06/10/17 00:00 103 06/10/17 00:00 100.3 113 18 133/59 (83) 96 06/09/17 22:00 103 06/09/17 21:00 96 55 06/09/17 20:00 103 06/09/17 20:00 70 06/09/17 20:00 98.1 99 18 121/60 (80) 96 06/09/17 18:00 103 06/09/17 17:21 96 55 Intake & Output 06/10/17 06/10/17 06:59 18:59 Intake Total 0 ml Output Total 125 ml Balance -125 ml Intake Oral 0 ml Output Urine Total 125 ml # Bowel Movements 0 Physical Exam CONSTITUTIONAL/GENERAL: This is an adequately nourished patient, sedated, comfortable on mechanical vent TUBES/LINES/DRAINS:ETT, OG, PIV x2 BUE, nuñez catheter, SCDs, wirst restraints. CARDIOVASCULAR: Regular rate and rhythm without murmurs. Tachycardic rate 110 No JVD. Peripheral pulses symmetric. RESPIRATORY/CHEST: Symmetric, unlabored respirations. Occasional spontaneous respiration over ventilator rate. Clear to auscultation, decreased air movement. Breath sounds equal bilaterally. GASTROINTESTINAL: Abdomen soft, unable to determine tenderness, nondistended. No palpable masses. No guarding. Bowel sounds hypoactive. GENITOURINARY: Without palpable bladder distension. Nuñez catheter in place clear red urine. NEUROLOGICAL: On fentanyl drip 100 mics/hour. Appears comfortable. Opens eyes briefly, not following commands for me. Nods no to pain slightly. PSYCHIATRIC: Limited assessment due to clinical condition, no apparent distress . Diagnostic Tests Laboratory Laboratory Tests Test 06/08/17 08:11 06/09/17 05:00 06/09/17 05:20 06/09/17 07:59 White Blood Count 39.0 TH/MM3 (4.0-11.0) 23.9 TH/MM3 (4.0-11.0) Red Blood Count 4.19 MIL/MM3 (4.00-5.30) 3.40 MIL/MM3 (4.00-5.30) Hemoglobin 10.3 GM/DL (11.6-15.3) 8.4 GM/DL (11.6-15.3) Hematocrit 32.7 % (35.0-46.0) 27.1 % (35.0-46.0) Mean Corpuscular Volume 78.0 FL (80.0-100.0) 79.5 FL (80.0-100.0) Mean Corpuscular Hemoglobin 24.6 PG (27.0-34.0) 24.8 PG (27.0-34.0) Mean Corpuscular Hemoglobin Concent 31.6 % (32.0-36.0) 31.2 % (32.0-36.0) Red Cell Distribution Width 22.2 % (11.6-17.2) 22.4 % (11.6-17.2) Platelet Count 42 TH/MM3 (150-450) 37 TH/MM3 (150-450) Mean Platelet Volume 9.0 FL (7.0-11.0) 9.6 FL (7.0-11.0) Neutrophils (%) (Auto) 93.5 % (16.0-70.0) 93.0 % (16.0-70.0) Lymphocytes (%) (Auto) 2.9 % (9.0-44.0) 1.8 % (9.0-44.0) Monocytes (%) (Auto) 3.1 % (0.0-8.0) 4.9 % (0.0-8.0) Eosinophils (%) (Auto) 0.0 % (0.0-4.0) 0.0 % (0.0-4.0) Basophils (%) (Auto) 0.5 % (0.0-2.0) 0.3 % (0.0-2.0) Neutrophils # (Auto) 36.5 TH/MM3 (1.8-7.7) 22.3 TH/MM3 (1.8-7.7) Lymphocytes # (Auto) 1.1 TH/MM3 (1.0-4.8) 0.4 TH/MM3 (1.0-4.8) Monocytes # (Auto) 1.2 TH/MM3 (0-0.9) 1.2 TH/MM3 (0-0.9) Eosinophils # (Auto) 0.0 TH/MM3 (0-0.4) 0.0 TH/MM3 (0-0.4) Basophils # (Auto) 0.2 TH/MM3 (0-0.2) 0.1 TH/MM3 (0-0.2) CBC Comment AUTO DIFF AUTO DIFF Differential Total Cells Counted 100 Neutrophils % (Manual) 83 % (16-70) Band Neutrophils % 8 % (0-6) Lymphocytes % 2 % (9-44) Monocytes % 5 % (0-8) Neutrophils # (Manual) 36.3 TH/MM3 (1.8-7.7) Metamyelocytes 2 % (0-1) Differential Comment FINAL DIFF MANUAL AUTO DIFF CONFIRMED Platelet Estimate LOW (NORMAL) Platelet Morphology Comment NORMAL (NORMAL) Ovalocytes 1+ (NORMAL) Prothrombin Time 28.2 SEC (9.8-11.6) 29.8 SEC (9.8-11.6) Prothromb Time International Ratio 2.5 RATIO 2.6 RATIO Activated Partial Thromboplast Time 37.1 SEC (24.3-30.1) 35.9 SEC (24.3-30.1) Blood Urea Nitrogen 55 MG/DL (7-18) Creatinine 1.14 MG/DL (0.50-1.00) Random Glucose 159 MG/DL (74-106) Total Protein 5.6 GM/DL (6.4-8.2) Albumin 1.9 GM/DL (3.4-5.0) Calcium Level 7.5 MG/DL (8.5-10.1) Magnesium Level 2.5 MG/DL (1.5-2.5) Alkaline Phosphatase 405 U/L (45-117) Aspartate Amino Transf (AST/SGOT) 47 U/L (15-37) Alanine Aminotransferase (ALT/SGPT) 50 U/L (10-53) Lactate Dehydrogenase 785 U/L (84-246) 765 U/L (84-246) Total Bilirubin 0.8 MG/DL (0.2-1.0) Sodium Level 145 MEQ/L (136-145) Potassium Level 3.3 MEQ/L (3.5-5.1) Chloride Level 107 MEQ/L (98-107) Carbon Dioxide Level 25.2 MEQ/L (21.0-32.0) Anion Gap 13 MEQ/L (5-15) Estimat Glomerular Filtration Rate 48 ML/MIN (>89) Stomatocytes 1+ (NORMAL) Blood Gas Puncture Site RT RADIAL Blood Gas Patient Temperature 98.6 Blood Gas HCO3 21 mmol/L (22-26) Blood Gas Base Excess -3.4 mmol/L (-2-2) Blood Gas Oxygen Saturation 95 % (90-100) Arterial Blood pH 7.38 (7.380-7.420) Arterial Blood Partial Pressure CO2 36 mmHg (38-42) Arterial Blood Partial Pressure O2 120 mmHg (61-120) Arterial Blood Oxygen Content 11.5 Vol % (12.0-20.0) Arterial Blood Carboxyhemoglobin 1.6 % (0-4) Arterial Blood Methemoglobin 1.4 % (0-2) Blood Gas Hemoglobin 8.4 G/DL (12.0-16.0) Oxygen Delivery Device VENTILATOR Blood Gas Ventilator Setting Blood Gas Inspired Oxygen 80 % Nasal Screen MRSA (PCR) MRSA NOT DETECTED (NOT Test 06/10/17 14:35 White Blood Count 21.0 TH/MM3 (4.0-11.0) Red Blood Count 3.50 MIL/MM3 (4.00-5.30) Hemoglobin 8.8 GM/DL (11.6-15.3) Hematocrit 27.8 % (35.0-46.0) Mean Corpuscular Volume 79.4 FL (80.0-100.0) Mean Corpuscular Hemoglobin 25.0 PG (27.0-34.0) Mean Corpuscular Hemoglobin Concent 31.5 % (32.0-36.0) Red Cell Distribution Width 23.8 % (11.6-17.2) Platelet Count 27 TH/MM3 (150-450) Mean Platelet Volume 9.1 FL (7.0-11.0) Neutrophils (%) (Auto) 93.3 % (16.0-70.0) Lymphocytes (%) (Auto) 2.1 % (9.0-44.0) Monocytes (%) (Auto) 4.5 % (0.0-8.0) Eosinophils (%) (Auto) 0.0 % (0.0-4.0) Basophils (%) (Auto) 0.1 % (0.0-2.0) Neutrophils # (Auto) 19.6 TH/MM3 (1.8-7.7) Lymphocytes # (Auto) 0.5 TH/MM3 (1.0-4.8) Monocytes # (Auto) 0.9 TH/MM3 (0-0.9) Eosinophils # (Auto) 0.0 TH/MM3 (0-0.4) Basophils # (Auto) 0.0 TH/MM3 (0-0.2) CBC Comment AUTO DIFF Differential Total Cells Counted 100 Neutrophils % (Manual) 86 % (16-70) Band Neutrophils % 3 % (0-6) Lymphocytes % 4 % (9-44) Monocytes % 5 % (0-8) Neutrophils # (Manual) 19.1 TH/MM3 (1.8-7.7) Metamyelocytes 2 % (0-1) Nucleated Red Blood Cells 1 /100 WBC (0-0) Differential Comment FINAL DIFF MANUAL Platelet Estimate LOW (NORMAL) Platelet Morphology Comment NORMAL (NORMAL) Ovalocytes 1+ (NORMAL) Keratocytes OCC (NORMAL) Blood Urea Nitrogen 114 MG/DL (7-18) Creatinine 2.70 MG/DL (0.50-1.00) Random Glucose 177 MG/DL (74-106) Total Protein 5.7 GM/DL (6.4-8.2) Albumin 2.3 GM/DL (3.4-5.0) Calcium Level 8.2 MG/DL (8.5-10.1) Alkaline Phosphatase 328 U/L (45-117) Aspartate Amino Transf (AST/SGOT) 43 U/L (15-37) Alanine Aminotransferase (ALT/SGPT) 48 U/L (10-53) Total Bilirubin 1.2 MG/DL (0.2-1.0) Sodium Level 146 MEQ/L (136-145) Potassium Level 5.9 MEQ/L (3.5-5.1) Chloride Level 114 MEQ/L (98-107) Carbon Dioxide Level 20.0 MEQ/L (21.0-32.0) Anion Gap 12 MEQ/L (5-15) Estimat Glomerular Filtration Rate 18 ML/MIN (>89) Result Diagram: 06/10/17 1435 06/10/17 1435 Microbiology Microbiology Date/Time Source Procedure Growth Status 06/06/17 15:25 Blood Peripheral Aerobic Blood Culture - Preliminary NO GROWTH IN 4 DAYS Resulted 06/06/17 15:25 Blood Peripheral Anaerobic Blood Culture - Preliminary NO GROWTH IN 4 DAYS Resulted 05/27/17 22:55 Urine Clean Catch Urine Culture - Final No growth. Complete Imaging Last Impressions Chest X-Ray 06/10/17 0000 Signed Impressions: Service Date/Time: June 07:56 - CONCLUSION: 1. Stable diffuse bilateral pulmonary infiltrates. 2. Endotracheal tube and right internal jugular central line are stable. Delta Allison MD Thyroid Biopsy Ultrasound 06/03/17 0000 Signed Impressions: Service Date/Time: May 13:59 - CONCLUSION: Uncomplicated ultrasound guided core needle biopsy of a complex cystic mass of the right thyroid. Sushant Juares Jr., MD Lymph Node Biopsy CT 06/02/17 0000 Signed Impressions: Service Date/Time: Friday, June 02, 2017 11:52 - CONCLUSION: Uncomplicated CT guided biopsy of a left pelvic mass likely relating to iliac chain lymph nodes. Sushant Juares Jr., MD Abdomen X-Ray 05/31/17 Signed Impressions: Service Date/Time: Wednesday, May 31, 2017 10:21 - CONCLUSION: The tip of the NG tube in the antrum of the stomach. Sushant Juares Jr., MD Brain MRI 05/30/17 Signed Impressions: Service Date/Time: Tuesday, May 30, 2017 19:47 - CONCLUSION: 1. Tiny 9 mm enhancing extra-axial mass along the left high parietal region consistent with probable tiny meningioma. 2. No acute infarct, acute hemorrhage, midline shift or extra-axial bleed. Delta Allison MD Lower Extremity CT 05/28/17 Signed Impressions: Service Date/Time: Sunday, May 28, 2017 09:50 - CONCLUSION: 1. Acute nondisplaced superior and inferior pubic rami fractures on the left. 2. Retroperitoneal adenopathy worrisome for metastatic disease or myeloproliferative disorder. 3. Enlarged and lobulated uterus likely related to fibroids. Sushant Juares Jr., MD CT Angiography 05/28/17 Signed Impressions: Service Date/Time: Sunday, May 28, 2017 02:01 - CONCLUSION: Large mass on the right side of the trachea could be an enlarged thyroid. Innumerable nodules scattered throughout the lungs metastatic disease certainly within the differential. There are a number of nodules in the right lower lobe which would be amenable to CT-guided biopsy. Vince Galan MD Abdomen/Pelvis CT 05/28/17 Signed Impressions: Service Date/Time: Sunday, May 28, 2017 20:56 - CONCLUSION: 1. There is evidence of retroperitoneal metastatic lymphadenopathy and I believe potentially on the basis of cervical or endometrial carcinoma. Primary lesion versus additional metastatic involvement of the urinary bladder. There is also a nonspecific nodule in the expected region of the distal urethra. 2. Nodularity of both adrenal glands, most likely metastatic. 3. Visualized lung bases again show evidence of widespread and confluent pulmonary metastatic disease with small effusions. Kane Cedeño MD Maxillofacial CT 05/27/172016 Signed Impressions: Service Date/Time: May 20:34 - CONCLUSION: 1. No maxillofacial fracture is present. 2. There is bilateral maxillary mucoperiosteal thickening with 12 mm polypoid structure extending from the left maxillary antrum into the left posterior nasal cavity. 3. There is a 14 mm left parotid gland nodule. Differential diagnosis includes intraparotid lymph node or pleomorphic adenoma. Kane Bartlett MD Head CT 05/27/172016 Signed Impressions: Service Date/Time: May 20:34 - CONCLUSION: No acute abnormality is identified. Kane Bartlett MD Cervical Spine CT 05/27/172016 Signed Impressions: Service Date/Time: May 20:34 - CONCLUSION: 1. No acute cervical spine abnormality is identified. There is degenerative disc disease at C5-C6. 2. There is a 4.1 cm right thyroid nodule. If this is a new finding, suggest nonemergent outpatient ultrasound of the thyroid gland for further evaluation. 3. Abnormal linear and nodular parenchymal opacities in the upper lobes bilaterally. Since this does not pertain to the patient's acute problem, this finding should also be further evaluated with outpatient chest CT with IV contrast. Also suggest correlating with any prior outside imaging studies. Kane Bartlett MD Hip and Pelvis X-Ray 05/27/17 Signed Impressions: Service Date/Time: May 20:49 - CONCLUSION: 1. A subtle lucency in the left pelvis may represent a nondisplaced left superior pubic ramus fracture. 2. Mild osteoarthritis of the joints bilaterally. Kane Bartlett MD Ankle X-Ray 05/27/17 0000 Signed Impressions: Service Date/Time: May 20:56 - CONCLUSION: No acute left ankle abnormality is identified. Kane Bartlett MD Procedures 06/09--intubated, central line placed 06/02 CT guided lymph node bx 06/03 us guided thyroid Bx . Assessment and Plan Disease Oriented Problem List: (1) Elevated troponin I level (2) Closed fracture of single pubic ramus of pelvis (3) Hypercalcemia (4) Adenopathy (5) Lesion of lung (6) Mass of cervix Symptom Scale: (1) Dyspnea 0-10 Scale: Unable to quantify Comment: on mech vent (2) Anxiety 0-10 Scale: Unable to quantify Comment: sedated (3) Pain 0-10 Scale: Unable to quantify Comment: On Fentanyl 100 (4) Confusion 0-10 Scale: Unable to quantify Pertinent Non-Medical Issues Psychosocial:Patient originally from [place], though has lived in [place] since the . Still working some, does [employer] services part-time. Supported locally by 3 adult children, her son lives with her . . Spiritual: Sabianist would appreciate business performance analyst,capsule inspector support Legal:Patient mental status fluctuates at times she may be capacitated. Apparently completed health care surrogate designation at [facility] Wednesday however this document is not present in chart. May offer to assist patient to complete healthcare surrogate again if she is able. Daughter indicates that she was named as primary surrogate with her sister is secondary. Patient , supported by 3 adult children, who per [place] statutes would be appropriate proxies if patient incapacitated. Ethical issues impacting care: Important Contacts VERNELL AGUILERA (DAUGHTER) [phone] Cristina Thaddeus daughter [phone] ([facility]) Jared- son- lives w pt, using pt phone # [phone] . Prognosis This patient was admitted status post mechanical fall at home. Incidental findings via imaging of what appears to be widespread metastatic malignancy process. 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 Patient would certainly need additional biopsy from lung, as well as further staging to determine best treatment course. Per oncology pelvic would most likely only be offered palliative treatment, and any treatments would be if patient performance and functional status improved. If the patient did not wish to undergo further invasive testing and additional treatments , would be appropriate for hospice. . Code Status: Alternative Code (Intubation Only) Plan * Legal decision maker: 06/01/17 completed [facility] NAMING DTMayte STAHL- placed in chart, scanned to [facility] records. * Goals: Intubation Only. Possible withdrawal of life support on . Palliative care will meet with children again on 06/11/17 at 10am. * CODE STATUS: ALT CODE- INTUBATION ONLY * SYMPTOMS: No new medication recommendations at this time. --Dyspnea- resp status fluctuating, + CXR /CT findings multiple nodules concerning for malignancy; + on nebulizers, O2. agonal resps overnight, intubated around 3am. Now breathing comfortably mechanical vent, fentanyl for sedation. --Anxiety-potential for related to dyspnea, multiple new medical findings, acute ICU course. Cautious use of benzos at this time given concern for AMS, resp compromise, will cont to evaluate . pt mental status has cont to improve, AMS may be 2/2 ativan . Psychiatry has evaluated and has started patient on Effexor. Recommends avoiding opiates, benzodiazepines, anticholinergics. Patient with decreased level of responsiveness overnight now sedated on mechanical vent no apparent distress --Pain-status post mechanical fall with injury to pelvis, left leg. + intermittent pelvic/hip pain, will cont to evaluate. Cautious use of opiates given fluctuating mental status. nursing offering freq repositioning, prns, ice bags. prn norco 10mg used x2 today, x4 yesterday. Patient moaning though denies pain yesterday when asked. Patient with change in condition overnight now intubated and sedated on mechanical vent. Appears comfortable. --Confusion-fluctuating mental status during hospital course, has steadily improved. MRI negative for stroke or acute process. Hypercalcemia, electrolyte abnormalities, leukocytosis, probably multifactorial. On mech vent. Appears comfortable. * Palliative care will continue to follow during hospital course as condition evolves, to assist patient/decision-maker with understanding of medical conditions, weighing benefits/burdens of treatment options, for clarification of goals of treatment. Additionally will assist with any symptoms of palliative concern . Attestation To help prompt me to consider important information that might be impacting today's encounter and assessment, information from prior notes written by myself or my colleagues may have been "brought forward" into today's note. My signature on this note, however, is an attestation that I personally performed the exam, history, and/or decision-making noted today, and, unless otherwise indicated, the interactions with patient, family, and staff as well as the review of records all occurred today. I also attest that the listed assessment and stated plan reflect my best clinical judgment today based on the combination of historical information, prior notes, and today's exam/ interactions. When time spent is documented, it refers only to time spent today by the signer, or if indicated, combined time spent today by collaborating physician/nurse practitioner. Consuelo Bradley Jun 10, 2017 17:01
[2017-06-10] MEDS: PANTOPRAZOLE SODIUM 40 MG VIAL IV PUSH SCH (18:28)
[2017-06-10] MEDS: DILTIAZEM INJ 125 MG in SODIUM CHLORIDE 0.9% INJ 100 ML IV PRN (22:05)
[2017-06-11] VITALS (18 sets, daily range): BP systolic 98–134; BP diastolic 47–75; PULSE 69–118; RESP 18–22; TEMP 98–98.8; O2SAT 92–96
[2017-06-11] MEDS: INSULIN NovoLIN REGULAR SUPPLEMENTAL SCALE SQ SCH ×5 (02:00→22:00)
[2017-06-11] MEDS: hydrALAZINE HCL 50 MG TAB PO SCH ×3 (02:08→13:07)
[2017-06-11] MEDS: CHLORHEXIDINE GLUCONATE 2 % 1 PACK (2 CLOTHS)(taper/protocol) TOPICAL SCH (04:00)
[2017-06-11] MEDS: fentaNYL DRIP 250 ML IV PRN (04:29)
[2017-06-11] MEDS: SODIUM CHLOR 0.45% 1000 ML INJ 1,000 ML IV SCH (04:29)
[2017-06-11] MEDS: FREE WATER G-TUBE SCH ×4 (06:00→16:47)
--- NOTE | 2017-06-11 07:47 | MB ---
cc: DAVIE ESCOBEDO MD DATE OF CONSULTATION 06/11/2017 REASON FOR CONSULTATION She is seen again in followup. COMPONENT PREP OPERATOR oncology was consulted because of a mass-like effect on imaging, adenopathy. She has multiple pulmonary nodules, a thyroid mass. Biopsy of the thyroid is suspicious for malignancy. She is unable to tolerate pulmonary biopsy. Lymph node biopsy in the retroperitoneum of the pelvis showed a non-small cell carcinoma. It is understood that any treatment, if rendered, would be palliative and it remains uncertain to what extent further diagnostic workup should be undertaken. We have thus far avoided additional anesthesia and it is difficult to get optimal exam, biopsies in the hospital setting. She is in the intensive care setting and probably not stable enough for transfer to gynecology office for a more optimal exam. Furthermore, she continues to have markedly diminished performance status. Other issues include thrombocytopenia, palliative care is involved and the wishes, as expressed by her and family, are centered on symptomatic control, supportive care, and palliation. Accordingly, at this time, no further COMPONENT PREP OPERATOR workup is recommended, but can be done if she stabilizes. Her hemodynamic parameters are satisfactory for additional tissue biopsy or if there is a strong preference to complete his evaluation. Whether or not she has a COMPONENT PREP OPERATOR or a her urologic tumor, in addition to a thyroid tumor, whether or not this is all manifestation of the same disease process is uncertain. Irrespective, it is widely metastatic, debilitating and treatment would be palliative. As she has no heavy active COMPONENT PREP OPERATOR bleeding or ureteral obstruction, palliative radiation to the pelvis does not seem warranted at this time. She seems to understand the pertinent aspects of this discussion. Palliative radiation to the pelvis does not seem warranted at this time. She seems to understand the pertinent aspects of this discussion and we are willing to help and evaluate to any extent possible, although it seems as though at this point it is putting her through more procedures without using that information to make treatment decisions as she presently is unable to tolerate any systemic treatment. Thank you for the consultation. COMPONENT PREP OPERATOR oncology will sign off at this time, but we are certainly available at anytime if further diagnostic workup is deemed necessary. MD MIKE Schmitz/ISAURO /7:18 AM /7:31 AM
[2017-06-11] MEDS: amLODIPine BESYLATE 5 MG TAB PO SCH (08:19)
[2017-06-11] MEDS: VENLAFAXINE HCL XR 37.5 MG CAP PO SCH (08:19)
[2017-06-11] MEDS: POTASSIUM CHLORIDE 20 MEQ CONTROLLED RELEASE TAB PO SCH (08:19)
[2017-06-11] MEDS: SODIUM CHLORIDE 0.9% FLUSH 10 ML FLUSH IV FLUSH SCH (08:20)
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
[2017-06-11] MEDS: PANTOPRAZOLE SODIUM 40 MG VIAL IV PUSH SCH (13:07)
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
[2017-06-11 17:47] LABS: ALKALINE PHOSPHATASE 292 U/L (45-117); ALT (GPT) 57 U/L (10-53); ANION GAP 15 MEQ/L (5-15); AST (GOT) 43 U/L (15-37); BICARBONATE 17.2 MEQ/L (21.0-32.0); BLOOD UREA NITROGEN 128 MG/DL (7-18); CHLORIDE 111 MEQ/L (98-107); GLOMERULAR FILTRATION RATE 16 ML/MIN (>89); SODIUM (NA) 143 MEQ/L (136-145)
[2017-06-11] MEDS ORDERED: DEXTROSE 50% IN WATER 50 ML SYRINGE IV ONE (18:15)
[2017-06-11] MEDS ORDERED: INSULIN HUMAN REGULAR 1,000 UNITS/10 ML VIAL IV PUSH ONE (18:15)
[2017-06-11] MEDS ORDERED: SODIUM POLYSTYRENE SULFONATE SUSP 15 GM/60 ML CUP OG-TUBE ONE (18:15)
[2017-06-11] MEDS ORDERED: SODIUM BICARBONATE 8.4% INJ 50 MEQ/50 ML SYR IV ONE (18:30)
[2017-06-11] MEDS ORDERED: CALCIUM GLUCONATE 10% 1 GM/10 ML VIAL IV ONE (18:30)
[2017-06-11 23:01] LABS: BICARBONATE 19.8 MEQ/L (21.0-32.0); CALCIUM-PROTEIN CORRECTED 8.2 MG/DL (8.5-10.1); POTASSIUM 5.8 MEQ/L (3.5-5.1)
[2017-06-12] VITALS (26 sets, daily range): BP systolic 112–128; BP diastolic 54–65; PULSE 70–117; RESP 16–20; TEMP 98.4–98.9; O2SAT 94–99
[2017-06-12] MEDS: DILTIAZEM INJ 125 MG in SODIUM CHLORIDE 0.9% INJ 100 ML IV PRN ×3 (00:02→20:30)
[2017-06-12] MEDS: INSULIN NovoLIN REGULAR SUPPLEMENTAL SCALE SQ SCH ×5 (02:00→20:00)
[2017-06-12] MEDS: CHLORHEXIDINE GLUCONATE 2 % 1 PACK (2 CLOTHS)(taper/protocol) TOPICAL SCH (04:00)
--- NOTE | 2017-06-12 05:14 | RADRPT ---
EXAM DATE/TIME: 06/12/2017 04:11 [facility] COMPARISON: CHEST SINGLE AP, June 10, 2017, 7:56. INDICATIONS : Respiratory disease MEDICAL HISTORY : None. SURGICAL HISTORY : None. ENCOUNTER: Subsequent ACUITY: 2 weeks PAIN SCORE: Non-responsive. LOCATION: Bilateral chest FINDINGS: Diffuse patchy bilateral pulmonary parenchymal opacities persist without significant change. Very sma ll bilateral pleural effusions are again noted. No pneumothorax. Heart size upper limits of normal. Endotracheal tube tip is approximately 2 cm above the to. There is a nasogastric tube now present , coursing into the stomach. Right internal jugular central venous catheter again seen, tip at the at rium caval junction. CONCLUSION: 1. Diffuse pulmonary opacities persist with small bilateral pleural effusions. 2. No nasogastric tube, courses into the stomach. Endotracheal tube and right IJ central venous lynn ter remain in place. Kane Cedeño MD on June 12, 2017 at 5:11 Board Certified Radiologist. This report was verified electronically.
[2017-06-12 05:55] LABS: ALT (GPT) 58 U/L (10-53); ANION GAP 14 MEQ/L (5-15); AST (GOT) 48 U/L (15-37); AUTOMATED NEUTROPHIL # 20.4 TH/MM3 (1.8-7.7); BASOPHIL # 0.1 TH/MM3 (0-0.2); BASOPHIL % 0.3 % (0.0-2.0); BICARBONATE 21.7 MEQ/L (21.0-32.0); BLOOD UREA NITROGEN 139 MG/DL (7-18); CHLORIDE 111 MEQ/L (98-107); GLOMERULAR FILTRATION RATE 16 ML/MIN (>89); HEMATOCRIT 25.1 % (35.0-46.0); LYMPH % 1.4 % (9.0-44.0); LYMPHOCYTE # 0.3 TH/MM3 (1.0-4.8); MEAN CELL VOLUME 78.9 FL (80.0-100.0); MEAN CORPUSCULAR HEMOGLOBIN 25.1 PG (27.0-34.0); MEAN CORPUSCULAR HGB CONC 31.9 % (32.0-36.0); MONO % 3.7 % (0.0-8.0); NEUT % 94.6 % (16.0-70.0); PLATELET COUNT 24 TH/MM3 (150-450); POTASSIUM 4.4 MEQ/L (3.5-5.1); RED BLOOD COUNT 3.18 MIL/MM3 (4.00-5.30); SODIUM (NA) 147 MEQ/L (136-145); WHITE BLOOD COUNT 21.5 TH/MM3 (4.0-11.0)
[2017-06-12 05:57] LABS: ALKALINE PHOSPHATASE 296 U/L (45-117)
[2017-06-12] MEDS: FREE WATER G-TUBE SCH ×4 (06:00→17:48)
[2017-06-12] MEDS: hydrALAZINE HCL 50 MG TAB PO SCH ×3 (06:33→20:28)
[2017-06-12 06:46] LABS: HEMO FLAGS AUTO DIFF
[2017-06-12] MEDS: POTASSIUM CHLORIDE 20 MEQ CONTROLLED RELEASE TAB PO SCH ×2 (09:00→20:28)
[2017-06-12] MEDS: amLODIPine BESYLATE 5 MG TAB PO SCH (09:00)
[2017-06-12] MEDS: VENLAFAXINE HCL XR 37.5 MG CAP PO SCH (09:00)
[2017-06-12 09:13] LABS: BANDS 13 % (0-6); NEUTROPHIL # MANUAL DIFF 19.4 TH/MM3 (1.8-7.7); POLYS (SEG NEUTROPHILS) 77 % (16-70); WBC DIFF SAMPLE 100
[2017-06-12 09:14] LABS: OVALOCYTES 1+ (NORMAL); PLATELET ESTIMATE SMEAR LOW (NORMAL); PLATELET MORPHOLOGY NORMAL (NORMAL); SCAN/DIFF FINAL DIFF MANUAL
[2017-06-12] MEDS: fentaNYL DRIP 250 ML IV PRN (09:45)
[2017-06-12] MEDS: SODIUM CHLORIDE 0.9% FLUSH 10 ML FLUSH IV FLUSH SCH ×2 (09:47→20:28)
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
[2017-06-12] MEDS: PANTOPRAZOLE SODIUM 40 MG VIAL IV PUSH SCH (17:48)
[2017-06-13] VITALS (21 sets, daily range): BP systolic 123–151; BP diastolic 57–66; PULSE 63–90; RESP 19–38; TEMP 97.7–98.7; O2SAT 94–98
[2017-06-13] MEDS: INSULIN NovoLIN REGULAR SUPPLEMENTAL SCALE SQ SCH ×6 (04:00→20:00)
[2017-06-13] MEDS: CHLORHEXIDINE GLUCONATE 2 % 1 PACK (2 CLOTHS)(taper/protocol) TOPICAL SCH (04:00)
[2017-06-13] MEDS: FREE WATER G-TUBE SCH ×4 (06:00→17:51)
[2017-06-13] MEDS: hydrALAZINE HCL 50 MG TAB PO SCH ×3 (06:42→22:20)
[2017-06-13] MEDS: POTASSIUM CHLORIDE 20 MEQ CONTROLLED RELEASE TAB PO SCH (09:00)
[2017-06-13] MEDS: amLODIPine BESYLATE 5 MG TAB PO SCH (09:00)
[2017-06-13] MEDS: VENLAFAXINE HCL XR 37.5 MG CAP PO SCH (09:00)
[2017-06-13] MEDS: SODIUM CHLORIDE 0.9% FLUSH 10 ML FLUSH IV FLUSH SCH ×2 (09:14→22:20)
[2017-06-13] MEDS: fentaNYL DRIP 250 ML IV PRN (09:16)
[2017-06-13] MEDS: PANTOPRAZOLE SODIUM 40 MG VIAL IV PUSH SCH (17:51)
[2017-06-13] MEDS: DILTIAZEM INJ 125 MG in SODIUM CHLORIDE 0.9% INJ 100 ML IV PRN (17:53)
[2017-06-14] VITALS (38 sets, daily range): BP systolic 117–167; BP diastolic 57–70; PULSE 60–77; RESP 19–37; TEMP 97.6–98.6; O2SAT 88–95
[2017-06-14] MEDS: fentaNYL DRIP 250 ML IV PRN ×2 (01:15→17:46)
[2017-06-14] MEDS: CHLORHEXIDINE GLUCONATE 2 % 1 PACK (2 CLOTHS)(taper/protocol) TOPICAL SCH (04:00)
[2017-06-14] MEDS: INSULIN NovoLIN REGULAR SUPPLEMENTAL SCALE SQ SCH ×6 (04:00→20:00)
[2017-06-14] MEDS: FREE WATER G-TUBE SCH ×5 (06:00→22:45)
[2017-06-14] MEDS: hydrALAZINE HCL 50 MG TAB PO SCH ×3 (06:00→22:43)
[2017-06-14] MEDS: amLODIPine BESYLATE 5 MG TAB PO SCH (07:44)
[2017-06-14] MEDS: SODIUM CHLORIDE 0.9% FLUSH 10 ML FLUSH IV FLUSH SCH ×2 (07:52→22:45)
[2017-06-14] MEDS: VENLAFAXINE HCL XR 37.5 MG CAP PO SCH (07:53)
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
[2017-06-14] MEDS: PANTOPRAZOLE SODIUM 40 MG VIAL IV PUSH SCH (17:34)
[2017-06-15] VITALS (34 sets, daily range): BP systolic 115–171; BP diastolic 57–77; PULSE 54–99; RESP 18–25; TEMP 94.2–97.9; O2SAT 91–96
[2017-06-15] MEDS: DILTIAZEM INJ 125 MG in SODIUM CHLORIDE 0.9% INJ 100 ML IV PRN (00:10)
[2017-06-15] MEDS: INSULIN NovoLIN REGULAR SUPPLEMENTAL SCALE SQ SCH ×6 (04:00→19:54)
[2017-06-15] MEDS: FREE WATER G-TUBE SCH ×3 (06:00→17:41)
[2017-06-15] MEDS: hydrALAZINE HCL 50 MG TAB PO SCH ×2 (06:20→14:00)
[2017-06-15] MEDS: VENLAFAXINE HCL XR 37.5 MG CAP PO SCH (08:28)
[2017-06-15] MEDS: fentaNYL DRIP 250 ML IV PRN ×2 (08:29→19:54)
[2017-06-15] MEDS: SODIUM CHLORIDE 0.9% FLUSH 10 ML FLUSH IV FLUSH SCH ×2 (08:30→19:56)
[2017-06-15] MEDS: amLODIPine BESYLATE 5 MG TAB PO SCH (09:22)
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
[2017-06-15] MEDS: PANTOPRAZOLE SODIUM 40 MG VIAL IV PUSH SCH (17:41)
[2017-06-16] VITALS (10 sets, daily range): BP systolic 96–137; BP diastolic 53–60; PULSE 0–83; RESP 19–28; TEMP 94.4–97.1; O2SAT 90–96
[2017-06-16] MEDS: hydrALAZINE HCL 50 MG TAB PO SCH ×2 (01:08→05:59)
[2017-06-16] MEDS: INSULIN NovoLIN REGULAR SUPPLEMENTAL SCALE SQ SCH ×3 (03:20→08:33)
[2017-06-16] MEDS: FREE WATER G-TUBE SCH ×2 (05:59)
[2017-06-16] MEDS: fentaNYL DRIP 250 ML IV PRN (06:07)
[2017-06-16] MEDS: amLODIPine BESYLATE 5 MG TAB PO SCH (08:24)
[2017-06-16] MEDS: VENLAFAXINE HCL XR 37.5 MG CAP PO SCH (08:24)
[2017-06-16] MEDS: SODIUM CHLORIDE 0.9% FLUSH 10 ML FLUSH IV FLUSH SCH (08:34)
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
--- NOTE | 2017-06-16 15:47 | DEATH SUM ---
Summary Demographics Date Pronounced : Jun 16, 2017 Time Of : 0858 Pronounced By: Kaitlin Beasley RN Preliminary Cause of : Cardiac arrest Andreina Middleton MD Jun 16, 2017 15:47
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
== END 2017-06-16 09:00 | disposition expired | DRG 853 ==
LOC: PHED 19:27 → PHEDA 22:33 → PHEDH 05-28 02:33 → PHICU 05-28 15:30 → HIMN 05-30 18:10 → N04B 06-04 17:36 → HIMN 06-09 02:55
PROVIDERS: ADMIT Internal Medicine Critical Care Medicine; ATTEND Internal Medicine Critical Care Medicine
PROC: 07BC3ZX Excision of Pelvis Lymphatic, Percutaneous Approach, Diagnostic (ICD-10-PCS; 2017-06-02)
PROC: 0GBH3ZX Excision of Right Thyroid Gland Lobe, Percutaneous Approach, Diagnostic (ICD-10-PCS; 2017-06-03)
PROC: 30233N1 Transfusion of Nonautologous Red Blood Cells into Peripheral Vein, Percutaneous Approach (ICD-10-PCS; 2017-06-07)
PROC: 0BH17EZ Insertion of Endotracheal Airway into Trachea, Via Natural or Artificial Opening (ICD-10-PCS; principal; 2017-06-09)
PROC: 5A1955Z Respiratory Ventilation, Greater than 96 Consecutive Hours (ICD-10-PCS; 2017-06-09)
PROC: 02HV33Z Insertion of Infusion Device into Superior Vena Cava, Percutaneous Approach (ICD-10-PCS; 2017-06-09)
PROC: B548ZZA Ultrasonography of Superior Vena Cava, Guidance (ICD-10-PCS; 2017-06-09)
DX: A41.9 Sepsis, unspecified organism (principal); J96.01 Acute respiratory failure with hypoxia; N17.9 Acute kidney failure, unspecified; G93.41 Metabolic encephalopathy; C77.4 Secondary and unspecified malignant neoplasm of inguinal and lower limb lymph nodes; S32.592A Other specified fracture of left pubis, initial encounter for closed fracture; E87.0 Hyperosmolality and hypernatremia; C78.02 Secondary malignant neoplasm of left lung; C78.01 Secondary malignant neoplasm of right lung; D69.6 Thrombocytopenia, unspecified; N39.0 Urinary tract infection, site not specified; E83.52 Hypercalcemia; I48.91 Unspecified atrial fibrillation; R65.20 Severe sepsis without septic shock; W10.9XXA Fall (on) (from) unspecified stairs and steps, initial encounter; C73 Malignant neoplasm of thyroid gland; Z91.19 Patient's noncompliance with other medical treatment and regimen; I16.0 Hypertensive urgency; R31.0 Gross hematuria; D64.9 Anemia, unspecified; N88.8 Other specified noninflammatory disorders of cervix uteri; E78.5 Hyperlipidemia, unspecified; I10 Essential (primary) hypertension; E05.90 Thyrotoxicosis, unspecified without thyrotoxic crisis or storm; E87.6 Hypokalemia; R74.8 Abnormal levels of other serum enzymes; Z66 Do not resuscitate; Z51.5 Encounter for palliative care; I46.9 Cardiac arrest, cause unspecified; E07.81 Sick-euthyroid syndrome; E66.9 Obesity, unspecified; Z68.34 Body mass index [BMI] 34.0-34.9, adult; Z80.1 Family history of malignant neoplasm of trachea, bronchus and lung; Z80.3 Family history of malignant neoplasm of breast; F41.9 Anxiety disorder, unspecified; T42.4X5A Adverse effect of benzodiazepines, initial encounter
CPT/HCPCS: 31500; 36430; 36556; 36600; 38505; 60100; 70450; 70486; 70553; 71010; 71275; 72125; 73502; 73610; 73700; 74000; 74177; 76937; 76942; 77012; 80048; 80053; 80076; 80307; 81001; 82140; 82308; 82397; 82550; 82552; 82607; 82652; 82668; 82728; 82746; 82805; 82948; 83010; 83036; 83540; 83550; 83605; 83615; 83735; 83970; 84100; 84132; 84155; 84432; 84439; 84443; 84445; 84481; 84484; 85007; 85025; 85027; 85044; 85379; 85384; 85610; 85652; 85730; 86140; 86800; 86850; 86880; 86900; 86901; 86920; 87040; 87086; 87493; 87641; 88305; 88307; 88341; 88342; 90471; 90714; 93005; 93306; 94002; 94003; 94640; 94664; 95819; 96374; 96375; 99152; A9579; C9113; J0330; J0360; J0610; J0630; J0696; J1630; J1644; J1815; J1885; J2060; J2250; J2270; J2310; J2405; J2543; J2930; J3010; J3370; J3480; J3489; J7030; J7040; J7050; J7070; J7613; P9016; P9047; Q0177; Q9963; Q9967